=== PATIENT | female | born 1970 | race Caucasian/White ===

== ENCOUNTER 2017-04-19 07:38 | Observation (INO) | payer BC ==
[2017-04-12 09:19] VITALS: BMI 23.8
[~2017-04-19 07:38] MED LIST: DEXAMETHASONE SOD PHOSPHATE 10 MG/ML 1 ML VIAL IV ONE; LACTATED RINGERS 1,000 ML IV SCH; MIDAZOLAM 2 MG/2 ML VIAL IV PRN; ONDANSETRON 4 MG/2 ML VIAL IVP ONE; Pre Op ABX Message 1 EACH MISC MISCELLANE ONE; SCOPOLAMINE 1.5MG/72HR PATCH TRANSDERM ONE
[2017-04-19] MEDS ORDERED: HEPARIN SODIUM,PORCINE 5,000 UNIT/ML 1 ML VIAL SQ ONE (08:03)
[2017-04-19] MEDS ORDERED: ceFAZolin 2,000 MG in SODIUM CHLORIDE 0.9% 100 ML IVPB ONE (08:15)
[2017-04-19] MEDS ORDERED: LIDOCAINE 1% 20 ML VIAL (10MG/ML) FOR IV START INTRADERMA ONE (08:25)
[2017-04-19] MEDS ORDERED: ceFAZolin 1,000 MG in DEXTROSE/WATER 1 50ML.BAG IVPB STA (08:30)
[2017-04-19] MEDS ORDERED: ceFAZolin 2 GM in SODIUM CHLORIDE 0.9% 100 ML IVPB ONE (08:45)
[2017-04-19] MEDS ORDERED: ONDANSETRON 4 MG/2 ML VIAL ONE (09:15)
[2017-04-19] MEDS ORDERED: fentaNYL (PF) 50 MCG/ML 2 ML AMP ONE (09:15)
[2017-04-19] MEDS ORDERED: MIDAZOLAM 2 MG/2 ML VIAL ONE (09:15)
[2017-04-19] MEDS ORDERED: HYDROmorphone (PF) 1 MG/ML ONE (09:15)
[2017-04-19] MEDS ORDERED: PHENYLEPHRINE-0.9% NACL SYG 1 MG/10 ML SYRINGE ONE (09:15)
[2017-04-19] MEDS ORDERED: PROPOFOL 10 MG/ML 20 ML VIAL IV ONE (09:15)
[2017-04-19] MEDS ORDERED: SUCCINYLCHOLINE CHLORIDE 100 MG/5 ML SYR IV ONE (09:15)
[2017-04-19] MEDS ORDERED: LABETALOL 5 MG/ML VIAL MDV ONE (09:15)
[2017-04-19] MEDS ORDERED: ONDANSETRON 4 MG/2 ML VIAL IVP PRN (11:44)
[2017-04-19] MEDS ORDERED: NALOXONE 0.4 MG/ML 1 ML VIAL IV PRN (11:44)
--- NOTE | 2017-04-19 11:44 | P.OP ---
Date of Procedure: 04/19/17 Preoperative Diagnosis: Left breast cancer with known positive left axillary lymph node Postoperative Diagnosis: Same Procedure(s) Performed: Bilateral mastectomy with left axillary node dissection, and immediate implant reconstruction Implants: Implants placed by Dr. Weems Anesthesia: OLIVIER Surgeon: Nai Wagoner Estimated Blood Loss (ml): 25 Pathology: other (Bilateral breast, left axillary contents) Condition: stable Disposition: PACU Indications for Procedure: Left breast cancer Operative Findings: Bilateral dense breast tissue, dense axillary tissue with palpable axillary lymph nodes Description of Procedure: Patient is a 47-year-old white female with a history of left breast cancer treated by neoadjuvant chemotherapy. She wishes for bilateral mastectomy and reconstruction. She is a former smoker and realizes she is at increased risk for complications related to reconstruction however wishes to proceed. She has had conversation at length with Dr. Tapia with respect to this. Patient was taken to the operating room and following induction of general anesthesia both breasts and left axilla were prepped and draped in a sterile fashion. The breasts were marked by Dr. Tapia plastic surgery prior to operative intervention. The right breast was approached through a skin sparing circumareolar incision. Incision was carried down through the skin and subcutaneous tissue to the breast tissue. Circumferential skin flaps were developed superiorly to the level of the clavicle medially to the sternum, inferiorly and laterally. The breast was then taken from the fascia on the pectoralis major muscle. Following this after assured that hemostasis was attained the wound was well irrigated. Additional inferolateral tissue was removed. After assured that hemostasis was attained was packed and the approach the left breast. Again circumareolar incision was made and skin flaps were developed superiorly to the level of the clavicle, inferiorly to the chest wall the sternum and laterally towards the axilla. The breast was then taken down from its fascial attachments to the pectoralis major muscle. After assured that hemostasis was attained the wound was well irrigated. And the left axilla was then approached Incision was made in the left axilla. Superior skin flap was developed. The pectoralis major muscle was identified as was the area of the pectoralis minor muscle and followed superiorly to the axillary vein. The axillary contents were noted to be somewhat inflamed. The thoracodorsal and long thoracic nerves were identified and preserved. The axillary contents were swept inferiorly preserving intercostal brachial nerves as possible. After assured that hemostasis was attained a PRETTY drain was placed. The deep tissues were closed using 3-0 Vicryl suture. This was followed by closure of the skin with 4-[address]ocryl. At this point Dr. Tapia came in to do the reconstruction.
[2017-04-19] MEDS ORDERED: ALBUTEROL NEBULIZED 2.5 MG/3 ML INHALATION ONE (12:20)
[2017-04-19] MEDS: HYDROmorphone 1 MG/ML 1 ML SYRINGE IVP PRN ×3 (13:40→14:48)
[2017-04-19] MEDS: HYDROcodone/APAP 5-325MG 1 EACH TAB PO PRN (14:01)
[2017-04-19] MEDS ORDERED: LACTATED RINGERS 1,000 ML IV ONE (14:28)
[2017-04-19] MEDS: HEPARIN SODIUM,PORCINE 5,000 UNIT/ML 1 ML VIAL SQ SCH (16:58)
[2017-04-19] MEDS: DEXTROSE 5%-0.45% NACL 1,000 ML IV SCH (16:58)
[2017-04-19] MEDS: ceFAZolin 1,000 MG in DEXTROSE/WATER 1 50ML.BAG IVPB SCH ×2 (16:58→21:11)
[2017-04-19] MEDS: HYDROmorphone 1 MG/ML 1 ML SYRINGE IV PRN ×2 (16:59→21:13)
[2017-04-19] MEDS: FAMOTIDINE 20 MG TAB PO SCH (21:11)
[2017-04-20] MEDS: HYDROmorphone 1 MG/ML 1 ML SYRINGE IV PRN ×3 (00:07→05:55)
[2017-04-20] MEDS: HEPARIN SODIUM,PORCINE 5,000 UNIT/ML 1 ML VIAL SQ SCH ×4 (00:08→23:14)
[2017-04-20] MEDS ORDERED: ALBUTEROL NEBULIZED 2.5 MG/3 ML INHALATION PRN (02:44)
[2017-04-20] MEDS: ceFAZolin 1,000 MG in DEXTROSE/WATER 1 50ML.BAG IVPB SCH ×4 (03:07→21:48)
[2017-04-20] MEDS: DEXTROSE 5%-0.45% NACL 1,000 ML IV SCH ×3 (03:07→22:03)
[2017-04-20] MEDS ORDERED: OFIRMEV PER PHARMACY MISCELLANE PRN (06:42)
[2017-04-20] MEDS ORDERED: ACETAMINOPHEN IV (For NPO) 1,000 MG in EMPTY BAG 1 BAG IVPB PRN (06:43)
[2017-04-20] MEDS: HYDROmorphone 1 MG/ML 1 ML SYRINGE IVP PRN ×5 (06:53→21:49)
--- NOTE | 2017-04-20 09:40 | P.CNPUL ---
History of Present Illness Consult date: 04/20/17 Requesting physician: Nai Wagoner Reason for consult: asthma Chief complaint: shortness of breath History of present illness: This is a pleasant 47-year-old female being seen, examined and evaluated today on the sixth floor. This patient is known to our office and our services. The patient was recently had bilateral breast mastectomy with left axillary lymph node dissection as well as implant reconstruction on 04/19/2017. She previously completed 8 rounds of chemotherapy. The patient states that a few days prior to surgery she did have complaints of a postnasal drip with cough and congestion. She states that after the surgery was completed her asthma flaredup in her cough and congestion increased. Patient states she has been blowing yellow and green drainage out of her nose. Her head feels congested. Her cough is productive however she is unable to adequately cough to bring up secretions due to pain from surgery. She has been afebrile. Appetite has been good. She does take DuoNeb at home. Patient is currently resting up in bed on supplemental oxygen, the patient does not use oxygen at home. The patient does have a past medical history significant for breast cancer, chronic persistent moderate asthma, COPD, anxiety and depression. Review of Systems 14 point review of systems was completed and is negative other than what is noted above Past Medical History Past Medical History: Asthma, Cancer, COPD Additional Past Medical History / Comment(s): breast ca, has finished 8 chemo tx , Hx of CLL, states always has elevated WBC's History of Any Multi-Drug Resistant Organisms: None Reported Past Surgical History: Orthopedic Surgery Additional Past Surgical History / Comment(s): right hand thumb tendon sx. pilinoidal cyst removed, lung bx Past Anesthesia/Blood Transfusion Reactions: No Reported Reaction Past Psychological History: Anxiety, Depression, Panic Disorder Smoking Status: Former smoker - Past Family History Mother Family Medical History: Cancer, Deep Vein Thrombosis (DVT) Additional Family Medical History / Comment(s): leukemia Medications and Allergies Home Medications Medication Instructions Recorded Confirmed Type Albuterol Sulfate [Ventolin HFA] 2 puff INHALATION RT-Q4H PRN 04/12/17 04/20/17 History Ipratropium-Albuterol Nebulize 3 ml INHALATION RT-Q6H PRN 04/12/17 04/20/17 History [Duoneb 0.5 mg-3 mg/3 ml Soln] Nicotine 21Mg/24Hr Patch [Habitrol 1 patch TRANSDERM DAILY 04/12/17 04/20/17 History 21Mg/24Hr Patch] clonazePAM [KlonoPIN] 0.5 mg PO DAILY PRN 04/12/17 04/20/17 History Allergies Allergy/AdvReac Type Severity Reaction Status Date / Time No Known Allergies Allergy Verified 04/19/17 08:04 Physical Exam Vitals: Vital Signs Temp Pulse Pulse Resp BP Pulse Ox 04/20/17 03:30 97.3 F L 92 18 121/79 94 L 04/20/17 00:00 98.7 F 88 20 120/80 92 L 04/19/17 20:10 97.0 F L 86 16 148/90 96 04/19/17 19:18 74 16 152/88 96 04/19/17 18:18 93 16 134/86 94 L 04/19/17 17:18 103 H 16 141/90 94 L 04/19/17 16:38 103 H 16 161/95 94 L 04/19/17 16:08 83 16 132/76 96 04/19/17 15:53 102 H 16 134/93 91 L 04/19/17 15:39 103 H 14 129/90 92 L 04/19/17 15:29 97.5 F L 103 H 16 132/89 93 L 04/19/17 14:45 98 16 144/76 94 L 04/19/17 14:30 96 16 144/85 93 L 04/19/17 14:15 97 18 149/89 92 L 04/19/17 14:00 104 H 18 152/92 94 L 04/19/17 13:45 102 H 16 135/90 91 L 04/19/17 13:30 100 20 140/89 95 04/19/17 13:15 116 H 20 144/82 88 L 04/19/17 13:02 98.8 F 131 H 16 155/93 Intake and Output 04/19/17 04/20/17 04/20/17 22:59 06:59 14:59 Intake Total 800 Output Total 120 140 Balance -120 660 Intake: Intake, IV Titration 800 Amount Dextrose 5%-0.45% NaCl 1, 800 000 ml @ 100 mls/hr IV . Q10H [facility] Rx#:[id number] Output: Drainage 120 140 Left Lower Chest 30 30 Left Upper Chest 40 50 Right Lower Chest 50 60 Other: # Voids 2 1 GENERAL EXAM: Alert, active, comfortable in no apparent distress. HEAD: Normocephalic. EYES: Normal reaction of pupils, equal size. NOSE: Clear drainage present with pink turbinates. THROAT: No erythema or exudates. NECK: No masses, no JVD. CHEST: No chest wall deformity. 2 PRETTY drains present, draining serosanguineous fluid. LUNGS: Lungs noted to be coarse, rhonchi and wheezes scattered throughout bilaterally. CVS: S1 and S2 normal with no audible mumurs, regular rhythm. ABDOMEN: No hepatosplenomegaly, normal bowel sounds, no guarding or rigidity. EXTREMITIES: No edema noted, pedal pulses palpable. SKIN: No rashes CENTRAL NERVOUS SYSTEM: No focal deficits, tone is normal in all 4 extremities. Assessment and Plan Plan: Assessment Status post bilateral mastectomy Acute exacerbation of chronic persistent moderate asthma Acute sinusitis Chronic obstructive pulmonary disease History of breast cancer Plan Medications have been reviewed and will be continued as ordered. We will add DuoNeb and budesonide nebulizer treatments. We will add IV steroids for a quick steroid burst, may switch to oral tomorrow. Obtain a chest x-ray. Continue with pulmonary hygiene, coughing and deep breathing exercises, and supportive care. May utilize supplemental oxygen to maintain oxygen saturations of 92% or better if necessary. Encourage incentive spirometer. Encourage ambulation. GI and DVT prophylaxis. We will continue to monitor labs/ results and adjust treatment as necessary. Further recommendations pending. I performed an examination of the patient and discussed their management with the nurse practitioner. I have reviewed the nurse practitioner's note and agree with the documented findings and plan of care.
--- NOTE | 2017-04-20 09:53 | XR ---
EXAMINATION TYPE: XR chest 2V DATE OF EXAM: 04/20/2017 COMPARISON: NONE HISTORY: Shortness of breath TECHNIQUE: Frontal and lateral views of the chest are obtained. FINDINGS: There is bilateral mastectomy with beverage steward is in drains in place. Small pleural effusions are seen bilaterally with probable underlying atelectasis. Developing infiltr ates would be difficult to exclude. No evidence for pneumothorax. No pleural effusion. The cardiac silhouette size is within normal limits. The osseous structures are grossly intact. IMPRESSION: 1. Small pleural effusions are seen bilaterally with probable underlying atelectasis. Developing inf iltrates would be difficult to exclude.
--- NOTE | 2017-04-20 10:02 | P.PN ---
Subjective 47-year-old female being seen and examined with the surgeon at the bedside this morning. Patient states that she's feels slightly short of breath this morning. has a history of COPD and uses a nebulizer at home. Patient is postop April 19 bilateral mastectomy with left axillary node dissection and immediate implant reconstruction for left breast cancer with positive left axillary lymph node. Implants were placed by Dr. thompson. This morning the patient is audibly wheezing is afebrile pulse ox sat on 3 L this morning 92-93%. Patient did have an episode yesterday afternoon pulse ox sat on room air did go down to 88% with pulmonary toileting using the incentive spirometer the patient's pulse ox sat was able to be titrated to keep greater than 90% no cough noted Objective - Vital Signs Vital signs: Vital Signs Temp 97.3 F L 04/20/17 03:30 Pulse 92 04/20/17 03:30 Resp 18 04/20/17 03:30 BP 121/79 04/20/17 03:30 Pulse Ox 94 L 04/20/17 03:30 Intake & Output 04/19/17 04/20/17 04/20/17 18:59 06:59 18:59 Intake Total 2100 800 Output Total 395 140 Balance 1705 660 Intake: IV 2100 Intake, IV Titration 800 Amount Dextrose 5%-0.45% NaCl 1, 800 000 ml @ 100 mls/hr IV . Q10H [facility] Rx#:[id number] Output: Drainage 120 140 Left Lower Chest 30 30 Left Upper Chest 40 50 Right Lower Chest 50 60 Urine 240 Estimated Blood Loss 35 Other: # Voids 1 - Exam GENERAL APPEARANCE: 47-year-old female patient is alert, oriented, in no acute distress. VITAL SIGNS: Reviewed HEENT: Head is normocephalic and atraumatic. Pupils are equal and reactive. The nares are patent. Oropharynx is clear without lesions. NECK: Supple without lymphadenopathy. Traches midline. Breast 2 PRETTY drains in the left breast 1 PRETTY drain in the right breast serous drainage noted dressings to the surgical site dry support bra in place HEART: S1, S2. Regular rate and rhythm. Denying chest LUNGS: Diminished at the bases upper airways coarse rhonchi with bilateral wheezing noted throughout ABDOMEN: Soft, nontender, nondistended with good bowel sounds. No peritoneal signs. No palpable organomegaly or masses. EXTREMITIES: Normal skin color and turgor. No cyanosis, rash, ulceration, clubbing or edema. Radial pedal pulses are 2/4 bilaterally. NEUROLOGICAL: No focal deficits. Strength and sensation are grossly intact. Assessment and Plan Plan: Impression Acute exacerbation of chronic persistent moderate asthma Acute exacerbation COPD Acute sinusitis Bilateral mastectomy with left axillary node dissection and immediate implant reconstruction done on April 19 for left breast cancer with known positive left axillary lymph node Seasonal ALLERGIES plan Consult pulmonary for eval Increase activity Pain control Nebulizer aerosol bronchodilators as ordered Increase use of incentive spirometer Claritin for seasonal ALLERGIES and sinusitis Prepped for probable discharge in the next 24 hours The above impression and plan of care have been discussed and directed by signing physician. Apurva Guevara nurse practitioner acting as scribe for signing physician.
[2017-04-20] MEDS: FAMOTIDINE 20 MG TAB PO SCH ×2 (10:09→21:48)
[2017-04-20] MEDS: KETOROLAC 30 MG/ML 1 ML VIAL IVP SCH ×3 (10:39→23:14)
[2017-04-20] MEDS: HYDROcodone/APAP 5-325MG 1 EACH TAB PO PRN ×2 (10:40→15:16)
[2017-04-20 10:54] VITALS: RESP 20
[2017-04-20] MEDS ORDERED: IPRATROPIUM-ALBUTEROL 3 ML NEB INHALATION PRN (10:54)
--- NOTE | 2017-04-20 11:05 | P.CONS ---
History of Present Illness - Reason for Consult Consult date: 04/20/17 Medical management - History of Present Illness This is a 47-year-old female patient of Dr. Jaramillo with past medical history of left breast cancer status post chemotherapy followed by Dr. Devine. History of CLL and COPD. Patient has been brought into the hospital on the care of Dr. Erasmo Toussaint and Dr. Cook for bilateral mastectomy with left axillary node dissection and immediate implant reconstruction completed on 04/19. Patient has been afebrile and hemodynamically stable. Blood pressures are running on the high side with no previous history of hypertension. Pulse ox is currently 94% on room air. She is complaining of wheezing and followed by Dr. Chaudhari. Pulmicort was added. She ate regular diet for breakfast. No nausea or vomiting. She has not had bowel movement. She is urinating without difficulty. Patient encouraged to use IS. Review of Systems All systems: negative Constitutional: Denies chills, Denies fever Eyes: denies blurred vision, denies pain Ears, nose, mouth and throat: Denies headache, Denies sore throat Breasts: bilateral: pain Cardiovascular: Denies chest pain, Denies shortness of breath Respiratory: Reports wheezing, Denies cough Gastrointestinal: Denies abdominal pain, Denies diarrhea, Denies nausea, Denies vomiting Genitourinary: Denies dysuria, Denies hematuria Musculoskeletal: Denies myalgias Integumentary: Denies pruritus, Denies rash Neurological: Denies numbness, Denies weakness Psychiatric: Denies anxiety, Denies depression Endocrine: Denies fatigue, Denies weight change Past Medical History Past Medical History: Cancer, COPD Additional Past Medical History / Comment(s): left breast ca, has finished 8 chemo tx, Hx of CLL History of Any Multi-Drug Resistant Organisms: None Reported Past Surgical History: Orthopedic Surgery Additional Past Surgical History / Comment(s): right hand thumb tendon sx. pilinoidal cyst removed, lung bx, bilateral mastecomy Past Anesthesia/Blood Transfusion Reactions: No Reported Reaction Past Psychological History: Anxiety, Depression, Panic Disorder Smoking Status: Former smoker Additional Past Alcohol Use History / Comment(s): She was a smoker of 2 packs per day for 20 years and quit in March 2017. No history of drug abuse. Occasional alcohol use. - Past Family History Mother Family Medical History: Cancer, Deep Vein Thrombosis (DVT) Additional Family Medical History / Comment(s): in her 60s with history of dementia, chronic back pain, "preleukemia." Father Additional Family Medical History / Comment(s): Father is alive at age 72 with history of diabetes. Brother(s) Additional Family Medical History / Comment(s): Patient has 2 brothers with no major medical problems. Patient has 1 sister with no major medical problems. Patient does not have any children. Medications and Allergies Home Medications Medication Instructions Recorded Confirmed Type Albuterol Sulfate [Ventolin HFA] 2 puff INHALATION RT-Q4H PRN 04/12/17 04/20/17 History Ipratropium-Albuterol Nebulize 3 ml INHALATION RT-Q6H PRN 04/12/17 04/20/17 History [Duoneb 0.5 mg-3 mg/3 ml Soln] Nicotine 21Mg/24Hr Patch [Habitrol 1 patch TRANSDERM DAILY 04/12/17 04/20/17 History 21Mg/24Hr Patch] clonazePAM [KlonoPIN] 0.5 mg PO DAILY PRN 04/12/17 04/20/17 History Allergies Allergy/AdvReac Type Severity Reaction Status Date / Time No Known Allergies Allergy Verified 04/19/17 08:04 Physical Exam Vitals: Vital Signs Temp Pulse Pulse Resp BP Pulse Ox 04/20/17 03:30 97.3 F L 92 18 121/79 94 L 04/20/17 00:00 98.7 F 88 20 120/80 92 L 04/19/17 20:10 97.0 F L 86 16 148/90 96 04/19/17 19:18 74 16 152/88 96 04/19/17 18:18 93 16 134/86 94 L 04/19/17 17:18 103 H 16 141/90 94 L 04/19/17 16:38 103 H 16 161/95 94 L 04/19/17 16:08 83 16 132/76 96 04/19/17 15:53 102 H 16 134/93 91 L 04/19/17 15:39 103 H 14 129/90 92 L 04/19/17 15:29 97.5 F L 103 H 16 132/89 93 L 04/19/17 14:45 98 16 144/76 94 L 04/19/17 14:30 96 16 144/85 93 L 04/19/17 14:15 97 18 149/89 92 L 04/19/17 14:00 104 H 18 152/92 94 L 04/19/17 13:45 102 H 16 135/90 91 L 04/19/17 13:30 100 20 140/89 95 04/19/17 13:15 116 H 20 144/82 88 L 04/19/17 13:02 98.8 F 131 H 16 155/93 Intake and Output 04/19/17 04/20/17 04/20/17 22:59 06:59 14:59 Intake Total 800 Output Total 120 140 Balance -120 660 Intake: Intake, IV Titration 800 Amount Dextrose 5%-0.45% NaCl 1, 800 000 ml @ 100 mls/hr IV . Q10H [facility] Rx#:[id number] Output: Drainage 120 140 Left Lower Chest 30 30 Left Upper Chest 40 50 Right Lower Chest 50 60 Other: # Voids 2 1 Gen: This is a 47-year-old female. She is sitting up in bed and appears to be in no acute distress. HEENT: Head is atraumatic, normocephalic. Pupils equal, round. Sclerae is anicteric. NECK: Supple. No JVD. No lymphadenopathy. No thyromegaly. LUNGS: Bilateral wheezes and rhonchi. No intercostal retractions. HEART: Regular rate and rhythm. No murmur. Dressing and PRETTY drains in place to the bilateral breasts. ABDOMEN: Soft. Bowel sounds are present. No masses. No tenderness. EXTREMITIES: No pedal edema. No calf tenderness. NEUROLOGICAL: Patient is awake, alert and oriented x3. Cranial nerves 2 through 12 are grossly intact. Assessment and Plan Plan: 1. Left breast cancer with positive left axillary lymph node status post bilateral mastectomy with left axillary node dissection and immediate implant reconstruction. Continue postop management by general surgeon. Continue incentive spirometry to reduce incidence of atelectasis and hospital-acquired pneumonia. Patient has both [place] and Dilaudid available for pain. Continue Zofran as needed for nausea. 2. COPD exacerbation. DuoNeb treatments scheduled 3 times daily and as needed, Pulmicort 0.[address] Chaudhari is on consult. 3. Tobacco use and dependence. 4. Generalized anxiety disorder. Clonazepam will be resumed. 5. Tobacco use and dependence. Nicotine patch will be continued.. 6. DVT prophylaxis. Continue heparin subcu. 7. Gastric intestinal prophylaxis. Continue Pepcid. Discharge plan: Patient plans to return home Impression and plan of care have been directed as dictated by the signing physician. Gege Benton nurse practitioner acting as scribe for signing physician.
[2017-04-20] MEDS: BUDESONIDE 0.5 MG/2 ML NEBU INHALATION SCH ×2 (11:10→20:41)
[2017-04-20] MEDS ORDERED: clonazePAM 0.5 MG TAB PO PRN (11:15)
[2017-04-20] MEDS ORDERED: methylPREDNISolone SOD SUCCI 125 MG/2 ML VIAL IV SCH (12:00)
[2017-04-20] MEDS: NICOTINE 21MG/24HR PATCH TRANSDERM SCH (12:12)
[2017-04-20] MEDS: LORATADINE 10 MG TAB PO SCH (12:12)
[2017-04-20] MEDS: IPRATROPIUM-ALBUTEROL 3 ML NEB INHALATION SCH ×2 (13:49→20:41)
[2017-04-21] MEDS: HYDROmorphone 1 MG/ML 1 ML SYRINGE IVP PRN (01:03)
[2017-04-21] MEDS: ceFAZolin 1,000 MG in DEXTROSE/WATER 1 50ML.BAG IVPB SCH ×2 (03:15→08:23)
[2017-04-21] MEDS: HYDROcodone/APAP 5-325MG 1 EACH TAB PO PRN ×3 (03:19→11:15)
[2017-04-21] MEDS: KETOROLAC 30 MG/ML 1 ML VIAL IVP SCH ×2 (06:54→12:17)
--- NOTE | 2017-04-21 08:11 | P.DS ---
Providers Date of admission: 04/20/17 01:18 Expected date of discharge: 04/21/17 Attending physician: Nai Wagoner Consults: 04/20/17 06:58 Consult Physician Urgent Consulting Provider: Mabel Aragon Consult Reason/Comments: Medical management post mastectomy respiratory issues Do you want consulting provider notified?: Yes, Notify in am 04/20/17 08:38 Consult Physician Urgent Consulting Provider: Joey Chaudhari Consult Reason/Comments: post jose mastectomy, respiratory congestion, wheezing, hx asthma Do you want consulting provider notified?: Yes Primary care physician: [facility] Course: Patient is postop April 19 bilateral mastectomy with left axillary node dissection and immediate implant reconstruction for left breast cancer with positive left axillary lymph node. Implants were placed by Dr. thompson. the patient postop had an episode of audibly wheezing was afebrile pulse ox sat on room air did go down to 88%. With pulmonary toileting and the use of the incentive spirometer and starting DuoNeb respiratory treatments the oxygen was able to be titrated back up and on room air the sats were 92-95% patient states that she does have episodes of wheezing at home does have a nebulizer at home but is 1 out of the medication. Is a former smoker. Used to smoke 2 packs a day greater than a 20 year history quit in March 2017 patient was seen on the with pulmonary Dr. Chaudhari service lungs are clear there were no wheezing patient was able to ambulate from the bed to bathroom gait was steady. Patient was felt to be hemodynamically stable and appropriate to proceed with a discharge home. Patient is known to Dr. Chaudhari service be seen in the office on April 22 Impression Acute exacerbation of chronic persistent moderate asthma Acute exacerbation COPD Acute sinusitis Bilateral mastectomy with left axillary node dissection and immediate implant reconstruction done on April 19 for left breast cancer with known positive left axillary lymph node Seasonal ALLERGIES History of tobacco abuse greater than a 20 year history 1 pack a day quit in March 2017 Anxiety nonspecified Chronic persistent moderate asthma Chronic persistent moderate COPD Chest x-ray postop suspect atelectasis The above impression and plan of care have been discussed and directed by signing physician. Apurva Guevara nurse practitioner acting as scribe for signing physician. Plan - Discharge Summary New Discharge Prescriptions: New Cephalexin [Keflex] 500 mg PO Q8HR #30 cap Nicotine 21Mg/24Hr Patch [Habitrol] 1 patch TRANSDERM DAILY #30 patch Ipratropium-Albuterol Nebulize [Duoneb 0.5 mg-3 mg/3 ml Soln] 3 ml INHALATION QID #120 neb Continue clonazePAM [KlonoPIN] 0.5 mg PO DAILY PRN PRN Reason: Anxiety Ipratropium-Albuterol Nebulize [Duoneb 0.5 mg-3 mg/3 ml Soln] 3 ml INHALATION RT-Q6H PRN PRN Reason: Shortness Of Breath Albuterol Sulfate [Ventolin HFA] 2 puff INHALATION RT-Q4H PRN PRN Reason: Shortness Of Breath Nicotine 21Mg/24Hr Patch [Habitrol] 1 patch TRANSDERM DAILY #30 Discharge Medication List Albuterol Sulfate [Ventolin HFA] 2 puff INHALATION RT-Q4H PRN 04/12/17 [History] Ipratropium-Albuterol Nebulize [Duoneb 0.5 mg-3 mg/3 ml Soln] 3 ml INHALATION RT -Q6H PRN 04/12/17 [History] clonazePAM [KlonoPIN] 0.5 mg PO DAILY PRN 04/12/17 [History] Cephalexin [Keflex] 500 mg PO Q8HR #30 cap 04/21/17 [Rx] Ipratropium-Albuterol Nebulize [Duoneb 0.5 mg-3 mg/3 ml Soln] 3 ml INHALATION QID #120 neb 04/21/17 [Rx] Nicotine 21Mg/24Hr Patch [Habitrol] 1 patch TRANSDERM DAILY #30 04/21/17 [Rx] Nicotine 21Mg/24Hr Patch [Habitrol] 1 patch TRANSDERM DAILY #30 patch 04/21/17 [ Rx] Follow up Appointment(s)/Referral(s): Joey Chaudhari MD [STAFF PHYSICIAN] - 04/22/17 Nai Wagoner MD [STAFF PHYSICIAN] - 1 Week Pia Jaramillo MD [Primary Care Provider] - 1 Week Activity/Diet/Wound Care/Special Instructions: Instructions on care of [place] drains May shower No lifting over 10 pounds No submersion in water i.e. swimming pool, hot tub or rosales until seen by Dr. jose Toussaint in the office May return to work after seen by Dr. Zimmerman in the office Discharge Disposition: HOME SELF-CARE
--- NOTE | 2017-04-21 08:19 | XR ---
EXAMINATION TYPE: XR chest 1V portable DATE OF EXAM: 04/21/2017 Comparison: 04/20/2017 Clinical History: 47-year-old female with pleural effusion Findings: The heart is normal size. Some patchy retrocardiac opacity is similar. Right anterior chest wall inje ction port with catheter tip at the mid SVC level. On the vasculature within normal limits. Changes o f bilateral mastectomies with surgical drains and breast expanders in place. Minimal bibasilar densit ies relatively similar to prior. The previous effusions and adjacent opacity is better seen on the la teral view. Impression: Trace effusions with adjacent atelectasis and/or consolidation may remain. These were seen on the lat eral view on the prior exam. Patchy retrocardiac density remains.
[2017-04-21] MEDS: HEPARIN SODIUM,PORCINE 5,000 UNIT/ML 1 ML VIAL SQ SCH (08:25)
[2017-04-21] MEDS: NICOTINE 21MG/24HR PATCH TRANSDERM SCH (08:30)
[2017-04-21] MEDS: FAMOTIDINE 20 MG TAB PO SCH (08:30)
[2017-04-21] MEDS: LORATADINE 10 MG TAB PO SCH (08:30)
[2017-04-21] MEDS: BUDESONIDE 0.5 MG/2 ML NEBU INHALATION SCH (08:31)
[2017-04-21] MEDS: IPRATROPIUM-ALBUTEROL 3 ML NEB INHALATION SCH (08:31)
[2017-04-21 08:34] VITALS: BP 98/57; TEMP 97.8
[2017-04-21 11:20] VITALS: PULSE 96
--- NOTE | 2017-04-22 16:15 | OP ---
DATE OF SURGERY: 04/19/2017 SURGEON: JAY JAY VORA M.D. PREOPERATIVE DIAGNOSES: 1. Invasive breast cancer left breast. 2. Acquired loss right and left breast. POSTOPERATIVE DIAGNOSES: 1. Invasive breast cancer left breast. 2. Acquired loss right and left breast. OPERATIVE PROCEDURE: 1. Immediate reconstruction right breast following mastectomy with insertion of tissue daytime caregiver and subsequent outpatient expansion. 2. Immediate reconstruction left breast following mastectomy with insertion of tissue daytime caregiver and subsequent outpatient expansion. 3. Implantation of reconstructive graft for right and left breast reconstruction, 300 square centimeters. OPERATIVE INDICATIONS: The patient is a 47 year old female with invasive cancer of the left breast who has undergone presurgical chemotherapy and was referred to my office for breast reconstruction purposes. The patient was counselled potential options for breast reconstruction including no reconstruction at this time, use of bra with mammary prosthesis, as well as surgical reconstruction techniques including tissue expansion and reconstructive flaps style surgery. The patient understands there are significant and potential risks and complications related to breast reconstructive surgery and that she does have risks for wound healing problems related to her past habitual tobacco use. She has recently stopped. After thoughtful evaluation, she has elected to proceed with a tissue daytime caregiver style reconstruction technique. She understands this technique is performed in a staged fashion and if she does require postoperative radiation treatment, delay in reconstruction will occur and it may also make tissue daytime caregiver reconstruction not possible. Despite these potential risks and complications and problems mentioned among others, she has elected to proceed with breast reconstructive surgery via tissue daytime caregiver technique following today's mastectomy procedures. OPERATIVE PROCEDURE SUMMARY: The patient was seen in presurgical area, markings made, procedure reviewed. All questions were answered. She was transported to the operating room where general endotracheal anesthesias was established. The patient was supine on the operating room table. She was prepped and draped in the usual fashion. All surgery was performed under Loupe magnification. Dr. Campos and her surgical team then proceeded with a right simple mastectomy, left mastectomy and left axillary lymph node dissection. Once these procedures were completed, I then entered the procedure. Sponge and needle counts from prior procedures were correct. Both mastectomy wounds were opened. There was no active bleeding. The left axillary lymph node dissection plane was a separate incision. A 19 round Shad drain present and the site was closed by Dr. Campos. Surgery was initiated on the right sided after new instruments were obtained. The pectoral major muscle was identified ( ) in the chest wall in the lateral aspect and ( ) areolar connective tissue divided with cauterization here allowing entrance into the potential plane between the pectoralis major and minor muscles bluntly developed. Medial attachment fibers of the pectoralis major muscles of the ribs and all inferior attachments were released with cauterization. Inferiorly, additional muscle tissue was recruited to obtain sufficient size reconstructive plane. Inferomedially rectus abdominis muscle and fascia, inferolaterally, external ( ) oblique muscle and fascia, laterally serratus interior muscle and fascia were all elevated. There is some attenuation of the patient's muscle tissue and also some rents present. For the most part, the muscle tissue was thin although present and viable. Hemostasis was maintained with cautery during the dissection. The site was packed ope with moistened laparotomy sponges. Attention was turned towards the left side. The same portion of the procedure accomplished on the left identifying the pectoral major muscle ( ) the chest wall laterally and this areolar connective tissue was divided with cautery allowing entry into the potential plane between the pectoralis major and minor muscles which was first bluntly developed and then completed with cauterization releasing all medial attachment fibers of the pectoralis major muscle of the ribs with cautery and all inferior attachments with cautery as well. Inferomedially, rectus abdominis muscle and fascia inferolaterally, external abdominal oblique muscle and fascia and laterally serratus anterior muscle and fascia were all elevated to obtain a sufficient size submuscular reconstructive plane and in a symmetrical fashion to the right side. Hemostasis was maintained with cautery during dissection. Irrigation was performed on each side. The cavities were sized and checked for symmetry which was optimal. Gloves were now changed. Expanders opened onto the field. Both expanders were the same measuring 300 mL in volume from the cliniq.ly, reference number [id number]. The right sided serial number was [id number] and the left sided serial number was [id number]. The right sided device was opened first. Only handled by the surgeon with new gloves. All air was extracted. 25 mL 0.9 normal saline instilled and inserted into the reconstructive cavity deep to the muscle flap. The muscle flap accommodated the daytime caregiver, however, there were tears in the muscle flap and some exposure of the daytime caregiver at this point. The gloves were changed and the left sided daytime caregiver opened up onto the field. Again , the daytime caregiver was only handled by the surgeon. Irrigated with saline. All air extracted and then 25 mL of 0.9 normal saline instilled. It was inserted into the left reconstructive submuscular plane created. The muscle tissue did accommodate the daytime caregiver. However, there were tears and attenuation of this muscle flap tissue as well. Therefore, Surgimend reconstructive graft was opened. Two pieces, each measuring 10 x 15 cm thin and fenestrated. Once revitalized, and ( )saline, one piece was used for each side to buttress the weakened muscle flap tissue was well as expand the gap where the muscle flap tissue was not presented. Oriented inferior sling technique, the Surgimend was placed deep to the muscle flap tissue for overlapping purposes and the buttress effect and then expand the gap where the muscle flap tissue was now present on each side. Once the Surgimend was inserted on each side, and optimally positioned, Surgimend was then set to the muscle flap tissue using interrupted and short running 3-0 Vicryl sutures. complete coverage was obtained on each side. Additional irrigation was performed. Two #19 round Shad channel drains inserted, opened on the field, one of each placed on each mastectomy site over the muscle flap area and brought out through separate stab incisions in the right or left anterior lateral chest wall. Each drain was sutured into place with 2-0 Prolene. Drains were cut to appropriate length. The mastectomy wounds were now closed. Circumareolar mastectomies were performed. The mastectomy, open mastectomy wounds were closed in an pursestring fashion using 2 -0 Prolene and deep dermal pursestring style suture. With fine approximation, the deep dermis where necessary using inverted interrupted 4-0 Monocryl and then completing the skin level closure with interrupted bryant. Drains were connected to close bulb suction and patent. The surgical field was cleansed with saline, dried, postoperative bandages placed using 4 x 4's. Kerlix gauge secured with three Mediport tape. The patient was then awakened from her anesthetic, extubated and transferred to the recovery room in good condition with stable vital signs. There were no complications. [facility]OSPITALRosaura
== END 2017-04-21 12:48 | disposition home or self-care (01) ==
LOC: OR 07:38 → 6PED 13:02 → OR 04-20 01:18 → 6PED 04-20 01:18
PROVIDERS: ADMIT Surgery; ATTEND Surgery
DX: Z42.1 Encounter for breast reconstruction following mastectomy (principal); C50.912 Malignant neoplasm of unspecified site of left female breast; Z90.13 Acquired absence of bilateral breasts and nipples; J44.1 Chronic obstructive pulmonary disease with (acute) exacerbation; J01.90 Acute sinusitis, unspecified; J45.41 Moderate persistent asthma with (acute) exacerbation; J90 Pleural effusion, not elsewhere classified; R59.0 Localized enlarged lymph nodes; F41.0 Panic disorder [episodic paroxysmal anxiety]; F32.9 Major depressive disorder, single episode, unspecified; Z85.6 Personal history of leukemia; Z92.21 Personal history of antineoplastic chemotherapy; Z72.0 Tobacco use; Z83.3 Family history of diabetes mellitus; Z17.0 Estrogen receptor positive status [ER+]
CPT/HCPCS: 19307; 19303; 19357; 96365; 96366 ×2; 96367; 96375; 96376; 94640 ×3; 81025; 88342; 88307; 88309; 88341; 71010; 71020; G0378 ×2; C1789; C1763; S4990 ×2; J2250; J1644 ×3; J1100; J0690 ×4; J2405 ×2; J3010; J1885 ×2; J1170 ×3; J2370; J0330; J2704

== ENCOUNTER → 2017-11-02 | Outpatient (CLI) | payer BC ==
[2017-11-02 20:00] LABS: Basophils # (A) 0.1 k/uL (0-0.2); Basophils % (A) 1 %; Eosinophils # (A) 0.1 k/uL (0-0.7); Eosinophils % (A) 0 %; HCT 49.9 % (34.0-46.0); HGB 16.9 gm/dL (11.4-16.0); Lymphocytes # (A) 3.4 k/uL (1.0-4.8); Lymphocytes % (A) 24 %; MCH 34.4 pg (25.0-35.0); MCHC 33.8 g/dL (31.0-37.0); MCV 101.7 fL (80.0-100.0); Macrocytosis Slight; Monocytes # (A) 0.7 k/uL (0-1.0); Monocytes % (A) 5 %; Neutrophils # (A) 9.6 k/uL (1.3-7.7); Neutrophils % (A) 68 %; Platelet Count 249 k/uL (150-450); RBC 4.91 m/uL (3.80-5.40); WBC 14.1 k/uL (3.8-10.6)
== END | disposition home or self-care (01) ==
LOC: MMGSC 11:06
PROVIDERS: ATTEND Family Medicine
DX: J96.90 Respiratory failure, unspecified, unspecified whether with hypoxia or hypercapnia (principal); J18.9 Pneumonia, unspecified organism
CPT/HCPCS: 36415; 85025

== ENCOUNTER → 2020-02-27 | Outpatient (CLI) | payer BC | END | disposition home or self-care (01) | LOC: LABWHC1 12:26 | PROVIDERS: ATTEND Family Medicine | DX: R05 Cough (principal) | CPT/HCPCS: 87635 ==

== ENCOUNTER 2020-07-30 07:39 | Inpatient (IN) | payer BC ==
[2020-07-30] MEDS ORDERED: IPRATROPIUM-ALBUTEROL 3 ML NEB INHALATION STA (08:01)
[2020-07-30] MEDS ORDERED: SODIUM CHLORIDE 0.9% 500 ML 500 ML IV STA (08:01)
--- NOTE | 2020-07-30 08:09 | ED ---
General Adult HPI <Primo Toussaint - Last Filed: 07/30/20 10:34> - General Source: patient, RN notes reviewed Mode of arrival: ambulatory Limitations: no limitations <Pio Avendano - Last Filed: 07/30/20 10:39> - General Chief complaint: Shortness of Breath Stated complaint: dizziness, lt arm tingling Time Seen by Provider: 07/30/20 07:51 - History of Present Illness Initial comments: This a 50-year-old female presents emergency Department with multiple complaints. Patient complains that she's been having shortness of breath, difficulty with her throat and neck region. Patient states that she does have a history of breast cancer in 2017 with bilateral mastectomy, radiation, chemotherapy. Patient states that she never followed after. Patient states she does have after her mastectomy. Patient states that she's been having increasing dizziness with certain movements has not went headache at this time. Patient states that she does have a history of asthma as a daily smoker. She has been noticing that she's had increased congestion and slight epigastric abdominal pain. She's had intermittent leg swelling no calf pain. No history DVT or PE. She has notany fevers or chills. Patient also complains of low back pain after a dizzy spell in which she fell. She was not evaluated for back pain she has had a recent CAT scan after a fall. Patient's denies any bowel incontinence. Patient states she's had some difficulty urinating which she states she is painful and felt hesitant but states that she has no difficulty going currently. Patient is able to ambulate with no assistive walking devices. Patient states she occasionally has some pain that radiates into her legs occasional paresthesias but not currently. (Pio Avendano) - Related Data Home Medications Medication Instructions Recorded Confirmed Albuterol Sulfate [Ventolin HFA] 2 puff INHALATION RT-Q4H PRN 04/12/17 07/30/20 Ipratropium-Albuterol Nebulize 3 ml INHALATION RT-Q6H PRN 04/12/17 07/30/20 [Duoneb 0.5 mg-3 mg/3 ml Soln] clonazePAM [KlonoPIN] 0.5 mg PO DAILY PRN 04/12/17 07/30/20 Allergies Allergy/AdvReac Type Severity Reaction Status Date / Time No Known Allergies Allergy Verified 07/30/20 08:59 Review of Systems ROS Other: All systems not noted in ROS Statement are negative. <Primo Toussaint - Last Filed: 07/30/20 10:34> ROS Other: All systems not noted in ROS Statement are negative. <Pio Avendano - Last Filed: 07/30/20 10:39> ROS Statement: Those systems with pertinent positive or pertinent negative responses have been documented in the HPI. Past Medical History Past Medical History: Cancer, COPD Additional Past Medical History / Comment(s): left breast ca, has finished 8 chemo tx, Hx of CLL History of Any Multi-Drug Resistant Organisms: None Reported Past Surgical History: Orthopedic Surgery Additional Past Surgical History / Comment(s): right hand thumb tendon sx. pilinoidal cyst removed, lung bx, bilateral mastecomy Past Anesthesia/Blood Transfusion Reactions: No Reported Reaction Past Psychological History: Anxiety, Depression, Panic Disorder Smoking Status: Current every day smoker Past Alcohol Use History: Occasional Past Drug Use History: None Reported - Past Family History Mother Family Medical History: Cancer, Deep Vein Thrombosis (DVT) Additional Family Medical History / Comment(s): in her 60s with history of dementia, chronic back pain, "preleukemia." Father Additional Family Medical History / Comment(s): Father is alive at age 72 with history of diabetes. Brother(s) Additional Family Medical History / Comment(s): Patient has 2 brothers with no major medical problems. Patient has 1 sister with no major medical problems. Patient does not have any children. <Pio Avendano Kamini - Last Filed: 07/30/20 10:39> General Exam Limitations: no limitations General appearance: alert, in no apparent distress Head exam: Present: atraumatic, normocephalic, normal inspection Eye exam: Present: normal appearance, PERRL, EOMI. Absent: scleral icterus, conjunctival injection, periorbital swelling ENT exam: Present: normal exam, normal oropharynx, mucous membranes moist, TM's normal bilaterally Neck exam: Present: normal inspection, full ROM. Absent: tenderness, meningismus, lymphadenopathy Respiratory exam: Present: wheezes, rhonchi. Absent: normal lung sounds bilaterally, respiratory distress, rales, stridor Cardiovascular Exam: Present: normal rhythm, tachycardia, normal heart sounds. Absent: systolic murmur, diastolic murmur, rubs, gallop, clicks GI/Abdominal exam: Present: soft, normal bowel sounds. Absent: distended, tenderness, guarding, rebound, rigid Neurological exam: Present: alert, oriented X3, CN II-XII intact, reflexes normal. Absent: motor sensory deficit Skin exam: Present: warm, dry, intact, normal color. Absent: rash <Pio Avendano - Last Filed: 07/30/20 10:39> Course <Primo Toussaint - Last Filed: 07/30/20 10:34> Vital Signs 07/30/20 07/30/20 07/30/20 07:44 08:23 08:43 Temperature 99.0 F Pulse Rate 124 H 114 H 116 H Respiratory 16 Rate Blood Pressure 135/86 O2 Sat by Pulse 93 L Oximetry 07/30/20 07/30/20 09:24 10:00 Temperature 101.5 F H 99.3 F Pulse Rate 116 H 114 H Respiratory 18 18 Rate Blood Pressure 123/90 109/72 O2 Sat by Pulse 92 L 92 L Oximetry - Reevaluation(s) Reevaluation #1: 07/30/20 10:34 PA supervision: Patient demonstrates evidence of postobstructive pneumonia with evidence of likely metastatic disease a CAT scan. Patient will be admitted case discussed with Dr. Lynch (Primo Toussaint) EKG Findings - EKG Comments: EKG Findings:: EKG performed at 8:07 sinus tachycardia rate of 119 CT 132 QRS 74 QT/QTC 336/472 <Pio Avendano - Last Filed: 07/30/20 10:39> Medical Decision Making - Lab Data Result diagrams: 07/30/20 08:27 07/30/20 08:27 <Primo Toussaint - Last Filed: 07/30/20 10:34> - Lab Data Result diagrams: 07/30/20 08:27 07/30/20 08:27 <Pio Avendano - Last Filed: 07/30/20 10:39> - Medical Decision Making 50-year-old female presented for shortness of breath dizziness does not feel well. X-ray shows masslike opacity patient is febrile with leukocytosis. This concerning for infection, d-dimer is elevated. CT of the chest was obtained patient was given antibiotics. Patient's case discussed with Dr. Julienne vazquez physician. Patient will be admitted with for evaluation constipation. (Pio Avendano) - Lab Data Lab Results 07/30/20 07/30/20 07/30/20 Range/Units 08:27 08:27 08:27 WBC 31.9 H (3.8-10.6) k/uL RBC 5.23 (3.80-5.40) m/uL Hgb 17.3 H (11.4-16.0) gm/dL Hct 51.9 H (34.0-46.0) % MCV 99.3 (80.0-100.0) fL MCH 33.2 (25.0-35.0) pg MCHC 33.4 (31.0-37.0) g/dL RDW 13.9 (11.5-15.5) % Plt Count 216 (150-450) k/uL PT 9.9 (9.0-12.0) sec INR 0.9 (<1.2) APTT 22.1 (22.0-30.0) sec D-Dimer 2.65 H (<0.60) mg/L FEU Sodium (137-145) mmol/L Potassium (3.5-5.1) mmol/L Chloride (98-107) mmol/L Carbon Dioxide (22-30) mmol/L Anion Gap mmol/L BUN (7-17) mg/dL Creatinine (0.52-1.04) mg/dL Est GFR (CKD-EPI)AfAm (>60 ml/min/1.73 sqM) Est GFR (CKD-EPI)NonAf (>60 ml/min/1.73 sqM) Glucose (74-99) mg/dL Plasma Lactic Acid Steve (0.7-2.0) mmol/L Calcium (8.4-10.2) mg/dL Magnesium (1.6-2.3) mg/dL Total Bilirubin (0.2-1.3) mg/dL AST (14-36) U/L ALT (4-34) U/L Alkaline Phosphatase (38-126) U/L Troponin I (0.000-0.034) ng/mL NT-Pro-B Natriuret Pep pg/mL Total Protein (6.3-8.2) g/dL Albumin (3.5-5.0) g/dL Urine Color Yellow Urine Appearance Clear (Clear) Urine pH 6.0 (5.0-8.0) Ur Specific [place] 1.004 (1.001-1.035) Urine Protein Negative (Negative) Urine Glucose (UA) Negative (Negative) Urine Ketones Trace H (Negative) Urine Blood Negative (Negative) Urine Nitrite Negative (Negative) Urine Bilirubin Negative (Negative) Urine Urobilinogen <2.0 (<2.0) mg/dL Ur Leukocyte Esterase Trace H (Negative) Urine RBC 4 (0-5) /hpf Urine WBC 3 (0-5) /hpf Ur Squamous Epith Cells 2 (0-4) /hpf Urine Bacteria Rare H (None) /hpf 07/30/20 07/30/20 07/30/20 Range/Units 08:27 08:27 08:27 WBC (3.8-10.6) k/uL RBC (3.80-5.40) m/uL Hgb (11.4-16.0) gm/dL Hct (34.0-46.0) % MCV (80.0-100.0) fL MCH (25.0-35.0) pg MCHC (31.0-37.0) g/dL RDW (11.5-15.5) % Plt Count (150-450) k/uL PT (9.0-12.0) sec INR (<1.2) APTT (22.0-30.0) sec D-Dimer (<0.60) mg/L FEU Sodium 129 L (137-145) mmol/L Potassium 4.2 (3.5-5.1) mmol/L Chloride 96 L (98-107) mmol/L Carbon Dioxide 26 (22-30) mmol/L Anion Gap 7 mmol/L BUN 7 (7-17) mg/dL Creatinine 0.38 L (0.52-1.04) mg/dL Est GFR (CKD-EPI)AfAm >90 (>60 ml/min/1.73 sqM) Est GFR (CKD-EPI)NonAf >90 (>60 ml/min/1.73 sqM) Glucose 97 (74-99) mg/dL Plasma Lactic Acid Steve 1.2 (0.7-2.0) mmol/L Calcium 8.6 (8.4-10.2) mg/dL Magnesium 1.6 (1.6-2.3) mg/dL Total Bilirubin 0.8 (0.2-1.3) mg/dL AST 70 H (14-36) U/L ALT 20 (4-34) U/L Alkaline Phosphatase 201 H (38-126) U/L Troponin I <0.012 (0.000-0.034) ng/mL NT-Pro-B Natriuret Pep pg/mL Total Protein 5.7 L (6.3-8.2) g/dL Albumin 3.6 (3.5-5.0) g/dL Urine Color Urine Appearance (Clear) Urine pH (5.0-8.0) Ur Specific [place] (1.001-1.035) Urine Protein (Negative) Urine Glucose (UA) (Negative) Urine Ketones (Negative) Urine Blood (Negative) Urine Nitrite (Negative) Urine Bilirubin (Negative) Urine Urobilinogen (<2.0) mg/dL Ur Leukocyte Esterase (Negative) Urine RBC (0-5) /hpf Urine WBC (0-5) /hpf Ur Squamous Epith Cells (0-4) /hpf Urine Bacteria (None) /hpf 07/30/20 Range/Units 08:27 WBC (3.8-10.6) k/uL RBC (3.80-5.40) m/uL Hgb (11.4-16.0) gm/dL Hct (34.0-46.0) % MCV (80.0-100.0) fL MCH (25.0-35.0) pg MCHC (31.0-37.0) g/dL RDW (11.5-15.5) % Plt Count (150-450) k/uL PT (9.0-12.0) sec INR (<1.2) APTT (22.0-30.0) sec D-Dimer (<0.60) mg/L FEU Sodium (137-145) mmol/L Potassium (3.5-5.1) mmol/L Chloride (98-107) mmol/L Carbon Dioxide (22-30) mmol/L Anion Gap mmol/L BUN (7-17) mg/dL Creatinine (0.52-1.04) mg/dL Est GFR (CKD-EPI)AfAm (>60 ml/min/1.73 sqM) Est GFR (CKD-EPI)NonAf (>60 ml/min/1.73 sqM) Glucose (74-99) mg/dL Plasma Lactic Acid Steve (0.7-2.0) mmol/L Calcium (8.4-10.2) mg/dL Magnesium (1.6-2.3) mg/dL Total Bilirubin (0.2-1.3) mg/dL AST (14-36) U/L ALT (4-34) U/L Alkaline Phosphatase (38-126) U/L Troponin I (0.000-0.034) ng/mL NT-Pro-B Natriuret Pep 256 pg/mL Total Protein (6.3-8.2) g/dL Albumin (3.5-5.0) g/dL Urine Color Urine Appearance (Clear) Urine pH (5.0-8.0) Ur Specific [place] (1.001-1.035) Urine Protein (Negative) Urine Glucose (UA) (Negative) Urine Ketones (Negative) Urine Blood (Negative) Urine Nitrite (Negative) Urine Bilirubin (Negative) Urine Urobilinogen (<2.0) mg/dL Ur Leukocyte Esterase (Negative) Urine RBC (0-5) /hpf Urine WBC (0-5) /hpf Ur Squamous Epith Cells (0-4) /hpf Urine Bacteria (None) /hpf Disposition <Primo Toussaint - Last Filed: 07/30/20 10:34> <Pio Avendano - Last Filed: 07/30/20 10:39> Clinical Impression: Pneumonia, Dizziness, Lumbar back pain, Dyspnea, Leukocytosis, Lung mass Disposition: ADMITTED IP TO THIS HOSP Condition: Fair Referrals: Pia Jaramillo MD [Primary Care Provider] - 1-2 days
[2020-07-30 08:52] LABS: HCT 51.9 % (34.0-46.0); HGB 17.3 gm/dL (11.4-16.0); MCH 33.2 pg (25.0-35.0); MCHC 33.4 g/dL (31.0-37.0); MCV 99.3 fL (80.0-100.0); Mean Platelet Volume 7.9; Platelet Count 216 k/uL (150-450); RBC 5.23 m/uL (3.80-5.40); RDW 13.9 % (11.5-15.5); WBC 31.9 k/uL (3.8-10.6)
[2020-07-30 08:58] LABS: ALT 20 U/L (4-34); AST 70 U/L (14-36); African American GFR (CKD) >90 (>60 ml/min/1.73 sqM); Albumin 3.6 g/dL (3.5-5.0); Alkaline Phosphatase 201 U/L (38-126); Anion Gap 7 mmol/L; Blood Urea Nitrogen 7 mg/dL (7-17); Calcium 8.6 mg/dL (8.4-10.2); Carbon Dioxide 26 mmol/L (22-30); Chloride 96 mmol/L (98-107); Glucose 97 mg/dL (74-99); Magnesium 1.6 mg/dL (1.6-2.3); Non-African American GFR(CKD) >90 (>60 ml/min/1.73 sqM); Potassium 4.2 mmol/L (3.5-5.1); Sodium 129 mmol/L (137-145); Total Bilirubin 0.8 mg/dL (0.2-1.3); Total Protein 5.7 g/dL (6.3-8.2)
[2020-07-30 09:00] LABS: INR 0.9 (<1.2); Partial Thromboplastin Time 22.1 sec (22.0-30.0); Prothrombin Time 9.9 sec (9.0-12.0)
[2020-07-30 09:25] LABS: D-Dimer 2.65 mg/L FEU (<0.60)
[2020-07-30 09:29] LABS: Appearance,Urine Clear (Clear); Bacteria,Urine Rare /hpf; Bilirubin,Urine Negative (Negative); Blood,Urine Negative (Negative); Color,Urine Yellow; Glucose,Urine (UA) Negative (Negative); Ketones,Urine Trace (Negative); Leukocyte Esterase,Urine Trace (Negative); Nitrite,Urine Negative (Negative); Protein,Urine Negative (Negative); RBC,Urine 4 /hpf (0-5); Specific Gravity,Urine 1.004 (1.001-1.035); Squamous Epithelial Cell,Urine 2 /hpf (0-4); Urobilinogen,Urine <2.0 mg/dL (<2.0); WBC,Urine 3 /hpf (0-5)
[2020-07-30] MEDS ORDERED: ACETAMINOPHEN TAB 500 MG TAB PO STA (09:29)
--- NOTE | 2020-07-30 09:31 | XR ---
EXAMINATION TYPE: XR chest 2V DATE OF EXAM: 07/30/2020 CLINICAL HISTORY: Difficulty breathing. Short of breath. Lower back pain. Recent fall/dizziness. Hist ory of bilateral mastectomy with expanders. TECHNIQUE: Frontal and lateral views of the chest are obtained. COMPARISON: 04/21/2017 chest radiograph FINDINGS: Redemonstrated bilateral breast expanders status post mastectomy. Right-sided MediPort dis anuj tip over the distal SVC. Cardiac silhouette normal. There is bilateral hilar fullness, and large masslike opacity of the right hilum. No pleural effusion. No pneumothorax. No displaced osseous fract ure. IMPRESSION: Large right perihilar masslike opacity. Left perihilar fullness. Findings were not presen t on 04/21/2017 chest radiograph comparison.
--- NOTE | 2020-07-30 09:32 | XR ---
Lumbosacral spine HISTORY: Pain, recent trauma 5 views of lumbosacral spine There is no evident spondylolysis or spondylolisthesis. The lumbar vertebral bodies show preserved he ight and bone mineralization. Disc spaces are relatively maintained, there may be some loss of disc h eight L3-4. Mild spondylosis is noted. IMPRESSION: No acute fracture or subluxation. Consider lumbar MRI as indicated, possible mild degener ative disc disease.
[2020-07-30] MEDS ORDERED: cefTRIAXone IN SWFI 1,000 MG/10 ML SYRINGE IVP STA (09:35)
--- NOTE | 2020-07-30 10:26 | CT ---
EXAMINATION TYPE: CT chest angio for PE DATE OF EXAM: 07/30/2020 COMPARISON: Chest x-ray same date HISTORY: SOB, chest pain CT DLP: 281.4 mGycm Automated exposure control for dose reduction was used. CONTRAST: CT Chest for pulmonary embolism performed with with IV Contrast, patient injected with 64 mL of Isovu e 370. FINDINGS: LUNGS: There is a soft tissue mass in the right hilum and extending into the mediastinum encasing the trachea and right mainstem bronchus, portion of the proximal left mainstem bronchus. Abnormal soft t issue in the subcarinal region, left hilar adenopathy, the common artery artery on the right is encas ed as well as proximal segmental arteries. Probable postobstructive changes or interstitial spread no peterson in the right lung, right upper lobe, some subcentimeter scattered nodules, some scattered basilar groundglass abnormalities present within the lungs. Indeterminate pulmonary nodules noted in the lef t lung. Some interstitial changes are also present within the lungs. There are thickened interlobular ductal lines. MEDIASTINUM: There is satisfactory enhancement of the pulmonary artery and its branches, there is no CT evidence for pulmonary embolism. There is mediastinal adenopathy. Small pericardial effusion is s een. AORTA: No additional significant abnormality is seen. OTHER: Breast tissue expanders are in place causing some streak artifact. Low dense liver masses are indeterminate. Soft tissue nodule posterior to the spleen on the left measures 1 cm and is indetermi rakel. Right axillary adenopathy noted. IMPRESSION: No pulmonary embolism. Metastatic disease is suspected.
[2020-07-30] MEDS ORDERED: AZITHROMYCIN 500 MG in SODIUM CHLORIDE 0.9% 250 ML IVPB STA (10:28)
[2020-07-30] MEDS ORDERED: PNEUMONIA PROTOCOL UTILIZED 1 EACH MISC PO PRN (10:28)
[2020-07-30 10:41] LABS: Band Neutrophils % 1 %; Eosinophils # (M) 1.28 k/uL (0-0.7); Lymphocytes # (M) 23.93 k/uL (1.0-4.8); Monocytes # (M) 0.96 k/uL (0-1.0); Neutrophils % (M) 17 %; Nucleated Red Blood Cells 0 /100 WBC (0-0); Total Cells Counted 100
[2020-07-30] MEDS ORDERED: SODIUM CHLORIDE 0.9% 500 ML 500 ML IV ONE (10:47)
[2020-07-30] MEDS ORDERED: ACETAMINOPHEN TAB 325 MG TAB PO PRN (10:47)
[2020-07-30] MEDS ORDERED: IPRATROPIUM-ALBUTEROL 3 ML NEB INHALATION SCH (12:00)
[2020-07-30] MEDS ORDERED: clonazePAM 0.5 MG TAB PO PRN (13:27)
[2020-07-30] MEDS: SODIUM CHLORIDE 0.9% 1,000 ML IV SCH ×2 (13:28→22:01)
[2020-07-30] MEDS ORDERED: MAGNESIUM SULFATE-D5W PMX 1 GM in DEXTROSE/WATER 1 100ML.BAG IVPB ONE (13:32)
--- NOTE | 2020-07-30 13:39 | P.HPIM ---
History of Present Illness H&P Date: 07/30/20 Chief Complaint: Shortness of breath and back pain This is a 50-year-old female with past medical history noted below who presented to the emergency department with complaints of difficulty breathing and neck pain. Patient said that she has chronic cough that is mostly productive of yellowish sputum. Over the past few days she has been getting more short of breath. She is having some mild wheezing. She admitted that she smokes 2 packs of cigarettes per day. She has a history of COPD and used her nebulizer machine at home with minimal relief. She also reported having a fall at home couple of days ago and since then having some lower back pain. Patient was evaluated in the ER and was found to have evidence of sepsis with a chest x-ray showing a large right perihilar masslike opacity. Patient was treated with IV fluids and antibiotic and will be admitted to the hospital for further management. Patient was seen by me in the emergency room. She denies any difficulty chewing or swallowing. She said that she has a fullness feeling in her throat. She denies any recent sick contact. No covid 19 exposure. She wears mask in public. Review of Systems Review of system: 14 points review of systems were obtained and were negative except to what were mentioned in the HPI. Past Medical History Past Medical History: Cancer, COPD Additional Past Medical History / Comment(s): 2017 L breast cancer with bilateral mastectomies/chemo/radiation, CLL, chronic elevation WBCs, cervical pain/vertigo on and off since April 2020 History of Any Multi-Drug Resistant Organisms: None Reported Past Surgical History: Orthopedic Surgery Additional Past Surgical History / Comment(s): 2017 Bilateral maste ctomies/implant reconstruction, R thumb tendon repair, lung mass biopsy. Past Anesthesia/Blood Transfusion Reactions: No Reported Reaction Past Psychological History: Anxiety, Depression, Panic Disorder Additional Psychological History / Comment(s): Pt resides alone with her cat. She has a nebulizer. She works for [employer]. She is independent. Smoking Status: Current every day smoker Past Alcohol Use History: Daily Additional Past Alcohol Use History / Comment(s): Pt started smoking in 1983 and is a 2 ppd smoker. She states she drinks 2 beers a day. Past Drug Use History: None Reported - Past Family History Mother Family Medical History: Cancer Additional Family Medical History / Comment(s): in her 60s with history of dementia, chronic back pain, "pre leukemia." Father Additional Family Medical History / Comment(s): Father is alive with history of diabetes. Brother(s) Additional Family Medical History / Comment(s): Patient has 2 brothers with no major medical problems. Patient has 1 sister with no major medical problems. Patient does not have any children. Medications and Allergies Home Medications Medication Instructions Recorded Confirmed Type Albuterol Sulfate [Ventolin HFA] 2 puff INHALATION RT-Q4H PRN 04/12/17 07/30/20 History Ipratropium-Albuterol Nebulize 3 ml INHALATION RT-Q6H PRN 04/12/17 07/30/20 History [Duoneb 0.5 mg-3 mg/3 ml Soln] clonazePAM [KlonoPIN] 0.5 mg PO DAILY PRN 04/12/17 07/30/20 History Allergies Allergy/AdvReac Type Severity Reaction Status Date / Time No Known Allergies Allergy Verified 07/30/20 08:59 Physical Exam Vitals: Vital Signs Temp Pulse Pulse Resp BP BP Pulse Ox 07/30/20 12:00 98.4 F 112 H 18 113/77 91 L 07/30/20 11:51 20 07/30/20 11:28 111 H 20 114/79 92 L 07/30/20 10:50 100.3 F H 115 H 18 122/81 92 L 07/30/20 10:00 99.3 F 114 H 18 109/72 92 L 07/30/20 09:24 101.5 F H 116 H 18 123/90 92 L 07/30/20 08:43 116 H 07/30/20 08:23 114 H 07/30/20 07:44 99.0 F 124 H 16 135/86 93 L Intake and Output 07/29/20 07/30/20 07/30/20 22:59 06:59 14:59 Other: Weight 58.967 kg General: The patient is awake and alert, in no distress Eye: there is normal conjunctiva bilaterally. Neck: The neck is supple, there is no JVD. Cardiovascular: Normal S1-S2, no S3-S4, no murmurs. Respiratory: With diffuse wheezing all over the chest Gastrointestinal: Abdomen is soft, nontender Musculoskeletal: There is no pedal edema. Neurological:. Speech is normal. Skin: Skin is warm and dry Results CBC & Chem 7: 07/30/20 08:27 07/30/20 08:27 Labs: Abnormal Lab Results - Last 24 Hours (Table) 07/30/20 07/30/20 07/30/20 Range/Units 08:27 08:27 08:27 WBC 31.9 H (3.8-10.6) k/uL Hgb 17.3 H (11.4-16.0) gm/dL Hct 51.9 H (34.0-46.0) % Lymphocytes # (Manual) 23.93 H (1.0-4.8) k/uL Eosinophils # (Manual) 1.28 H (0-0.7) k/uL D-Dimer 2.65 H (<0.60) mg/L FEU Sodium (137-145) mmol/L Chloride (98-107) mmol/L Creatinine (0.52-1.04) mg/dL AST (14-36) U/L Alkaline Phosphatase (38-126) U/L Total Protein (6.3-8.2) g/dL Urine Ketones Trace H (Negative) Ur Leukocyte Esterase Trace H (Negative) Urine Bacteria Rare H (None) /hpf 07/30/20 Range/Units 08:27 WBC (3.8-10.6) k/uL Hgb (11.4-16.0) gm/dL Hct (34.0-46.0) % Lymphocytes # (Manual) (1.0-4.8) k/uL Eosinophils # (Manual) (0-0.7) k/uL D-Dimer (<0.60) mg/L FEU Sodium 129 L (137-145) mmol/L Chloride 96 L (98-107) mmol/L Creatinine 0.38 L (0.52-1.04) mg/dL AST 70 H (14-36) U/L Alkaline Phosphatase 201 H (38-126) U/L Total Protein 5.7 L (6.3-8.2) g/dL Urine Ketones (Negative) Ur Leukocyte Esterase (Negative) Urine Bacteria (None) /hpf Thrombosis Risk Factor Assmnt - Choose All That Apply Any of the Below Risk Factors Present?: Yes Each Factor Represents 1 point: Abnormal pulmonary function (COPD), Age 41-60 years, Serious lung disease incl. pneumonia (< 1month) Other Risk Factors: Yes Each Risk Factor Represents 2 Points: Malignancy Other congenital or acquired thrombophilia - If yes, enter type in comment: No Thrombosis Risk Factor Assessment Total Risk Factor Score: 5 Thrombosis Risk Factor Assessment Level: High Risk Assessment and Plan Assessment: 1. Severe sepsis without septic shock: Lactic acid normal. Received 1 L fluid bolus in the ER. I will continue normal saline at 130 mL per hour. Blood culture sent and pending. 2. Postobstructive pneumonia of the right lung: Patient was given azithromycin and ceftriaxone in the ER. I will switch antibiotic to IV Zosyn. Sputum culture ordered. COVID-19 pending 3. Right perihilar mass concerning for malignancy: appears to be encasing the trachea and the right mainstem bronchus and portion of the left proximal left mainstem bronchus on CT. Left hilar adenopathy 4. Acute COPD exacerbation: Start DuoNeb's every 4 hours scheduled. 5. Hyponatremia hypovolemic. Continue IV fluid hydration with normal saline 6. Hypomagnesemia: 1 g of magnesium sulfate order 7. History of breast cancer status post chemo/radiation therapy and bilateral mastectomy with left axillary node dissection and implant reconstruction completed in March 2017 8. Underlying CLL followed by hematology 9. Tobacco abuse: Counseled extensively to quit. Nicotine patch ordered. 10. DVT prophylaxis with subcu heparin Today, I reviewed her medication list and lab work results. Continue current regimen. Her activity assistant, Dr. Chaudhari, consulted for further evaluation. Onco logy also consulted.
[2020-07-30] MEDS: PIPERACILLIN-TAZOBACTAM 3.375 GM in SODIUM CHLORIDE 0.9% 100 ML IVPB SCH ×2 (13:54→22:00)
[2020-07-30] MEDS: IPRATROPIUM-ALBUTEROL 3 ML NEB INHALATION SCH ×3 (15:16→23:54)
[2020-07-30] MEDS: NICOTINE 14MG/24HR PATCH TRANSDERM SCH (15:52)
[2020-07-30] MEDS: HEPARIN SODIUM,PORCINE 5,000 UNIT/ML 1 ML VIAL SQ SCH (22:01)
[2020-07-31] MEDS ORDERED: MORPHINE SULFATE 4 MG/ML SYRINGE IVP PRN (00:29)
[2020-07-31] MEDS ORDERED: clonazePAM 0.5 MG TAB PO SCH (00:30)
[2020-07-31] MEDS: ONDANSETRON 4 MG/2 ML VIAL IVP PRN (01:19)
[2020-07-31] MEDS: SODIUM CHLORIDE 0.9% 1,000 ML IV SCH ×2 (03:57→08:53)
[2020-07-31] MEDS: IPRATROPIUM-ALBUTEROL 3 ML NEB INHALATION SCH ×5 (04:03→19:24)
[2020-07-31] MEDS: PIPERACILLIN-TAZOBACTAM 3.375 GM in SODIUM CHLORIDE 0.9% 100 ML IVPB SCH ×3 (05:49→20:12)
[2020-07-31 06:54] LABS: HCT 48.6 % (34.0-46.0); HGB 15.6 gm/dL (11.4-16.0); MCH 33.6 pg (25.0-35.0); MCHC 32.2 g/dL (31.0-37.0); Macrocytosis Slight; Mean Platelet Volume 7.6; Platelet Count 184 k/uL (150-450); RBC 4.66 m/uL (3.80-5.40); RDW 13.5 % (11.5-15.5); WBC 23.7 k/uL (3.8-10.6)
[2020-07-31 06:56] LABS: MCV 104.4 fL (80.0-100.0)
--- NOTE | 2020-07-31 08:25 | XR ---
EXAMINATION TYPE: XR chest 1V portable DATE OF EXAM: 07/31/2020 CLINICAL HISTORY: Difficulty breathing progress study. TECHNIQUE: Single AP portable frontal view of the chest is obtained. COMPARISON: Chest x-ray from one day earlier and older studies. CTA chest yesterday. FINDINGS: Stable right internal jugular Mediport catheter. Overlying breast expanders redemonstrated . Cardiac silhouette size stable within normal limits. Background chronic emphysematous change with r ight hilar masslike consolidation and extending peripheral infiltrate and/or atelectasis redemonstrat ed. No pleural effusion or pneumothorax seen bilaterally. Osseous structures are intact. IMPRESSION: Overall stable findings, chronic emphysematous change with right hilar mass or masslike consolidation, former is favored. There is extending peripheral mid to upper lung infiltrate and/or atelectasis redemonstrated. No significant change from one day earlier. Subtle scattered micronodules on CT less well seen on plain films, differential includes atypical infections versus lymphangitic s pread of metastatic neoplasm.
[2020-07-31] MEDS: NICOTINE 14MG/24HR PATCH TRANSDERM SCH (08:46)
[2020-07-31] MEDS: HEPARIN SODIUM,PORCINE 5,000 UNIT/ML 1 ML VIAL SQ SCH ×2 (08:46→20:13)
[2020-07-31 08:49] LABS: Band Neutrophils % 2 %; Eosinophils # (M) 0.24 k/uL (0-0.7); Lymphocytes # (M) 18.49 k/uL (1.0-4.8); Metamyelocytes # (M) 0.24 k/uL (0); Metamyelocytes % 1 %; Monocytes # (M) 0.47 k/uL (0-1.0); Myelocytes # (M) 0.71 k/uL (0); Myelocytes % 3 %; Neutrophils % (M) 15 %; Nucleated Red Blood Cells 0 /100 WBC (0-0); Total Cells Counted 200
[2020-07-31 08:51] LABS: Poikilocytosis (M) Present
[2020-07-31] MEDS: clonazePAM 0.5 MG TAB PO PRN (08:58)
[2020-07-31] MEDS ORDERED: AZITHROMYCIN 500 MG TAB PO SCH (09:00)
[2020-07-31] MEDS ORDERED: MORPHINE SULFATE 2 MG/ML SYRINGE IVP PRN (09:45)
[2020-07-31 09:50] LABS: African American GFR (CKD) 139.8 (60.0-200.0); Calcium 8.4 mg/dL (8.7-10.3); Magnesium 1.9 mg/dL (1.5-2.4); Non-African American GFR(CKD) 120.6 (60.0-200.0); Potassium 3.9 mmol/L (3.5-5.5)
--- NOTE | 2020-07-31 09:55 | P.CNOR ---
History of Present Illness - [facility] Consult date: 07/31/20 Consult reason: low back pain, back pain History of present illness: Patient is seen and examined at bedside. She is a 50-year-old female with complaints of pain at her lower back and around her neck. She does not have any specific incident or trauma but says is the pain is being past few weeks. She had pains been getting worse and and she was scheduled see her primary care doctor but was not able to make it until the appointment and presented to the emergency room. She says that she has occasional sharp tingling pain at her lower extremities. There is no specific pattern to this or which leg it differs her problems or which area of her legs give her problems. She has as the pain is mainly at her lower back and the base of her neck. She is not having troubles in her arms. She denies specific chest pain or shortness of breath. But she does have some global symptoms wondering why she feels like she is swollen around her neck anteriorly and around her shoulder. She has a recent history of lymph node removals and breast expanders. She has a history of lung mass. She was found in the emergency room to have a perihilar mass at her lung as well as pneumonia with fevers and possible sepsis. Her lumbar x-rays showed some mild degenerative change and we were consulted. Review of Systems some global complaints of pain around her base of her neck and her lower back. Some global occasional tingling at her legs without specific pattern. She denies any changes in bowel bladder function. She denies any new shortness of breath. Past Medical History Past Medical History: Cancer, COPD Additional Past Medical History / Comment(s): 2017 L breast cancer with bilateral mastectomies/chemo/radiation, CLL, chronic elevation WBCs, cervical pain/vertigo on and off since April 2020 History of Any Multi-Drug Resistant Organisms: None Reported Past Surgical History: Orthopedic Surgery Additional Past Surgical History / Comment(s): 2017 Bilateral mastectomies/implant reconstruction, R thumb tendon repair, lung mass biopsy. Past Anesthesia/Blood Transfusion Reactions: No Reported Reaction Past Psychological History: Anxiety, Depression, Panic Disorder Additional Psychological History / Comment(s): Pt resides alone with her cat. She has a nebulizer. She works for [employer]. She is independent. Smoking Status: Current every day smoker Past Alcohol Use History: Daily Additional Past Alcohol Use History / Comment(s): Pt started smoking in 1983 and is a 2 ppd smoker. She states she drinks 2 beers a day. Past Drug Use History: None Reported - Past Family History Mother Family Medical History: Cancer Additional Family Medical History / Comment(s): in her 60s with history of dementia, chronic back pain, "pre leukemia." Father Additional Family Medical History / Comment(s): Father is alive with history of diabetes. Brother(s) Additional Family Medical History / Comment(s): Patient has 2 brothers with no major medical problems. Patient has 1 sister with no major medical problems. Patient does not have any children. Medications and Allergies Home Medications Medication Instructions Recorded Confirmed Type Albuterol Sulfate [Ventolin HFA] 2 puff INHALATION RT-Q4H PRN 04/12/17 07/30/20 History Ipratropium-Albuterol Nebulize 3 ml INHALATION RT-Q6H PRN 04/12/17 07/30/20 History [Duoneb 0.5 mg-3 mg/3 ml Soln] clonazePAM [KlonoPIN] 0.5 mg PO DAILY PRN 04/12/17 07/30/20 History Allergies Allergy/AdvReac Type Severity Reaction Status Date / Time No Known Allergies Allergy Verified 07/30/20 08:59 Physical Examination Osteopathic Statement: *. No significant issues noted on an osteopathic structural exam other than those noted in the History and Physical/Consult. - C Spine: dermatomal strength & reflexes bilateral Shoulder strength: flexion: 5/5 (her neck is nontender over the midline. She solis s some paravertebral spasm at the base of her neck. She has full active and passive range of motion in her right upper extremity some limitations at the left shoulder due to her breast and axillary surgery on the left.) Shoulder strength: extension: 5/5 (she has full strength at her hands wrist and fingers bilaterally without evidence of deficit.) - L Spine: dermatomal strength & reflexes bilateral Strength: hip flexion: 5/5 (her back has tenderness with light palpation over the midline and diffusely. She is paravertebral spasm. There is no open wounds lacerations or abrasions. She has full active and passive range of motion in her bilateral lower extremities.) Strength: hip extension: 5/5 (she has 5 out of 5 strength of bilateral lower extremities without neurologic deficit. She has no hyperreflexia. No clonus.) Results - Labs Labs: Abnormal Lab Results - Last 24 Hours (Table) 07/30/20 07/31/20 Range/Units 08:27 06:15 WBC 23.7 H (3.8-10.6) k/uL Hct 48.6 H (34.0-46.0) % MCV 104.4 H D (80.0-100.0) fL Lymphocytes # (Manual) 23.93 H 18.49 H (1.0-4.8) k/uL Eosinophils # (Manual) 1.28 H (0-0.7) k/uL Metamyelocytes # (Man) 0.24 H (0) k/uL Myelocytes # (Manual) 0.71 H (0) k/uL H & H 07/30/20 07/31/20 Range/Units 08:27 06:15 Hgb 17.3 H 15.6 (11.4-16.0) gm/dL Hct 51.9 H 48.6 H (34.0-46.0) % Coagulation 07/30/20 Range/Units 08:27 INR 0.9 (<1.2) Result Diagrams: 07/31/20 06:15 07/30/20 08:27 - Diagnostic results Lumbar AP/lateral x-ray: report reviewed, image reviewed (lumbar x-rays show excellent alignment and position throughout her lumbar spine. There is well maintained disc height there is no fracture I do not see any obvious bony erosion. The x-rays appear overall appropriate for her age.) Assessment and Plan Assessment: neck and low back pain, subacute of uncertain etiology without evidence of fracture No evidence of neurologic deficit or over her lower extremities .amrit Hilar lung mass history of breast cancer Pneumonia Bacteremia Plan: neck and low back pain, subacute of uncertain etiology without evidence of fracture No evidence of neurologic deficit or over her lower extremities .amrit Hilar lung mass history of breast cancer Pneumonia Bacteremia The patient is getting treatment in regards to her sepsis and bacteremia and pneumonia. She is also having further workup in terms of the perihilar mass at her lung. She has history of breast CA as well and is a chronic smoker. She is continuing her medical management and workup in this regard. In terms of her spine, her lumbar spine x-rays appear quite stable. She is not having any specific radicular pattern. With her history of cancer it could be worthwhile to obtain further imaging but she is unable to obtain an MRI due to her breast soft tissue expanders in place, per the patient. her chest abdomen pelvis computed tomography scan does not show any obvious bony erosion and I do not see any specific source for her back pain or instability at her spine. She is not having acute neurologic deficit. I do not have any surgical plans for her spine at this point.I tried to explain to her her other acute issues that are going on and how they have potential contributing to her multiple pain complaints. From a spine standpoint she can continue symptomatic treatment for pain and should continue her medical management and workup in regards to her lung mass, pneumonia and sepsis.
--- NOTE | 2020-07-31 10:35 | P.CNPUL ---
History of Present Illness Consult date: 07/30/20 Reason for consult: dyspnea, chest pain, lung mass Chief complaint: Neck pain and back pain History of present illness: This is a 50-year-old female who was seen eval reexamined on fourth floor patient is well-known to me for history of end-stage COPD, patient also had a breast cancer in the past has been followed up in the past loss follow-up with last seen almost 2 years ago now came back with back pain and neck pain Patient said that she has chronic cough that is mostly productive of yellowish sputum. Over the past few days she has been getting more short of breath. She is having some mild wheezing. She admitted that she smokes 2 packs of cigarettes per day. She has a history of COPD and used her nebulizer machine at home with minimal relief. She also reported having a fall at home couple of days ago and since then having some lower back pain. Patient was evaluated in the ER and was found to have evidence of sepsis with a chest x-ray showing a large right perihilar masslike opacity. Computed tomography scan confirmed that also narrowing of right upper lobe bronchus has been seen, suspicion of postobstructive pneumonia Patient was treated with IV fluids and antibiotic and will be admitted to the hospital for further management. Review of Systems All systems: negative Past Medical History Past Medical History: Cancer, COPD Additional Past Medical History / Comment(s): 2017 L breast cancer with bilateral mastectomies/chemo/radiation, CLL, chronic elevation WBCs, cervical pain/vertigo on and off since April 2020 History of Any Multi-Drug Resistant Organisms: None Reported Past Surgical History: Orthopedic Surgery Additional Past Surgical History / Comment(s): 2017 Bilateral mastectomies/implant reconstruction, R thumb tendon repair, lung mass biopsy. Past Anesthesia/Blood Transfusion Reactions: No Reported Reaction Past Psychological History: Anxiety, Depression, Panic Disorder Additional Psychological History / Comment(s): Pt resides alone with her cat. She has a nebulizer. She works for [employer]. She is independent. Smoking Status: Current every day smoker Past Alcohol Use History: Daily Additional Past Alcohol Use History / Comment(s): Pt started smoking in 1983 and is a 2 ppd smoker. She states she drinks 2 beers a day. Past Drug Use History: None Reported - Past Family History Mother Family Medical History: Cancer Additional Family Medical History / Comment(s): in her 60s with history of dementia, chronic back pain, "pre leukemia." Father Additional Family Medical History / Comment(s): Father is alive with history of diabetes. Brother(s) Additional Family Medical History / Comment(s): Patient has 2 brothers with no major medical problems. Patient has 1 sister with no major medical problems. Patient does not have any children. Medications and Allergies Home Medications Medication Instructions Recorded Confirmed Type Albuterol Sulfate [Ventolin HFA] 2 puff INHALATION RT-Q4H PRN 04/12/17 07/30/20 History Ipratropium-Albuterol Nebulize 3 ml INHALATION RT-Q6H PRN 04/12/17 07/30/20 History [Duoneb 0.5 mg-3 mg/3 ml Soln] clonazePAM [KlonoPIN] 0.5 mg PO DAILY PRN 04/12/17 07/30/20 History Allergies Allergy/AdvReac Type Severity Reaction Status Date / Time No Known Allergies Allergy Verified 07/30/20 08:59 Physical Exam Vitals: Vital Signs Temp Pulse Pulse Resp BP BP Pulse Ox 07/30/20 12:00 98.4 F 112 H 18 113/77 91 L 07/30/20 11:51 20 07/30/20 11:28 111 H 20 114/79 92 L 07/30/20 10:50 100.3 F H 115 H 18 122/81 92 L 07/30/20 10:00 99.3 F 114 H 18 109/72 92 L 07/30/20 09:24 101.5 F H 116 H 18 123/90 92 L 07/30/20 08:43 116 H 07/30/20 08:23 114 H 07/30/20 07:44 99.0 F 124 H 16 135/86 93 L Intake and Output 07/29/20 07/30/20 07/30/20 22:59 06:59 14:59 Intake Total 100 Balance 100 Intake: Intake, IV Titration 100 Amount Piperacillin-Tazobactam 3 100 .375 gm In Sodium Chloride 0.9% 100 ml @ 25 mls/hr IVPB Q8H [facility] Rx#: [id number] Other: # Voids 1 Weight 58.967 kg - Constitutional General appearance: average body habitus, cooperative, disheveled - EENT Eyes: EOMI, PERRLA Ears: bilateral: normal - Neck Carotids: bilateral: upstroke normal Thyroid: bilateral: normal size - Respiratory Respiratory: bilateral: diminished - Cardiovascular Rhythm: regular Heart sounds: normal: S1, S2 - Gastrointestinal General gastrointestinal: decreased bowel sounds, soft - Integumentary Integumentary: normal turgor - Neurologic Neurologic: CNII-XII intact - Musculoskeletal Musculoskeletal: gait normal, generalized weakness, strength equal bilaterally - Psychiatric Psychiatric: A&O x's 3, appropriate affect, intact judgment & insight Results - Laboratory Findings CBC and BMP: 07/31/20 06:15 07/31/20 06:15 PT/INR, D-dimer PT 9.9 sec (9.0-12.0) 07/30/20 08:27 INR 0.9 (<1.2) 07/30/20 08:27 D-Dimer 2.65 mg/L FEU (<0.60) H 07/30/20 08:27 Abnormal lab findings: Abnormal Labs 07/30/20 07/30/20 07/30/20 08:27 08:27 08:27 WBC 31.9 H Hgb 17.3 H Hct 51.9 H Lymphocytes # (Manual) 23.93 H Eosinophils # (Manual) 1.28 H D-Dimer 2.65 H Sodium Chloride Creatinine AST Alkaline Phosphatase Total Protein Urine Ketones Trace H Ur Leukocyte Esterase Trace H Urine Bacteria Rare H 07/30/20 08:27 WBC Hgb Hct Lymphocytes # (Manual) Eosinophils # (Manual) D-Dimer Sodium 129 L Chloride 96 L Creatinine 0.38 L AST 70 H Alkaline Phosphatase 201 H Total Protein 5.7 L Urine Ketones Ur Leukocyte Esterase Urine Bacteria - Diagnostic Findings Chest x-ray: report reviewed, image reviewed CT scan - chest: report reviewed, image reviewed (Finding as noted above) Assessment and Plan Assessment: Postoperative obstructive pneumonia on the right side Right perihilar mass End-stage COPD with acute exacerbation Back pain and neck pain History of breast cancer Plan: Continue broad-spectrum antibiotics Follow clinical response closely Patient will require bronchoscopy and lung biopsy will schedule once pneumonia relatively better under control Time with Patient: Greater than 30
--- NOTE | 2020-07-31 10:38 | P.PN ---
Subjective Progress Note Date: 07/31/20 Principal diagnosis: Postoperative obstructive pneumonia on the right side Right perihilar mass End-stage COPD with acute exacerbation Back pain and neck pain History of breast cancer 07/31/2020, patient seen eval examined during the rounds labs reviewed medications reviewed cough is slightly better, still have pain in the neck as well as in the back spine surgery oncology have been following I have updated patient about computed tomography scan as well as a chest x-ray will schedule for bronchoscopy and lung biopsy tomorrow, will continue to gently rehydrate and continue broad-spectrum antibiotics This is a 50-year-old female who was seen eval reexamined on fourth floor patient is well-known to me for history of end-stage COPD, patient also had a breast cancer in the past has been followed up in the past loss follow-up with last seen almost 2 years ago now came back with back pain and neck pain Patient said that she has chronic cough that is mostly productive of yellowish sputum. Over the past few days she has been getting more short of breath. She is having some mild wheezing. She admitted that she smokes 2 packs of cigarettes per day. She has a history of COPD and used her nebulizer machine at home with minimal relief. She also reported having a fall at home couple of days ago and since then having some lower back pain. Patient was evaluated in the ER and was found to have evidence of sepsis with a chest x-ray showing a large right perihilar masslike opacity. Computed tomography scan confirmed that also narrowing of right upper lobe bronchus has been seen, suspicion of postobstructive pneumonia Patient was treated with IV fluids and antibiotic and will be admitted to the hospital for further management. Objective - Vital Signs Vital signs: Vital Signs Temp 98.7 F 07/31/20 07:30 Pulse 112 H 07/31/20 08:15 Resp 18 07/31/20 07:30 BP 111/76 07/31/20 07:30 Pulse Ox 96 07/31/20 08:12 Intake & Output 07/30/20 07/31/20 07/31/20 18:59 06:59 18:59 Intake Total 336 Balance 336 Weight 58.967 kg Intake: Intake, IV Titration 100 Amount Piperacillin-Tazobactam 3 100 .375 gm In Sodium Chloride 0.9% 100 ml @ 25 mls/hr IVPB Q8H [facility] Rx#: [id number] Oral 236 Other: Voiding Method Toilet # Voids 1 2 - Exam - Constitutional General appearance: average body habitus, cooperative, disheveled - EENT Eyes: EOMI, PERRLA Ears: bilateral: normal - Neck Carotids: bilateral: upstroke normal Thyroid: bilateral: normal size - Respiratory Respiratory: bilateral: diminished - Cardiovascular Rhythm: regular Heart sounds: normal: S1, S2 - Gastrointestinal General gastrointestinal: decreased bowel sounds, soft - Integumentary Integumentary: normal turgor - Neurologic Neurologic: CNII-XII intact - Musculoskeletal Musculoskeletal: gait normal, generalized weakness, strength equal bilaterally - Psychiatric Psychiatric: A&O x's 3, appropriate affect, intact judgment & insight - Labs CBC & Chem 7: 07/31/20 06:15 07/31/20 06:15 Labs: Abnormal Lab Results - Last 24 Hours (Table) 07/30/20 07/31/20 07/31/20 Range/Units 08:27 06:15 06:15 WBC 23.7 H (3.8-10.6) k/uL Hct 48.6 H (34.0-46.0) % MCV 104.4 H D (80.0-100.0) fL Lymphocytes # (Manual) 23.93 H 18.49 H (1.0-4.8) k/uL Eosinophils # (Manual) 1.28 H (0-0.7) k/uL Metamyelocytes # (Man) 0.24 H (0) k/uL Myelocytes # (Manual) 0.71 H (0) k/uL BUN 6.0 L (9.0-27.0) mg/dL Creatinine 0.4 L (0.6-1.5) mg/dL Calcium 8.4 L (8.7-10.3) mg/dL Assessment and Plan Assessment: Postoperative obstructive pneumonia on the right side Right perihilar mass End-stage COPD with acute exacerbation Back pain and neck pain History of breast cancer Plan: Continue broad-spectrum antibiotics Follow clinical response closely Patient will require bronchoscopy and lung biopsy will schedule for tomorrow patient explained about the procedure at length side effect alternate event explained to the patient patient wishes to proceed Time with Patient: Greater than 30
[2020-07-31] MEDS: PANTOPRAZOLE 40 MG TABLET PO SCH (11:36)
[2020-07-31] MEDS: KETOROLAC 15 MG/ML 1 ML VIAL IVP PRN (11:38)
--- NOTE | 2020-07-31 13:45 | P.PN ---
Subjective Progress Note Date: 07/31/20 Principal diagnosis: Perihilar mass Patient is doing well this morning. She had an episode of severe pain last night in her lower back. She is rating her pain today as 4 out of 10. She appears comfortable when I saw her. No acute events overnight. Objective - Vital Signs Vital signs: Vital Signs Temp 98.7 F 07/31/20 07:30 Pulse 100 07/31/20 11:35 Resp 18 07/31/20 07:30 BP 111/76 07/31/20 07:30 Pulse Ox 96 07/31/20 08:12 Intake & Output 07/30/20 07/31/20 07/31/20 18:59 06:59 18:59 Intake Total 336 Balance 336 Weight 58.967 kg Intake: Intake, IV Titration 100 Amount Piperacillin-Tazobactam 3 100 .375 gm In Sodium Chloride 0.9% 100 ml @ 25 mls/hr IVPB Q8H [facility] Rx#: [id number] Oral 236 Other: Voiding Method Toilet # Voids 1 2 - Exam General: The patient is awake and alert, in no distress Eye: there is normal conjunctiva bilaterally. Neck: The neck is supple, there is no JVD. Cardiovascular: Normal S1-S2, no S3-S4, no murmurs. Respiratory: Lungs clear to auscultation bilaterally Gastrointestinal: Abdomen is soft, nontender Musculoskeletal: There is no pedal edema. Neurological:. Speech is normal. Skin: Skin is warm and dry - Labs CBC & Chem 7: 07/31/20 06:15 07/31/20 06:15 Labs: Abnormal Lab Results - Last 24 Hours (Table) 07/31/20 07/31/20 Range/Units 06:15 06:15 WBC 23.7 H (3.8-10.6) k/uL Hct 48.6 H (34.0-46.0) % MCV 104.4 H D (80.0-100.0) fL Lymphocytes # (Manual) 18.49 H (1.0-4.8) k/uL Metamyelocytes # (Man) 0.24 H (0) k/uL Myelocytes # (Manual) 0.71 H (0) k/uL BUN 6.0 L (9.0-27.0) mg/dL Creatinine 0.4 L (0.6-1.5) mg/dL Calcium 8.4 L (8.7-10.3) mg/dL Microbiology - Last 24 Hours (Table) 07/30/20 09:58 Blood Culture - Preliminary Blood No Growth after 24 hours Assessment and Plan Assessment: This is a 50-year-old female with complex past medical history noted below the presented to the emergency room with worsening neck and lower back pain. Patient was evaluated in the ER and admitted to the hospital for further management of her medical problems noted below. 1. Severe sepsis without septic shock: Lactic acid normal. Received aggressive IV fluid hydration. Blood cultures negative to date 2. Postobstructive pneumonia of the right lung: Patient was given azithromycin and ceftriaxone in the ER. I switched antibiotic to IV Zosyn. Sputum culture ordered. COVID-19 negative 3. Right perihilar mass concerning for malignancy: appears to be encasing the trachea and the right mainstem bronchus and portion of the left proximal left mainstem bronchus on CT. Left hilar adenopathy. Patient was seen and evaluated by pulmonary. Scheduled for bronchoscopy tomorrow. 4. Acute COPD exacerbation: DuoNeb's every 6 hours scheduled. 5. Hyponatremia hypovolemic. Resolved with IV fluid hydration 6. Hypomagnesemia: replaced 7. History of breast cancer status post chemo/radiation therapy and bilateral mastectomy with left axillary node dissection and implant reconstruction completed in March 2017 8. Underlying CLL followed by hematology 9. Tobacco abuse: Counseled extensively to quit. Nicotine patch ordered. 10. DVT prophylaxis with subcu heparin Today, I reviewed her medication list and lab work results. Continue current regimen. Appreciate wound care center consultant's recommendations. Repeat lab work in the morning. Nothing by mouth after midnight for bronchoscopy.
--- NOTE | 2020-07-31 16:04 | P.CONS ---
History of Present Illness - Reason for Consult Consult date: 07/31/20 Lung Mass, History of Breast Cancer Requesting physician: Pio Avendano - Chief Complaint Back and Neck Pain - History of Present Illness Ms Melgar is a pleasant [place], who was last seen in October of 2017 by primary oncologist and dog daycare provider Dr. Devine. In 2013 she presented with recurrent infections and macrocytosis. Initially felt to be related to her prior ETOH and tobacco us. However during work-up of other possibilities her flow cytometry , however, confirmed a monoclonal population , consistent with chronic lympocytic leukemia. Additional labs revealed normal FISH, borderline high ZAP 70 at 11%, and IgG in the 400 range. She was thus placed on observation for her CLL In 2017 - She presented to Dr Erasmo Toussaint with c/o pain and swelling in her left breast. She had an FNA in the office on 11/04/16, which was positive for malignancy. She then had an US guided core biopsy on 11/09/16 , confirming invasive ductal breast carcinoma , grade III, ER/VT positive, Her 2 1+ by IHC, and also negative by FISH. Prior CT of the CAP showed non specific nodes in the mediastinum, and rt axilla. Areas of sclerosis were seen in the T spine and iliac bone, with bone scan positive at T5, and also in the rt femoral neck with no corresponding bony lesion. It was decided to treat her with curative intent, even if the T5 lesion was presumed to be malignant. She started dose dense AC and is s/p 4 cycles, and 4 cycles of DD Taxol, competin those in late 03/09 She proceeded to b/l mastectomy with left axillary dissection on 04/20/17, revealing a pCR for invasive cancer on the left. Residual DCIS was noted. Nodes were positive for CLL, but negative for breast ca. Rt breast was negative. She is undergoing reconstruction. BRCA testing was ultimately done on the skin and was negative. She completed RT on 08/08/17, but refused RT to T5, initially. She was persuaded to do so, and ultimately completed than in late 09/09. She was admitted to [facility] in late 10/09 with back pain and SOB. She was diagnosed with possible radiation pneumonitis, and is currently on a steroid taper. Today she presents to [facility] with increased neck and back pain. The area of complaints are upper neck and lower back, different from prior complaints. CT chest revealed soft tissue mass in the right hilum encasing trachea and right mainstem bronchus. adenopathy was also mentioned. She is unable to undergo MRI but with her known suspicious area at T5 and new and worsening back pain will obtain bone scan Review of Systems All systems: negative Constitutional: Reports as per HPI Past Medical History Past Medical History: Cancer, COPD Additional Past Medical History / Comment(s): 2017 L breast cancer with bilateral mastectomies/chemo/radiation, CLL, chronic elevation WBCs, cervical pain/vertigo on and off since April 2020 History of Any Multi-Drug Resistant Organisms: None Reported Past Surgical History: Orthopedic Surgery Additional Past Surgical History / Comment(s): 2017 Bilateral mastectomies/implant reconstruction, R thumb tendon repair, lung mass biopsy. Past Anesthesia/Blood Transfusion Reactions: No Reported Reaction Past Psychological History: Anxiety, Depression, Panic Disorder Additional Psychological History / Comment(s): Pt resides alone with her cat. She has a nebulizer. She works for [employer]. She is independent. Smoking Status: Current every day smoker Past Alcohol Use History: Daily Additional Past Alcohol Use History / Comment(s): Pt started smoking in 1983 and is a 2 ppd smoker. She states she drinks 2 beers a day. Past Drug Use History: None Reported - Past Family History Mother Family Medical History: Cancer Additional Family Medical History / Comment(s): in her 60s with history of dementia, chronic back pain, "pre leukemia." Father Additional Family Medical History / Comment(s): Father is alive with history of diabetes. Brother(s) Additional Family Medical History / Comment(s): Patient has 2 brothers with no major medical problems. Patient has 1 sister with no major medical problems. Patient does not have any children. Medications and Allergies Home Medications Medication Instructions Recorded Confirmed Type Albuterol Sulfate [Ventolin HFA] 2 puff INHALATION RT-Q4H PRN 04/12/17 07/30/20 History Ipratropium-Albuterol Nebulize 3 ml INHALATION RT-Q6H PRN 04/12/17 07/30/20 History [Duoneb 0.5 mg-3 mg/3 ml Soln] clonazePAM [KlonoPIN] 0.5 mg PO DAILY PRN 04/12/17 07/30/20 History Allergies Allergy/AdvReac Type Severity Reaction Status Date / Time No Known Allergies Allergy Verified 07/30/20 08:59 Physical Exam Vitals: Vital Signs Temp Pulse Pulse Resp BP BP Pulse Ox 07/31/20 08:15 112 H 07/31/20 08:12 96 07/31/20 08:02 112 H 07/31/20 07:30 98.7 F 115 H 18 111/76 07/31/20 03:56 17 07/31/20 01:18 17 07/31/20 00:20 97.9 F 115 H 18 106/71 88 L 07/31/20 00:15 97.9 F 115 H 18 106/71 88 L 07/31/20 00:04 104 H 07/30/20 23:54 100 07/30/20 19:39 110 H 07/30/20 19:28 112 H 07/30/20 19:26 98.4 F 104 H 20 91/58 89 L 07/30/20 19:20 18 07/30/20 15:30 104 H 07/30/20 15:28 18 07/30/20 15:16 108 H 07/30/20 15:00 98.2 F 110 H 18 97/62 89 L 07/30/20 12:00 98.4 F 112 H 18 113/77 91 L 07/30/20 11:51 20 07/30/20 11:28 111 H 20 114/79 92 L 07/30/20 10:50 100.3 F H 115 H 18 122/81 92 L 07/30/20 10:00 99.3 F 114 H 18 109/72 92 L Intake and Output 07/30/20 07/31/20 07/31/20 22:59 06:59 14:59 Intake Total 236 Balance 236 Intake: Oral 236 Other: Voiding Method Toilet Toilet # Voids 2 2 - Constitutional General appearance: cooperative, no acute distress - EENT Eyes: EOMI, PERRLA ENT: NA/AT, normal oropharynx - Neck Neck: lymphadenopathy - Respiratory Respiratory: bilateral: diminished, wheezing - Cardiovascular Heart rate: 112 - Gastrointestinal General gastrointestinal: normal bowel sounds, tenderness - Integumentary Integumentary: pale - Neurologic Neurologic: CNII-XII intact - Musculoskeletal Musculoskeletal: generalized weakness, strength equal bilaterally - Psychiatric Psychiatric: A&O x's 3 Results CBC & Chem 7: 07/31/20 06:15 07/31/20 06:15 Labs: Abnormal Lab Results - Last 24 Hours (Table) 07/30/20 07/31/20 07/31/20 Range/Units 08:27 06:15 06:15 WBC 23.7 H (3.8-10.6) k/uL Hct 48.6 H (34.0-46.0) % MCV 104.4 H D (80.0-100.0) fL Lymphocytes # (Manual) 23.93 H 18.49 H (1.0-4.8) k/uL Eosinophils # (Manual) 1.28 H (0-0.7) k/uL Metamyelocytes # (Man) 0.24 H (0) k/uL Myelocytes # (Manual) 0.71 H (0) k/uL BUN 6.0 L (9.0-27.0) mg/dL Creatinine 0.4 L (0.6-1.5) mg/dL Calcium 8.4 L (8.7-10.3) mg/dL CT scan - chest: report reviewed Assessment and Plan (1) CLL (chronic lymphocytic leukemia) Current Visit: Yes Status: Acute Code(s): C91.10 - CHRONIC LYMPHOCYTIC LEUK OF B-CELL TYPE NOT ACHIEVE REMIS SNOMED Code(s): 59216569 (2) Breast cancer Current Visit: Yes Status: Acute Code(s): C50.919 - MALIGNANT NEOPLASM OF UNSP SITE OF UNSPECIFIED FEMALE BREAST SNOMED Code(s): 595554781 Plan: Assessment and plan: 1. New Soft Tissue Density in Lung: - Will need tissue biopsy, defer to pulm for best approach - Differentials include Breast Cancer, New primary lung cancer, versus other 2. Neck and Back Pain: - Unable to undergo MRI with Metal in body - Bone Scan 3. Hx: Breast Cancer: - HPI details - Check tumor markers 4. Hx: CLL: - History in HPI Physician Attest: I have completed the full history and physical and agree with above dictation, dictated as a scribe
[2020-07-31] MEDS: HYDROcodone/APAP 5-325MG 1 EACH TAB PO PRN (16:33)
[2020-07-31 17:32] LABS: Albumin 3.6 g/dL (3.80-4.90); Albumin/Globulin Ratio 2.57 (1.60-3.17); Bilirubin, Conjugated 0.2 mg/dL (0.20-0.40); Bilirubin,Unconjugated 0.1 mg/dL; Globulin 1.4 g/dL (1.6-3.3); Total Bilirubin 0.3 mg/dL (0.3-1.2); Uric Acid 3.2 mg/dL (2.9-7.7)
[2020-07-31 20:48] LABS: Cancer Antigen 153 109.3 U/mL (0.0-32.3)
[2020-08-01] MEDS: KETOROLAC 15 MG/ML 1 ML VIAL IVP PRN (01:19)
[2020-08-01] MEDS: PIPERACILLIN-TAZOBACTAM 3.375 GM in SODIUM CHLORIDE 0.9% 100 ML IVPB SCH ×3 (03:49→19:01)
[2020-08-01 06:19] LABS: Basophils # (A) 0.2 k/uL (0-0.2); Basophils % (A) 1 %; Eosinophils # (A) 0.2 k/uL (0-0.7); Eosinophils % (A) 1 %; HGB 14.1 gm/dL (11.4-16.0); Lymphocytes % (A) 73 %; MCH 32.7 pg (25.0-35.0); MCHC 32.1 g/dL (31.0-37.0); MCV 102.1 fL (80.0-100.0); Macrocytosis Slight; Mean Platelet Volume 7.6; Monocytes # (A) 0.4 k/uL (0-1.0); Monocytes % (A) 2 %; Neutrophils # (A) 4.5 k/uL (1.3-7.7); Neutrophils % (A) 21 %; Platelet Count 196 k/uL (150-450); RBC 4.31 m/uL (3.80-5.40); RDW 13.9 % (11.5-15.5); WBC 21.3 k/uL (3.8-10.6)
[2020-08-01 06:27] LABS: Lymphocytes # (A) 15.5 k/uL (1.0-4.8)
[2020-08-01] MEDS: clonazePAM 0.5 MG TAB PO PRN (07:38)
[2020-08-01] MEDS: HYDROcodone/APAP 5-325MG 1 EACH TAB PO PRN ×2 (07:38→17:28)
[2020-08-01] MEDS: NICOTINE 14MG/24HR PATCH TRANSDERM SCH (07:38)
[2020-08-01] MEDS: PANTOPRAZOLE 40 MG TABLET PO SCH (07:38)
[2020-08-01] MEDS: HEPARIN SODIUM,PORCINE 5,000 UNIT/ML 1 ML VIAL SQ SCH ×3 (07:39→20:40)
[2020-08-01] MEDS: IPRATROPIUM-ALBUTEROL 3 ML NEB INHALATION SCH ×4 (08:30→19:33)
[2020-08-01] MEDS ORDERED: PROPOFOL 10 MG/ML 20 ML VIAL IV ONE (09:15)
[2020-08-01] MEDS ORDERED: KETAMINE 10 MG/ML 20 ML VIAL ONE (09:15)
[2020-08-01] MEDS ORDERED: LIDOCAINE 1% INJ 10MG/ML (20 ML MDV) ONE (09:15)
--- NOTE | 2020-08-01 09:44 | P.PN ---
Subjective Progress Note Date: 08/01/20 Principal diagnosis: Perihilar mass Patient is doing well this morning. No acute events overnight. She is scheduled for bronchoscopy today. Objective - Vital Signs Vital signs: Vital Signs Temp 98.1 F 08/01/20 07:22 Pulse 104 H 08/01/20 08:40 Resp 17 08/01/20 07:30 BP 112/73 08/01/20 07:22 Pulse Ox 90 L 08/01/20 07:22 Intake & Output 07/31/20 08/01/20 08/01/20 18:59 06:59 18:59 Intake Total 1140 Balance 1140 Intake: Intake, IV Titration 1140 Amount Piperacillin-Tazobactam 3 100 .375 gm In Sodium Chloride 0.9% 100 ml @ 25 mls/hr IVPB Q8H [facility] Rx#: [id number] Sodium Chloride 0.9% 1, 1040 000 ml @ 130 mls/hr IV . Q7H42M [facility] Rx#:[id number] Other: Voiding Method Toilet Toilet # Voids 3 1 - Exam General: The patient is awake and alert, in no distress Eye: there is normal conjunctiva bilaterally. Neck: The neck is supple, there is no JVD. Cardiovascular: Normal S1-S2, no S3-S4, no murmurs. Respiratory: Lungs clear to auscultation bilaterally Gastrointestinal: Abdomen is soft, nontender Musculoskeletal: There is no pedal edema. Neurological:. Speech is normal. Skin: Skin is warm and dry - Labs CBC & Chem 7: 08/01/20 05:38 07/31/20 06:15 Labs: Abnormal Lab Results - Last 24 Hours (Table) 07/31/20 07/31/20 08/01/20 Range/Units 06:15 06:15 05:38 WBC 21.3 H (3.8-10.6) k/uL MCV 102.1 H (80.0-100.0) fL Lymphocytes # 15.5 H (1.0-4.8) k/uL BUN 6.0 L (9.0-27.0) mg/dL Creatinine 0.4 L (0.6-1.5) mg/dL Calcium 8.4 L (8.7-10.3) mg/dL Alkaline Phosphatase 207 H (41-126) U/L Lactate Dehydrogenase 490 H (120-246) U/L Total Protein 5.0 L (6.2-8.2) g/dL Albumin 3.60 L (3.80-4.90) g/dL Globulin 1.4 L (1.6-3.3) g/dL CA 15-3 Antigen 109.3 H (0.0-32.3) U/mL Microbiology - Last 24 Hours (Table) 07/31/20 08:40 Gram Stain - Preliminary Sputum Sputum Culture - Preliminary 07/30/20 09:58 Blood Culture - Preliminary Blood No Growth after 24 hours Assessment and Plan Assessment: This is a 50-year-old female with complex past medical history noted below the presented to the emergency room with worsening neck and lower back pain. Patient was evaluated in the ER and admitted to the hospital for further management of her medical problems noted below. 1. Severe sepsis without septic shock: Lactic acid normal. Received aggressive IV fluid hydration. Blood cultures negative to date 2. Postobstructive pneumonia of the right lung: Patient was given azithromycin and ceftriaxone in the ER. I switched antibiotic to IV Zosyn. Sputum culture ordered. COVID-19 negative 3. Right perihilar mass concerning for malignancy: appears to be encasing the trachea and the right mainstem bronchus and portion of the left proximal left mainstem bronchus on CT. Left hilar adenopathy. Patient was seen and evaluated by pulmonary. Scheduled for bronchoscopy tosay. Patient was also seen by oncology. Scheduled for bone scan today 4. Acute COPD exacerbation: DuoNeb's every 6 hours scheduled. 5. Hyponatremia hypovolemic. Resolved with IV fluid hydration 6. Hypomagnesemia: replaced 7. History of breast cancer status post chemo/radiation therapy and bilateral mastectomy with left axillary node dissection and implant reconstruction completed in March 2017 8. Underlying CLL followed by hematology 9. Tobacco abuse: Counseled extensively to quit. Nicotine patch ordered. 10. DVT prophylaxis with subcu heparin Today, I reviewed her medication list and lab work results. Continue current regimen. Appreciate field technical support consultant's recommendations. Repeat lab work in the morning.
--- NOTE | 2020-08-01 10:33 | P.PN ---
Subjective Progress Note Date: 08/01/20 Principal diagnosis: Postoperative obstructive pneumonia on the right side Right perihilar mass End-stage COPD with acute exacerbation Back pain and neck pain History of breast cancer 08/01/2020, patient seen eval examined labs reviewed medications reviewed care plan discussed, computed tomography scan finding discussed with the patient also discussed with medical oncology, patient is for bronchoscopy and lung biopsy for later on today, bone scan for metastatic disease is pending 07/31/2020, patient seen eval examined during the rounds labs reviewed medications reviewed cough is slightly better, still have pain in the neck as well as in the back spine surgery oncology have been following I have updated patient about computed tomography scan as well as a chest x-ray will schedule for bronchoscopy and lung biopsy tomorrow, will continue to gently rehydrate and continue broad-spectrum antibiotics This is a 50-year-old female who was seen eval reexamined on fourth floor patient is well-known to me for history of end-stage COPD, patient also had a breast cancer in the past has been followed up in the past loss follow-up with last seen almost 2 years ago now came back with back pain and neck pain Patient said that she has chronic cough that is mostly productive of yellowish sputum. Over the past few days she has been getting more short of breath. She is having some mild wheezing. She admitted that she smokes 2 packs of cigarettes per day. She has a history of COPD and used her nebulizer machine at home with minimal relief. She also reported having a fall at home couple of days ago and since then having some lower back pain. Patient was evaluated in the ER and was found to have evidence of sepsis with a chest x-ray showing a large right perihilar masslike opacity. Computed tomography scan confirmed that also narrowing of right upper lobe bronchus has been seen, suspicion of postobstructive pneumonia Patient was treated with IV fluids and antibiotic and will be admitted to the hospital for further management. Objective - Vital Signs Vital signs: Vital Signs Temp 98.1 F 08/01/20 07:22 Pulse 104 H 08/01/20 08:40 Resp 17 08/01/20 07:30 BP 112/73 08/01/20 07:22 Pulse Ox 90 L 08/01/20 07:22 Intake & Output 07/31/20 08/01/20 08/01/20 18:59 06:59 18:59 Intake Total 1140 Balance 1140 Intake: Intake, IV Titration 1140 Amount Piperacillin-Tazobactam 3 100 .375 gm In Sodium Chloride 0.9% 100 ml @ 25 mls/hr IVPB Q8H [facility] Rx#: [id number] Sodium Chloride 0.9% 1, 1040 000 ml @ 130 mls/hr IV . Q7H42M [facility] Rx#:[id number] Other: Voiding Method Toilet Toilet # Voids 3 1 - Exam - Constitutional General appearance: average body habitus, cooperative, disheveled - EENT Eyes: EOMI, PERRLA Ears: bilateral: normal - Neck Carotids: bilateral: upstroke normal Thyroid: bilateral: normal size - Respiratory Respiratory: bilateral: diminished - Cardiovascular Rhythm: regular Heart sounds: normal: S1, S2 - Gastrointestinal General gastrointestinal: decreased bowel sounds, soft - Integumentary Integumentary: normal turgor - Neurologic Neurologic: CNII-XII intact - Musculoskeletal Musculoskeletal: gait normal, generalized weakness, strength equal bilaterally - Psychiatric Psychiatric: A&O x's 3, appropriate affect, intact judgment & insight - Labs CBC & Chem 7: 08/01/20 05:38 07/31/20 06:15 Labs: Abnormal Lab Results - Last 24 Hours (Table) 07/31/20 08/01/20 Range/Units 06:15 05:38 WBC 21.3 H (3.8-10.6) k/uL MCV 102.1 H (80.0-100.0) fL Lymphocytes # 15.5 H (1.0-4.8) k/uL Alkaline Phosphatase 207 H (41-126) U/L Lactate Dehydrogenase 490 H (120-246) U/L Total Protein 5.0 L (6.2-8.2) g/dL Albumin 3.60 L (3.80-4.90) g/dL Globulin 1.4 L (1.6-3.3) g/dL CA 15-3 Antigen 109.3 H (0.0-32.3) U/mL Microbiology - Last 24 Hours (Table) 07/31/20 08:40 Gram Stain - Preliminary Sputum Sputum Culture - Preliminary 07/30/20 09:58 Blood Culture - Preliminary Blood No Growth after 24 hours Assessment and Plan Assessment: Postoperative obstructive pneumonia on the right side Right perihilar pulmonary mass End-stage COPD with acute exacerbation Back pain and neck pain History of breast cancer History of left-sided mediastinal and hilar lymphadenopathy Active smoker nicotine use Plan: Continue broad-spectrum antibiotics Follow clinical response closely Patient will require bronchoscopy and lung biopsy will schedule for tomorrow patient explained about the procedure at length side effect alternate event explained to the patient patient wishes to proceed Time with Patient: Greater than 30
[2020-08-01 10:46] LABS: African American GFR (CKD) 129.9 (60.0-200.0); Anion Gap 6.8 mmol/L (4.00-12.00); Calcium 8.4 mg/dL (8.7-10.3); Carbon Dioxide 26.2 mmol/L (21.6-31.8); Magnesium 1.5 mg/dL (1.5-2.4); Non-African American GFR(CKD) 112.1 (60.0-200.0); Potassium 4.5 mmol/L (3.5-5.5)
[2020-08-01] MEDS ORDERED: IV FLUID CONTINUATION 1,000 ML IV ONE (11:00)
[2020-08-01] MEDS ORDERED: methylPREDNISolone SOD SUCCI 125 MG/2 ML VIAL IM ONE (11:20)
[2020-08-01] MEDS ORDERED: methylPREDNISolone SOD SUCCI 125 MG/2 ML VIAL IV STA (11:21)
[2020-08-01] MEDS ORDERED: SODIUM CHLORIDE 0.9% 500 ML 500 ML IV ONE (11:25)
--- NOTE | 2020-08-01 11:27 | P.PCN ---
Date of Procedure: 08/01/20 Preoperative Diagnosis: Postoperative Diagnosis: lung mass post obstructive pneumonia Procedure(s) Performed: Bronch Anesthesia: MAC Surgeon: Joey Chaudhari Disposition: floor Operative Findings: Patient desaturated to 70 % before endoscopy Nasal passages very tight bleed easily procedure cancel.
--- NOTE | 2020-08-01 12:49 | XR ---
EXAMINATION TYPE: XR chest 1V DATE OF EXAM: 08/01/2020 COMPARISON: Prior chest x-ray 07/31/2020 HISTORY: Pneumonia TECHNIQUE: Single frontal view of the chest is obtained. FINDINGS: Right upper lobe airspace disease, perihilar abnormal soft tissue density is again noted. Heart size is stable. There are tissue expanders in place. Port is present in the right pectoral yamila on, distal tip overlying superior vena cava. No evident pneumothorax or pleural effusion. Interstitiu m is prominent. IMPRESSION: Persistent hilar mass extending to the mediastinum with possible postobstructive changes , interstitial spread of carcinoma
--- NOTE | 2020-08-01 15:36 | P.PN ---
Subjective Progress Note Date: 08/01/20 Principal diagnosis: metastatic cancer planning for bronch today Objective - Vital Signs Vital signs: Vital Signs Temp 97.9 F 08/01/20 14:27 Pulse 100 08/01/20 14:27 Resp 17 08/01/20 14:27 BP 142/97 08/01/20 14:27 Pulse Ox 90 L 08/01/20 14:27 Intake & Output 07/31/20 08/01/20 08/01/20 18:59 06:59 18:59 Intake Total 1140 150 Balance 1140 150 Intake: IV 150 Intake, IV Titration 1140 Amount Piperacillin-Tazobactam 3 100 .375 gm In Sodium Chloride 0.9% 100 ml @ 25 mls/hr IVPB Q8H [facility] Rx#: [id number] Sodium Chloride 0.9% 1, 1040 000 ml @ 130 mls/hr IV . Q7H42M [facility] Rx#:[id number] Other: Voiding Method Toilet Toilet # Voids 3 1 2 - Exam Constitutional General appearance: cooperative, no acute distress - EENT Eyes: EOMI, PERRLA ENT: NA/AT, normal oropharynx - Neck Neck: lymphadenopathy - Respiratory Respiratory: bilateral: diminished, wheezing - Cardiovascular Heart rate: 112 - Gastrointestinal General gastrointestinal: normal bowel sounds, tenderness - Integumentary Integumentary: pale - Neurologic Neurologic: CNII-XII intact - Musculoskeletal Musculoskeletal: generalized weakness, strength equal bilaterally - Psychiatric Psychiatric: A&O x's 3 - Labs CBC & Chem 7: 08/01/20 05:38 08/01/20 05:38 Labs: Abnormal Lab Results - Last 24 Hours (Table) 07/31/20 07/31/20 08/01/20 Range/Units 06:15 06:15 05:38 WBC 21.3 H (3.8-10.6) k/uL MCV 102.1 H (80.0-100.0) fL Lymphocytes # 15.5 H (1.0-4.8) k/uL Creatinine (0.6-1.5) mg/dL Calcium (8.7-10.3) mg/dL Alkaline Phosphatase 207 H (41-126) U/L Lactate Dehydrogenase 490 H (120-246) U/L Total Protein 5.0 L (6.2-8.2) g/dL Albumin 3.60 L (3.80-4.90) g/dL Globulin 1.4 L (1.6-3.3) g/dL CA 15-3 Antigen 109.3 H (0.0-32.3) U/mL IgG 284.0 L (700.0-1600.0) mg/dL 08/01/20 Range/Units 05:38 WBC (3.8-10.6) k/uL MCV (80.0-100.0) fL Lymphocytes # (1.0-4.8) k/uL Creatinine 0.5 L (0.6-1.5) mg/dL Calcium 8.4 L (8.7-10.3) mg/dL Alkaline Phosphatase (41-126) U/L Lactate Dehydrogenase (120-246) U/L Total Protein (6.2-8.2) g/dL Albumin (3.80-4.90) g/dL Globulin (1.6-3.3) g/dL CA 15-3 Antigen (0.0-32.3) U/mL IgG (700.0-1600.0) mg/dL Microbiology - Last 24 Hours (Table) 07/30/20 09:58 Blood Culture - Preliminary Blood No Growth after 48 hours 07/31/20 08:40 Gram Stain - Preliminary Sputum Sputum Culture - Preliminary Assessment and Plan (1) CLL (chronic lymphocytic leukemia) Current Visit: Yes Status: Acute Code(s): C91.10 - CHRONIC LYMPHOCYTIC LEUK OF B-CELL TYPE NOT ACHIEVE REMIS SNOMED Code(s): 28424840 (2) Breast cancer Current Visit: Yes Status: Acute Code(s): C50.919 - MALIGNANT NEOPLASM OF UNSP SITE OF UNSPECIFIED FEMALE BREAST SNOMED Code(s): 626090400 Plan: Assessment and plan: 1. New Soft Tissue Density in Lung: - Will need tissue biopsy, defer to pulm for best approach - Differentials include Breast Cancer, New primary lung cancer, versus other - Bronch per pulm for tissue bx today 2. Neck and Back Pain: - Unable to undergo MRI with Metal in body - Bone Scan 3. Hx: Breast Cancer: - HPI details - Ca 15-3 is increased suspicious for recurrence 4. Hx: CLL: - History in HPI Plan: - Bronch today - Suportive care - Await path Physician Attest: I have completed the full history and physical and agree with above dictation, dictated as a scribe
[2020-08-01 16:47] LABS: CA27.29 Breast Ca Marker 213.8 U/mL (0.0-38.5)
--- NOTE | 2020-08-01 16:50 | NM ---
EXAMINATION TYPE: NM bone scan whole body DATE OF EXAM: 08/01/2020 COMPARISON: NONE HISTORY: Restaging Delayed whole-body scanning was performed following the injection of 25.3 mCi Tc 99m MDP. Images acq uired 6 hours post injection. FINDINGS: There are numerous foci of abnormal increased uptake in the ribs which are asymmetric. There is abnor mal increased uptake mid shaft of the right femur. There are multiple foci of increased uptake in the skull bilaterally. There is focal increased uptake in the sternum in several areas. There are asymme tric foci of increased uptake in the thoracic spine. There is increased uptake in the intertrochanter ic femurs bilaterally. IMPRESSION: Multiple asymmetric foci of abnormal increased uptake involving the spine ribs skull and femurs consi stent with diffuse osseous metastatic disease.
--- NOTE | 2020-08-01 17:50 | P.PN ---
Subjective Progress Note Date: 08/01/20 Principal diagnosis: Postoperative obstructive pneumonia on the right side Right perihilar mass End-stage COPD with acute exacerbation Back pain and neck pain History of breast cancer 08/11/2020, patient reassessed at 5:30 bleeding appears to have his stopped no more hemoptysis or epistaxis is present, patient's breathing is slightly better, I have discussed with her at length about sequence of events, then when patient arrived in the endoscopy suite her oxygen saturation was 86% post anesthesia a before inserting during the bronchoscope, oxygen saturation dropped down into 70s patient was given extra supplemental oxygen after a while oxygen saturation came up to 92-93% the scope was attempted to pass through the right or left nares both were very narrow in size unable to has the scope, attempted the scope to be passed through the mouth patient was gagging, oxygen saturation however remains stable, due to severity of gagging and coughing options were to intubate the patient in order to continue the procedure elected to postpone the procedure, to reassess after adequate course of antibiotics bronchodilators and IV steroids. Currently on my assessment right now patient is awake and alert eating her supper denies any hemoptysis or epistaxis, no pain in the chest nose or throat is present, we will observe the patient over the weekend on broad- spectrum antibiotics breathing treatments and steroids and consider bronchoscope with lung biopsy in next 72-96 hours 08/01/2020, patient seen eval examined labs reviewed medications reviewed care plan discussed, computed tomography scan finding discussed with the patient also discussed with medical oncology, patient is for bronchoscopy and lung biopsy for later on today, bone scan for metastatic disease is pending 07/31/2020, patient seen eval examined during the rounds labs reviewed medications reviewed cough is slightly better, still have pain in the neck as well as in the back spine surgery oncology have been following I have updated patient about computed tomography scan as well as a chest x-ray will schedule for bronchoscopy and lung biopsy tomorrow, will continue to gently rehydrate and continue broad-spectrum antibiotics This is a 50-year-old female who was seen eval reexamined on fourth floor patient is well-known to me for history of end-stage COPD, patient also had a breast cancer in the past has been followed up in the past loss follow-up with last seen almost 2 years ago now came back with back pain and neck pain Patient said that she has chronic cough that is mostly productive of yellowish sputum. Over the past few days she has been getting more short of breath. She is having some mild wheezing. She admitted that she smokes 2 packs of cigarettes per day. She has a history of COPD and used her nebulizer machine at home with minimal relief. She also reported having a fall at home couple of days ago and since then having some lower back pain. Patient was evaluated in the ER and was found to have evidence of sepsis with a chest x-ray showing a large right perihilar masslike opacity. Computed tomography scan confirmed that also narrowing of right upper lobe bronchus has been seen, suspicion of postobstructive pneumonia Patient was treated with IV fluids and antibiotic and will be admitted to the hospital for further management. Objective - Vital Signs Vital signs: Vital Signs Temp 97.9 F 08/01/20 14:27 Pulse 100 08/01/20 16:53 Resp 17 08/01/20 14:27 BP 142/97 08/01/20 14:27 Pulse Ox 90 L 08/01/20 14:27 Intake & Output 07/31/20 08/01/20 08/01/20 18:59 06:59 18:59 Intake Total 1140 150 Balance 1140 150 Intake: IV 150 Intake, IV Titration 1140 Amount Piperacillin-Tazobactam 3 100 .375 gm In Sodium Chloride 0.9% 100 ml @ 25 mls/hr IVPB Q8H [facility] Rx#: [id number] Sodium Chloride 0.9% 1, 1040 000 ml @ 130 mls/hr IV . Q7H42M [facility] Rx#:[id number] Other: Voiding Method Toilet Toilet # Voids 3 1 2 - Exam - Constitutional General appearance: average body habitus, cooperative, disheveled - EENT Eyes: EOMI, PERRLA Ears: bilateral: normal - Neck Carotids: bilateral: upstroke normal Thyroid: bilateral: normal size - Respiratory Respiratory: bilateral: diminished - Cardiovascular Rhythm: regular Heart sounds: normal: S1, S2 - Gastrointestinal General gastrointestinal: decreased bowel sounds, soft - Integumentary Integumentary: normal turgor - Neurologic Neurologic: CNII-XII intact - Musculoskeletal Musculoskeletal: gait normal, generalized weakness, strength equal bilaterally - Psychiatric Psychiatric: A&O x's 3, appropriate affect, intact judgment & insight - Labs CBC & Chem 7: 08/01/20 05:38 08/01/20 05:38 Labs: Abnormal Lab Results - Last 24 Hours (Table) 07/31/20 07/31/20 08/01/20 Range/Units 06:15 06:15 05:38 WBC 21.3 H (3.8-10.6) k/uL MCV 102.1 H (80.0-100.0) fL Lymphocytes # 15.5 H (1.0-4.8) k/uL Creatinine (0.6-1.5) mg/dL Calcium (8.7-10.3) mg/dL CA 15-3 Antigen 109.3 H (0.0-32.3) U/mL CA 27-29 213.8 H (0.0-38.5) U/mL IgG 284.0 L (700.0-1600.0) mg/dL 08/01/20 Range/Units 05:38 WBC (3.8-10.6) k/uL MCV (80.0-100.0) fL Lymphocytes # (1.0-4.8) k/uL Creatinine 0.5 L (0.6-1.5) mg/dL Calcium 8.4 L (8.7-10.3) mg/dL CA 15-3 Antigen (0.0-32.3) U/mL CA 27-29 (0.0-38.5) U/mL IgG (700.0-1600.0) mg/dL Microbiology - Last 24 Hours (Table) 07/30/20 09:58 Blood Culture - Preliminary Blood No Growth after 48 hours 07/31/20 08:40 Gram Stain - Preliminary Sputum Sputum Culture - Preliminary Assessment and Plan Assessment: Epistaxis Acute hypoxic respiratory failure Postoperative obstructive pneumonia on the right side Right perihilar pulmonary mass End-stage COPD with acute exacerbation Back pain and neck pain History of breast cancer History of left-sided mediastinal and hilar lymphadenopathy Active smoker nicotine use Plan: Continue broad-spectrum antibiotics, bronchodilators along with IV steroids Follow clinical response closely Patient will require bronchoscopy and lung biopsy will schedule for early to mid next week, sequence of event explained to the patient at length, patient wishes to proceed as planned Time with Patient: Greater than 30
[2020-08-01] MEDS: BUDESONIDE 0.5 MG/2 ML NEBU INHALATION SCH (19:32)
[2020-08-01] MEDS: methylPREDNISolone SOD SUCCI 40 MG/ML 1 ML VIAL IV SCH (20:40)
[2020-08-02] MEDS: PIPERACILLIN-TAZOBACTAM 3.375 GM in SODIUM CHLORIDE 0.9% 100 ML IVPB SCH ×3 (02:49→19:55)
[2020-08-02] MEDS: HYDROcodone/APAP 5-325MG 1 EACH TAB PO PRN ×4 (02:49→19:55)
[2020-08-02 06:35] LABS: Basophils # (A) 0.3 k/uL (0-0.2); Basophils % (A) 1 %; Eosinophils # (A) 0.1 k/uL (0-0.7); Eosinophils % (A) 0 %; HCT 44.5 % (34.0-46.0); Lymphocytes % (A) 69 %; MCH 34.6 pg (25.0-35.0); MCHC 33.7 g/dL (31.0-37.0); Macrocytosis Slight; Mean Platelet Volume 7.6; Monocytes # (A) 0.6 k/uL (0-1.0); Monocytes % (A) 2 %; Neutrophils # (A) 7.5 k/uL (1.3-7.7); Neutrophils % (A) 24 %; Platelet Count 262 k/uL (150-450); RBC 4.32 m/uL (3.80-5.40); RDW 13.4 % (11.5-15.5); WBC 31.2 k/uL (3.8-10.6)
[2020-08-02 06:39] LABS: Lymphocytes # (A) 21.6 k/uL (1.0-4.8)
[2020-08-02] MEDS: IPRATROPIUM-ALBUTEROL 3 ML NEB INHALATION SCH ×4 (07:50→19:37)
[2020-08-02] MEDS: BUDESONIDE 0.5 MG/2 ML NEBU INHALATION SCH ×2 (07:51→19:38)
[2020-08-02] MEDS: PANTOPRAZOLE 40 MG TABLET PO SCH (07:52)
[2020-08-02] MEDS: HEPARIN SODIUM,PORCINE 5,000 UNIT/ML 1 ML VIAL SQ SCH ×2 (07:53→19:56)
[2020-08-02] MEDS: NICOTINE 14MG/24HR PATCH TRANSDERM SCH (07:53)
[2020-08-02] MEDS: methylPREDNISolone SOD SUCCI 40 MG/ML 1 ML VIAL IV SCH ×2 (07:53→19:55)
[2020-08-02 09:14] LABS: Poikilocytosis (M) Present
[2020-08-02 09:55] LABS: African American GFR (CKD) 129.9 (60.0-200.0); Anion Gap 7.8 mmol/L (4.00-12.00); Calcium 9.1 mg/dL (8.7-10.3); Carbon Dioxide 26.2 mmol/L (21.6-31.8); Non-African American GFR(CKD) 112.1 (60.0-200.0); Potassium 4.7 mmol/L (3.5-5.5)
--- NOTE | 2020-08-02 10:52 | P.PN ---
Subjective Progress Note Date: 08/02/20 Principal diagnosis: Perihilar mass Patient is doing fairly well today. She told me that she is having constant pain all over her body that she rates about 4 out of 10 in severity. No acute overnight events reported by nursing staff. Objective - Vital Signs Vital signs: Vital Signs Temp 98.4 F 08/02/20 07:00 Pulse 96 08/02/20 08:02 Resp 20 08/02/20 07:45 BP 128/83 08/02/20 07:00 Pulse Ox 94 L 08/02/20 07:00 Intake & Output 08/01/20 08/02/20 08/02/20 18:59 06:59 18:59 Intake Total 150 450 Balance 150 450 Intake: IV 150 Oral 450 Other: Voiding Method Toilet Toilet Toilet # Voids 2 2 - Exam General: The patient is awake and alert, in no distress Eye: there is normal conjunctiva bilaterally. Neck: The neck is supple, there is no JVD. Cardiovascular: Normal S1-S2, no S3-S4, no murmurs. Respiratory: End-expiratory wheezing Gastrointestinal: Abdomen is soft, nontender Musculoskeletal: There is no pedal edema. Neurological:. Speech is normal. Skin: Skin is warm and dry - Labs CBC & Chem 7: 08/02/20 05:43 08/02/20 05:43 Labs: Abnormal Lab Results - Last 24 Hours (Table) 07/31/20 08/02/20 08/02/20 Range/Units 06:15 05:43 05:43 WBC 31.2 H (3.8-10.6) k/uL MCV 103.0 H (80.0-100.0) fL Lymphocytes # 21.6 H (1.0-4.8) k/uL Basophils # 0.3 H (0-0.2) k/uL BUN 8.0 L (9.0-27.0) mg/dL Creatinine 0.5 L (0.6-1.5) mg/dL Glucose 145 H (70-110) mg/dL CA 27-29 213.8 H (0.0-38.5) U/mL IgG 284.0 L (700.0-1600.0) mg/dL Microbiology - Last 24 Hours (Table) 07/30/20 09:58 Blood Culture - Preliminary Blood No Growth after 48 hours Assessment and Plan Assessment: This is a 50-year-old female with complex past medical history noted below the presented to the emergency room with worsening neck and lower back pain. Patient was evaluated in the ER and admitted to the hospital for further management of her medical problems noted below. 1. Severe sepsis without septic shock: Lactic acid normal. Received aggressive IV fluid hydration. Blood cultures negative to date 2. Postobstructive pneumonia of the right lung: Patient was given azithromycin and ceftriaxone in the ER. I switched antibiotic to IV Zosyn. Sputum culture ordered. COVID-19 negative 3. Right perihilar mass concerning for malignancy: appears to be encasing the trachea and the right mainstem bronchus and portion of the left proximal left mainstem bronchus on CT. Left hilar adenopathy. Patient was seen and evaluated by pulmonary. Bronchoscopy aborted on 08/01 secondary to hypoxia. Plan for repeat bronchoscopy on Tuesday or Tuesday. Patient was also seen by oncology. Bone scan showed evidence of diffuse metastatic bone disease 4. Acute COPD exacerbation: DuoNeb's every 6 hours scheduled. IV Solu-Medrol 40 mg twice daily started by pulmonology 5. Hyponatremia hypovolemic. Resolved with IV fluid hydration 6. Hypomagnesemia: replaced 7. History of breast cancer status post chemo/radiation therapy and bilateral mastectomy with left axillary node dissection and implant reconstruction completed in March 2017 8. Underlying CLL followed by hematology 9. Tobacco abuse: Counseled extensively to quit. Nicotine patch ordered. 10. DVT prophylaxis with subcu heparin Today, I reviewed her medication list and lab work results. I updated the tonya ent about her own scan results. We discussed the possibility that this could be a new diagnosis of lung cancer with bone metastasis versus recurrence of her underlying breast cancer. I informed her that we can tell for sure until we get the biopsy. I also told her that oncology would discuss further options of treatments/palliative measures including chemo and/or radiation when biopsy results are not available. I offered the patient had the long-acting morphine twice daily to her regimen that she wasn't interested and she told me that her pain is well controlled with [place]. I would increase dose to 10/325 mg every 4 hours as needed. Continue current regimen. Appreciate software developer consultant's recommendations. Repeat lab work in the morning.
--- NOTE | 2020-08-02 14:14 | P.PN ---
Subjective Progress Note Date: 08/02/20 Principal diagnosis: metastatic cancer Bone scan completed, appears to have diffuse bone metastasis through spine, ribs, skull and femur. Her Ca15-3 and 27.29 are also increased which could be suspicious for recurrent metastatic breast cancer. Hx: CLL - Immunoglobulin checked and resulted with low IgG at 284. I spoke to pharmacy and will proceed with infusion IVIG for increased immune protection. Bronchoscopy was attempted on 08/01/20, although patient desaturated during procedure and therefore procedure had to be stopped and biopsy was not able to be pertained, we will fur ther assess with imaging abdomen and pelvis for additional area to biopsy. Objective - Vital Signs Vital signs: Vital Signs Temp 98.4 F 08/02/20 07:00 Pulse 100 08/02/20 11:31 Resp 20 08/02/20 07:45 BP 128/83 08/02/20 07:00 Pulse Ox 94 L 08/02/20 07:00 Intake & Output 08/01/20 08/02/20 08/02/20 18:59 06:59 18:59 Intake Total 150 450 240 Balance 150 450 240 Intake: IV 150 Oral 450 240 Other: Voiding Method Toilet Toilet Toilet # Voids 2 2 - Exam Constitutional General appearance: cooperative, no acute distress - EENT Eyes: EOMI, PERRLA ENT: NA/AT, normal oropharynx - Neck Neck: lymphadenopathy - Respiratory Respiratory: bilateral: diminished, wheezing - Cardiovascular Heart rate: 112 - Gastrointestinal General gastrointestinal: normal bowel sounds, tenderness - Integumentary Integumentary: pale - Neurologic Neurologic: CNII-XII intact - Musculoskeletal Musculoskeletal: generalized weakness, strength equal bilaterally - Psychiatric Psychiatric: A&O x's 3 - Labs CBC & Chem 7: 08/02/20 05:43 08/02/20 05:43 Labs: Abnormal Lab Results - Last 24 Hours (Table) 07/31/20 08/02/20 08/02/20 Range/Units 06:15 05:43 05:43 WBC 31.2 H (3.8-10.6) k/uL MCV 103.0 H (80.0-100.0) fL Lymphocytes # 21.6 H (1.0-4.8) k/uL Basophils # 0.3 H (0-0.2) k/uL BUN 8.0 L (9.0-27.0) mg/dL Creatinine 0.5 L (0.6-1.5) mg/dL Glucose 145 H (70-110) mg/dL CA 27-29 213.8 H (0.0-38.5) U/mL Microbiology - Last 24 Hours (Table) 07/30/20 09:58 Blood Culture - Preliminary Blood No Growth after 72 hours 07/31/20 08:40 Gram Stain - Final Sputum Sputum Culture - Final Assessment and Plan (1) CLL (chronic lymphocytic leukemia) Current Visit: Yes Status: Acute Code(s): C91.10 - CHRONIC LYMPHOCYTIC LEUK OF B-CELL TYPE NOT ACHIEVE REMIS SNOMED Code(s): 19151926 (2) Breast cancer Current Visit: Yes Status: Acute Code(s): C50.919 - MALIGNANT NEOPLASM OF UNSP SITE OF UNSPECIFIED FEMALE BREAST SNOMED Code(s): 953684701 Plan: Assessment and plan: 1. New Soft Tissue Density in Lung: - Will need tissue biopsy, defer to pulm for best approach - Differentials include Breast Cancer, New primary lung cancer, versus other - Bronch per pulm for tissue bx attmepted on 08/01 unable to proceed due to desaturation and hypoxia. 2. Neck and Back Pain: - Unable to undergo MRI with Metal in body - Bone Scan reviewed and diffuse metastatic lesions upper spine, ribs, skull and femur - With complaints of pain and in picture of metastatic disease will ask Radiation oncology to assess for intervention of palliative radiation - Consult placed for Dr. Burrell. 3. Hx: Breast Cancer: - HPI details - Ca 15-3/Ca 27-29 is increased suspicious for recurrence 4. Hx: CLL: - History in HPI - Immunoglobin IgG low at 284 - IVIG ordered, spoke with pharmacy Plan: - IVIG today discussed with pharmacy 20grams today. - CT abdomen and Pelvis for assessment of restage and potential area to obtain tissue biopsy for pathology and genomic testing - CT of Brain with and without contrast for initial staging - Consult for Radiation oncology for palliative radiation to spine with evidence of metastatic bone lesions. Shira George NP
[2020-08-02] MEDS ORDERED: ACETAMINOPHEN TAB 500 MG TAB PO ONE (15:00)
[2020-08-02] MEDS ORDERED: diphenhydrAMINE 50 MG/ML 1 ML VIAL IVP ONE (15:00)
[2020-08-02] MEDS ORDERED: FAMOTIDINE 20 MG/2 ML VIAL IVP ONE (15:00)
[2020-08-02] MEDS: IOPAMIDOL CONTRAST (ORAL USE) VIAL PO PRN ×2 (15:08→16:02)
--- NOTE | 2020-08-02 15:37 | P.PN ---
Progress Note - Text Progress Note Date: 08/02/20 The patient is seen and examined today at bedside. She is more comfortable and feels that some of her pain has settled at her mid and lower back. She is not having numbness tingling in her lower extremities or upper extremity. She is not having specific weakness. She has been through a bronchoscopy as well as bone scan and I reviewed this results. On exam she is afebrile. She is ambulating in her room. She is breathing comfortably on room air. Her extremity is full active and passive range of motion. She has some limitations at her left upper extremity with shoulder motion due to her prior lymph surgeries from her breast. She is no apparent neurologic deficit that her extremities. Bone scan is reviewed. Assessment and plan Bony metastasis and multiple areas at the thoracic spine, bilateral intertrochanteric femur, a femoral shaft, skull and possibly pelvis History of CLL History of breast cancer Perihilar lung mass Pneumonia The patient has multiple positive findings likely representing metastatic cancer with bony metastasis. She is continuing workup in regards to her perihilar mass along with her history of breast CA. Hematology oncology is seeing her and radiation oncology will be counseled as well. There continue further workup for tighten staging. With her bony metastasis at her right femur, pelvis, intertrochanteric reamers, and thoracic spine and think it is worthwhile to obtain plain films to evaluate the amount of cortical change involved in risk for pathologic fractures. We'll continue his regular x-rays. It is okay from a orthopedic spine standpoint for the patient to continue her mobility as she tolerates. I would agree with radiation oncology for evaluation and possible treatment as appropriate.
[2020-08-02] MEDS ORDERED: IMMUNE GLOBULIN (GAMMAGARD) 20 GM in EMPTY BAG 1 BAG IV ONE (16:00)
[2020-08-02] MEDS: ONDANSETRON 4 MG/2 ML VIAL IVP PRN (17:35)
--- NOTE | 2020-08-02 17:37 | CT ---
EXAMINATION TYPE: CT brain wo/w con DATE OF EXAM: 08/02/2020 COMPARISON: None HISTORY: Staging. History of breast cancer. CT DLP: 2248 mGycm Automated exposure control for dose reduction was used. CONTRAST: Performed without and with IV Contrast, patient injected with mL of Isovue 300. There is irregular 3 cm mass in the right posterior frontal lobe within the brain parenchyma which sh ows irregular pathologic enhancement. This is somewhat ring-enhancing. There is surrounding white mat ter edema. There is mild mass effect. There is no midline shift. Cerebellum is intact. There is no evidence of intracranial hemorrhage. Calvarium is intact. IMPRESSION: Large irregular ring enhancing mass in the right posterior frontal lobe consistent with malignancy. T his could be metastatic disease or primary malignancy.
--- NOTE | 2020-08-02 19:08 | CT ---
EXAMINATION TYPE: CT abdomen pelvis w con DATE OF EXAM: 08/02/2020 COMPARISON: None HISTORY: Staging. History of breast cancer. CT DLP: 889.1 mGycm Automated exposure control for dose reduction was used. CONTRAST: Performed with IV Contrast, patient injected with 100 mL of Isovue 300. Images obtained from the diaphragm to the floor the pelvis with oral and IV contrast. FINDINGS: There is small right pleural effusion. There is some infiltrate right posterior lung base. There are multiple hypodense rounded masses throughout the liver of variable size. These appear to solis ve some peripheral enhancement and measure up to 2.5 cm. Gallbladder appears normal. The bile ducts a re not dilated. Spleen is intact. There is no pancreatic mass. Stomach is intact. There is no adrenal mass. Kidneys show satisfactory contrast opacification. There is no hydronephrosi s. Ureters are not dilated. Bladder distends smoothly. There is no inguinal hernia. There is no evidence of a bowel obstruction. There are some distended contrast filled loops of small bowel up to 3 cm however. There is no mesenteric edema. There is no ascites. There is no sign of free air. Appendix is medial and appears normal. There are some mottled areas of mild osteosclerosis in the lumbar vertebrae. IMPRESSION: Multiple liver lesions are suggestive of diffuse metastatic disease. Right pleural effusion and right and left basilar subsegmental atelectasis. Subtle sclerosis in the spine suggestive of metastatic disease that is also suggested by the bone sca n yesterday. Distended small bowel loops consistent with mild small bowel ileus.
--- NOTE | 2020-08-02 19:20 | US ---
EXAMINATION TYPE: US venous doppler duplex UE LT DATE OF EXAM: 08/02/2020 COMPARISON: NONE CLINICAL HISTORY: swelling hyper coaguable. elevated D-Dimer, edema left lower arm SIDE PERFORMED: left Left Arm: no evidence of DVT IMPRESSION: No evidence of deep vein thrombosis in the left arm.
--- NOTE | 2020-08-02 19:20 | US ---
EXAMINATION TYPE: US venous doppler duplex LE DATE OF EXAM: 08/02/2020 6:50 PM COMPARISON: NONE CLINICAL HISTORY: swelling hyper coaguable. elevated D-Dimer, edema bilateral legs SIDE PERFORMED: bilateral TECHNIQUE: The lower extremity deep venous system is examined utilizing real time linear array sonog mary with graded compression, doppler sonography and color-flow sonography. VESSELS IMAGED: External Iliac Vein (EIV) Common Femoral Vein Deep Femoral Vein Greater Saphenous Vein * Femoral Vein Popliteal Vein Small Saphenous Vein * Proximal Calf Veins (* superficial vessels) Right Leg: no evidence of DVT Left Leg: no evidence of DVT IMPRESSION: No evidence of deep vein thrombosis in both legs.
[2020-08-02] MEDS: clonazePAM 0.5 MG TAB PO PRN (19:56)
[2020-08-03] MEDS: HYDROcodone/APAP 5-325MG 1 EACH TAB PO PRN ×2 (04:57→14:48)
[2020-08-03] MEDS: PIPERACILLIN-TAZOBACTAM 3.375 GM in SODIUM CHLORIDE 0.9% 100 ML IVPB SCH ×3 (04:59→19:11)
[2020-08-03 06:43] LABS: HCT 47.3 % (34.0-46.0); HGB 15.3 gm/dL (11.4-16.0); MCH 32.8 pg (25.0-35.0); MCHC 32.4 g/dL (31.0-37.0); MCV 101.2 fL (80.0-100.0); Macrocytosis Slight; Mean Platelet Volume 7.3; Platelet Count 307 k/uL (150-450); RBC 4.68 m/uL (3.80-5.40); RDW 13.9 % (11.5-15.5); WBC 37.1 k/uL (3.8-10.6)
[2020-08-03 07:35] LABS: Band Neutrophils % 6 %; Lymphocytes # (M) 25.97 k/uL (1.0-4.8); Monocytes # (M) 1.11 k/uL (0-1.0); Neutrophils % (M) 21 %; Nucleated Red Blood Cells 0 /100 WBC (0-0); Total Cells Counted 200
[2020-08-03] MEDS: PANTOPRAZOLE 40 MG TABLET PO SCH (07:43)
[2020-08-03] MEDS: HEPARIN SODIUM,PORCINE 5,000 UNIT/ML 1 ML VIAL SQ SCH ×2 (07:44→20:34)
[2020-08-03] MEDS: NICOTINE 14MG/24HR PATCH TRANSDERM SCH (07:45)
[2020-08-03] MEDS: BUDESONIDE 0.5 MG/2 ML NEBU INHALATION SCH ×2 (08:23→18:59)
[2020-08-03] MEDS: dexAMETHasone 4 MG TAB PO SCH ×4 (08:24→20:34)
[2020-08-03] MEDS: IPRATROPIUM-ALBUTEROL 3 ML NEB INHALATION SCH ×4 (08:24→18:58)
--- NOTE | 2020-08-03 08:27 | XR ---
EXAMINATION TYPE: XR thoracic spine 2V DATE OF EXAM: 08/03/2020 CLINICAL HISTORY: pain TECHNIQUE: Frontal, lateral, and swimmer's view of thoracic spine are obtained. COMPARISON: None. FINDINGS: Heterogenous bone density may reflect metastatic disease. No bony destructive process appre ciated. Thoracic spine show satisfactory alignment without evidence of acute fracture or dislocation. Vertebral body heights are preserved. Disc spaces are well preserved. Right hilar mass is noted. IMPRESSION: No acute fracture or dislocation is seen in the thoracic spine. ICD 10 NO FRACTURE, INIT IAL EVALUATION
--- NOTE | 2020-08-03 08:28 | XR ---
EXAMINATION TYPE: XR pelvis AP view DATE OF EXAM: 08/03/2020 CLINICAL HISTORY: Metastatic disease suggested on bone scan. TECHNIQUE: Single view the pelvis is submitted. FINDINGS: Examination is limited by overlying contrast medium within the colon. No obvious bony destr uctive process is noted of the pelvis. No evidence for fracture, dislocation or bony lesion. Joint spaces are well-preserved. SI joints appear symmetric. IMPRESSION: 1. Examination is limited by overlying contrast medium within the colon. No obvious bony destructive process is noted of the pelvis ICD 10 NO FRACTURE, INITIAL EVALUATION
--- NOTE | 2020-08-03 08:29 | XR ---
EXAMINATION TYPE: XR femur RT DATE OF EXAM: 08/03/2020 CLINICAL HISTORY: pain TECHNIQUE: Two views of the right femur are obtained. COMPARISON: None. FINDINGS: Vague area of sclerosis within the intertrochanteric region extending into the lateral margin of the femoral neck. Metastatic disease is not excluded. There is no acute fracture or dislocation seen of t he femur. The hip and knee joints appear within normal limits. The overlying soft tissue appears u nremarkable. IMPRESSION: Vague area of sclerosis within the intertrochanteric region extending into the lateral margin of the femoral neck. Metastatic disease is not excluded. ICD 10 NO FRACTURE, INITIAL EVALUATION
--- NOTE | 2020-08-03 09:47 | P.PN ---
Subjective Progress Note Date: 08/03/20 Principal diagnosis: Perihilar mass Patient is doing fairly well today. Her pain is well-controlled. She denies any shortness of breath. No headache or vision change. Objective - Vital Signs Vital signs: Vital Signs Temp 98.0 F 08/03/20 07:00 Pulse 96 08/03/20 08:39 Resp 18 08/03/20 07:45 BP 116/78 08/03/20 07:00 Pulse Ox 92 L 08/03/20 07:00 Intake & Output 08/02/20 08/03/20 08/03/20 18:59 06:59 18:59 Intake Total 440.000 200 Balance 440.000 200 Intake: Intake, IV Titration 200.000 Amount Immune Globulin ( 200.000 Gammagard) 20 gm In Empty Bag 1 bag @ Titrate IV . Q0M ONE Rx#:[id number] Oral 240 200 Other: Voiding Method Toilet Toilet Toilet # Voids 2 1 # Bowel Movements 3 - Exam General: The patient is awake and alert, in no distress Eye: there is normal conjunctiva bilaterally. Neck: The neck is supple, there is no JVD. Cardiovascular: Normal S1-S2, no S3-S4, no murmurs. Respiratory: Mild End-expiratory wheezing Gastrointestinal: Abdomen is soft, nontender Musculoskeletal: There is no pedal edema. Neurological:. Speech is normal. Skin: Skin is warm and dry - Labs CBC & Chem 7: 08/03/20 06:23 08/02/20 05:43 Labs: Abnormal Lab Results - Last 24 Hours (Table) 08/02/20 08/03/20 Range/Units 05:43 06:23 WBC 37.1 H (3.8-10.6) k/uL Hct 47.3 H (34.0-46.0) % MCV 101.2 H (80.0-100.0) fL Neutrophils # (Manual) 10.00 H (1.3-7.7) k/uL Lymphocytes # (Manual) 25.97 H (1.0-4.8) k/uL Monocytes # (Manual) 1.11 H (0-1.0) k/uL BUN 8.0 L (9.0-27.0) mg/dL Creatinine 0.5 L (0.6-1.5) mg/dL Glucose 145 H (70-110) mg/dL Microbiology - Last 24 Hours (Table) 07/30/20 09:58 Blood Culture - Preliminary Blood No Growth after 72 hours 07/31/20 08:40 Gram Stain - Final Sputum Sputum Culture - Final Assessment and Plan Assessment: This is a 50-year-old female with complex past medical history noted below the presented to the emergency room with worsening neck and lower back pain. Patient was evaluated in the ER and admitted to the hospital for further management of her medical problems noted below. 1. Severe sepsis without septic shock: Lactic acid normal. Received aggressive IV fluid hydration. Blood cultures negative to date 2. Postobstructive pneumonia of the right lung: On IV Zosyn day #5. Sputum culture showed normal respiratory ghada. COVID-19 negative 3. Right perihilar mass concerning for malignancy: appears to be encasing the trachea and the right mainstem bronchus and portion of the left proximal left mainstem bronchus on CT. Left hilar adenopathy. Patient was seen and evaluated by pulmonary. Bronchoscopy aborted on 08/01 secondary to hypoxia. Plan for repeat bronchoscopy on Tuesday or Tuesday or attempt to get a tissue sample from different location possibly submandibular lymph node or liver. Patient was also seen by oncology. Bone scan showed evidence of diffuse metastatic bone disease. Computed tomography scan of the abdomen showed metastatic liver disease. 4. Brain metastasis, with a 3 cm mass noted in the right frontal lobe with mild surrounding edema. I started patient on Decadron 4 mg every 6 hours. Unable to get MRI of the brain as patient has breast expanders. 5. Acute COPD exacerbation: DuoNeb's every 6 hours scheduled. 6. Hyponatremia hypovolemic. Resolved with IV fluid hydration 7. Hypomagnesemia: replaced 8. History of breast cancer status post chemo/radiation therapy and bilateral mastectomy with left axillary node dissection and implant reconstruction completed in March 2017 9. Underlying CLL followed by hematology 10. Tobacco abuse: Counseled extensively to quit. Nicotine patch ordered. 11. DVT prophylaxis with subcu heparin Today, I reviewed her medication list and lab work results. I updated the pat ient about her imaging results. I discussed with the patient the possibility that this could be a new diagnosis of lung cancer with bone metastasis versus recurrence of her underlying breast cancer. I informed her that we can tell for sure until we get the biopsy. I also told her that oncology would discuss further options of treatments/palliative measures including chemo and/or radiation when biopsy results are not available. I offered the patient had the long-acting morphine twice daily to her regimen that she wasn't interested and she told me that her pain is well controlled with [place]. I would increase dose to 10/325 mg every 4 hours as needed. Continue current regimen. Appreciate training consultant's recommendations. Repeat lab work in the morning.
[2020-08-03 09:56] LABS: African American GFR (CKD) 122.3 (60.0-200.0); Albumin 3.8 g/dL (3.80-4.90); Albumin/Globulin Ratio 1.9 (1.60-3.17); BUN/Creat Ratio 16.67 Ratio (12.00-20.00); Calcium 8.9 mg/dL (8.7-10.3); Non-African American GFR(CKD) 105.5 (60.0-200.0); Potassium 5.1 mmol/L (3.5-5.5); Total Bilirubin 0.3 mg/dL (0.3-1.2); Total Protein 5.8 g/dL (6.2-8.2)
--- NOTE | 2020-08-03 14:08 | P.PN ---
Subjective Progress Note Date: 08/03/20 Principal diagnosis: metastatic cancer I have reviewed the CT abdomen and Pelvis and the Brain. Unfortunately the patient appears to have diffuse liver mets as well as a frontal lobe brain [id number]. Radiation oncology is already on board. She also has a palpable right submandibular nodule that could easily be accessed for biopsy. Will need core if possible as will need further testing on tumor with her diffuse metastatic disease. Reviewed all the above for patient. Consult placed for IR for Right submandibular (maybe quicker to access given she was NOT on a baby aspirin, this has been verified. Preferred liver biopsy if possible. Prepare for radiation to brain (possibly SRS with one lesion identified) unable to undergo MRI with expanders still in place. She is mostly struggling with the fact she still has these expanders in, I will touch base with her breast surgeon for removal. Objective - Vital Signs Vital signs: Vital Signs Temp 98.0 F 08/03/20 07:00 Pulse 96 08/03/20 08:39 Resp 18 08/03/20 07:45 BP 116/78 08/03/20 07:00 Pulse Ox 92 L 08/03/20 07:00 Intake & Output 08/02/20 08/03/20 08/03/20 18:59 06:59 18:59 Intake Total 440.000 200 Balance 440.000 200 Intake: Intake, IV Titration 200.000 Amount Immune Globulin ( 200.000 Gammagard) 20 gm In Empty Bag 1 bag @ Titrate IV . Q0M ONE Rx#:[id number] Oral 240 200 Other: Voiding Method Toilet Toilet Toilet # Voids 2 1 # Bowel Movements 3 - Exam Constitutional General appearance: cooperative, no acute distress - EENT Eyes: EOMI, PERRLA ENT: NA/AT, normal oropharynx - Neck Neck: lymphadenopathy right submandibular palpable nodule - Respiratory Respiratory: bilateral: diminished, wheezing - Cardiovascular Heart rate: 112 - Gastrointestinal General gastrointestinal: normal bowel sounds, tenderness - Integumentary Integumentary: pale - Neurologic Neurologic: CNII-XII intact - Musculoskeletal Musculoskeletal: generalized weakness, strength equal bilaterally - Psychiatric Psychiatric: A&O x's 3 - Labs CBC & Chem 7: 08/04/20 05:53 08/04/20 05:53 Labs: Abnormal Lab Results - Last 24 Hours (Table) 08/03/20 08/03/20 Range/Units 06:23 06:23 WBC 37.1 H (3.8-10.6) k/uL Hct 47.3 H (34.0-46.0) % MCV 101.2 H (80.0-100.0) fL Neutrophils # (Manual) 10.00 H (1.3-7.7) k/uL Lymphocytes # (Manual) 25.97 H (1.0-4.8) k/uL Monocytes # (Manual) 1.11 H (0-1.0) k/uL Glucose 111 H (70-110) mg/dL AST 43 H (13-35) U/L Alkaline Phosphatase 185 H (41-126) U/L Total Protein 5.8 L (6.2-8.2) g/dL Microbiology - Last 24 Hours (Table) 07/30/20 09:58 Blood Culture - Preliminary Blood No Growth after 96 hours 07/31/20 08:40 Gram Stain - Final Sputum Sputum Culture - Final Assessment and Plan (1) CLL (chronic lymphocytic leukemia) Current Visit: Yes Status: Acute Code(s): C91.10 - CHRONIC LYMPHOCYTIC LEUK OF B-CELL TYPE NOT ACHIEVE REMIS SNOMED Code(s): 90710919 (2) Breast cancer Current Visit: Yes Status: Acute Code(s): C50.919 - MALIGNANT NEOPLASM OF UNSP SITE OF UNSPECIFIED FEMALE BREAST SNOMED Code(s): 000100415 Plan: Assessment and plan: New Soft Tissue Density in Lung: - Will need tissue biopsy, defer to pulm for best approach - Differentials include Breast Cancer, New primary lung cancer, versus other - Bronch per pulm for tissue bx attmepted on 08/01 unable to proceed due to desaturation and hypoxia. Diffuse Metastatic Disease: - Liver Lesions - New Right Frontal Brain Lesion: On Dex 4mg q6 hours and PPI - Will ask IR for Biopsy of liver, therefore right submandibular nodule may pose less risk and quicker results if a core is obtainable. Will consult IR for recs on this Neck and Back Pain: - Unable to undergo MRI with Metal in body - Bone Scan reviewed and diffuse metastatic lesions upper spine, ribs, skull and femur - With complaints of pain and in picture of metastatic disease will ask Radiation oncology to assess for intervention of palliative radiation - Consult placed for Dr. Burrell. Hx: Breast Cancer: - HPI details - Ca 15-3/Ca 27-29 is increased suspicious for recurrence - Tissue expanders stillin place and she would like these out, will ask Dr. Erasmo Toussaint Hx: CLL: - History in HPI - Immunoglobin IgG low at 284 - IVIG given 08/02/20 Plan: - Patient was not on Baby aspirin this was assumed incorrectly, therefore no need to wait on biopsies. - Reviewed new liver and brain lesion with patient - Await Radiation oncology input - Dex q6/ppi - IR for Liver biopsy, today will ask for right submandibular although a core is necessary please for further molecular testing - Greater than 30 minutes spent discussing above - Given that an MRI is unattainable with expanders and these appear to be greatly reducing her overall quality of life I feel it is resonable to remove as she will not be started on systemic chemo until after radiation to brain and t issue biopsy is resolved. Will ask Dr. Erasmo Toussaint (her original Breast Surgeon) to remove. Shira George NP
[2020-08-03] MEDS: ONDANSETRON 4 MG/2 ML VIAL IVP PRN (14:48)
[2020-08-03 16:26] LABS: Folate, Serum 14.4 ng/mL
[2020-08-04] MEDS: PIPERACILLIN-TAZOBACTAM 3.375 GM in SODIUM CHLORIDE 0.9% 100 ML IVPB SCH ×3 (03:01→20:16)
[2020-08-04] MEDS: HYDROcodone/APAP 5-325MG 1 EACH TAB PO PRN ×2 (03:12→20:17)
[2020-08-04 06:13] LABS: HCT 48.9 % (34.0-46.0); MCH 33.9 pg (25.0-35.0); MCHC 32.8 g/dL (31.0-37.0); MCV 103.3 fL (80.0-100.0); Macrocytosis Slight; Platelet Count 292 k/uL (150-450); RBC 4.73 m/uL (3.80-5.40); RDW 13.5 % (11.5-15.5); WBC 43.4 k/uL (3.8-10.6)
[2020-08-04 07:14] LABS: Band Neutrophils % 2 %; Lymphocytes # (M) 35.59 k/uL (1.0-4.8); Monocytes # (M) 0.87 k/uL (0-1.0); Neutrophils % (M) 15 %; Nucleated Red Blood Cells 0 /100 WBC (0-0); Total Cells Counted 200
[2020-08-04] MEDS: HEPARIN SODIUM,PORCINE 5,000 UNIT/ML 1 ML VIAL SQ SCH ×3 (07:26→20:24)
[2020-08-04] MEDS: NICOTINE 14MG/24HR PATCH TRANSDERM SCH (07:26)
[2020-08-04] MEDS: dexAMETHasone 4 MG TAB PO SCH ×4 (07:27→21:52)
[2020-08-04] MEDS: PANTOPRAZOLE 40 MG TABLET PO SCH (07:27)
[2020-08-04] MEDS: BUDESONIDE 0.5 MG/2 ML NEBU INHALATION SCH ×2 (07:32→20:59)
[2020-08-04] MEDS: IPRATROPIUM-ALBUTEROL 3 ML NEB INHALATION SCH ×4 (07:32→20:59)
--- NOTE | 2020-08-04 10:09 | P.PN ---
Subjective Progress Note Date: 08/04/20 Principal diagnosis: Perihilar mass Patient is doing well today. She denies any headache or shortness of breath. She is very frustrated as she had a computed tomography scan of the head done in April at [facility] ER and apparently was not informed of the report. I was able to obtain the report that showed a questionable neoplasm involving the right frontal lobe. Patient said that nobody told her about that and never got follow-up Objective - Vital Signs Vital signs: Vital Signs Temp 98.2 F 08/04/20 07:00 Pulse 88 08/04/20 07:42 Resp 17 08/04/20 07:00 BP 139/84 08/04/20 07:00 Pulse Ox 95 08/04/20 07:00 Intake & Output 08/03/20 08/04/20 08/04/20 18:59 06:59 18:59 Intake Total 200 200 Balance 200 200 Intake: Oral 200 200 Other: Voiding Method Toilet Toilet # Voids 2 4 # Bowel Movements 1 - Exam General: The patient is awake and alert, in no distress Eye: there is normal conjunctiva bilaterally. Neck: There is a 1.5 cm right submandibular lymph node palpated Cardiovascular: Normal S1-S2, no S3-S4, no murmurs. Respiratory: Mild End-expiratory wheezing Gastrointestinal: Abdomen is soft, nontender Musculoskeletal: There is no pedal edema. Neurological:. Speech is normal. Skin: Skin is warm and dry - Labs CBC & Chem 7: 08/04/20 05:53 08/03/20 06:23 Labs: Abnormal Lab Results - Last 24 Hours (Table) 08/04/20 Range/Units 05:53 WBC 43.4 H (3.8-10.6) k/uL Hct 48.9 H (34.0-46.0) % MCV 103.3 H (80.0-100.0) fL Lymphocytes # (Manual) 35.59 H (1.0-4.8) k/uL Microbiology - Last 24 Hours (Table) 07/30/20 09:58 Blood Culture - Preliminary Blood No Growth after 96 hours Assessment and Plan Assessment: This is a 50-year-old female with complex past medical history noted below the presented to the emergency room with worsening neck and lower back pain. [place] was evaluated in the ER and admitted to the hospital for further management of her medical problems noted below. 1. Severe sepsis without septic shock: Lactic acid normal. Received aggressive IV fluid hydration. Blood cultures negative to date 2. Postobstructive pneumonia of the right lung: On IV Zosyn day #6. Sputum culture showed normal respiratory ghada. COVID-19 negative 3. Right perihilar mass concerning for malignancy: appears to be encasing the trachea and the right mainstem bronchus and portion of the left proximal left mainstem bronchus on CT. Left hilar adenopathy. Patient was seen and evaluated by pulmonary. Bronchoscopy aborted on 08/01 secondary to hypoxia. Plan to obtain biopsy from right submandibular lymph node or possibly liver awaiting IR recommendations. Bone scan showed evidence of diffuse metastatic bone disease. Computed tomography scan of the abdomen showed metastatic liver disease. Oncology following closely 4. Brain metastasis, with a 3 cm mass noted in the right frontal lobe with mild surrounding edema. I started patient on Decadron 4 mg every 6 hours. Unable to get MRI of the brain as patient has breast expanders. I reviewed her computed tomography scan of the head done and [facility] in April of this year that showed similar findings but patient said that she is not aware and did not get her report or ask for follow-up. Patient is very frustrated about the 5. Acute COPD exacerbation: DuoNeb's every 6 hours scheduled. 6. Hyponatremia hypovolemic. Resolved with IV fluid hydration 7. Hypomagnesemia: replaced 8. History of breast cancer status post chemo/radiation therapy and bilateral mastectomy with left axillary node dissection and implant reconstruction completed in March 2017. General surgery consulted for removal of breast expanders if possible per patient request 9. Underlying CLL followed by hematology 10. Tobacco abuse: Counseled extensively to quit. Nicotine patch ordered. 11. DVT prophylaxis with subcu heparin Today, I reviewed her medication list and lab work results. I updated the patient about her imaging results. I discussed with the patient the possibility that this could be a new diagnosis of lung cancer with bone metastasis versus recurrence of her underlying breast cancer. I informed her that we can't tell for sure until we get the biopsy. I also told her that oncology would discuss further options of treatments/palliative measures including chemo and/or radiation when biopsy results are not available. I offered the patient had the long-acting morphine twice daily to her regimen that she wasn't interested and she told me that her pain is well controlled with [place] 10/325 mg every 4 hours as needed. Continue current regimen. Appreciate weight loss consultant's recommendations. Repeat lab work in the morning.
[2020-08-04 10:35] LABS: African American GFR (CKD) 129.9 (60.0-200.0); Anion Gap 7.3 mmol/L (4.00-12.00); Calcium 8.6 mg/dL (8.7-10.3); Carbon Dioxide 25.7 mmol/L (21.6-31.8); Non-African American GFR(CKD) 112.1 (60.0-200.0); Potassium 4.8 mmol/L (3.5-5.5)
[2020-08-04 11:02] LABS: INR 0.9 (<1.2); Prothrombin Time 9.7 sec (9.0-12.0)
--- NOTE | 2020-08-04 12:13 | P.PN ---
Subjective Progress Note Date: 08/04/20 Principal diagnosis: Metastatic likely lung cancer with metastases to liver and brain Postoperative obstructive pneumonia on the right side Right perihilar mass End-stage COPD with acute exacerbation Back pain and neck pain History of breast cancer 08/04/2020, patient seen eval examined during the rounds labs reviewed medications reviewed cough congestion shortness of breath has improved significantly, given the findings of parietal tumor on computed tomography scan and lesions on liver it is reasonable to get a liver biopsy as there is a high risk for respiratory failure with bronchoscopy due to poor oxygen saturation, continue supportive care 08/01/2020, patient reassessed at 5:30 bleeding appears to have his stopped no more hemoptysis or epistaxis is present, patient's breathing is slightly better, I have discussed with her at length about sequence of events, then when patient arrived in the endoscopy suite her oxygen saturation was 86% post anesthesia a before inserting during the bronchoscope, oxygen saturation dropped down into 70s patient was given extra supplemental oxygen after a while oxygen saturation came up to 92-93% the scope was attempted to pass through the right or left nares both were very narrow in size unable to has the scope, attempted the scope to be passed through the mouth patient was gagging, oxygen saturation however remains stable, due to severity of gagging and coughing options were to intubate the patient in order to continue the procedure elected to postpone the procedure, to reassess after adequate course of antibiotics bronchodilators and IV steroids. Currently on my assessment right now patient is awake and alert e ating her supper denies any hemoptysis or epistaxis, no pain in the chest nose or throat is present, we will observe the patient over the weekend on broad- spectrum antibiotics breathing treatments and steroids and consider bronchoscope with lung biopsy in next 72-96 hours 08/01/2020, patient seen eval examined labs reviewed medications reviewed care plan discussed, computed tomography scan finding discussed with the patient also discussed with medical oncology, patient is for bronchoscopy and lung biopsy for later on today, bone scan for metastatic disease is pending 07/31/2020, patient seen eval examined during the rounds labs reviewed medications reviewed cough is slightly better, still have pain in the neck as well as in the back spine surgery oncology have been following I have updated patient about computed tomography scan as well as a chest x-ray will schedule for bronchoscopy and lung biopsy tomorrow, will continue to gently rehydrate and continue broad-spectrum antibiotics This is a 50-year-old female who was seen eval reexamined on fourth floor patient is well-known to me for history of end-stage COPD, patient also had a breast cancer in the past has been followed up in the past loss follow-up with last seen almost 2 years ago now came back with back pain and neck pain Patient said that she has chronic cough that is mostly productive of yellowish sputum. Over the past few days she has been getting more short of breath. She is having some mild wheezing. She admitted that she smokes 2 packs of cigarettes per day. She has a history of COPD and used her nebulizer machine at home with minimal relief. She also reported having a fall at home couple of days ago and since then having some lower back pain. Patient was evaluated in the ER and was found to have evidence of sepsis with a chest x-ray showing a large right perihilar masslike opacity. Computed tomography scan confirmed that also narrowing of right upper lobe bronchus has been seen, suspicion of postobstructive pneumonia Patient was treated with IV fluids and antibiotic and will be admitted to the hospital for further management. Objective - Vital Signs Vital signs: Vital Signs Temp 98.2 F 08/04/20 07:00 Pulse 92 08/04/20 11:20 Resp 17 08/04/20 07:00 BP 139/84 08/04/20 07:00 Pulse Ox 95 08/04/20 07:00 Intake & Output 08/03/20 08/04/20 08/04/20 18:59 06:59 18:59 Intake Total 200 200 Balance 200 200 Intake: Oral 200 200 Other: Voiding Method Toilet Toilet # Voids 2 4 # Bowel Movements 1 - Exam - Constitutional General appearance: average body habitus, cooperative, disheveled - EENT Eyes: EOMI, PERRLA Ears: bilateral: normal - Neck Carotids: bilateral: upstroke normal Thyroid: bilateral: normal size - Respiratory Respiratory: bilateral: diminished - Cardiovascular Rhythm: regular Heart sounds: normal: S1, S2 - Gastrointestinal General gastrointestinal: decreased bowel sounds, soft - Integumentary Integumentary: normal turgor - Neurologic Neurologic: CNII-XII intact - Musculoskeletal Musculoskeletal: gait normal, generalized weakness, strength equal bilaterally - Psychiatric Psychiatric: A&O x's 3, appropriate affect, intact judgment & insight - Labs CBC & Chem 7: 08/04/20 05:53 08/04/20 05:53 Labs: Abnormal Lab Results - Last 24 Hours (Table) 08/04/20 08/04/20 Range/Units 05:53 05:53 WBC 43.4 H (3.8-10.6) k/uL Hct 48.9 H (34.0-46.0) % MCV 103.3 H (80.0-100.0) fL Lymphocytes # (Manual) 35.59 H (1.0-4.8) k/uL Creatinine 0.5 L (0.6-1.5) mg/dL BUN/Creatinine Ratio 24.00 H (12.00-20.00) Ratio Glucose 111 H (70-110) mg/dL Calcium 8.6 L (8.7-10.3) mg/dL Microbiology - Last 24 Hours (Table) 07/30/20 09:58 Blood Culture - Preliminary Blood No Growth after 96 hours Assessment and Plan Assessment: Likely metastatic lung cancer with mass to brain and liver Acute hypoxic respiratory failure Postobstructive pneumonia on the right side Right perihilar pulmonary mass End-stage COPD with acute exacerbation Back pain and neck pain History of breast cancer History of left-sided mediastinal and hilar lymphadenopathy Active smoker nicotine use Plan: Proceed with the liver biopsy as planned Continue broad-spectrum antibiotics, bronchodilators along with IV steroids Follow clinical response closely Further recommendations pending plan of care as per clinical response of the patient Time with Patient: Greater than 30
--- NOTE | 2020-08-04 17:17 | P.PN ---
Progress Note - Text Progress Note Date: 08/04/20 I was able to review the x-rays of the thoracic spine and pelvis and the right femur that we have ordered in regard to the findings of bony signal change on the whole-body bone scan. She was found to have diffuse metastasis on the bone scan. The x-ray imaging did not show severe cortical deficit or cortical disruption. I do not think that she is at severe risk of pathologic fracture in her femurs. I would not recommend any prophylactic surgical intervention from an orthopedic standpoint. The patient should continue with her pain control, medical management and workup evaluation and treatment for her metastatic cancer as per medicine, oncology and radiation oncology. I do not plan any acute orthopedic intervention at this point.
--- NOTE | 2020-08-04 19:54 | P.PN ---
Subjective Progress Note Date: 08/04/20 Principal diagnosis: metastatic cancer Spoke with Dr. Erasmo Toussaint this morning and will likely be able to remove expanders. Objective - Vital Signs Vital signs: Vital Signs Temp 98.2 F 08/04/20 07:00 Pulse 88 08/04/20 07:42 Resp 17 08/04/20 07:00 BP 139/84 08/04/20 07:00 Pulse Ox 95 08/04/20 07:00 Intake & Output 08/03/20 08/04/20 08/04/20 18:59 06:59 18:59 Intake Total 200 200 Balance 200 200 Intake: Oral 200 200 Other: Voiding Method Toilet Toilet # Voids 2 4 # Bowel Movements 1 - Exam Constitutional General appearance: cooperative, no acute distress - EENT Eyes: EOMI, PERRLA ENT: NA/AT, normal oropharynx - Neck Neck: lymphadenopathy right submandibular palpable nodule - Respiratory Respiratory: bilateral: diminished, wheezing - Cardiovascular Heart rate: 112 - Gastrointestinal General gastrointestinal: normal bowel sounds, tenderness - Integumentary Integumentary: pale - Neurologic Neurologic: CNII-XII intact - Musculoskeletal Musculoskeletal: generalized weakness, strength equal bilaterally - Psychiatric Psychiatric: A&O x's 3 - Labs CBC & Chem 7: 08/04/20 05:53 08/04/20 05:53 Labs: Abnormal Lab Results - Last 24 Hours (Table) 08/04/20 08/04/20 Range/Units 05:53 05:53 WBC 43.4 H (3.8-10.6) k/uL Hct 48.9 H (34.0-46.0) % MCV 103.3 H (80.0-100.0) fL Lymphocytes # (Manual) 35.59 H (1.0-4.8) k/uL Creatinine 0.5 L (0.6-1.5) mg/dL BUN/Creatinine Ratio 24.00 H (12.00-20.00) Ratio Glucose 111 H (70-110) mg/dL Calcium 8.6 L (8.7-10.3) mg/dL Microbiology - Last 24 Hours (Table) 07/30/20 09:58 Blood Culture - Preliminary Blood No Growth after 96 hours Assessment and Plan (1) CLL (chronic lymphocytic leukemia) Current Visit: Yes Status: Acute Code(s): C91.10 - CHRONIC LYMPHOCYTIC LEUK OF B-CELL TYPE NOT ACHIEVE REMIS SNOMED Code(s): 94494775 (2) Breast cancer Current Visit: Yes Status: Acute Code(s): C50.919 - MALIGNANT NEOPLASM OF UNSP SITE OF UNSPECIFIED FEMALE BREAST SNOMED Code(s): 640728540 Plan: Assessment and plan: New Soft Tissue Density in Lung: - Will need tissue biopsy, defer to pulm for best approach - Differentials include Breast Cancer, New primary lung cancer, versus other - Bronch per pulm for tissue bx attmepted on 08/01 unable to proceed due to desaturation and hypoxia. - Further imaging therefore ordered. Diffuse Metastatic Disease: - Liver Lesions - New Right Frontal Brain Lesion: On Dex 4mg q6 hours and PPI - Discussion with IR for Biopsy of liver, PLan is tuesday Neck and Back Pain: - Unable to undergo MRI with Metal in body - Bone Scan reviewed and diffuse metastatic lesions upper spine, ribs, skull and femur - With complaints of pain and in picture of metastatic disease will ask Radiation oncology to assess for intervention of palliative radiation - Radiation Oncology Following Hx: Breast Cancer: - HPI details - Ca 15-3/Ca 27-29 is increased suspicious for recurrence - Tissue expanders stilling place and she would like these out, will ask Dr. Erasmo Toussaint Hx: CLL: - History in HPI - Immunoglobin IgG low at 284 - IVIG given 08/02/20 Plan: - Patient was not on Baby aspirin this was assumed incorrectly, therefore no need to wait on biopsies. - Reviewed new liver and brain lesion with patient - Await Radiation oncology input - Dex q6/ppi - IR for Liver biopsy,discussed with IR plan for tuesday - Greater than 30 minutes spent discussing above - Given that an MRI is unattainable with expanders and these appear to be greatly reducing her overall quality of life I feel it is resonable to remove as she will not be started on systemic chemo until after radiation to brain and tissue biopsy is resolved. Will ask Dr. Erasmo Toussaint (her original Breast Surgeon) to remove.
[2020-08-05] MEDS: PIPERACILLIN-TAZOBACTAM 3.375 GM in SODIUM CHLORIDE 0.9% 100 ML IVPB SCH ×2 (04:10→13:00)
[2020-08-05 06:28] LABS: HCT 50.4 % (34.0-46.0); Hypochromasia Slight; MCH 33.6 pg (25.0-35.0); MCHC 31.6 g/dL (31.0-37.0); MCV 106.2 fL (80.0-100.0); Macrocytosis Moderate; Mean Platelet Volume 6.9; Platelet Count 273 k/uL (150-450); RBC 4.75 m/uL (3.80-5.40); RDW 13.4 % (11.5-15.5)
[2020-08-05 06:55] LABS: WBC 51.9 k/uL (3.8-10.6)
[2020-08-05] MEDS: PANTOPRAZOLE 40 MG TABLET PO SCH (07:28)
[2020-08-05] MEDS: HEPARIN SODIUM,PORCINE 5,000 UNIT/ML 1 ML VIAL SQ SCH (07:28)
[2020-08-05] MEDS: dexAMETHasone 4 MG TAB PO SCH ×2 (07:29→13:00)
[2020-08-05] MEDS: NICOTINE 14MG/24HR PATCH TRANSDERM SCH (07:29)
[2020-08-05] MEDS: BUDESONIDE 0.5 MG/2 ML NEBU INHALATION SCH (08:34)
[2020-08-05] MEDS: IPRATROPIUM-ALBUTEROL 3 ML NEB INHALATION SCH ×3 (08:34→15:47)
[2020-08-05] MEDS: clonazePAM 0.5 MG TAB PO PRN (08:41)
[2020-08-05 08:48] LABS: Band Neutrophils % 1 %; Metamyelocytes # (M) 0.52 k/uL (0); Metamyelocytes % 1 %; Monocytes # (M) 1.04 k/uL (0-1.0); Myelocytes # (M) 0.52 k/uL (0); Myelocytes % 1 %; Neutrophils % (M) 12 %; Nucleated Red Blood Cells 0 /100 WBC (0-0); Total Cells Counted 200
[2020-08-05 09:09] LABS: African American GFR (CKD) 122.3 (60.0-200.0); Anion Gap 7.6 mmol/L (4.00-12.00); BUN/Creat Ratio 23.33 Ratio (12.00-20.00); Calcium 8.8 mg/dL (8.7-10.3); Carbon Dioxide 26.4 mmol/L (21.6-31.8); Non-African American GFR(CKD) 105.5 (60.0-200.0); Potassium 4.8 mmol/L (3.5-5.5)
--- NOTE | 2020-08-05 09:40 | P.CONS ---
History of Present Illness - Reason for Consult Consult date: 08/04/20 metastatic disease - brain/bone Requesting physician: Cheo Devine - Chief Complaint dizziness, pain in neck/back - History of Present Illness The patient is a 50-year-old female who was initially diagnosed with a left- sided hormone positive, HER-2 negative breast cancer with concern for a solitary metastasis in the T5 area. She was initially treated with neoadjuvant chemot herapy in 2016 followed by bilateral mastectomy (resulting in pathologic complete response) subsequent followed by radiotherapy to the left chest wall and T-spine in August 2017. The patient reportedly discontinued adjuvant endocrine therapy, and appears to have not adhered to follow-up as she still has her expanders in place. She now presents with widely metastatic disease, suspicious for a lung primary versus less likely metastatic breast cancer. The patient presented to the emergency room on July 30, 2020. She reports that she had been having increased difficulty with dyspnea, pain in the neck and lower back, and most worrisome dizziness with 2 episodes of falling. The patient reports that she was evaluated in April at [facility] after one of her falls, and she reports that she had a CT scan of the brain at that time for which further workup was recommended. She claims she was not aware of these findings, however her symptoms progressed over the ensuing month s. When she was admitted the hospital a CTA of the chest was performed showing a soft tissue mass in the right hilum with extension to the mediastinum with worrisome adenopathy in the subcarinal and left hilar region. There are postobstructive changes within the right lung, and multiple low-density liver masses. Bronchoscopy was attempted for biopsy, but unfortunately the patient desaturated and of the 70s and this was aborted. She underwent a bone scan on August 01 showing numerous areas of bone metastasis including the bilateral ribs, right femur, skull, sternum and thoracic spine. A CT scan of the brain showed an irregular, 3 cm posterior frontal lobe mass with mild mass effect and no midline shift. A CT scan of the abdomen and pelvis on August 02 showed multiple abnormal lesions measuring up to 2.5 cm consistent with metastatic disease. At this time, we are awaiting liver biopsy which is been scheduled for 08/05. After the initiation of Decadron, the patient reports she is still having some occasional headaches. She states that she feels like the pain is in the back part of her neck, and also in the lower part of her back. She reports she is ambulating around the room without difficulty, but is still having increased dyspnea when exerting herself compared to her baseline. Review of Systems Constitutional: Reports chronic headaches, Denies chills, Denies fever Eyes: denies blurred vision Ears: deny: decreased hearing Ears, nose, mouth and throat: Reports headache, Reports neck lump Cardiovascular: Reports dyspnea on exertion, Denies chest pain Respiratory: Reports cough, Reports dyspnea, Denies hemoptysis Gastrointestinal: Denies abdominal pain, Denies change in bowel habits Genitourinary: Denies flank pain Musculoskeletal: Denies arm numbness/tingling, Denies leg numbness/tingling Neurological: Reports weakness, Denies aphasia, Denies confusion, Denies convulsions, Denies double vision, Denies gait dysfunction, Denies paresthesias Psychiatric: Reports anxiety, Denies confusion Past Medical History Past Medical History: Cancer, COPD Additional Past Medical History / Comment(s): 2017 L breast cancer with bilateral mastectomies/chemo/radiation, CLL, chronic elevation WBCs, cervical pain/vertigo on and off since April 2020 History of Any Multi-Drug Resistant Organisms: None Reported Past Surgical History: Orthopedic Surgery Additional Past Surgical History / Comment(s): 2017 Bilateral mastectomies/implant reconstruction, R thumb tendon repair, lung mass biopsy. Past Anesthesia/Blood Transfusion Reactions: No Reported Reaction Past Psychological History: Anxiety, Depression, Panic Disorder Additional Psychological History / Comment(s): Pt resides alone with her cat. She has a nebulizer. She works for [employer]. She is independent. Smoking Status: Current every day smoker Past Alcohol Use History: Daily Additional Past Alcohol Use History / Comment(s): Pt started smoking in 1983 and is a 2 ppd smoker. She states she drinks 2 beers a day. Past Drug Use History: None Reported - Past Family History Mother Family Medical History: Cancer Additional Family Medical History / Comment(s): in her 60s with history of dementia, chronic back pain, "pre leukemia." Father Additional Family Medical History / Comment(s): Father is alive with history of diabetes. Brother(s) Additional Family Medical History / Comment(s): Patient has 2 brothers with no major medical problems. Patient has 1 sister with no major medical problems. Patient does not have any children. Medications and Allergies Home Medications Medication Instructions Recorded Confirmed Type Albuterol Sulfate [Ventolin HFA] 2 puff INHALATION RT-Q4H PRN 04/12/17 07/30/20 History Ipratropium-Albuterol Nebulize 3 ml INHALATION RT-Q6H PRN 04/12/17 07/30/20 History [Duoneb 0.5 mg-3 mg/3 ml Soln] clonazePAM [KlonoPIN] 0.5 mg PO DAILY PRN 04/12/17 07/30/20 History Allergies Allergy/AdvReac Type Severity Reaction Status Date / Time No Known Allergies Allergy Verified 07/30/20 08:59 Physical Exam Vitals: Vital Signs Temp Pulse Pulse Resp BP Pulse Ox 08/05/20 08:47 104 H 08/05/20 08:34 100 96 08/05/20 07:00 98.3 F 77 18 156/99 92 L 08/05/20 00:45 97.7 F 96 14 120/69 94 L 08/04/20 23:40 16 08/04/20 21:10 92 08/04/20 20:59 92 08/04/20 20:20 16 08/04/20 19:11 98.1 F 93 16 122/76 95 08/04/20 15:17 92 08/04/20 15:05 92 08/04/20 14:27 98.0 F 99 18 127/78 93 L 08/04/20 11:20 92 08/04/20 11:11 88 Intake and Output 08/04/20 08/05/20 08/05/20 22:59 06:59 14:59 Intake Total 300 Balance 300 Intake: Oral 300 Other: Voiding Method Toilet Toilet # Voids 2 2 # Bowel Movements 1 - Constitutional General appearance: no acute distress - EENT Eyes: EOMI, PERRLA ENT: NA/AT - Neck Neck: lymphadenopathy (shotty nodes felt - left SCV) - Respiratory Respiratory: bilateral: CTA - Cardiovascular Rhythm: regular - Gastrointestinal General gastrointestinal: no distended, no tenderness - Integumentary Integumentary: no calor - Neurologic Neurologic: CNII-XII intact - Musculoskeletal Musculoskeletal: strength equal bilaterally - Psychiatric Psychiatric: A&O x's 3, appropriate affect Results CBC & Chem 7: 08/05/20 06:01 08/05/20 06:01 Labs: Abnormal Lab Results - Last 24 Hours (Table) 08/04/20 08/05/20 08/05/20 Range/Units 05:53 06:01 06:01 WBC 51.9 H* (3.8-10.6) k/uL Hct 50.4 H (34.0-46.0) % MCV 106.2 H (80.0-100.0) fL Lymphocytes # (Manual) 43.60 H (1.0-4.8) k/uL Monocytes # (Manual) 1.04 H (0-1.0) k/uL Metamyelocytes # (Man) 0.52 H (0) k/uL Myelocytes # (Manual) 0.52 H (0) k/uL Creatinine 0.5 L (0.6-1.5) mg/dL BUN/Creatinine Ratio 24.00 H 23.33 H (12.00-20.00) Ratio Glucose 111 H (70-110) mg/dL Calcium 8.6 L (8.7-10.3) mg/dL Microbiology - Last 24 Hours (Table) 07/30/20 09:58 Blood Culture - Preliminary Blood No Growth after [address] scan - chest: report reviewed, image reviewed CT Scan - head: report reviewed, image reviewed CT scan - pelvis: report reviewed, image reviewed Assessment and Plan Plan: The patient is a 50-year-old female who was initially diagnosed with a left- sided hormone positive, HER-2 negative breast cancer with concern for a solitary metastasis in the T5 area. She was initially treated with neoadjuvant chemotherapy in 2016 followed by bilateral mastectomy (resulting in pathologic complete response) subsequent followed by radiotherapy to the left chest wall and T-spine in August 2017. The patient reportedly discontinued adjuvant endocrine therapy, and appears to have not adhered to follow-up as she still has her expanders in place. She now presents with widely metastatic disease, suspicious for a lung primary versus less likely metastatic breast cancer. 1. Brain metastasis: The patient appears to have a single brain metastasis in the posterior right frontal region based on contrast CT. She is unable to undergo MRI secondary to breast expanders. I discussed with the patient that treatment of this lesion would be highly dependent on the type of malignancy found on biopsy. I explained that if this were found to be a breast cancer, or even a non-small cell lung cancer that radiosurgery would be reasonable with close follow-up, and hopefully MRIs in the future after pipe maker removal. However, I discussed that this were found to be a small cell lung cancer, whole brain radiation would be more standard for a large lesion. We will await the final results of her biopsy, continue dexamethasone although as patient is not overly symptomatic at this time may decrease to 4 mg 3 times a day. 2. Metastatic disease: The patient's clinical picture is highly concerning for a lung cancer primary, but this is confounded by her recent history of breast cancer which may have had early metastatic disease for which she discontinued therapy. The patient is scheduled to undergo biopsy Tuesday. She is likely a candidate for palliative radiotherapy to painful bone sites as well. We will continue to follow along as we await pathology. Time with Patient: Greater than 30
--- NOTE | 2020-08-05 09:55 | P.GSHP ---
History of Present Illness H&P Date: 08/05/20 Chief Complaint: pain related to bilateral breast expanders The patient is a 50-year-old white female who presented to the emergency room With a complaint of fatigue, cervical and lower back pain, and several episodes of passing out. Of significance is a history of CLL diagnosed in 2013. In addition in 2016 she was diagnosed with left breast cancer. She had an ultrasound core biopsy done in October 2016. This was grade 3 ER/MI positive and HER-2 +1 and negative by fish. A she subsequently underwent neoadjuvant chemotherapy. At that time she was noted to have areas of sclerosis in the T-spine and iliac bone and bone scan positive at T5 in the right femoral neck with no corresponding bony lesion. It was decided treated with curative intent in the T5 lesion were to be malignant. She was started on continuous dense before meals and underwent 4 cycles and 4 cycles of DVT Taxol completed in and February 2017. She proceeded to bilateral mastectomy with left axillary dissection on 2816. This revealed PCR for invasive cancer on the left. Residual DCIS was noted. Nodes were positive for CLL but negative for breast cancer. Right breast was negative for cancer. She had bilateral implants placed for reconstruction at the time of surgery. Postprocedure she underwent radiation therapy of the left chest wall. She completed this on [id number]. She refused radiation therapy to the T5 initially. She didn't ultimately have this and completed in August 2017. The patient since admission Underwent a brain CT which revealed a large irregular ring-enhancing mass in the right posterior frontal lobe consistent with malignancy. This could be metastatic disease or primary malignancy. Additionally she was noted on bone scan to have multiple Areas of increased uptake involving the spine mid skull and femurs consistent with diffuse osseous metastatic disease. Computed tomography scan of the abdomen reveals multiple liver lesions suggestive of diffuse metastatic disease. Chest x-ray reveals persistent hilar mass extending to the mediastinum with possible postobstructive changes. An attempt at bronchoscopy for biopsy was aborted secondary to the patient desaturating. The patient at this time is concerned that she may have difficulty breathing related to the bilateral breast implants. She is a heavy smoker and smokes 2 packs per day. Surgical history: 1. Tenderness in her right hand 2. Bilateral mastectomy with bilateral expanders placed she has not had these removed Medical history: COPD CLL Social history: Smokes 2 packs per day since 14 Alcohol: 2 beers per day Drugs: Marijuana intermittently - Constitutional Constitutional: Reports fatigue - EENT Eyes: bilateral blurred vision - Breasts Breasts: bilateral: as per HPI - Cardiovascular Cardiovascular: Denies chest pain, Denies shortness of breath - Respiratory Respiratory: Denies cough, Denies 7 - Gastrointestinal Gastrointestinal: Reports diarrhea - Genitourinary (Female) Comment: Urinary incontinence - Musculoskeletal Musculoskeletal: Denies myalgias - Neurological Neurological: Reports weakness - Psychiatric Psychiatric: Reports depression - Hematologic/Lymphatic Comment: CLL Past Medical History Past Medical History: Cancer, COPD Additional Past Medical History / Comment(s): 2017 L breast cancer with bilateral mastectomies/chemo/radiation, CLL, chronic elevation WBCs, cervical pain/vertigo on and off since April 2020 History of Any Multi-Drug Resistant Organisms: None Reported Past Surgical History: Orthopedic Surgery Additional Past Surgical History / Comment(s): 2017 Bilateral mastectomies/implant reconstruction, R thumb tendon repair, lung mass biopsy. Past Anesthesia/Blood Transfusion Reactions: No Reported Reaction Past Psychological History: Anxiety, Depression, Panic Disorder Additional Psychological History / Comment(s): Pt resides alone with her cat. She has a nebulizer. She works for [employer]. She is independent. Smoking Status: Current every day smoker Past Alcohol Use History: Daily Additional Past Alcohol Use History / Comment(s): Pt started smoking in 1983 and is a 2 ppd smoker. She states she drinks 2 beers a day. Past Drug Use History: None Reported - Past Family History Mother Family Medical History: Cancer Additional Family Medical History / Comment(s): in her 60s with history of dementia, chronic back pain, "pre leukemia." Father Additional Family Medical History / Comment(s): Father is alive with history of diabetes. Brother(s) Additional Family Medical History / Comment(s): Patient has 2 brothers with no major medical problems. Patient has 1 sister with no major medical problems. Patient does not have any children. Medications and Allergies Home Medications Medication Instructions Recorded Confirmed Type Albuterol Sulfate [Ventolin HFA] 2 puff INHALATION RT-Q4H PRN 04/12/17 07/30/20 History Ipratropium-Albuterol Nebulize 3 ml INHALATION RT-Q6H PRN 04/12/17 07/30/20 History [Duoneb 0.5 mg-3 mg/3 ml Soln] clonazePAM [KlonoPIN] 0.5 mg PO DAILY PRN 04/12/17 07/30/20 History Allergies Allergy/AdvReac Type Severity Reaction Status Date / Time No Known Allergies Allergy Verified 07/30/20 08:59 Surgical - Exam Vital Signs Temp Pulse Resp BP Pulse Ox 99.0 F 124 H 16 135/86 93 L 07/30/20 07:44 07/30/20 07:44 07/30/20 07:44 07/30/20 07:44 07/30/20 07:44 BMI 23.8 - General well developed, moderate distress - ENT no hearing loss - Neck trachea midline - Respiratory Bilateral wheezing - Cardiovascular Rhythm: regular Heart Sounds: normal: S1, S2 - Abdomen Ecchymosis related to subcu heparin shots Abdomen: soft, non tender, no guarding, no rigid, no rebound - Neurologic no disoriented, no combative - Psychiatric oriented to time, oriented to person, oriented to place, speech is normal, memory intact Examination of the chest wall reveals bilateral mastectomies patient has expanders in place the incisions are well-healed on the left she is status post radiation treatment and there is firmness to the area of the subcutaneous tissue the left axilla has no recurrent adenopathy of concern right axilla no adenopathy of concern Results Computed tomography scan of chest abdomen and pelvis bone scan computed tomography scan of brain all reviewed - Labs 08/05/20 06:01 08/05/20 06:01 Abnormal Lab Results - Last 24 Hours (Table) 08/04/20 08/05/20 08/05/20 Range/Units 05:53 06:01 06:01 WBC 51.9 H* (3.8-10.6) k/uL Hct 50.4 H (34.0-46.0) % MCV 106.2 H (80.0-100.0) fL Lymphocytes # (Manual) 43.60 H (1.0-4.8) k/uL Monocytes # (Manual) 1.04 H (0-1.0) k/uL Metamyelocytes # (Man) 0.52 H (0) k/uL Myelocytes # (Manual) 0.52 H (0) k/uL Creatinine 0.5 L (0.6-1.5) mg/dL BUN/Creatinine Ratio 24.00 H 23.33 H (12.00-20.00) Ratio Glucose 111 H (70-110) mg/dL Calcium 8.6 L (8.7-10.3) mg/dL Microbiology - Last 24 Hours (Table) 07/30/20 09:58 Blood Culture - Preliminary Blood No Growth after 120 hours Diabetes panel 08/04/20 08/05/20 Range/Units 05:53 06:01 Sodium 135 136 (135-145) mmol/L Potassium 4.8 4.8 (3.5-5.5) mmol/L Chloride 102 102 (96-109) mmol/L Carbon Dioxide 25.7 26.4 (21.6-31.8) mmol/L BUN 12.0 14.0 (9.0-27.0) mg/dL Creatinine 0.5 L 0.6 (0.6-1.5) mg/dL Glucose 111 H 87 (70-110) mg/dL Calcium 8.6 L 8.8 (8.7-10.3) mg/dL Calcium panel 08/04/20 08/05/20 Range/Units 05:53 06:01 Calcium 8.6 L 8.8 (8.7-10.3) mg/dL Pituitary panel 08/04/20 08/05/20 Range/Units 05:53 06:01 Sodium 135 136 (135-145) mmol/L Potassium 4.8 4.8 (3.5-5.5) mmol/L Chloride 102 102 (96-109) mmol/L Carbon Dioxide 25.7 26.4 (21.6-31.8) mmol/L BUN 12.0 14.0 (9.0-27.0) mg/dL Creatinine 0.5 L 0.6 (0.6-1.5) mg/dL Glucose 111 H 87 (70-110) mg/dL Calcium 8.6 L 8.8 (8.7-10.3) mg/dL Adrenal panel 08/04/20 08/05/20 Range/Units 05:53 06:01 Sodium 135 136 (135-145) mmol/L Potassium 4.8 4.8 (3.5-5.5) mmol/L Chloride 102 102 (96-109) mmol/L Carbon Dioxide 25.7 26.4 (21.6-31.8) mmol/L BUN 12.0 14.0 (9.0-27.0) mg/dL Creatinine 0.5 L 0.6 (0.6-1.5) mg/dL Glucose 111 H 87 (70-110) mg/dL Calcium 8.6 L 8.8 (8.7-10.3) mg/dL Assessment and Plan Assessment: Impression: 1. Patient status post bilateral mastectomy with expanders placed 2017 secondary to left breast cancer 2. History of CLL 3. Heavy smoker with new finding of large lung mass probable metastatic disease 4. Metastatic disease question breast versus lung Plan: 1. Patient wishes expanders to be removed, at this time the removal of the expanders are not believed to help with her shortness of breath 2. The patient has impingement on the bronchi related to the lung mass and had desaturation with an attempt at bronchoscopy was done of suspect patient may not tolerate anesthesia for removal of expanders 3. Medical management as per medical oncology and radiation oncology 4. Will follow with you encounter 35 minutes, > 50% of time in planning and counselling
[2020-08-05] MEDS: HYDROcodone/APAP 5-325MG 1 EACH TAB PO PRN (10:35)
--- NOTE | 2020-08-05 10:50 | P.PN ---
Subjective Progress Note Date: 08/05/20 Principal diagnosis: Metastatic likely lung cancer with metastases to liver and brain Postoperative obstructive pneumonia on the right side Right perihilar mass End-stage COPD with acute exacerbation Back pain and neck pain History of breast cancer 08/05/2020, patient seen eval examined during the rounds labs reviewed medications reviewed cough shortness of breath significantly improved patient is scheduled for liver biopsy later on today remains on IV steroids breathing treatment antibiotics for obstructive pneumonia 08/04/2020, patient seen eval examined during the rounds labs reviewed medications reviewed cough congestion shortness of breath has improved significa ntly, given the findings of parietal tumor on computed tomography scan and lesions on liver it is reasonable to get a liver biopsy as there is a high risk for respiratory failure with bronchoscopy due to poor oxygen saturation, continue supportive care 08/01/2020, patient reassessed at 5:30 bleeding appears to have his stopped no more hemoptysis or epistaxis is present, patient's breathing is slightly better, I have discussed with her at length about sequence of events, then when patient arrived in the endoscopy suite her oxygen saturation was 86% post anesthesia a before inserting during the bronchoscope, oxygen saturation dropped down into 70s patient was given extra supplemental oxygen after a while oxygen saturation came up to 92-93% the scope was attempted to pass through the right or left nares both were very narrow in size unable to has the scope, attempted the scope to be passed through the mouth patient was gagging, oxygen saturation however remains stable, due to severity of gagging and coughing options were to intubate the patient in order to continue the procedure elected to postpone the procedure, to reassess after adequate course of antibiotics bronchodilators and IV steroids. Currently on my assessment right now patient is awake and alert eating her supper denies any hemoptysis or epistaxis, no pain in the chest nose or throat is present, we will observe the patient over the weekend on broad- spectrum antibiotics breathing treatments and steroids and consider bronchoscope with lung biopsy in next 72-96 hours 08/01/2020, patient seen eval examined labs reviewed medications reviewed care plan discussed, computed tomography scan finding discussed with the patient also discussed with medical oncology, patient is for bronchoscopy and lung biopsy for later on today, bone scan for metastatic disease is pending 07/31/2020, patient seen eval examined during the rounds labs reviewed medications reviewed cough is slightly better, still have pain in the neck as well as in the back spine surgery oncology have been following I have updated patient about computed tomography scan as well as a chest x-ray will schedule for bronchoscopy and lung biopsy tomorrow, will continue to gently rehydrate and continue broad-spectrum antibiotics This is a 50-year-old female who was seen eval reexamined on fourth floor patient is well-known to me for history of end-stage COPD, patient also had a breast cancer in the past has been followed up in the past loss follow-up with last seen almost 2 years ago now came back with back pain and neck pain Patient said that she has chronic cough that is mostly productive of yellowish sputum. Over the past few days she has been getting more short of breath. She is having some mild wheezing. She admitted that she smokes 2 packs of cigarettes per day. She has a history of COPD and used her nebulizer machine at home with minimal relief. She also reported having a fall at home couple of days ago and since then having some lower back pain. Patient was evaluated in the ER and was found to have evidence of sepsis with a chest x-ray showing a large right perihilar masslike opacity. Computed tomography scan confirmed that also narrowing of right upper lobe bronchus has been seen, suspicion of postobstructive pneumonia Patient was treated with IV fluids and antibiotic and will be admitted to the hospital for further management. Objective - Vital Signs Vital signs: Vital Signs Temp 98.3 F 08/05/20 07:00 Pulse 104 H 08/05/20 08:47 Resp 18 08/05/20 07:00 BP 156/99 08/05/20 07:00 Pulse Ox 96 08/05/20 08:34 Intake & Output 08/04/20 08/05/20 08/05/20 18:59 06:59 18:59 Intake Total 300 Balance 300 Intake: Oral 300 Other: Voiding Method Toilet # Voids 4 2 # Bowel Movements 1 - Exam - Constitutional General appearance: average body habitus, cooperative, disheveled - EENT Eyes: EOMI, PERRLA Ears: bilateral: normal - Neck Carotids: bilateral: upstroke normal Thyroid: bilateral: normal size - Respiratory Respiratory: bilateral: diminished - Cardiovascular Rhythm: regular Heart sounds: normal: S1, S2 - Gastrointestinal General gastrointestinal: decreased bowel sounds, soft - Integumentary Integumentary: normal turgor - Neurologic Neurologic: CNII-XII intact - Musculoskeletal Musculoskeletal: gait normal, generalized weakness, strength equal bilaterally - Psychiatric Psychiatric: A&O x's 3, appropriate affect, intact judgment & insight - Labs CBC & Chem 7: 08/05/20 06:01 08/05/20 06:01 Labs: Abnormal Lab Results - Last 24 Hours (Table) 08/05/20 08/05/20 Range/Units 06:01 06:01 WBC 51.9 H* (3.8-10.6) k/uL Hct 50.4 H (34.0-46.0) % MCV 106.2 H (80.0-100.0) fL Lymphocytes # (Manual) 43.60 H (1.0-4.8) k/uL Monocytes # (Manual) 1.04 H (0-1.0) k/uL Metamyelocytes # (Man) 0.52 H (0) k/uL Myelocytes # (Manual) 0.52 H (0) k/uL BUN/Creatinine Ratio 23.33 H (12.00-20.00) Ratio Microbiology - Last 24 Hours (Table) 07/30/20 09:58 Blood Culture - Preliminary Blood No Growth after 120 hours Assessment and Plan Assessment: Likely metastatic lung cancer with mass to brain and liver Acute hypoxic respiratory failure Postobstructive pneumonia on the right side Right perihilar pulmonary mass End-stage COPD with acute exacerbation Back pain and neck pain History of breast cancer History of left-sided mediastinal and hilar lymphadenopathy Active smoker nicotine use Plan: Proceed with the liver biopsy as planned not only will give the diagnosis but also staging however appears to have a stage IV given metastases in the brain Continue broad-spectrum antibiotics, bronchodilators along with IV steroids Follow clinical response closely Further recommendations pending plan of care as per clinical response of the patient Time with Patient: Greater than 30
[2020-08-05 11:13] VITALS: RESP 16
--- NOTE | 2020-08-05 12:22 | P.PN ---
Subjective Progress Note Date: 08/05/20 Principal diagnosis: metastatic cancer Patient mentally is doing better with overall diagnosis. We discussed waiting on finalized diagnosis and treatment plan prior to aircraft cleaner removal and she is ok with this. She is status post her biopsy and no acute complaints. Discussed with primary team and plan for dex to continue, will also send with antiemetics. Objective - Vital Signs Vital signs: Vital Signs Temp 98.3 F 08/05/20 07:00 Pulse 84 08/05/20 12:14 Resp 16 08/05/20 12:14 BP 144/83 08/05/20 12:14 Pulse Ox 91 L 08/05/20 12:14 Intake & Output 08/04/20 08/05/20 08/05/20 18:59 06:59 18:59 Intake Total 300 Balance 300 Intake: Oral 300 Other: Voiding Method Toilet # Voids 4 2 # Bowel Movements 1 - Exam Constitutional General appearance: cooperative, no acute distress - EENT Eyes: EOMI, PERRLA ENT: NA/AT, normal oropharynx - Neck Neck: lymphadenopathy right submandibular palpable nodule - Respiratory Respiratory: bilateral: diminished, wheezing - Cardiovascular Heart rate: 112 - Gastrointestinal General gastrointestinal: normal bowel sounds, tenderness - Integumentary Integumentary: pale - Neurologic Neurologic: CNII-XII intact - Musculoskeletal Musculoskeletal: generalized weakness, strength equal bilaterally - Psychiatric Psychiatric: A&O x's 3 - Labs CBC & Chem 7: 08/05/20 06:01 08/05/20 06:01 Labs: Abnormal Lab Results - Last 24 Hours (Table) 08/05/20 08/05/20 Range/Units 06:01 06:01 WBC 51.9 H* (3.8-10.6) k/uL Hct 50.4 H (34.0-46.0) % MCV 106.2 H (80.0-100.0) fL Lymphocytes # (Manual) 43.60 H (1.0-4.8) k/uL Monocytes # (Manual) 1.04 H (0-1.0) k/uL Metamyelocytes # (Man) 0.52 H (0) k/uL Myelocytes # (Manual) 0.52 H (0) k/uL BUN/Creatinine Ratio 23.33 H (12.00-20.00) Ratio Microbiology - Last 24 Hours (Table) 07/30/20 09:58 Blood Culture - Final Blood No Growth after 144 hours Assessment and Plan (1) CLL (chronic lymphocytic leukemia) Status: Acute Code(s): C91.10 - CHRONIC LYMPHOCYTIC LEUK OF B-CELL TYPE NOT AC HIEVReyes GALLEGOSIS SNOMED Code(s): 21434644 (2) Breast cancer Status: Acute Code(s): C50.919 - MALIGNANT NEOPLASM OF UNSP SITE OF UNSPECIFIED FEMALE BREAST SNOMED Code(s): 190032087 Plan: Assessment and plan: New Soft Tissue Density in Lung: - Will need tissue biopsy, defer to pulm for best approach - Differentials include Breast Cancer, New primary lung cancer, versus other - Bronch per pulm for tissue bx attmepted on 08/01 unable to proceed due to desaturation and hypoxia. - Further imaging therefore ordered. Diffuse Metastatic Disease: - Liver Lesions - New Right Frontal Brain Lesion: On Dex 4mg q6 hours and PPI - Discussion with IR for Biopsy of liver, PLan is am Tuesday Neck and Back Pain: - Unable to undergo MRI with Metal in body - Bone Scan reviewed and diffuse metastatic lesions upper spine, ribs, skull and femur - With complaints of pain and in picture of metastatic disease will ask Radiation oncology to assess for intervention of palliative radiation - Radiation Oncology Following Hx: Breast Cancer: - HPI details - Ca 15-3/Ca 27-29 is increased suspicious for recurrence - Tissue expanders stilling place and she would like these out, will ask Dr. Constantino Toussaint Hx: CLL: - History in HPI - Immunoglobin IgG low at 284 - IVIG given 08/02/20 Plan: - OK to discharge from oncology after biopsy - D/C on Dex q4 PPI and antiemetics - FOllow-up after biopsy Liver Discussed with radiation oncology and primary team Physician attest: I have completed the full history and physical and agree with above dictation, dictated as a scribe.
--- NOTE | 2020-08-05 13:19 | US ---
EXAMINATION TYPE: US biopsy liver DATE OF EXAM: 08/05/2020 HISTORY: Liver metastases. History of breast cancer. HEEL SEAT FILLER: Dr. Shirin Collins PROCEDURE: Preliminary preprocedure ultrasound imaging demonstrates multiple well-circumscribed hypoechoic liver masses of the bilateral lobes. The procedure was discussed with the patient. The risks, complications, benefits, and alternatives we re discussed and any questions were answered. Informed consent was obtained. Patient was positioned left posterior oblique. Maximal barrier technique was utilized. The skin overl jacquelin a suitable path to the right inferior liver was localized using ultrasound, the skin was prepped and draped. Ultrasound was utilized with sterile technique. Lidocaine was used for local anesthesia. A skin johann made with a scalpel. Under direct ultrasound guidance, a 17-gauge introducer needle was advanced into the right liver mass, the stylet was removed, and 18-gauge core biopsy needle was adva nced into the liver mass and core biopsy obtained. 3 core biopsy specimens were obtained, and submit peterson in formalin for histopathology. Hemostasis was achieved. There was no immediate complication and patient remained in stable condition. Post procedure ultrasound imaging demonstrates no significant hemorrhage. IMPRESSION: Status post ultrasound-guided right liver mass 18-gauge core biopsy. Pathology pending.
[2020-08-05 15:05] VITALS: BP 135/78; PULSE 92; TEMP 98.1
--- NOTE | 2020-08-05 16:23 | P.DS ---
Providers Date of admission: 07/30/20 10:33 Attending physician: Ana Lynch MD Consults: 07/30/20 10:28 Consult Physician Routine Consulting Provider: Joey Chaudhari Consult Reason/Comments: Pneumonia, lung mass Do you want consulting provider notified?: Yes 07/30/20 10:39 Consult Physician Urgent Consulting Provider: Cheo Devine Consult Reason/Comments: lung mass, hx breast cancer Do you want consulting provider notified?: Yes 07/31/20 02:50 Consult Physician Routine Consulting Provider: Reyes [place] Consult Reason/Comments: L3-4 loss of height, pain, radiculopathy Do you want consulting provider notified?: Yes, Notify in am 08/02/20 14:14 Consult Physician Routine Consulting Provider: Harsh Burrell Consult Reason/Comments: palliative radiation for metastatic symptomatic bone lesions Do you want consulting provider notified?: Yes 08/04/20 09:55 Consult Physician Urgent Consulting Provider: Nai Wagoner Consult Reason/Comments: removal of expanders Do you want consulting provider notified?: Yes [facility] Dis[facility] Diagnosis: Severe sepsis without septic shock Postobstructive pneumonia of the right lung Right perihilar mass concerning for malignancy with metastasis to the brain bone and liver COPD exacerbation Hyponatremia Hypomagnesemia History of breast cancer status post chemo and radiation and bilateral mastoidectomy CLL Tobacco abuse] Hospital Course: [Patient is a 50-year-old female who presented to the ED with worsening neck and lower back pain. Patient was found to have a soft tissue density in the lung. She had further malignancy workup done. That included a CT head that showed large ring-enhancing mass and patient also had CT abdomen and pelvis that showed multiple liver lesions. She has had a bone scan that showed diffuse metastatic lesions in the upper spine and ribs scall and femur. Patient had a bronchoscopy done in order to obtain a biopsy however this was unsuccessful as patient desaturated during the procedure. Patient therefore had a liver biopsy done by IR. The path report is pending. Patient was started on Decadron. Patient is also treated for 5 days with IV Zosyn for postobstructive pneumonia. At the time of discharge patient was satting well on room air. Patient also wanted her breast expanders to be removed. She was seen by her breast surgeon who did not want to do surgery at this time as it would not improve her symptoms and also patient is high risk as she became hypoxic during the bronchoscopy. At the time of discharge patient was instructed to follow-up with oncology and radiation oncology. She reported that her pain was controlled with Madison. Patient was counseled excessively on smoking cessation.] General examination - Alert and Oriented 3 in NAD Heart - + S1S2 no murmurs Lungs - diminished breath sounds bilaterally Abdomen soft NT ND +ve BS Extremities - No edema WEIGHER ALLOY - Moving all 4 extremities spontaneously Psych - Calm and cooperative A total of [37] minutes of time were spent preparing this complex discharge summary . Patient Condition at Discharge: Fair Plan - Discharge Summary Discharge Rx Participant: No New Discharge Prescriptions: New Dexamethasone [Decadron] 4 mg PO Q6HR #90 tablet Omeprazole 40 mg PO DAILY #30 capsule.dr Loweorperazine Maleate 10 mg PO Q6HR PRN #30 tablet PRN Reason: Nausea Ondansetron Odt [Zofran ODT] 4 mg PO Q6HR PRN #45 tab PRN Reason: Nausea HYDROcodone/APAP 5-325MG [Madison 5-325] 2 each PO Q4HR PRN #56 tab PRN Reason: MODERATE Pain Continue clonazePAM [KlonoPIN] 0.5 mg PO DAILY PRN PRN Reason: Anxiety Albuterol Sulfate [Ventolin HFA] 2 puff INHALATION RT-Q4H PRN PRN Reason: Shortness Of Breath Ipratropium-Albuterol Nebulize [Duoneb 0.5 mg-3 mg/3 ml Soln] 3 ml INHALATION RT-Q6H PRN 30 Days neb PRN Reason: Shortness Of Breath Discharge Medication List Albuterol Sulfate [Ventolin HFA] 2 puff INHALATION RT-Q4H PRN 04/12/17 [History] clonazePAM [KlonoPIN] 0.5 mg PO DAILY PRN 04/12/17 [History] Dexamethasone [Decadron] 4 mg PO Q6HR #90 tablet 08/05/20 [Rx] HYDROcodone/APAP 5-325MG [Madison 5-325] 2 each PO Q4HR PRN #56 tab 08/05/20 [Rx] Ipratropium-Albuterol Nebulize [Duoneb 0.5 mg-3 mg/3 ml Soln] 3 ml INHALATION RT-Q6H PRN 30 Days neb 08/05/20 [Rx] Omeprazole 40 mg PO DAILY #30 capsule. 08/05/20 [Rx] Ondansetron Odt [Zofran ODT] 4 mg PO Q6HR PRN #45 tab 08/05/20 [Rx] Prochlorperazine Maleate 10 mg PO Q6HR PRN #30 tablet 08/05/20 [Rx] Follow up Appointment(s)/Referral(s): Cheo Devine MD [STAFF PHYSICIAN] - 1 Week Pia Jaramillo MD [Primary Care Provider] - 1-2 days Harsh Burrell MD [STAFF PHYSICIAN] - 1 Week Joey Chaudhari MD [STAFF PHYSICIAN] - 1 Week Patient Instructions/Handouts: Pneumonia (DC) Discharge Disposition: HOME SELF-CARE
== END 2020-08-05 17:30 | disposition home or self-care (01) | DRG 871 ==
LOC: EC 07:39 → 4SSUR 10:33
PROVIDERS: ADMIT Family Medicine; ATTEND Family Medicine
DX: A41.9 Sepsis, unspecified organism (principal); J18.8 Other pneumonia, unspecified organism; J96.01 Acute respiratory failure with hypoxia; C78.7 Secondary malignant neoplasm of liver and intrahepatic bile duct; C79.31 Secondary malignant neoplasm of brain; C79.51 Secondary malignant neoplasm of bone; C91.10 Chronic lymphocytic leukemia of B-cell type not having achieved remission; E87.1 Hypo-osmolality and hyponatremia; J44.0 Chronic obstructive pulmonary disease with (acute) lower respiratory infection; J44.1 Chronic obstructive pulmonary disease with (acute) exacerbation; R65.20 Severe sepsis without septic shock; Z20.828 Contact with and (suspected) exposure to other viral communicable diseases; E83.42 Hypomagnesemia; E86.1 Hypovolemia; F17.210 Nicotine dependence, cigarettes, uncomplicated; F32.9 Major depressive disorder, single episode, unspecified; F41.0 Panic disorder [episodic paroxysmal anxiety]; R32 Unspecified urinary incontinence; M79.641 Pain in right hand; R04.0 Epistaxis; R29.6 Repeated falls; R59.9 Enlarged lymph nodes, unspecified; H53.8 Other visual disturbances; Z53.20 Procedure and treatment not carried out because of patient's decision for unspecified reasons; Z85.3 Personal history of malignant neoplasm of breast; Z90.13 Acquired absence of bilateral breasts and nipples; Z92.21 Personal history of antineoplastic chemotherapy; Z92.3 Personal history of irradiation; Z98.890 Other specified postprocedural states; Z87.39 Personal history of other diseases of the musculoskeletal system and connective tissue; Z83.3 Family history of diabetes mellitus; Z82.49 Family history of ischemic heart disease and other diseases of the circulatory system; Z82.0 Family history of epilepsy and other diseases of the nervous system; Z84.89 Family history of other specified conditions
CPT/HCPCS: 31624; 36415; 47000; 70470; 71045; 71046; 71275; 72070; 72110; 72170; 74177; 76942; 78306; 80048; 80053; 80076; 81001; 82607; 82746; 82784; 83605; 83615; 83735; 83880; 83921; 84484; 84550; 85025; 85379; 85610; 85730; 86300; 87040; 87070; 87205; 88307; 88341; 88342; 93005; 93970; 94640; 94760; 96361; 96365; 96375; 99285

== ENCOUNTER 2020-08-31 18:56 | Inpatient (IN) | payer BC ==
[2020-08-31 21:22] LABS: ALT 36 U/L (4-34); AST 46 U/L (14-36); African American GFR (CKD) >90 (>60 ml/min/1.73 sqM); Albumin 3.5 g/dL (3.5-5.0); Alkaline Phosphatase 139 U/L (38-126); Anion Gap 5 mmol/L; Blood Urea Nitrogen 12 mg/dL (7-17); Calcium 8.6 mg/dL (8.4-10.2); Carbon Dioxide 26 mmol/L (22-30); Chloride 96 mmol/L (98-107); Glucose 120 mg/dL (74-99); Lipase 198 U/L (23-300); Non-African American GFR(CKD) >90 (>60 ml/min/1.73 sqM); Potassium 4.5 mmol/L (3.5-5.1); Sodium 127 mmol/L (137-145); Total Bilirubin 0.7 mg/dL (0.2-1.3); Total Protein 5.6 g/dL (6.3-8.2)
[2020-08-31 21:26] LABS: HCT 41.2 % (34.0-46.0); HGB 13.6 gm/dL (11.4-16.0); MCH 32.5 pg (25.0-35.0); Macrocytosis Slight; Mean Platelet Volume 7.1; Platelet Count 172 k/uL (150-450); RBC 4.19 m/uL (3.80-5.40); RDW 15.8 % (11.5-15.5)
[2020-08-31 21:29] LABS: MCV 98.5 fL (80.0-100.0); WBC 64.3 k/uL (3.8-10.6)
--- NOTE | 2020-08-31 21:32 | XR ---
EXAMINATION TYPE: XR KUB DATE OF EXAM: 08/31/2020 COMPARISON: NONE HISTORY: Acid patient TECHNIQUE: 2 views FINDINGS: Bowel gas pattern is normal. There is no sign of intestinal obstruction or pneumoperitoneum . Fecal pattern is normal. There are no pathologic calcifications over the kidneys. There is some par tly visualized infiltrate in the right upper lobe. IMPRESSION: Nonacute abdomen. There is evidence for some right upper lobe infiltrate.
[2020-08-31 21:46] LABS: Appearance,Urine Clear (Clear); Bilirubin,Urine Negative (Negative); Blood,Urine Negative (Negative); Color,Urine Yellow; Glucose,Urine (UA) Negative (Negative); Ketones,Urine Negative (Negative); Leukocyte Esterase,Urine Trace (Negative); Mucus,Urine Rare /hpf; Nitrite,Urine Negative (Negative); PH, Urine 6.5 (5.0-8.0); Protein,Urine Negative (Negative); Specific Gravity,Urine 1.015 (1.001-1.035); Squamous Epithelial Cell,Urine 1 /hpf (0-4); WBC,Urine 2 /hpf (0-5)
[2020-08-31] MEDS ORDERED: SODIUM CHLORIDE 0.9% 500 ML 500 ML IV ONE (21:56)
[2020-08-31] MEDS ORDERED: GLYCERIN ADULT SUPPOSITORY 1 EACH RECTAL STA (21:56)
[2020-08-31] MEDS ORDERED: AZITHROMYCIN 500 MG in SODIUM CHLORIDE 0.9% 250 ML IVPB STA (21:56)
--- NOTE | 2020-08-31 21:56 | XR ---
EXAMINATION TYPE: XR chest 2V DATE OF EXAM: 08/31/2020 COMPARISON: 08/01/2020 HISTORY: Cough TECHNIQUE: FINDINGS: There is approximate 5 cm masslike density at the right pulmonary hilum. There is coarsenin g of interstitial lung markings. There is right central venous catheter with tip in the superior vena cava. Heart size is normal. There is no heart failure. Bony thorax is intact. There are bilateral br east implants. IMPRESSION: Pulmonary interstitial edema unchanged. This could relate to fibrosis. Mass at the right pulmonary hilum slightly improved compared to last exam.
[2020-08-31] MEDS: SODIUM CHLORIDE 0.9% 1,000 ML IV SCH (22:55)
[2020-08-31] MEDS ORDERED: NALOXONE 0.4 MG/ML 1 ML VIAL IV PRN (23:06)
--- NOTE | 2020-08-31 23:09 | ED ---
General Adult HPI - General Chief complaint: Abdominal Pain Stated complaint: Cancer pt - Constipation Time Seen by Provider: 08/31/20 20:06 Source: patient, RN notes reviewed, old records reviewed Mode of arrival: ambulatory Limitations: no limitations - History of Present Illness Initial comments: 50-year-old female patient with history of CLL, breast cancer to ED for evaluation. Patient reports that she is not a bowel movement in several days she is having some abdominal bloating. She also reports that she has had a cough. Mother chest pain or shortness breath or any fevers. Denies any other complaints. Does have active cancer with metastasis to the brain liver and lung. She denies any other complaints. Systemic: Pt denies fatigue, fever/chills, rash. Pt denies weakness, night sweats, weight loss. Neuro: Pt denies headache, visual disturbances, syncope or pre-syncope. HEENT: Pt denies ocular discharge or irritation, otalgia, rhinorrhea, pharyngitis or notable lymphadenopathy. Cardiopulmonary: Pt denies chest pain, SOB, heart palpitations, dyspnea on exertion. Abdominal/GI: Pt denies abdominal pain, n/v/d. : Pt denies dysuria, burning w/ urination, frequency/urgency. Denies new onset urinary or bowel incontinence. MSK: Pt denies myalgia, loss of strength or function in extremities. Neuro: Pt denies new onset weakness, paresthesias. - Related Data Home Medications Medication Instructions Recorded Confirmed Albuterol Sulfate [Ventolin HFA] 2 puff INHALATION RT-Q4H PRN 04/12/17 07/30/20 clonazePAM [KlonoPIN] 0.5 mg PO DAILY PRN 04/12/17 07/30/20 Previous Rx's Medication Instructions Recorded Dexamethasone [Decadron] 4 mg PO Q6HR #90 tablet 08/05/20 HYDROcodone/APAP 5-325MG [[place] 2 each PO Q4HR PRN #56 tab 08/05/20 5-325] Ipratropium-Albuterol Nebulize 3 ml INHALATION RT-Q6H PRN 30 Days 08/05/20 [Duoneb 0.5 mg-3 mg/3 ml Soln] neb Omeprazole 40 mg PO DAILY #30 capsule. 08/05/20 Ondansetron Odt [Zofran ODT] 4 mg PO Q6HR PRN #45 tab 08/05/20 Prochlorperazine Maleate 10 mg PO Q6HR PRN #30 tablet 08/05/20 Allergies Allergy/AdvReac Type Severity Reaction Status Date / Time No Known Allergies Allergy Verified 08/31/20 19:29 Review of Systems ROS Statement: Those systems with pertinent positive or pertinent negative responses have been documented in the HPI. ROS Other: All systems not noted in ROS Statement are negative. Past Medical History Past Medical History: Cancer, COPD Additional Past Medical History / Comment(s): 2017 L breast cancer with bilateral mastectomies/chemo/radiation, CLL, chronic elevation WBCs, cervical pain/vertigo on and off since April 2020 History of Any Multi-Drug Resistant Organisms: None Reported Past Surgical History: Orthopedic Surgery Additional Past Surgical History / Comment(s): 2017 Bilateral mastectomies/implant reconstruction, R thumb tendon repair, lung mass biopsy. Past Anesthesia/Blood Transfusion Reactions: No Reported Reaction Past Psychological History: Anxiety, Depression, Panic Disorder Smoking Status: Current every day smoker Past Alcohol Use History: Occasional Past Drug Use History: None Reported - Past Family History Mother Family Medical History: Cancer Additional Family Medical History / Comment(s): in her 60s with history of dementia, chronic back pain, "pre leukemia." Father Additional Family Medical History / Comment(s): Father is alive with history of diabetes. Brother(s) Additional Family Medical History / Comment(s): Patient has 2 brothers with no major medical problems. Patient has 1 sister with no major medical problems. Patient does not have any children. General Exam - General Exam Comments Initial Comments: Constitutional: NAD, AOX3, Pt has pleasant affect. HEENT: NC/AT, trachea midline, neck supple, no lymphadenopathy. Posterior pharynx non erythematous, without exudates. External ears appear normal, without discharge. Mucous membranes moist. Eyes PERRLA, EOM intact. There is no scleral icterus. No pallor noted. Cardiopulmonary: RRR, no murmurs, rubs or gallops, no JVD noted. Lungs CTAB in anterior and posterior daniels. No peripheral edema. Abdominal exam: Abdomen soft and non-distended. Abdomen non-tender to palpation in all 4 quadrants. Bowel sounds active in LLQ. No hepatosplenomegaly. No ecchymosis Neuro: CN II-XII grossly intact. No nuchal rigidity. No raccon eyes, no taveras sign, no hemotympanum. No cervical spinal tenderness. MSK: No posterior calf tenderness bilaterally, homans sign negative bilaterally. Posterior tibialis and radial pulse +2 bilaterally. Sensation intact in upper and lower extremities. Full active ROM in upper and lower extremities, 5/5 stregnth. Limitations: no limitations Course Vital Signs 08/31/20 08/31/20 08/31/20 19:24 21:02 23:00 Temperature 97.7 F Pulse Rate 98 91 92 Respiratory 18 18 18 Rate Blood Pressure 142/84 128/83 118/78 O2 Sat by Pulse 96 97 96 Oximetry Medical Decision Making - Medical Decision Making 50-year-old female patient active cancer with significant metastasis to ED for constipation and abdominal bloating. Patient vital signs are stable, afebrile. Investigations revealed a leukocytosis of 64.3. Lactic acid of 2.3. Sodium 127. KUB displayed nonacute abdomen, possible pneumonia. CXR displayed possible pulmonary sandy,a mass at the right hilum. This patient does have cough and leukocytosis patient is placed on Rocephin and azithromycin. Patient will be admitted for hyponatremia, possible pneumonia. Discussed with Dr. Douglas. Accepting physican Dr. Tapia. - Lab Data Result diagrams: 08/31/20 21:02 08/31/20 21:02 Lab Results 08/31/20 08/31/20 08/31/20 Range/Units 21:02 21:02 21:02 WBC 64.3 H* (3.8-10.6) k/uL RBC 4.19 (3.80-5.40) m/uL Hgb 13.6 (11.4-16.0) gm/dL Hct 41.2 (34.0-46.0) % MCV 98.5 D (80.0-100.0) fL MCH 32.5 (25.0-35.0) pg MCHC 33.0 (31.0-37.0) g/dL RDW 15.8 H (11.5-15.5) % Plt Count 172 (150-450) k/uL Neutrophils % Not Reportable Lymphocytes % Not Reportable Monocytes % Not Reportable Eosinophils % Not Reportable Basophils % Not Reportable Neutrophils # Not Reportable Lymphocytes # Not Reportable Monocytes # Not Reportable Eosinophils # Not Reportable Basophils # Not Reportable Macrocytosis Slight Sodium 127 L (137-145) mmol/L Potassium 4.5 (3.5-5.1) mmol/L Chloride 96 L (98-107) mmol/L Carbon Dioxide 26 (22-30) mmol/L Anion Gap 5 mmol/L BUN 12 (7-17) mg/dL Creatinine 0.36 L (0.52-1.04) mg/dL Est GFR (CKD-EPI)AfAm >90 (>60 ml/min/1.73 sqM) Est GFR (CKD-EPI)NonAf >90 (>60 ml/min/1.73 sqM) Glucose 120 H (74-99) mg/dL Plasma Lactic Acid Steve 2.3 H* (0.7-2.0) mmol/L Calcium 8.6 (8.4-10.2) mg/dL Total Bilirubin 0.7 (0.2-1.3) mg/dL AST 46 H (14-36) U/L ALT 36 H (4-34) U/L Alkaline Phosphatase 139 H (38-126) U/L Total Protein 5.6 L (6.3-8.2) g/dL Albumin 3.5 (3.5-5.0) g/dL Lipase 198 (23-300) U/L Urine Color Urine Appearance (Clear) Urine pH (5.0-8.0) Ur Specific Young (1.001-1.035) Urine Protein (Negative) Urine Glucose (UA) (Negative) Urine Ketones (Negative) Urine Blood (Negative) Urine Nitrite (Negative) Urine Bilirubin (Negative) Urine Urobilinogen (<2.0) mg/dL Ur Leukocyte Esterase (Negative) Urine WBC (0-5) /hpf Ur Squamous Epith Cells (0-4) /hpf Urine Mucus (None) /hpf 08/31/20 Range/Units 21:37 WBC (3.8-10.6) k/uL RBC (3.80-5.40) m/uL Hgb (11.4-16.0) gm/dL Hct (34.0-46.0) % MCV (80.0-100.0) fL MCH (25.0-35.0) pg MCHC (31.0-37.0) g/dL RDW (11.5-15.5) % Plt Count (150-450) k/uL Neutrophils % Lymphocytes % Monocytes % Eosinophils % Basophils % Neutrophils # Lymphocytes # Monocytes # Eosinophils # Basophils # Macrocytosis Sodium (137-145) mmol/L Potassium (3.5-5.1) mmol/L Chloride (98-107) mmol/L Carbon Dioxide (22-30) mmol/L Anion Gap mmol/L BUN (7-17) mg/dL Creatinine (0.52-1.04) mg/dL Est GFR (CKD-EPI)AfAm (>60 ml/min/1.73 sqM) Est GFR (CKD-EPI)NonAf (>60 ml/min/1.73 sqM) Glucose (74-99) mg/dL Plasma Lactic Acid Steve (0.7-2.0) mmol/L Calcium (8.4-10.2) mg/dL Total Bilirubin (0.2-1.3) mg/dL AST (14-36) U/L ALT (4-34) U/L Alkaline Phosphatase (38-126) U/L Total Protein (6.3-8.2) g/dL Albumin (3.5-5.0) g/dL Lipase (23-300) U/L Urine Color Yellow Urine Appearance Clear (Clear) Urine pH 6.5 (5.0-8.0) Ur Specific Young 1.015 (1.001-1.035) Urine Protein Negative (Negative) Urine Glucose (UA) Negative (Negative) Urine Ketones Negative (Negative) Urine Blood Negative (Negative) Urine Nitrite Negative (Negative) Urine Bilirubin Negative (Negative) Urine Urobilinogen 2.0 (<2.0) mg/dL Ur Leukocyte Esterase Trace H (Negative) Urine WBC 2 (0-5) /hpf Ur Squamous Epith Cells 1 (0-4) /hpf Urine Mucus Rare H (None) /hpf Disposition Clinical Impression: Pneumonia, Hyponatremia Disposition: ADMITTED IP TO THIS HOSP Condition: Serious Is patient prescribed a controlled substance at d/c from ED?: No Referrals: Pia Jaramillo MD [Primary Care Provider] - 1-2 days
[2020-09-01] MEDS ORDERED: clonazePAM 0.5 MG TAB PO STA (02:39)
[2020-09-01] MEDS: dexAMETHasone 4 MG TAB PO SCH ×2 (03:12→09:23)
[2020-09-01] MEDS ORDERED: bisacodyL 5 MG TABLET.DR PO STA (03:49)
[2020-09-01] MEDS ORDERED: IPRATROPIUM-ALBUTEROL 3 ML NEB INHALATION PRN (03:50)
--- NOTE | 2020-09-01 03:53 | P.HPIM ---
History of Present Illness H&P Date: 09/01/20 Patient is a 50-year-old female with a PMH of CLL (dx 2014), breast cancer in 2017 (stage III, status post left mastectomy and lymph node removal with subsequent lost to follow-up) and recently discovered metastatic ductal breast carcinoma (metastases to bone, liver, brain) presents to the emergency room with complaints of lethargy. The patient is currently undergoing brain radiation therapy and is scheduled to start chemotherapy. The patient reports that over the past few days to weeks, she feels extremely fatigued and does not have the energy to go on about her day. She also notes that she has not had a bowel movement for the past 3 days with some abdominal bloating and discomfort. Notes a somewhat decreased appetite. She denied additional complaints. Denied pain elsewhere. Denied chest pain, shortness of breath, nausea, vomiting, fever, chills, cough. In the emergency room a chest x-ray revealed interstitial edema along with a right pulmonary hilar mass. KUB x-ray was unremarkable. After evaluation revealed WBC count of 64.3, sodium 127, chloride 96, lactic acid 2.3, AST 46, ALT 36, with UA unremarkable. Review of Systems Pertinent positives and negatives as discussed in HPI, a complete review of systems was performed and all other systems are negative. Past Medical History Past Medical History: Cancer, COPD Additional Past Medical History / Comment(s): 2017 L breast cancer with bilateral mastectomies/chemo/radiation, CLL, chronic elevation WBCs, cervical pain/vertigo on and off since April 2020 History of Any Multi-Drug Resistant Organisms: None Reported Past Surgical History: Orthopedic Surgery Additional Past Surgical History / Comment(s): 2017 Bilateral mastectomies/implant reconstruction, R thumb tendon repair, lung mass biopsy. Past Anesthesia/Blood Transfusion Reactions: No Reported Reaction Past Psychological History: Anxiety, Depression, Panic Disorder Smoking Status: Current every day smoker Past Alcohol Use History: Occasional Past Drug Use History: None Reported - Past Family History Mother Family Medical History: Cancer Additional Family Medical History / Comment(s): in her 60s with history of dementia, chronic back pain, "pre leukemia." Father Additional Family Medical History / Comment(s): Father is alive with history of diabetes. Brother(s) Additional Family Medical History / Comment(s): Patient has 2 brothers with no major medical problems. Patient has 1 sister with no major medical problems. Patient does not have any children. Medications and Allergies Home Medications Medication Instructions Recorded Confirmed Type Albuterol Sulfate [Ventolin HFA] 2 puff INHALATION RT-Q4H PRN 04/12/17 07/30/20 History clonazePAM [KlonoPIN] 0.5 mg PO DAILY PRN 04/12/17 07/30/20 History Dexamethasone [Decadron] 4 mg PO Q6HR #90 tablet 08/05/20 Rx HYDROcodone/APAP 5-325MG [[place] 2 each PO Q4HR PRN #56 tab 08/05/20 Rx 5-325] Ipratropium-Albuterol Nebulize 3 ml INHALATION RT-Q6H PRN 30 Days 08/05/20 Rx [Duoneb 0.5 mg-3 mg/3 ml Soln] neb Omeprazole 40 mg PO DAILY #30 capsule. 08/05/20 Rx Ondansetron Odt [Zofran ODT] 4 mg PO Q6HR PRN #45 tab 08/05/20 Rx Prochlorperazine Maleate 10 mg PO Q6HR PRN #30 tablet 08/05/20 Rx Allergies Allergy/AdvReac Type Severity Reaction Status Date / Time No Known Allergies Allergy Verified 08/31/20 19:29 Physical Exam Vitals: Vital Signs Temp Pulse Pulse Resp BP BP Pulse Ox 09/01/20 00:15 97.5 F L 95 14 130/87 92 L 08/31/20 23:00 92 18 118/78 96 08/31/20 21:02 91 18 128/83 97 08/31/20 19:24 97.7 F 98 18 142/84 96 Intake and Output 08/31/20 08/31/20 09/01/20 14:59 22:59 06:59 Other: Weight 58.967 kg General: non toxic, no distress, appears at stated age, normal weight Derm: no unusual rashes/lesions no unusual ecchymoses, warm, dry Head: atraumatic, normocephalic, symmetric Eyes: EOMI, no lid lag, anicteric sclera, pupils equal round reactive to light ENT: Nose and ears atraumatic, no thrush, no pharyngeal erythema Neck: No thyromegaly, no cervical lymphadenopathy, trachea midline, supple Mouth: no lip lesion, mucus membranes moist Cardiovascular: S1S2 reg, no murmur, positive posterior tibial pulse bilateral, no edema, capillary refill less than 2 seconds Lungs: Mild expiratory wheezing, no rhonchi, no rales , no accessory muscle use Abdominal: soft, minimal diffuse tenderness to palpation, no guarding, no appreciable organomegaly, normal bowel sounds Ext: no gross muscle atrophy, muscle strength 5 out of 5 in all 4 extremities grossly, no contractures, Neuro: CN II-XI grossly intact, light touch intact all 4 extremities, finger to nose within normal limits, Psych: Alert, oriented, appropriate affect Results CBC & Chem 7: 08/31/20 21:02 08/31/20 21: Labs: Abnormal Lab Results - Last 24 Hours (Table) 08/31/20 08/31/20 08/31/20 Range/Units 21:02 21:02 21:02 WBC 64.3 H* (3.8-10.6) k/uL RDW 15.8 H (11.5-15.5) % Sodium 127 L (137-145) mmol/L Chloride 96 L (98-107) mmol/L Creatinine 0.36 L (0.52-1.04) mg/dL Glucose 120 H (74-99) mg/dL Plasma Lactic Acid Steve 2.3 H* (0.7-2.0) mmol/L AST 46 H (14-36) U/L ALT 36 H (4-34) U/L Alkaline Phosphatase 139 H (38-126) U/L Total Protein 5.6 L (6.3-8.2) g/dL Ur Leukocyte Esterase (Negative) Urine Mucus (None) /hpf 08/31/20 Range/Units 21:37 WBC (3.8-10.6) k/uL RDW (11.5-15.5) % Sodium (137-145) mmol/L Chloride (98-107) mmol/L Creatinine (0.52-1.04) mg/dL Glucose (74-99) mg/dL Plasma Lactic Acid Steve (0.7-2.0) mmol/L AST (14-36) U/L ALT (4-34) U/L Alkaline Phosphatase (38-126) U/L Total Protein (6.3-8.2) g/dL Ur Leukocyte Esterase Trace H (Negative) Urine Mucus Rare H (None) /hpf Assessment and Plan Plan: Constipation -Administer Dulcolax -Status post glycerin suppository Metastatic breast cancer, CLL -Consult oncology for goals of care planning -Continue the amoxicillin Lactic acidosis -Monitor for resolution Hyponatremia -Likely secondary to poor oral intake -Monitor for now -C/w IVFs DVT prophylaxis -Lovenox The patient is admitted with an anticipated greater than 2 midnight stay for evaluation of constipation CODE STATUS: Full Code Discussed with: Patient Anticipated discharge date: 2-[address]: Home A total of 40 minutes was spent on the care of this complex patient more than 50% of the time was spent in counseling and care coordination.
[2020-09-01 04:26] LABS: Band Neutrophils % 5 %; Lymphocytes # (M) 58.51 k/uL (1.0-4.8); Metamyelocytes # (M) 0.64 k/uL (0); Metamyelocytes % 1 %; Monocytes # (M) 0.64 k/uL (0-1.0); Neutrophils % (M) 2 %; Nucleated Red Blood Cells 0 /100 WBC (0-0); Total Cells Counted 100
[2020-09-01] MEDS: HYDROcodone/APAP 5-325MG 1 EACH TAB PO PRN ×2 (04:27→09:29)
[2020-09-01] MEDS ORDERED: dexAMETHasone 4 MG TAB PO SCH (06:00)
[2020-09-01] MEDS: IPRATROPIUM-ALBUTEROL 3 ML NEB INHALATION SCH ×3 (07:40→20:23)
[2020-09-01] MEDS ORDERED: ENOXAPARIN 40 MG/0.4 ML SYRINGE SQ SCH (09:00)
[2020-09-01] MEDS ORDERED: polyethylene glycoL 3350 17 GM POWD.PACK PO SCH (09:00)
[2020-09-01 12:53] VITALS: BP 119/68; RESP 18; TEMP 98.1
[2020-09-01] MEDS: SODIUM CHLORIDE 0.9% 1,000 ML IV SCH (13:00)
[2020-09-01 13:37] VITALS: PULSE 99
--- NOTE | 2020-09-01 17:27 | P.DS ---
Providers Date of admission: 08/31/20 23:02 Attending physician: Fer Tapia MD Consults: 08/31/20 23:06 Consult Physician Stat Consulting Provider: Cheo Devine Consult Reason/Comments: CLL with mets Do you want consulting provider notified?: Yes, Notify in am Primary care physician: Pia [facility] Course: The patient is a 50 year old female with a history of CLL, breast cancer with who was subsequently lost to follow-up and recently discovered metastatic ductal breast carcinoma. The patient presented to emergency room with lethargy. The patient is currently undergoing. Radiation therapy and is scheduled to start chemotherapy. She reported no bowel movement for the last 3 days with bloating and discomfort. In the emergency room chest x-ray showed interstitial edema with right pulmonary hilar mass in the rectum 64.3, sodium 127, lactic acid 2.3, AST of 46 and a ALT of 36. Patient seen this morning she was still waiting to have a bowel movement. She was given an aggressive bowel regimen and had bowel movements and stated that she felt better. She'll be discharged to continue her workup as an outpatient. Her lactic acidosis resolved to 1.5. Patient Condition at Discharge: Serious Plan - Discharge Summary New Discharge Prescriptions: No Action clonazePAM [KlonoPIN] 0.5 mg PO DAILY PRN PRN Reason: Anxiety Albuterol Sulfate [Ventolin HFA] 2 puff INHALATION RT-Q4H PRN PRN Reason: Shortness Of Breath HYDROcodone/APAP 5-325MG [[place] 5-325] 1 - 2 tab PO Q4H PRN PRN Reason: Moderate Pain Prochlorperazine Maleate 10 mg PO Q6H PRN PRN Reason: Nausea Ondansetron Odt [Zofran ODT] 4 mg PO Q6H PRN PRN Reason: Nausea Omeprazole 40 mg PO AC-BRKFST Ipratropium-Albuterol Nebulize [Duoneb 0.5 mg-3 mg/3 ml Soln] 3 ml INHALATION RT-TID PRN PRN Reason: Shortness Of Breath Dexamethasone [Decadron] 4 mg PO AC-TID Multivitamin [Multivitamins Adult Gummies] 2 tab PO DAILY Discharge Medication List Albuterol Sulfate [Ventolin HFA] 2 puff INHALATION RT-Q4H PRN 04/12/17 [History] clonazePAM [KlonoPIN] 0.5 mg PO DAILY PRN 04/12/17 [History] Dexamethasone [Decadron] 4 mg PO AC-TID 09/01/20 [History] HYDROcodone/APAP 5-325MG [[place] 5-325] 1 - 2 tab PO Q4H PRN 09/01/20 [History] Ipratropium-Albuterol Nebulize [Duoneb 0.5 mg-3 mg/3 ml Soln] 3 ml INHALATION RT-TID PRN 09/01/20 [History] Multivitamin [Multivitamins Adult Gummies] 2 tab PO DAILY 09/01/20 [History] Omeprazole 40 mg PO AC-BRKFST 09/01/20 [History] Ondansetron Odt [Zofran ODT] 4 mg PO Q6H PRN 09/01/20 [History] Prochlorperazine Maleate 10 mg PO Q6H PRN 09/01/20 [History] Follow up Appointment(s)/Referral(s): Pia Jaramillo MD [Primary Care Provider] - 1-2 days Discharge Disposition: HOME SELF-CARE
--- NOTE | 2020-09-01 19:15 | P.CONS ---
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 In 2013 she presented with recurrent infections and macrocytosis. Initially felt to be related to her prior ETOH and tobacco us. However during work-up of other possibilities her flow cytometry , however, confirmed a monoclonal population , consistent with chronic lympocytic leukemia. Additional labs revealed normal FISH, borderline high ZAP 70 at 11%, and IgG in the 400 range. She was thus placed on observation for her CLL In 2017 - She presented to Dr Erasmo Toussaint with c/o pain and swelling in her left breast. She had an FNA in the office on 11/04/16, which was positive for malignancy. She then had an US guided core biopsy on 11/09/16 , confirming invasive ductal breast carcinoma , grade III, ER/GA positive, Her 2 1+ by IHC, and also negative by FISH. Prior CT of the CAP showed non specific nodes in the mediastinum, and rt axilla. Areas of sclerosis were seen in the T spine and iliac bone, with bone scan positive at T5, and also in the rt femoral neck with no corresponding bony lesion. It was decided to treat her with curative intent, even if the T5 lesion was presumed to be malignant. She started dose dense AC and is s/p 4 cycles, and 4 cycles of DD Taxol, competin those in late 03/09 She proceeded to b/l mastectomy with left axillary dissection on 04/20/17, revealing a pCR for invasive cancer on the left. Residual DCIS was noted. Nodes were positive for CLL, but negative for breast ca. Rt breast was negative. She is undergoing reconstruction. BRCA testing was ultimately done on the skin and was negative. She completed RT on 08/08/17, but refused RT to T5, initially. She was persuaded to do so, and ultimately completed than in late 09/09. She was admitted to [facility] in late 10/09 with back pain and SOB. She was diagnosed with possible radiation pneumonitis, and is currently on a steroid taper. Last month she presented to [facility] with increased neck and back pain. The area of complaints are upper neck and lower back, different from prior complaints. CT chest revealed soft tissue mass in the right hilum encasing trachea and right mainstem bronchus. adenopathy was also mentioned. She is unable to undergo MRI but with her known suspicious area at T5 and new and worsening back pain will obtain bone scan. CT Brain unfortunetly revealed metastatic disease to brain as well and she is now status post SRS to brain. She has been on high dose steroids QID, she continued on this dose and did not wean as expected. She called with complaints of fluid retention. Review of Systems All systems: negative Constitutional: Reports as per HPI Past Medical History Past Medical History: Cancer, COPD Additional Past Medical History / Comment(s): 2017 L breast cancer with bilateral mastectomies/chemo/radiation, CLL, chronic elevation WBCs, cervical pain/vertigo on and off since April 2020 History of Any Multi-Drug Resistant Organisms: None Reported Past Surgical History: Orthopedic Surgery Additional Past Surgical History / Comment(s): 2017 Bilateral mastectomies/implant reconstruction, R thumb tendon repair, lung mass biopsy. Past Anesthesia/Blood Transfusion Reactions: No Reported Reaction Past Psychological History: Anxiety, Depression, Panic Disorder Smoking Status: Current every day smoker Past Alcohol Use History: Occasional Past Drug Use History: None Reported - Past Family History Mother Family Medical History: Cancer Additional Family Medical History / Comment(s): in her 60s with history of dementia, chronic back pain, "pre leukemia." Father Additional Family Medical History / Comment(s): Father is alive with history of diabetes. Brother(s) Additional Family Medical History / Comment(s): Patient has 2 brothers with no major medical problems. Patient has 1 sister with no major medical problems. Patient does not have any children. Medications and Allergies Home Medications Medication Instructions Recorded Confirmed Type Albuterol Sulfate [Ventolin HFA] 2 puff INHALATION RT-Q4H PRN 04/12/17 09/01/20 History clonazePAM [KlonoPIN] 0.5 mg PO DAILY PRN 04/12/17 09/01/20 History Dexamethasone [Decadron] 4 mg PO AC-TID 09/01/20 09/01/20 History HYDROcodone/APAP 5-325MG [[place] 1 - 2 tab PO Q4H PRN 09/01/20 09/01/20 History 5-325] Ipratropium-Albuterol Nebulize 3 ml INHALATION RT-TID PRN 09/01/20 09/01/20 History [Duoneb 0.5 mg-3 mg/3 ml Soln] Multivitamin [Multivitamins Adult 2 tab PO DAILY 09/01/20 09/01/20 History Gummies] Omeprazole 40 mg PO AC-BRKFST 09/01/20 09/01/20 History Ondansetron Odt [Zofran ODT] 4 mg PO Q6H PRN 09/01/20 09/01/20 History Prochlorperazine Maleate 10 mg PO Q6H PRN 09/01/20 09/01/20 History Allergies Allergy/AdvReac Type Severity Reaction Status Date / Time No Known Allergies Allergy Verified 09/01/20 06:49 Physical Exam Vitals: Vital Signs Temp Pulse Pulse Resp BP BP Pulse Ox 09/01/20 13:42 99 09/01/20 13:33 99 09/01/20 12:53 98.1 F 93 18 119/68 92 L 09/01/20 07:59 92 09/01/20 07:45 92 09/01/20 04:20 97.6 F 90 16 110/71 96 09/01/20 00:15 97.5 F L 95 14 130/87 92 L 08/31/20 23:00 92 18 118/78 96 08/31/20 21:02 91 18 128/83 97 08/31/20 19:24 97.7 F 98 18 142/84 96 Intake and Output 09/01/20 09/01/20 09/01/20 06:59 14:59 22:59 Intake Total 840 412 Balance 840 412 Intake: Intake, IV Titration 600 412 Amount Sodium Chloride 0.9% 1, 600 412 000 ml @ 75 mls/hr IV . [id number] [facility] Rx#:[id number] Oral 240 Other: # Voids 1 Weight 58.967 kg - Constitutional General appearance: cooperative, no acute distress - EENT Eyes: EOMI, PERRLA ENT: NA/AT, normal oropharynx - Respiratory Respiratory: bilateral: diminished - Cardiovascular Rhythm: regularly irregular leg Peripheral Edema: bilateral: Trace - Gastrointestinal General gastrointestinal: distended, normal bowel sounds, tenderness - Integumentary Integumentary: pale - Neurologic Neurologic: CNII-XII intact - Musculoskeletal Musculoskeletal: generalized weakness, strength equal bilaterally - Psychiatric Psychiatric: A&O x's 3, appropriate affect Results CBC & Chem 7: 08/31/20 21:02 08/31/20 21:02 Labs: Abnormal Lab Results - Last 24 Hours (Table) 08/31/20 08/31/20 08/31/20 Range/Units 21:02 21:02 21:02 WBC 64.3 H* (3.8-10.6) k/uL RDW 15.8 H (11.5-15.5) % Lymphocytes # (Manual) 58.51 H (1.0-4.8) k/uL Metamyelocytes # (Man) 0.64 H (0) k/uL Sodium 127 L (137-145) mmol/L Chloride 96 L (98-107) mmol/L Creatinine 0.36 L (0.52-1.04) mg/dL Glucose 120 H (74-99) mg/dL Plasma Lactic Acid Steve 2.3 H* (0.7-2.0) mmol/L AST 46 H (14-36) U/L ALT 36 H (4-34) U/L Alkaline Phosphatase 139 H (38-126) U/L Total Protein 5.6 L (6.3-8.2) g/dL Ur Leukocyte Esterase (Negative) Urine Mucus (None) /hpf 08/31/20 Range/Units 21:37 WBC (3.8-10.6) k/uL RDW (11.5-15.5) % Lymphocytes # (Manual) (1.0-4.8) k/uL Metamyelocytes # (Man) (0) k/uL Sodium (137-145) mmol/L Chloride (98-107) mmol/L Creatinine (0.52-1.04) mg/dL Glucose (74-99) mg/dL Plasma Lactic Acid Steve (0.7-2.0) mmol/L AST (14-36) U/L ALT (4-34) U/L Alkaline Phosphatase (38-126) U/L Total Protein (6.3-8.2) g/dL Ur Leukocyte Esterase Trace H (Negative) Urine Mucus Rare H (None) /hpf Assessment and Plan (1) Metastatic cancer Current Visit: Yes Status: Acute Code(s): C79.9 - SECONDARY MALIGNANT NEOPLASM OF UNSPECIFIED SITE SNOMED Code(s): 442265930 (2) Body fluid retention Current Visit: Yes Status: Acute Code(s): R60.9 - EDEMA, UNSPECIFIED SNOMED Code(s): 14574896 (3) Hyponatremia Current Visit: Yes Status: Acute Code(s): E87.1 - HYPO-OSMOLALITY AND HYPONATREMIA SNOMED Code(s): 48550568 Plan: Repeat CBC and CMP in am Lasix 20mg pO BID x48 hours with IV hydration continued Hyponatremia secondary to fluid retention from steroids and likely component of SIADH Continue supportive care and monitoring Physicain attest: I have completed the full history and physical and agree with above dictation, dictated as a scribe
== END 2020-09-01 23:05 | disposition home or self-care (01) | DRG 392 ==
LOC: EC 18:56 → 6NMEDSUR 23:02
PROVIDERS: ADMIT Internal Medicine; ATTEND Internal Medicine
DX: K59.00 Constipation, unspecified (principal); C79.51 Secondary malignant neoplasm of bone; C78.01 Secondary malignant neoplasm of right lung; E87.1 Hypo-osmolality and hyponatremia; E87.2 Acidosis; C79.31 Secondary malignant neoplasm of brain; C78.7 Secondary malignant neoplasm of liver and intrahepatic bile duct; C91.10 Chronic lymphocytic leukemia of B-cell type not having achieved remission; J44.9 Chronic obstructive pulmonary disease, unspecified; M54.9 Dorsalgia, unspecified; M54.2 Cervicalgia; F41.0 Panic disorder [episodic paroxysmal anxiety]; F32.9 Major depressive disorder, single episode, unspecified; F17.200 Nicotine dependence, unspecified, uncomplicated; Z79.52 Long term (current) use of systemic steroids; Z79.899 Other long term (current) drug therapy; Z90.13 Acquired absence of bilateral breasts and nipples; Z85.3 Personal history of malignant neoplasm of breast; Z87.39 Personal history of other diseases of the musculoskeletal system and connective tissue; Z98.890 Other specified postprocedural states; Z83.3 Family history of diabetes mellitus; Z81.8 Family history of other mental and behavioral disorders; Z80.6 Family history of leukemia; Z82.69 Family history of other diseases of the musculoskeletal system and connective tissue
CPT/HCPCS: 36415; 71046; 74018; 80053; 81001; 83605; 83690; 85025; 87040; 94640; 96365; 96367; 99285

== ENCOUNTER 2020-09-07 16:22 | Inpatient (IN) | payer BC ==
--- NOTE | 2020-09-07 17:15 | ED ---
SOB HPI - General Chief Complaint: Shortness of Breath Stated Complaint: sob Source: patient Mode of arrival: EMS Limitations: no limitations - History of Present Illness Initial Comments: Patient is a 50-year-old female past medical history of CLL, metastatic breast cancer to brain and bone who presents to the emergency department with difficulty breathing and abdominal pain. Patient is currently undergoing patient treatment for her brain metastases. Patient has been hospitalized 2 times in the past month for complaints which are similar. States that she had difficulty with bowel movements due to daily steroid use. She complains of abdominal distention with pressure on her chest and inability to breathe. Denies nausea or vomiting. No chest pain. She does currently smoke. Has been using her inhaler without improvement. She denies melenic stools or hematochezi a. Admits to decreased urination. Reports chronic lower extremity weakness and swelling which is not worse since her last hospitalization. She was placed on diuretics at discharge however was only giving 5 days and states she completed the course. She denies cough, hemoptysis. No sick contacts or similar symptoms. No recent travel. No history of DVT or PE. Other alleviating, precipitating or modifying factors - Related Data Home Medications Medication Instructions Recorded Confirmed Albuterol Sulfate [Ventolin HFA] 2 puff INHALATION RT-Q4H PRN 04/12/17 09/07/20 clonazePAM [KlonoPIN] 0.5 mg PO DAILY PRN 04/12/17 09/07/20 Dexamethasone [Decadron] 4 mg PO AC-BID 09/01/20 09/07/20 HYDROcodone/APAP 5-325MG [[place] 1 - 2 tab PO Q4H PRN 09/01/20 09/07/20 5-325] Ipratropium-Albuterol Nebulize 3 ml INHALATION RT-TID PRN 09/01/20 09/07/20 [Duoneb 0.5 mg-3 mg/3 ml Soln] Multivitamin [Multivitamins Adult 2 tab PO DAILY 09/01/20 09/07/20 Gummies] Omeprazole 40 mg PO AC-BRKFST 09/01/20 09/07/20 Ondansetron Odt [Zofran ODT] 4 mg PO Q6H PRN 09/01/20 09/07/20 Prochlorperazine Maleate 10 mg PO Q6H PRN 09/01/20 09/07/20 Allergies Allergy/AdvReac Type Severity Reaction Status Date / Time No Known Allergies Allergy Verified 09/07/20 17:57 Review of Systems ROS Statement: Those systems with pertinent positive or pertinent negative responses have been documented in the HPI. ROS Other: All systems not noted in ROS Statement are negative. Past Medical History Past Medical History: Cancer, COPD Additional Past Medical History / Comment(s): 2016 L breast cancer with bilateral mastectomies/chemo/radiation, CLL, chronic elevation WBCs, cervical pain/vertigo on and off since April 2020 History of Any Multi-Drug Resistant Organisms: None Reported Past Surgical History: Orthopedic Surgery Additional Past Surgical History / Comment(s): 2017 Bilateral mastectomies/implant reconstruction, R thumb tendon repair, lung mass biopsy. Past Anesthesia/Blood Transfusion Reactions: No Reported Reaction Past Psychological History: Anxiety, Depression, Panic Disorder Smoking Status: Current every day smoker Past Alcohol Use History: None Reported Past Drug Use History: None Reported - Past Family History Mother Family Medical History: Cancer Additional Family Medical History / Comment(s): in her 60s with history of dementia, chronic back pain, "pre leukemia." Father Additional Family Medical History / Comment(s): Father is alive with history of diabetes. Brother(s) Additional Family Medical History / Comment(s): Patient has 2 brothers with no major medical problems. Patient has 1 sister with no major medical problems. Patient does not have any children. General Exam Limitations: no limitations Course Vital Signs 09/07/20 09/07/20 09/07/20 16:23 16:26 17:14 Temperature 97.7 F Pulse Rate 94 90 Respiratory 18 20 22 Rate Blood Pressure 141/85 149/100 O2 Sat by Pulse 95 94 L Oximetry 09/07/20 09/07/20 09/07/20 19:16 19:40 20:22 Temperature Pulse Rate 90 90 96 Respiratory 18 Rate Blood Pressure 103/69 O2 Sat by Pulse 96 Oximetry 09/07/20 22:49 Temperature 98 F Pulse Rate 100 Respiratory 22 Rate Blood Pressure 106/79 O2 Sat by Pulse 93 L Oximetry - Reevaluation(s) Reevaluation #1: Spoke with Dr. Dodson at 1840 pm who recommends Edgar placement and 40 mg of Lasix stat. He would like a repeat sodium in 2 hours and would like to be made aware of the patient's results Reevaluation #2: 09/07/20 20:08 Spoke with Leonardo who accepted admission Medical Decision Making - Medical Decision Making Upon arrival patient is placed into room 7. A through history and physical exam was performed. IV is established. Laboratory says were conducted. Chest and abdominal x-ray performed. Laboratory studies remarkable for a white count of 16.2 which is around the patient's baseline. Sodium is critically low at 110. Chest and abdominal x-ray demonstrates pulmonary interstitial edema. Discussed the results with the patient. I called and discussed the case with Dr. Dodson. He recommends 40 mg of Lasix and lites in 2 hours. Patient was given the Lasix and admitted. Discussed the case with Dr. Ibarra was accepting physician. He does present to the emergency department to evaluate the patient. Patient kiana rosado in stable condition awaiting on the floor - Lab Data Result diagrams: 09/07/20 17:15 09/07/20 21:24 Lab Results 09/07/20 09/07/20 09/07/20 Range/Units 17:15 17:15 17:15 WBC 60.2 H* (3.8-10.6) k/uL RBC 4.21 (3.80-5.40) m/uL Hgb 14.0 (11.4-16.0) gm/dL Hct 39.7 (34.0-46.0) % MCV 94.1 (80.0-100.0) fL MCH 33.3 (25.0-35.0) pg MCHC 35.4 (31.0-37.0) g/dL RDW 15.8 H (11.5-15.5) % Plt Count 137 L (150-450) k/uL MPV 7.9 Neutrophils % (Manual) 7 % Lymphocytes % (Manual) 91 % Monocytes % (Manual) 2 % Other Cells % % Neutrophils # (Manual) 4.21 (1.3-7.7) k/uL Lymphocytes # (Manual) 54.78 H (1.0-4.8) k/uL Monocytes # (Manual) 1.20 H (0-1.0) k/uL Nucleated RBCs 0 (0-0) /100 WBC Manual Slide Review Performed Polychromasia Present PT 9.3 (9.0-12.0) sec INR 0.9 (<1.2) APTT 20.5 L (22.0-30.0) sec Sodium (137-145) mmol/L Potassium (3.5-5.1) mmol/L Chloride (98-107) mmol/L Carbon Dioxide (22-30) mmol/L Anion Gap mmol/L BUN (7-17) mg/dL Creatinine (0.52-1.04) mg/dL Est GFR (CKD-EPI)AfAm (>60 ml/min/1.73 sqM) Est GFR (CKD-EPI)NonAf (>60 ml/min/1.73 sqM) Glucose (74-99) mg/dL Osmolality (280-301) mosm/kg Plasma Lactic Acid Steve (0.7-2.0) mmol/L Calcium (8.4-10.2) mg/dL Magnesium (1.6-2.3) mg/dL Total Bilirubin (0.2-1.3) mg/dL AST (14-36) U/L ALT (4-34) U/L Alkaline Phosphatase (38-126) U/L Creatine Kinase (30-135) U/L Troponin I (0.000-0.034) ng/mL NT-Pro-B Natriuret Pep pg/mL Total Protein (6.3-8.2) g/dL Albumin (3.5-5.0) g/dL Urine Color Colorless Urine Appearance Clear (Clear) Urine pH 7.0 (5.0-8.0) Ur Specific [place] 1.002 (1.001-1.035) Urine Protein Negative (Negative) Urine Glucose (UA) Negative (Negative) Urine Ketones Negative (Negative) Urine Blood Negative (Negative) Urine Nitrite Negative (Negative) Urine Bilirubin Negative (Negative) Urine Urobilinogen <2.0 (<2.0) mg/dL Ur Leukocyte Esterase Negative (Negative) 09/07/20 09/07/20 09/07/20 Range/Units 17:15 17:15 17:15 WBC (3.8-10.6) k/uL RBC (3.80-5.40) m/uL Hgb (11.4-16.0) gm/dL Hct (34.0-46.0) % MCV (80.0-100.0) fL MCH (25.0-35.0) pg MCHC (31.0-37.0) g/dL RDW (11.5-15.5) % Plt Count (150-450) k/uL MPV Neutrophils % (Manual) % Lymphocytes % (Manual) % Monocytes % (Manual) % Other Cells % % Neutrophils # (Manual) (1.3-7.7) k/uL Lymphocytes # (Manual) (1.0-4.8) k/uL Monocytes # (Manual) (0-1.0) k/uL Nucleated RBCs (0-0) /100 WBC Manual Slide Review Polychromasia PT (9.0-12.0) sec INR (<1.2) APTT (22.0-30.0) sec Sodium 110 L* (137-145) mmol/L Potassium 4.0 (3.5-5.1) mmol/L Chloride 79 L (98-107) mmol/L Carbon Dioxide 25 (22-30) mmol/L Anion Gap 6 mmol/L BUN 10 (7-17) mg/dL Creatinine 0.27 L (0.52-1.04) mg/dL Est GFR (CKD-EPI)AfAm >90 (>60 ml/min/1.73 sqM) Est GFR (CKD-EPI)NonAf >90 (>60 ml/min/1.73 sqM) Glucose 83 (74-99) mg/dL Osmolality (280-301) mosm/kg Plasma Lactic Acid Steve 0.7 (0.7-2.0) mmol/L Calcium 8.3 L (8.4-10.2) mg/dL Magnesium 1.7 (1.6-2.3) mg/dL Total Bilirubin 1.7 H (0.2-1.3) mg/dL AST 35 (14-36) U/L ALT 55 H (4-34) U/L Alkaline Phosphatase 149 H (38-126) U/L Creatine Kinase 90 (30-135) U/L Troponin I <0.012 (0.000-0.034) ng/mL NT-Pro-B Natriuret Pep pg/mL Total Protein 5.8 L (6.3-8.2) g/dL Albumin 3.7 (3.5-5.0) g/dL Urine Color Urine Appearance (Clear) Urine pH (5.0-8.0) Ur Specific [place] (1.001-1.035) Urine Protein (Negative) Urine Glucose (UA) (Negative) Urine Ketones (Negative) Urine Blood (Negative) Urine Nitrite (Negative) Urine Bilirubin (Negative) Urine Urobilinogen (<2.0) mg/dL Ur Leukocyte Esterase (Negative) 09/07/20 09/07/20 Range/Units 17:15 17:15 WBC (3.8-10.6) k/uL RBC (3.80-5.40) m/uL Hgb (11.4-16.0) gm/dL Hct (34.0-46.0) % MCV (80.0-100.0) fL MCH (25.0-35.0) pg MCHC (31.0-37.0) g/dL RDW (11.5-15.5) % Plt Count (150-450) k/uL MPV Neutrophils % (Manual) % Lymphocytes % (Manual) % Monocytes % (Manual) % Other Cells % % Neutrophils # (Manual) (1.3-7.7) k/uL Lymphocytes # (Manual) (1.0-4.8) k/uL Monocytes # (Manual) (0-1.0) k/uL Nucleated RBCs (0-0) /100 WBC Manual Slide Review Polychromasia PT (9.0-12.0) sec INR (<1.2) APTT (22.0-30.0) sec Sodium (137-145) mmol/L Potassium (3.5-5.1) mmol/L Chloride (98-107) mmol/L Carbon Dioxide (22-30) mmol/L Anion Gap mmol/L BUN (7-17) mg/dL Creatinine (0.52-1.04) mg/dL Est GFR (CKD-EPI)AfAm (>60 ml/min/1.73 sqM) Est GFR (CKD-EPI)NonAf (>60 ml/min/1.73 sqM) Glucose (74-99) mg/dL Osmolality 232 L* (280-301) mosm/kg Plasma Lactic Acid Steve (0.7-2.0) mmol/L Calcium (8.4-10.2) mg/dL Magnesium (1.6-2.3) mg/dL Total Bilirubin (0.2-1.3) mg/dL AST (14-36) U/L ALT (4-34) U/L Alkaline Phosphatase (38-126) U/L Creatine Kinase (30-135) U/L Troponin I (0.000-0.034) ng/mL NT-Pro-B Natriuret Pep 174 pg/mL Total Protein (6.3-8.2) g/dL Albumin (3.5-5.0) g/dL Urine Color Urine Appearance (Clear) Urine pH (5.0-8.0) Ur Specific [place] (1.001-1.035) Urine Protein (Negative) Urine Glucose (UA) (Negative) Urine Ketones (Negative) Urine Blood (Negative) Urine Nitrite (Negative) Urine Bilirubin (Negative) Urine Urobilinogen (<2.0) mg/dL Ur Leukocyte Esterase (Negative) - EKG Data EKG Comments: EKG done at 1631 demonstrate significant baseline artifact with a ventricular rate of 91. AK interval 134. QRS 74. QTC of 474. No acute ST segment elevations or depressions concerning for ischemic changes Disposition Clinical Impression: Body fluid retention, Pulmonary edema, Hyponatremia, Respiratory insufficiency Disposition: ADMITTED IP TO THIS [facility] Condition: Serious Is patient prescribed a controlled substance at d/c from ED?: No Decision to Admit Reason: Admit from EC Decision Date: 09/07/20 Decision Time: 19:36
--- NOTE | 2020-09-07 17:44 | XR ---
EXAMINATION TYPE: XR abdomen acute w cxr DATE OF EXAM: 09/07/2020 COMPARISON: 08/31/2020 HISTORY: Short of breath. Constipation. TECHNIQUE: 3 views FINDINGS: There is bilateral pulmonary interstitial edema. Heart size is normal. There is right centr al venous catheter with the tip in the superior vena cava. There are bilateral breast implants. There is no sign of intestinal obstruction or pneumoperitoneum. Fecal pattern is normal. There is no evidence of abdominal mass. There are no pathologic calcifications over the kidneys. IMPRESSION: There is pulmonary interstitial edema that appears the same or slightly worse than recent exam and could relate to lymphangitic metastatic disease. Nonacute abdomen.
[2020-09-07 17:52] LABS: ALT 55 U/L (4-34); AST 35 U/L (14-36); African American GFR (CKD) >90 (>60 ml/min/1.73 sqM); Albumin 3.7 g/dL (3.5-5.0); Alkaline Phosphatase 149 U/L (38-126); Anion Gap 6 mmol/L; Blood Urea Nitrogen 10 mg/dL (7-17); Calcium 8.3 mg/dL (8.4-10.2); Carbon Dioxide 25 mmol/L (22-30); Chloride 79 mmol/L (98-107); Creatine Kinase 90 U/L (30-135); Glucose 83 mg/dL (74-99); Magnesium 1.7 mg/dL (1.6-2.3); Non-African American GFR(CKD) >90 (>60 ml/min/1.73 sqM); Total Bilirubin 1.7 mg/dL (0.2-1.3); Total Protein 5.8 g/dL (6.3-8.2)
[2020-09-07 17:56] LABS: Sodium 110 mmol/L (137-145)
[2020-09-07] MEDS ORDERED: SODIUM CHLORIDE 0.9% 500 ML 500 ML IV ONE (17:58)
[2020-09-07 17:59] LABS: INR 0.9 (<1.2); Prothrombin Time 9.3 sec (9.0-12.0)
[2020-09-07 18:03] LABS: HCT 39.7 % (34.0-46.0); MCH 33.3 pg (25.0-35.0); MCHC 35.4 g/dL (31.0-37.0); MCV 94.1 fL (80.0-100.0); Mean Platelet Volume 7.9; Platelet Count 137 k/uL (150-450); RBC 4.21 m/uL (3.80-5.40); RDW 15.8 % (11.5-15.5)
[2020-09-07 18:07] LABS: Partial Thromboplastin Time 20.5 sec (22.0-30.0)
[2020-09-07 18:08] LABS: WBC 60.2 k/uL (3.8-10.6)
[2020-09-07] MEDS ORDERED: FUROSEMIDE 10 MG/ML 4 ML VIAL IV STA (18:46)
[2020-09-07] MEDS: IPRATROPIUM-ALBUTEROL 3 ML NEB INHALATION STA (19:14)
[2020-09-07] MEDS ORDERED: NALOXONE 0.4 MG/ML 1 ML VIAL IV PRN (19:38)
[2020-09-07 19:43] LABS: Appearance,Urine Clear (Clear); Bilirubin,Urine Negative (Negative); Blood,Urine Negative (Negative); Color,Urine Colorless; Glucose,Urine (UA) Negative (Negative); Ketones,Urine Negative (Negative); Leukocyte Esterase,Urine Negative (Negative); Nitrite,Urine Negative (Negative); Protein,Urine Negative (Negative); Specific Gravity,Urine 1.002 (1.001-1.035); Urobilinogen,Urine <2.0 mg/dL (<2.0)
[2020-09-07 19:53] LABS: Lymphocytes # (M) 54.78 k/uL (1.0-4.8); Neutrophils # (M) 4.21 k/uL (1.3-7.7); Neutrophils % (M) 7 %; Nucleated Red Blood Cells 0 /100 WBC (0-0); Polychromasia Present; Total Cells Counted 100
[2020-09-07] MEDS ORDERED: ONDANSETRON ODT 4 MG TAB PO PRN (22:07)
[2020-09-07] MEDS ORDERED: PROCHLORPERAZINE 10 MG TAB PO PRN (22:07)
[2020-09-07] MEDS ORDERED: HYDROcodone/APAP 5-325MG 1 EACH TAB PO PRN (22:07)
--- NOTE | 2020-09-07 22:12 | P.HPIM ---
History of Present Illness H&P Date: 09/07/20 Chief Complaint: shortness of breath, fluid overload 50 year old female with metastatic breast cancer. , and CLL she comes in today due to feeling bloated , fluid overloaded with leg swelling and difficulty in breathing. patient had frequent hospitalizations for the same problem and was discharged about a week ago . she denies any GI bleeding , URI symptoms, no changes in her baseline cough and use of inhalers. denies any chest pain or headache, denies any new focal neuro deficits. she denies any sick contact, recent travel or history of blood clots. she has been receiving steroids for brain mets since july. resulting in chronic lower extremity weakness. her baseline cough has not changed , she admits that she continues to smoke, so she does not expect better. she claims that her swelling gotten worse since she finished her short course of diuretics since her discharge about a week ago . in the ED was found to have severe hyponatremia,. chronic elevated WBC. Review of Systems Pertinent positives as noted in HPI. All other systems were reviewed and are negative Past Medical History Past Medical History: Cancer, COPD Additional Past Medical History / Comment(s): 2017 L breast cancer with bilateral mastectomies/chemo/radiation, CLL, chronic elevation WBCs, cervical pain/vertigo on and off since April 2020 History of Any Multi-Drug Resistant Organisms: None Reported Past Surgical History: Orthopedic Surgery Additional Past Surgical History / Comment(s): 2017 Bilateral m astectomies/implant reconstruction, R thumb tendon repair, lung mass biopsy. Past Anesthesia/Blood Transfusion Reactions: No Reported Reaction Past Psychological History: Anxiety, Depression, Panic Disorder Smoking Status: Current every day smoker Past Alcohol Use History: None Reported Past Drug Use History: None Reported - Past Family History Mother Family Medical History: Cancer Additional Family Medical History / Comment(s): in her 60s with history of dementia, chronic back pain, "pre leukemia." Father Additional Family Medical History / Comment(s): Father is alive with history of diabetes. Brother(s) Additional Family Medical History / Comment(s): Patient has 2 brothers with no major medical problems. Patient has 1 sister with no major medical problems. Patient does not have any children. Medications and Allergies Home Medications Medication Instructions Recorded Confirmed Type Albuterol Sulfate [Ventolin HFA] 2 puff INHALATION RT-Q4H PRN 04/12/17 09/07/20 History clonazePAM [KlonoPIN] 0.5 mg PO DAILY PRN 04/12/17 09/07/20 History Dexamethasone [Decadron] 4 mg PO AC-BID 09/01/20 09/07/20 History HYDROcodone/APAP 5-325MG [[place] 1 - 2 tab PO Q4H PRN 09/01/20 09/07/20 History 5-325] Ipratropium-Albuterol Nebulize 3 ml INHALATION RT-TID PRN 09/01/20 09/07/20 History [Duoneb 0.5 mg-3 mg/3 ml Soln] Multivitamin [Multivitamins Adult 2 tab PO DAILY 09/01/20 09/07/20 History Gummies] Omeprazole 40 mg PO AC-BRKFST 09/01/20 09/07/20 History Ondansetron Odt [Zofran ODT] 4 mg PO Q6H PRN 09/01/20 09/07/20 History Prochlorperazine Maleate 10 mg PO Q6H PRN 09/01/20 09/07/20 History Allergies Allergy/AdvReac Type Severity Reaction Status Date / Time No Known Allergies Allergy Verified 09/07/20 17:57 Physical Exam Vitals: Vital Signs Temp Pulse Resp BP Pulse Ox 09/07/20 20:22 96 18 103/69 96 09/07/20 19:40 90 09/07/20 19:16 90 09/07/20 17:14 90 22 149/100 94 L 09/07/20 16:26 20 09/07/20 16:23 97.7 F 94 18 141/85 95 Intake and Output 09/07/20 09/07/20 09/07/20 06:59 14:59 22:59 Other: Weight 83.915 kg Constitutional: No acute distress, conversant, pleasant Eyes: Anicteric sclerae, moist conjunctiva, Pupils equal round reactive to light ENMT: NC/AT Oropharynx clear, no erythema, or exudates Neck: Supple, FROM, no masses, or JVD No carotid bruits No thyromegaly Lungs: Good breath sounds bilaterally with bilateral basal rales Clear to percussion Normal respiratory effort, no accessory muscle use Cardiovascular: Heart regular in rate and rhythm, No murmurs, gallops, or rubs Bilateral pitting leg edema Abdominal: Soft Nontender, no guarding, rebound or rigidity Abdomen moving with respiration Normoactive bowel sounds No hepatomegaly, No splenomegaly No palpable mass No abdominal wall hernia noted Skin: Normal temperature, tone, texture, turgor No induration No subcutaneous nodules No rash, lesions No ulcers Extremities: Mild Nonpitting edema of the left upper extremity No digital cyanosis No clubbing Pedal pulses intact and symmetrical Radial pulses intact and symmetrical No calf tenderness Psychiatric: Alert and oriented to person, place and time Appropriate affect fair judgement Neuro Muscles Strength 4/5 in all 4 extremities Sensation to light touch grossly present throughout Cranial nerves II-XII grossly intact No focal sensory deficits Lymphatics: no palpable cervical or supraclavicular , or inguinal lymph nodes Results CBC & Chem 7: 09/07/20 17:15 09/07/20 17:15 Labs: Abnormal Lab Results - Last 24 Hours (Table) 09/07/20 09/07/20 09/07/20 Range/Units 17:15 17:15 17:15 WBC 60.2 H* (3.8-10.6) k/uL RDW 15.8 H (11.5-15.5) % Plt Count 137 L (150-450) k/uL Lymphocytes # (Manual) 54.78 H (1.0-4.8) k/uL Monocytes # (Manual) 1.20 H (0-1.0) k/uL APTT 20.5 L (22.0-30.0) sec Sodium 110 L* (137-145) mmol/L Chloride 79 L (98-107) mmol/L Creatinine 0.27 L (0.52-1.04) mg/dL Calcium 8.3 L (8.4-10.2) mg/dL Total Bilirubin 1.7 H (0.2-1.3) mg/dL ALT 55 H (4-34) U/L Alkaline Phosphatase 149 H (38-126) U/L Total Protein 5.8 L (6.3-8.2) g/dL Assessment and Plan Assessment: fluid over load and retention , possibly secondary to SIADH breast cancer with mets to brain , liver, and bone plan nephrology consult avoid normal saline per nephro will start with lasix and monitor Na, goal correction no more than 8 meq/24 hours if that fails, we could consider tolvaptan seizure precautions, if patient sustains seizures, will consider hypertonic saline (currently no seizures, no confusion , no lethargy) monitor in the ICU restrict PO fluids to less than 1 L per day history of breast cancer with mets to brain , and bone CLL brain edema on steroids oncology consult moderate persistent asthma acute hypoxic respiratory failure plan supplemental oxygen as needed breathing treatment as needed CODE STATUS: Full code DVT prophylaxis: Heparin subcu 3 times a day Discussed with: Patient, ER, RN Anticipated length of stay more than [address]: Home A total of 75 minutes was spent on the care of this complex patient more than 50% of the time was spent in counseling and care coordination.
--- NOTE | 2020-09-07 22:18 | P.HPADDEND ---
H&P Addendum H&P Addendum Date: 09/07/20 Advanced Care Planning Active diagnoses: Severe hyponatremia suspected SIADH Breast cancer with metastases to the brain and bone and liver Background: The patient was admitted for treatment of severe hyponatremia suspected SIADH Discussion: Person(s) present and participating in discussion: The patient, myself, Summary: Patient has recently been diagnosed with metastatic breast cancer she was lost to follow-up from 2017 upon initial diagnosis. She has been hospitalized multiple times over the past month due to complications of her breast cancer. She is still wanting to pursue full medical management including CPR and resuscitation if she suffers from cardiopulmonary arrest. She is opting in for intubation and vent support if needed. She tells me that she doesn't want to give up yet and she is hoping for cure. She feels disappointed that she has to keep coming back to the hospital and she is losing face and her doctors she is asking for help and hoping that we can improve her quality of life. When I offered to speak with hospice care she didn't feel that she is ready for that discussion yet even when I explained that they can offer resources to help her with her fight she became tearful and told me that she doesn't want to and doesn't want to talk about it now Time spent: Total time spent face to face in education and discussion directly related to advanced care plannin minutes
[2020-09-07 22:30] LABS: African American GFR (CKD) >90 (>60 ml/min/1.73 sqM); Anion Gap 5 mmol/L; Blood Urea Nitrogen 11 mg/dL (7-17); Calcium 8.4 mg/dL (8.4-10.2); Carbon Dioxide 28 mmol/L (22-30); Chloride 79 mmol/L (98-107); Glucose 104 mg/dL (74-99); Non-African American GFR(CKD) >90 (>60 ml/min/1.73 sqM)
[2020-09-07 22:34] LABS: Potassium 3.8 mmol/L (3.5-5.1); Sodium 112 mmol/L (137-145)
[2020-09-08] MEDS: HEPARIN SODIUM,PORCINE 5,000 UNIT/ML 1 ML VIAL SQ SCH ×3 (00:36→18:28)
[2020-09-08] MEDS: SENNOSIDES-DOCUSATE SODIUM 1 EACH TAB PO SCH ×2 (00:36→10:30)
[2020-09-08 02:18] LABS: African American GFR (CKD) >90 (>60 ml/min/1.73 sqM); Anion Gap 5 mmol/L; Blood Urea Nitrogen 12 mg/dL (7-17); Calcium 8.4 mg/dL (8.4-10.2); Carbon Dioxide 30 mmol/L (22-30); Chloride 82 mmol/L (98-107); Glucose 131 mg/dL (74-99); Non-African American GFR(CKD) >90 (>60 ml/min/1.73 sqM); Potassium 3.2 mmol/L (3.5-5.1)
[2020-09-08 02:28] LABS: Sodium 117 mmol/L (137-145)
[2020-09-08 03:58] LABS: HCT 38.3 % (34.0-46.0); HGB 13.6 gm/dL (11.4-16.0); MCH 33.7 pg (25.0-35.0); MCHC 35.5 g/dL (31.0-37.0); Platelet Count 145 k/uL (150-450); RBC 4.03 m/uL (3.80-5.40); RDW 15.3 % (11.5-15.5)
[2020-09-08 04:06] LABS: WBC 64.2 k/uL (3.8-10.6)
[2020-09-08 04:19] LABS: African American GFR (CKD) >90 (>60 ml/min/1.73 sqM); Anion Gap 4 mmol/L; Blood Urea Nitrogen 11 mg/dL (7-17); Calcium 8.5 mg/dL (8.4-10.2); Carbon Dioxide 30 mmol/L (22-30); Chloride 84 mmol/L (98-107); Glucose 99 mg/dL (74-99); Non-African American GFR(CKD) >90 (>60 ml/min/1.73 sqM)
[2020-09-08 05:28] LABS: Lymphocytes # (M) 63.56 k/uL (1.0-4.8); Neutrophils # (M) 0.64 k/uL (1.3-7.7); Neutrophils % (M) 1 %; Nucleated Red Blood Cells 0 /100 WBC (0-0); Total Cells Counted 200
[2020-09-08 05:56] LABS: Potassium 3.6 mmol/L (3.5-5.1)
[2020-09-08 05:57] LABS: Sodium 118 mmol/L (137-145)
[2020-09-08] MEDS: IPRATROPIUM-ALBUTEROL 3 ML NEB INHALATION PRN ×2 (06:07→14:45)
[2020-09-08] MEDS: dexAMETHasone 4 MG TAB PO SCH ×2 (06:26→18:32)
[2020-09-08 08:04] LABS: Glucose,Whole Blood 104 mg/dL (75-99)
[2020-09-08 08:44] LABS: African American GFR (CKD) >90 (>60 ml/min/1.73 sqM); Anion Gap 5 mmol/L; Blood Urea Nitrogen 9 mg/dL (7-17); Calcium 8.1 mg/dL (8.4-10.2); Carbon Dioxide 29 mmol/L (22-30); Chloride 87 mmol/L (98-107); Glucose 96 mg/dL (74-99); Non-African American GFR(CKD) >90 (>60 ml/min/1.73 sqM); Potassium 3.2 mmol/L (3.5-5.1); Sodium 121 mmol/L (137-145)
[2020-09-08] MEDS ORDERED: DEXTROSE 5% IN WATER 1,000 ML IV SCH ×2 (09:00→21:30)
[2020-09-08] MEDS ORDERED: Potassium Replacement Protocol 1 EACH MISC MISCELLANE PRN (10:09)
[2020-09-08] MEDS: PANTOPRAZOLE 40 MG TABLET PO SCH (10:30)
[2020-09-08] MEDS: POTASSIUM CHLORIDE ER 20 MEQ TAB.ER PO SCH ×2 (10:30→12:44)
[2020-09-08] MEDS: POTASSIUM CHLORIDE 10 MEQ in WATER FOR INJECTION 1 100ML.BAG IVPB SCH ×4 (10:31→14:47)
--- NOTE | 2020-09-08 12:28 | P.PN ---
Subjective Progress Note Date: 09/08/20 Patient is awake and alert this morning. She does not have any specific concerns or complaints. She denies any shortness of breath. She said lower extremity edema has improved significantly since yesterday. Objective - Vital Signs Vital signs: Vital Signs Temp 97.6 F 09/08/20 08:00 Pulse 103 H 09/08/20 11:00 Resp 26 H 09/08/20 12:00 BP 100/68 09/08/20 11:00 Pulse Ox 90 L 09/08/20 11:00 Intake & Output 09/07/20 09/08/20 09/08/20 18:59 06:59 18:59 Intake Total 1100 Output Total 3250 Balance -2150 Weight 83.915 kg 83.915 kg Intake: Intake, IV Titration 100 Amount Potassium Chloride 10 meq 100 In Water For Injection 1 100ml.bag @ 100 mls/hr IVPB Q[facility] Rx#: [id number] Oral 1000 Output: Urine 3250 Other: Voiding Method Indwelling Catheter - Exam General: The patient is awake and alert, in no distress Eye: there is normal conjunctiva bilaterally. Neck: The neck is supple, there is no JVD. Cardiovascular: Normal S1-S2, no S3-S4, no murmurs. Respiratory: Lungs clear to auscultation bilaterally Gastrointestinal: Abdomen is soft, nontender Musculoskeletal: There is no pedal edema. Neurological:. Speech is normal. Skin: Skin is warm and dry - Labs CBC & Chem 7: 09/08/20 03:34 09/08/20 08:17 Labs: Abnormal Lab Results - Last 24 Hours (Table) 09/07/20 09/07/20 09/07/20 Range/Units 17:15 17:15 17:15 WBC 60.2 H* (3.8-10.6) k/uL RDW 15.8 H (11.5-15.5) % Plt Count 137 L (150-450) k/uL Neutrophils # (Manual) (1.3-7.7) k/uL Lymphocytes # (Manual) 54.78 H (1.0-4.8) k/uL Monocytes # (Manual) 1.20 H (0-1.0) k/uL APTT 20.5 L (22.0-30.0) sec Sodium 110 L* (137-145) mmol/L Potassium (3.5-5.1) mmol/L Chloride 79 L (98-107) mmol/L Creatinine 0.27 L (0.52-1.04) mg/dL Glucose (74-99) mg/dL POC Glucose (mg/dL) (75-99) mg/dL Osmolality (280-301) mosm/kg Calcium 8.3 L (8.4-10.2) mg/dL Total Bilirubin 1.7 H (0.2-1.3) mg/dL ALT 55 H (4-34) U/L Alkaline Phosphatase 149 H (38-126) U/L Total Protein 5.8 L (6.3-8.2) g/dL 09/07/20 09/07/20 09/08/20 Range/Units 17:15 21:24 01:21 WBC (3.8-10.6) k/uL RDW (11.5-15.5) % Plt Count (150-450) k/uL Neutrophils # (Manual) (1.3-7.7) k/uL Lymphocytes # (Manual) (1.0-4.8) k/uL Monocytes # (Manual) (0-1.0) k/uL APTT (22.0-30.0) sec Sodium 112 L* 117 L* (137-145) mmol/L Potassium 3.2 L (3.5-5.1) mmol/L Chloride 79 L 82 L (98-107) mmol/L Creatinine 0.22 L 0.35 L (0.52-1.04) mg/dL Glucose 104 H 131 H (74-99) mg/dL POC Glucose (mg/dL) (75-99) mg/dL Osmolality 232 L* (280-301) mosm/kg Calcium (8.4-10.2) mg/dL Total Bilirubin (0.2-1.3) mg/dL ALT (4-34) U/L Alkaline Phosphatase (38-126) U/L Total Protein (6.3-8.2) g/dL 09/08/20 09/08/20 09/08/20 Range/Units 03:34 03:34 08:03 WBC 64.2 H* (3.8-10.6) k/uL RDW (11.5-15.5) % Plt Count 145 L (150-450) k/uL Neutrophils # (Manual) 0.64 L (1.3-7.7) k/uL Lymphocytes # (Manual) 63.56 H (1.0-4.8) k/uL Monocytes # (Manual) (0-1.0) k/uL APTT (22.0-30.0) sec Sodium 118 L* (137-145) mmol/L Potassium (3.5-5.1) mmol/L Chloride 84 L (98-107) mmol/L Creatinine 0.33 L (0.52-1.04) mg/dL Glucose (74-99) mg/dL POC Glucose (mg/dL) 104 H (75-99) mg/dL Osmolality (280-301) mosm/kg Calcium (8.4-10.2) mg/dL Total Bilirubin (0.2-1.3) mg/dL ALT (4-34) U/L Alkaline Phosphatase (38-126) U/L Total Protein (6.3-8.2) g/dL 09/08/20 Range/Units 08:17 WBC (3.8-10.6) k/uL RDW (11.5-15.5) % Plt Count (150-450) k/uL Neutrophils # (Manual) (1.3-7.7) k/uL Lymphocytes # (Manual) (1.0-4.8) k/uL Monocytes # (Manual) (0-1.0) k/uL APTT (22.0-30.0) sec Sodium 121 L (137-145) mmol/L Potassium 3.2 L (3.5-5.1) mmol/L Chloride 87 L (98-107) mmol/L Creatinine 0.29 L (0.52-1.04) mg/dL Glucose (74-99) mg/dL POC Glucose (mg/dL) (75-99) mg/dL Osmolality (280-301) mosm/kg Calcium 8.1 L (8.4-10.2) mg/dL Total Bilirubin (0.2-1.3) mg/dL ALT (4-34) U/L Alkaline Phosphatase (38-126) U/L Total Protein (6.3-8.2) g/dL Assessment and Plan Assessment: This is a 50-year-old female with past medical history noted below significant for metastatic breast cancer who presented to the emergency room with lower extremity edema and swelling. Patient was evaluated in the ER and admitted to the hospital for further management of her medical problems noted below. 1. Hypovolemic hyponatremia 2. Suspect SIADH 3. History of metastatic breast cancer with brain metastasis, seen and evaluated by oncology. Plan of treatment outpatient. 4. Hypokalemia, replaced 5. DVT prophylaxis with subcu heparin Today, I reviewed her medication list and lab work results. IV fluid management by nephrology. Patient may have elevated overcorrection of her sodium so she's currently on D5 water awaiting repeat lab work. Continue telemetry monitoring. Seizure precaution. Repeat lab work in the morning.
[2020-09-08] MEDS ORDERED: DESMOPRESSIN ACETATE 4 MCG/ML VIAL (MDV) IV STA (13:50)
--- NOTE | 2020-09-08 13:54 | P.NPCON ---
History of Present Illness - Reason for Consult hyponatremia - History of Present Illness Reason for consultation: Hyponatremia History of present illness: Patient is a 50-year-old female seen in renal consultation for hyponatremia. Patient came to the hospital yesterday mostly with abdominal pain as well as neck pain. She felt she was bloated and also had edema in her lower extremity is. Patient has history of metastatic breast cancer and is maintained on steroids. She was given a dose of Lasix 40 mg IV in the ER. She has urinated over 3 L since admission. Sodium level was 110 on admission and was up to 121 this morning. She is currently maintained on D5W at 50 mL an hour. Patient states oral intake has been poor due to feeling full in the abdomen. She denies drinking excess amounts of fluids. No vomiting or diarrhea. She does admit to generalized pain. Denies use of nonsteroidals. Potassium is low and is being replaced. Denies history of kidney disease. GFR is at baseline. TSH noted to be normal. Urine osmolality was 187 with urine sodium of 77. Blood pressure is low in the systolic 90s to low 100s. Patient states she feels better and her edema has improved post Lasix. Vital signs are stable. General: The patient appeared well nourished and normally developed. HEENT: Head exam is unremarkable. Neck is without jugular venous distension. LUNGS: Breath sounds decreased. HEART: Rate and Rhythm are regular. ABDOMEN: Soft, nontender. Mild distention. EXTREMITITES: 1+ edema. Past Medical History Past Medical History: Cancer, COPD Additional Past Medical History / Comment(s): 2017 L breast cancer with bilateral mastectomies/chemo/radiation, CLL, chronic elevation WBCs, cervical pain/vertigo on and off since April 2020 History of Any Multi-Drug Resistant Organisms: None Reported Past Surgical History: Orthopedic Surgery Additional Past Surgical History / Comment(s): 2017 Bilateral mastectomies/implant reconstruction, R thumb tendon repair, lung mass biopsy. Past Anesthesia/Blood Transfusion Reactions: No Reported Reaction Past Psychological History: Anxiety, Depression, Panic Disorder Smoking Status: Current every day smoker Past Alcohol Use History: None Reported Past Drug Use History: None Reported - Past Family History Mother Family Medical History: Cancer Additional Family Medical History / Comment(s): in her 60s with history of dementia, chronic back pain, "pre leukemia." Father Additional Family Medical History / Comment(s): Father is alive with history of diabetes. Brother(s) Additional Family Medical History / Comment(s): Patient has 2 brothers with no major medical problems. Patient has 1 sister with no major medical problems. Patient does not have any children. Medications and Allergies Home Medications Medication Instructions Recorded Confirmed Type Albuterol Sulfate [Ventolin HFA] 2 puff INHALATION RT-Q4H PRN 04/12/17 09/07/20 History clonazePAM [KlonoPIN] 0.5 mg PO DAILY PRN 04/12/17 09/07/20 History Dexamethasone [Decadron] 4 mg PO AC-BID 09/01/20 09/07/20 History HYDROcodone/APAP 5-325MG [[place] 1 - 2 tab PO Q4H PRN 09/01/20 09/07/20 History 5-325] Ipratropium-Albuterol Nebulize 3 ml INHALATION RT-TID PRN 09/01/20 09/07/20 History [Duoneb 0.5 mg-3 mg/3 ml Soln] Multivitamin [Multivitamins Adult 2 tab PO DAILY 09/01/20 09/07/20 History Gummies] Omeprazole 40 mg PO AC-BRKFST 09/01/20 09/07/20 History Ondansetron Odt [Zofran ODT] 4 mg PO Q6H PRN 09/01/20 09/07/20 History Prochlorperazine Maleate 10 mg PO Q6H PRN 09/01/20 09/07/20 History Allergies Allergy/AdvReac Type Severity Reaction Status Date / Time No Known Allergies Allergy Verified 09/07/20 17:57 Physical Exam Vitals: Vital Signs Temp Pulse Resp BP Pulse Ox 09/08/20 12:00 26 H 09/08/20 11:00 103 H 26 H 100/68 90 L 09/08/20 10:00 95 19 110/67 93 L 09/08/20 09:00 95 22 95/73 91 L 09/08/20 08:00 97.6 F 89 26 H 105/70 91 L 09/08/20 07:57 92 18 94 L 09/08/20 07:00 92 16 99/70 95 09/08/20 06:23 98 09/08/20 06:07 93 09/08/20 06:00 98.3 F 110 H 20 96/73 95 09/08/20 05:00 89 18 107/63 95 09/08/20 04:00 97.5 F L 89 16 104/74 96 09/08/20 03:00 90 16 97/74 96 09/08/20 02:00 95 16 102/63 97 09/08/20 01:00 89 16 111/66 97 09/08/20 00:15 97.9 F 94 21 98/58 96 09/07/20 22:49 98 F 100 22 106/79 93 L 09/07/20 20:22 96 18 103/69 96 09/07/20 19:40 90 09/07/20 19:16 90 09/07/20 17:14 90 22 149/100 94 L 09/07/20 16:26 20 09/07/20 16:23 97.7 F 94 18 141/85 95 Intake and Output 09/07/20 09/08/20 09/08/20 22:59 06:59 14:59 Intake Total 1100 Output Total 3575 Balance -2475 Intake: Intake, IV Titration 100 Amount Potassium Chloride 10 meq 100 In Water For Injection 1 100ml.bag @ 100 mls/hr IVPB Q1HR [facility] Rx#: [id number] Oral 1000 Output: Urine 3575 Other: Voiding Method Indwelling Catheter Weight 83.915 kg Results - Lab Results Most recent lab results Calcium 8.1 mg/dL (8.4-10.2) L 09/08/20 08:17 Magnesium 1.7 mg/dL (1.6-2.3) 09/07/20 17:15 09/08/20 03:34 09/08/20 08:17 Assessment and Plan Plan: Assessment: 1. Hypervolemic hyponatremia. Improved with IV Lasix. 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 Sodium level was 110 on admission yesterday at 5:15 PM and 121 this morning. TSH normal. 2. Metastatic breast cancer. 3. Hypokalemia from poor intake And diuresis. 4. Volume overload. Plan: Increase D5W to 100 mL an hour. Check sodium level stat. Check a.m. cortisol level. Encouraged oral intake. No need for fluid restriction at this time. Avoid rapid correction of sodium level. Thank you for the consultation. I will continue to follow the patient with you during her hospital stay.
[2020-09-08 16:26] LABS: African American GFR (CKD) >90 (>60 ml/min/1.73 sqM); Anion Gap 3 mmol/L; Blood Urea Nitrogen 10 mg/dL (7-17); Carbon Dioxide 30 mmol/L (22-30); Chloride 90 mmol/L (98-107); Glucose 230 mg/dL (74-99); Non-African American GFR(CKD) >90 (>60 ml/min/1.73 sqM); Sodium 123 mmol/L (137-145)
--- NOTE | 2020-09-08 16:52 | P.CONS ---
History of Present Illness - Reason for Consult Consult date: 09/08/20 hyponatremia, metastatic breast cancer - History of Present Illness Ms Melgar is a pleasant WF, who was last seen in October of 2017 by primary oncologist and merchandise planner Dr. Devine. In 2013 she presented with recurrent infections and macrocytosis. Initially felt to be related to her prior ETOH and tobacco us. However during work-up of other possibilities her flow cytometry , however, confirmed a monoclonal population , consistent with chronic lympocytic leukemia. Additional labs revealed normal FISH, borderline high ZAP 70 at 11%, and IgG in the 400 range. She was thus placed on observation for her CLL In 2016 - She presented to Dr Erasmo Toussaint with c/o pain and swelling in her left breast. She had an FNA in the office on 11/04/16, which was positive for malignancy. She then had an US guided core biopsy on 11/09/16 , confirming invasive ductal breast carcinoma , grade III, ER/OR positive, Her 2 1+ by IHC, a nd also negative by FISH. Prior CT of the CAP showed non specific nodes in the mediastinum, and rt axilla. Areas of sclerosis were seen in the T spine and iliac bone, with bone scan positive at T5, and also in the rt femoral neck with no corresponding bony lesion. It was decided to treat her with curative intent, even if the T5 lesion was presumed to be malignant. She started dose dense AC and is s/p 4 cycles, and 4 cycles of DD Taxol, competin those in late 03/09 She proceeded to b/l mastectomy with left axillary dissection on 04/20/17, revealing a pCR for invasive cancer on the left. Residual DCIS was noted. Nodes were positive for CLL, but negative for breast ca. Rt breast was negative. BRCA testing was ultimately done on the skin and was negative. She completed RT on 08/08/17, but refused RT to T5, initially. She was persuaded to do so, and ultimately completed than in late 09/09. The patient was then Started on tamoxifen. However, she stopped following up in the office after 11/10 and stopped tamoxifen in early 2017. She states that this is because of some personal issues. She presented in 08/12 to [facility] with increased neck and back pain. The area of complaints are upper neck and lower back, different from prior complaints. CT chest revealed soft tissue mass in the right hilum encasing trachea and right mainstem bronchus. adenopathy was also mentioned. She was also found to have liver metastasis, as well as C-spine and T-spine metastasis. CT Brain unfortunately revealed metastatic disease to brain as well and she is re ceived SRS to brain. The patient had liver biopsy during that admission positive for adenocarcinoma. She had additional biomarker and genetic identification testing , confirming breast primary that was ER positive, OR negative and HER-2/ruth ann negative. Those results were discussed received last week. She has been on high dose steroids QID, she continued on this dose and did not wean as expected. She Was admitted with complains of fluid retention last week and found to have hyponatremia. This was felt to be due to a component of SIADH, as well as fluid retention due to her steroids (especially as Decadron has no mineralocorticoid activity). Loading dose according to taper was continued, and she also received Lasix. She was able to be discharged last week. The patient was discharged with 5 days of Lasix. She states that as soon as she finishes a 60 developed symptoms of bloating and fatigue. Again, and therefore came back into the hospital. Sodium was noted to be 117. She was therefore admitted for further management. Review of Systems Constitutional: Reports fatigue, Reports weakness Eyes: denies blurred vision, denies pain Ears, nose, mouth and throat: Denies headache, Denies sore throat Cardiovascular: Reports dyspnea on exertion Respiratory: Reports dyspnea Gastrointestinal: Reports bloating Genitourinary: Denies dysuria, Denies hematuria Menstruation: Reports postmenopausal Musculoskeletal: Reports muscle weakness Integumentary: Denies pruritus, Denies rash Neurological: Reports weakness Psychiatric: Reports anxiety, Reports depression Endocrine: Reports fatigue, Reports high blood sugars, Reports recent glucocorticoid use, Reports weight change Hematologic/Lymphatic: Reports as per HPI Past Medical History Past Medical History: Cancer, COPD Additional Past Medical History / Comment(s): 2017 L breast cancer with bilateral mastectomies/chemo/radiation, CLL, chronic elevation WBCs, cervical pain/vertigo on and off since April 2020 History of Any Multi-Drug Resistant Organisms: None Reported Past Surgical History: Orthopedic Surgery Additional Past Surgical History / Comment(s): 2017 Bilateral mastectomies/implant reconstruction, R thumb tendon repair, lung mass biopsy. Past Anesthesia/Blood Transfusion Reactions: No Reported Reaction Past Psychological History: Anxiety, Depression, Panic Disorder Smoking Status: Current every day smoker Past Alcohol Use History: None Reported Past Drug Use History: None Reported - Past Family History Mother Family Medical History: Cancer Additional Family Medical History / Comment(s): in her 60s with history of dementia, chronic back pain, "pre leukemia." Father Additional Family Medical History / Comment(s): Father is alive with history of diabetes. Brother(s) Additional Family Medical History / Comment(s): Patient has 2 brothers with no major medical problems. Patient has 1 sister with no major medical problems. Patient does not have any children. Medications and Allergies Home Medications Medication Instructions Recorded Confirmed Type Albuterol Sulfate [Ventolin HFA] 2 puff INHALATION RT-Q4H PRN 04/12/17 09/07/20 History clonazePAM [KlonoPIN] 0.5 mg PO DAILY PRN 04/12/17 09/07/20 History Dexamethasone [Decadron] 4 mg PO AC-BID 09/01/20 09/07/20 History HYDROcodone/APAP 5-325MG [Badger 1 - 2 tab PO Q4H PRN 09/01/20 09/07/20 History 5-325] Ipratropium-Albuterol Nebulize 3 ml INHALATION RT-TID PRN 09/01/20 09/07/20 History [Duoneb 0.5 mg-3 mg/3 ml Soln] Multivitamin [Multivitamins Adult 2 tab PO DAILY 09/01/20 09/07/20 History Gummies] Omeprazole 40 mg PO AC-BRKFST 09/01/20 09/07/20 History Ondansetron Odt [Zofran ODT] 4 mg PO Q6H PRN 09/01/20 09/07/20 History Prochlorperazine Maleate 10 mg PO Q6H PRN 09/01/20 09/07/20 History Allergies Allergy/AdvReac Type Severity Reaction Status Date / Time No Known Allergies Allergy Verified 09/07/20 17:57 Physical Exam Vitals: Vital Signs Temp Pulse Resp BP Pulse Ox 09/08/20 12:00 26 H 09/08/20 11:00 103 H 26 H 100/68 90 L 09/08/20 10:00 95 19 110/67 93 L 09/08/20 09:00 95 22 95/73 91 L 09/08/20 08:00 97.6 F 89 26 H 105/70 91 L 09/08/20 07:57 92 18 94 L 09/08/20 07:00 92 16 99/70 95 09/08/20 06:23 98 09/08/20 06:07 93 09/08/20 06:00 98.3 F 110 H 20 96/73 95 09/08/20 05:00 89 18 107/63 95 09/08/20 04:00 97.5 F L 89 16 104/74 96 09/08/20 03:00 90 16 97/74 96 09/08/20 02:00 95 16 102/63 97 09/08/20 01:00 89 16 111/66 97 09/08/20 00:15 97.9 F 94 21 98/58 96 09/07/20 22:49 98 F 100 22 106/79 93 L 09/07/20 20:22 96 18 103/69 96 09/07/20 19:40 90 09/07/20 19:16 90 09/07/20 17:14 90 22 149/100 94 L 09/07/20 16:26 20 09/07/20 16:23 97.7 F 94 18 141/85 95 Intake and Output 09/07/20 09/08/20 09/08/20 22:59 06:59 14:59 Intake Total 1100 Output Total 3575 Balance -2475 Intake: Intake, IV Titration 100 Amount Potassium Chloride 10 meq 100 In Water For Injection 1 100ml.bag @ 100 mls/hr IVPB Q1HR [facility] Rx#: [id number] Oral 1000 Output: Urine 3575 Other: Voiding Method Indwelling Catheter Weight 83.915 kg - Constitutional General appearance: no acute distress - EENT Eyes: EOMI, PERRLA ENT: hearing grossly normal, normal oropharynx - Neck Neck: no lymphadenopathy Thyroid: bilateral: normal size - Respiratory Respiratory: bilateral: CTA - Cardiovascular Rhythm: regular Heart sounds: normal: S1, S2 - Gastrointestinal General gastrointestinal: normal bowel sounds, soft - Integumentary Integumentary: normal - Neurologic Neurologic: CNII-XII intact - Musculoskeletal b/l 2 + edema Musculoskeletal: generalized weakness, strength equal bilaterally - Psychiatric Psychiatric: A&O x's 3, appropriate affect Results CBC & Chem 7: 09/08/20 03:34 09/08/20 15:48 Labs: Abnormal Lab Results - Last 24 Hours (Table) 09/07/20 09/07/20 09/07/20 Range/Units 17:15 17:15 17:15 WBC 60.2 H* (3.8-10.6) k/uL RDW 15.8 H (11.5-15.5) % Plt Count 137 L (150-450) k/uL Neutrophils # (Manual) (1.3-7.7) k/uL Lymphocytes # (Manual) 54.78 H (1.0-4.8) k/uL Monocytes # (Manual) 1.20 H (0-1.0) k/uL APTT 20.5 L (22.0-30.0) sec Sodium 110 L* (137-145) mmol/L Potassium (3.5-5.1) mmol/L Chloride 79 L (98-107) mmol/L Creatinine 0.27 L (0.52-1.04) mg/dL Glucose (74-99) mg/dL POC Glucose (mg/dL) (75-99) mg/dL Osmolality (280-301) mosm/kg Calcium 8.3 L (8.4-10.2) mg/dL Total Bilirubin 1.7 H (0.2-1.3) mg/dL ALT 55 H (4-34) U/L Alkaline Phosphatase 149 H (38-126) U/L Total Protein 5.8 L (6.3-8.2) g/dL 09/07/20 09/07/20 09/08/20 Range/Units 17:15 21:24 01:21 WBC (3.8-10.6) k/uL RDW (11.5-15.5) % Plt Count (150-450) k/uL Neutrophils # (Manual) (1.3-7.7) k/uL Lymphocytes # (Manual) (1.0-4.8) k/uL Monocytes # (Manual) (0-1.0) k/uL APTT (22.0-30.0) sec Sodium 112 L* 117 L* (137-145) mmol/L Potassium 3.2 L (3.5-5.1) mmol/L Chloride 79 L 82 L (98-107) mmol/L Creatinine 0.22 L 0.35 L (0.52-1.04) mg/dL Glucose 104 H 131 H (74-99) mg/dL POC Glucose (mg/dL) (75-99) mg/dL Osmolality 232 L* (280-301) mosm/kg Calcium (8.4-10.2) mg/dL Total Bilirubin (0.2-1.3) mg/dL ALT (4-34) U/L Alkaline Phosphatase (38-126) U/L Total Protein (6.3-8.2) g/dL 09/08/20 09/08/20 09/08/20 Range/Units 03:34 03:34 08:03 WBC 64.2 H* (3.8-10.6) k/uL RDW (11.5-15.5) % Plt Count 145 L (150-450) k/uL Neutrophils # (Manual) 0.64 L (1.3-7.7) k/uL Lymphocytes # (Manual) 63.56 H (1.0-4.8) k/uL Monocytes # (Manual) (0-1.0) k/uL APTT (22.0-30.0) sec Sodium 118 L* (137-145) mmol/L Potassium (3.5-5.1) mmol/L Chloride 84 L (98-107) mmol/L Creatinine 0.33 L (0.52-1.04) mg/dL Glucose (74-99) mg/dL POC Glucose (mg/dL) 104 H (75-99) mg/dL Osmolality (280-301) mosm/kg Calcium (8.4-10.2) mg/dL Total Bilirubin (0.2-1.3) mg/dL ALT (4-34) U/L Alkaline Phosphatase (38-126) U/L Total Protein (6.3-8.2) g/dL 09/08/20 Range/Units 08:17 WBC (3.8-10.6) k/uL RDW (11.5-15.5) % Plt Count (150-450) k/uL Neutrophils # (Manual) (1.3-7.7) k/uL Lymphocytes # (Manual) (1.0-4.8) k/uL Monocytes # (Manual) (0-1.0) k/uL APTT (22.0-30.0) sec Sodium 121 L (137-145) mmol/L Potassium 3.2 L (3.5-5.1) mmol/L Chloride 87 L (98-107) mmol/L Creatinine 0.29 L (0.52-1.04) mg/dL Glucose (74-99) mg/dL POC Glucose (mg/dL) (75-99) mg/dL Osmolality (280-301) mosm/kg Calcium 8.1 L (8.4-10.2) mg/dL Total Bilirubin (0.2-1.3) mg/dL ALT (4-34) U/L Alkaline Phosphatase (38-126) U/L Total Protein (6.3-8.2) g/dL Abdominal x-ray: report reviewed Assessment and Plan (1) Hyponatremia Narrative/Plan: The patient has developed this since starting steroids for her brain metastasis. The patient did not start her taper immediately after completion of SRS. The taper was actually started last week. She has been on Decadron which has no mineralocorticoid activity. She is having fluid retention due to the same. 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 The patient responded well to Lasix. During her last admission, which caused her to eliminate free water preferably. Sodium had improved to 133 on 09/05/20. She has had rapid decline in sodium since stopping Lasix. Consult nephrology for further management. She has had improvement since resuming Lasix during this admission. Currently, she is actually receiving free water as sodium with increasing to rapidly according to nephrology. Defer to them for continued management. Add anti-ADH therapy if recommended by nephrology. It is anticipated that this will also improve with continued tapering off of the steroids as well as initiation of treatment for her breast cancer. Discussed with nephrology Current Visit: Yes Status: Acute Code(s): E87.1 - HYPO-OSMOLALITY AND HYPONATREMIA SNOMED Code(s): 21350215 (2) Breast cancer Narrative/Plan: The patient had presented last month with widespread metastatic disease. As noted, she was not compliant with her treatment since 10/10. Biopsies were repeated to establish recurrent breast cancer versus new primary. Biomarker and genetic identification tests identified recurrent hormone receptor positive breast cancer. The patient will be started on Arimidex this admission. She will also start CDK4/6 inhibitor as outpatient. Current Visit: No Status: Acute Code(s): C50.919 - MALIGNANT NEOPLASM OF UNSP SITE OF UNSPECIFIED FEMALE BREAST SNOMED Code(s): 122608605 (3) CLL (chronic lymphocytic leukemia) Narrative/Plan: This has been followed with observation, with no need for treatment. WBC is somewhat higher than baseline, because of steroid use. No indication for treatment. Continue to follow with observation. Current Visit: No Status: Acute Code(s): C91.10 - CHRONIC LYMPHOCYTIC LEUK OF B-CELL TYPE NOT ACHIEVE REMIS SNOMED Code(s): 79309939
[2020-09-08] MEDS ORDERED: polyethylene glycoL 3350 17 GM POWD.PACK PO PRN (19:33)
[2020-09-08] MEDS ORDERED: SENNOSIDES-DOCUSATE SODIUM 1 EACH TAB PO PRN (19:33)
[2020-09-08] MEDS ORDERED: DESMOPRESSIN ACETATE 1 MCG in SODIUM CHLORIDE 0.9% 50 ML IVPB ONE (20:37)
[2020-09-08] MEDS ORDERED: polyethylene glycoL 3350 17 GM POWD.PACK PO SCH (21:00)
[2020-09-08 23:49] LABS: African American GFR (CKD) >90 (>60 ml/min/1.73 sqM); Anion Gap 6 mmol/L; Blood Urea Nitrogen 9 mg/dL (7-17); Calcium 8.1 mg/dL (8.4-10.2); Carbon Dioxide 23 mmol/L (22-30); Chloride 91 mmol/L (98-107); Glucose 192 mg/dL (74-99); Non-African American GFR(CKD) >90 (>60 ml/min/1.73 sqM); Potassium 3.9 mmol/L (3.5-5.1); Sodium 120 mmol/L (137-145)
[2020-09-09] MEDS: HEPARIN SODIUM,PORCINE 5,000 UNIT/ML 1 ML VIAL SQ SCH ×4 (00:20→22:57)
[2020-09-09] MEDS: IPRATROPIUM-ALBUTEROL 3 ML NEB INHALATION PRN ×4 (03:51→16:55)
[2020-09-09 04:53] LABS: HCT 37.3 % (34.0-46.0); HGB 12.5 gm/dL (11.4-16.0); MCHC 33.6 g/dL (31.0-37.0); MCV 98.1 fL (80.0-100.0); Macrocytosis Slight; Mean Platelet Volume 7.3; Platelet Count 148 k/uL (150-450); RDW 15.6 % (11.5-15.5)
[2020-09-09 05:13] LABS: African American GFR (CKD) >90 (>60 ml/min/1.73 sqM); Anion Gap 5 mmol/L; Blood Urea Nitrogen 7 mg/dL (7-17); Calcium 8.2 mg/dL (8.4-10.2); Carbon Dioxide 26 mmol/L (22-30); Chloride 89 mmol/L (98-107); Glucose 127 mg/dL (74-99); Magnesium 1.8 mg/dL (1.6-2.3); Non-African American GFR(CKD) >90 (>60 ml/min/1.73 sqM); Potassium 4.2 mmol/L (3.5-5.1); Sodium 120 mmol/L (137-145)
[2020-09-09 05:31] LABS: WBC 58.7 k/uL (3.8-10.6)
[2020-09-09] MEDS: dexAMETHasone 4 MG TAB PO SCH ×2 (06:09→17:38)
[2020-09-09] MEDS: PANTOPRAZOLE 40 MG TABLET PO SCH (06:09)
[2020-09-09 07:00] LABS: Lymphocytes # (M) 55.18 k/uL (1.0-4.8); Neutrophils % (M) 3 %
[2020-09-09 07:01] LABS: Band Neutrophils % 1 %; Monocytes # (M) 1.17 k/uL (0-1.0); Nucleated Red Blood Cells 0 /100 WBC (0-0); Total Cells Counted 100
[2020-09-09 07:03] LABS: Anisocytosis (M) Present; Polychromasia Present
[2020-09-09 07:05] LABS: Large Platelets Present
[2020-09-09] MEDS: clonazePAM 0.5 MG TAB PO PRN (09:44)
[2020-09-09] MEDS: ANASTROZOLE 1 MG TAB PO SCH (09:44)
[2020-09-09 10:56] VITALS: BMI 23.5
--- NOTE | 2020-09-09 12:14 | P.PN ---
Subjective Progress Note Date: 09/09/20 Patient is awake and alert today. No acute events overnight. She does not have any complaints. She had a bowel movement yesterday. Objective - Vital Signs Vital signs: Vital Signs Temp 98.1 F 09/09/20 08:00 Pulse 97 09/09/20 11:22 Resp 13 09/09/20 11:00 BP 110/67 09/09/20 11:00 Pulse Ox 94 L 09/09/20 11:00 Intake & Output 09/08/20 09/09/20 09/09/20 18:59 06:59 18:59 Intake Total 1560 1450 Output Total 4225 710 675 Balance -2665 740 -675 Weight 58.4 kg 58.4 kg Intake: IV 1450 Dextrose 5% in Water 1, 700 000 ml @ 200 mls/hr IV . Q5H [facility] Rx#:[id number] Dextrose 5% in Water 1, 750 000 ml @ 250 mls/hr IV . Q4H [facility] Rx#:[id number] Intake, IV Titration 100 Amount Potassium Chloride 10 meq 100 In Water For Injection 1 100ml.bag @ 100 mls/hr IVPB Q1HR [facility] Rx#: [id number] Oral 1460 Output: Urine 4225 710 675 Other: Voiding Method Indwelling Catheter Indwelling Catheter Indwelling Catheter # Bowel Movements 2 - Exam General: The patient is awake and alert, in no distress Eye: there is normal conjunctiva bilaterally. Neck: The neck is supple, there is no JVD. Cardiovascular: Normal S1-S2, no S3-S4, no murmurs. Respiratory: Lungs clear to auscultation bilaterally Gastrointestinal: Abdomen is soft, nontender Musculoskeletal: There is no pedal edema. Neurological:. Speech is normal. Skin: Skin is warm and dry - Labs CBC & Chem 7: 09/09/20 04:09 09/09/20 04:09 Labs: Abnormal Lab Results - Last 24 Hours (Table) 09/08/20 09/08/20 09/08/20 Range/Units 13:14 15:48 19:11 WBC (3.8-10.6) k/uL RDW (11.5-15.5) % Plt Count (150-450) k/uL Lymphocytes # (Manual) (1.0-4.8) k/uL Monocytes # (Manual) (0-1.0) k/uL Sodium 128 L 123 L 125 L (137-145) mmol/L Chloride 90 L (98-107) mmol/L Creatinine 0.33 L (0.52-1.04) mg/dL Glucose 230 H (74-99) mg/dL Calcium 8.0 L (8.4-10.2) mg/dL 09/08/20 09/09/20 09/09/20 Range/Units 23:23 04:09 04:09 WBC 58.7 H* (3.8-10.6) k/uL RDW 15.6 H (11.5-15.5) % Plt Count 148 L (150-450) k/uL Lymphocytes # (Manual) 55.18 H (1.0-4.8) k/uL Monocytes # (Manual) 1.17 H (0-1.0) k/uL Sodium 120 L 120 L (137-145) mmol/L Chloride 91 L 89 L (98-107) mmol/L Creatinine 0.32 L 0.25 L (0.52-1.04) mg/dL Glucose 192 H 127 H (74-99) mg/dL Calcium 8.1 L 8.2 L (8.4-10.2) mg/dL Assessment and Plan Assessment: This is a 50-year-old female with past medical history noted below significant for metastatic breast cancer who presented to the emergency room with lower extremity edema and swelling. Patient was evaluated in the ER and admitted to the hospital for further management of her medical problems noted below. 1. Hypervolemic hyponatremia, managed by nephrology with IV fluids. Status post 1 dose of DDAVP secondary to over correct the sodium level. 2. Suspect SIADH 3. History of metastatic breast cancer with brain metastasis, seen and evaluated by oncology. Plan of treatment outpatient. 4. Hypokalemia, replaced 5. DVT prophylaxis with subcu heparin Today, I reviewed her medication list and lab work results. IV fluid management by nephrology. Continue telemetry monitoring. Seizure precaution. Repeat lab work in the morning.
[2020-09-09] MEDS ORDERED: DEXTROSE 5% IN WATER 1,000 ML IV ONE (14:08)
--- NOTE | 2020-09-09 14:38 | P.PN ---
Subjective Patient is seen in follow-up for hyponatremia. Sodium level corrected rapidly on admission and was reversed with IV DDAVP as well as D5W infusion. Sodium level this morning was 120 and up to 125 as of 12:30 PM. She is awake and alert. Denies chest pain or shortness of breath. Blood pressure stable. Vital signs are stable. General: The patient appeared well nourished and normally developed. HEENT: Head exam is unremarkable. Neck is without jugular venous distension. LUNGS: Breath sounds decreased. Scattered rhonchi. HEART: Rate and Rhythm are regular. ABDOMEN: Soft, nontender. EXTREMITITES: 1+ edema in ankles. Objective - Vital Signs Vital signs: Vital Signs Temp 98.1 F 09/09/20 08:00 Pulse 97 09/09/20 14:00 Resp 18 09/09/20 14:00 BP 118/64 09/09/20 14:00 Pulse Ox 96 09/09/20 14:00 Intake & Output 09/08/20 09/09/20 09/09/20 18:59 06:59 18:59 Intake Total 1560 1450 Output Total 4225 710 1025 Balance -2665 740 -1025 Weight 58.4 kg 58.4 kg Intake: IV 1450 Dextrose 5% in Water 1, 700 000 ml @ 200 mls/hr IV . Q5H [facility] Rx#:[id number] Dextrose 5% in Water 1, 750 000 ml @ 250 mls/hr IV . Q4H [facility] Rx#:[id number] Intake, IV Titration 100 Amount Potassium Chloride 10 meq 100 In Water For Injection 1 100ml.bag @ 100 mls/hr IVPB Q1HR [facility] Rx#: [id number] Oral 1460 Output: Urine 4225 710 1025 Other: Voiding Method Indwelling Catheter Indwelling Catheter Indwelling Catheter # Bowel Movements 2 - Labs CBC & Chem 7: 09/09/20 04:09 09/09/20 12:24 Labs: Abnormal Lab Results - Last 24 Hours (Table) 09/08/20 09/08/20 09/08/20 Range/Units 15:48 19:11 23:23 WBC (3.8-10.6) k/uL RDW (11.5-15.5) % Plt Count (150-450) k/uL Lymphocytes # (Manual) (1.0-4.8) k/uL Monocytes # (Manual) (0-1.0) k/uL Sodium 123 L 125 L 120 L (137-145) mmol/L Chloride 90 L 91 L (98-107) mmol/L Creatinine 0.33 L 0.32 L (0.52-1.04) mg/dL Glucose 230 H 192 H (74-99) mg/dL Calcium 8.0 L 8.1 L (8.4-10.2) mg/dL 09/09/20 09/09/20 09/09/20 Range/Units 04:09 04:09 12:24 WBC 58.7 H* (3.8-10.6) k/uL RDW 15.6 H (11.5-15.5) % Plt Count 148 L (150-450) k/uL Lymphocytes # (Manual) 55.18 H (1.0-4.8) k/uL Monocytes # (Manual) 1.17 H (0-1.0) k/uL Sodium 120 L 125 L (137-145) mmol/L Chloride 89 L (98-107) mmol/L Creatinine 0.25 L (0.52-1.04) mg/dL Glucose 127 H (74-99) mg/dL Calcium 8.2 L (8.4-10.2) mg/dL Assessment and Plan Plan: Assessment: 1. Hypervolemic hyponatremia. Improved with IV Lasix. 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 The rapid correction was reversed with IV DDAVP and D5W infusion. Sodium level 125 as of 12:30 PM today. TSH normal. Cortisol level was low but the patient is maintained on steroids and her blood pressure is stable. 2. Metastatic breast cancer. Oncology following. Maintained on chemotherapy. 3. Hypokalemia from poor intake and diuresis. Status post placement. 4. Volume overload. Improved with diuresis. Plan: Resume D5W at 75 mL an hour. Check sodium level at 5 PM today. Encouraged oral intake. No need for fluid restriction at this time. Avoid rapid correction of sodium level.
[2020-09-09 15:01] LABS: African American GFR (CKD) >90 (>60 ml/min/1.73 sqM); Anion Gap 4 mmol/L; Blood Urea Nitrogen 7 mg/dL (7-17); Calcium 9.1 mg/dL (8.4-10.2); Carbon Dioxide 29 mmol/L (22-30); Chloride 96 mmol/L (98-107); Glucose 141 mg/dL (74-99); Non-African American GFR(CKD) >90 (>60 ml/min/1.73 sqM); Potassium 3.9 mmol/L (3.5-5.1); Sodium 129 mmol/L (137-145)
[2020-09-09] MEDS ORDERED: DESMOPRESSIN ACETATE 1 MCG in SODIUM CHLORIDE 0.9% 50 ML IVPB ONE (16:15)
--- NOTE | 2020-09-09 18:07 | P.CNPUL ---
History of Present Illness Consult date: 09/08/20 Reason for consult: dyspnea, COPD, hypoxemia Chief complaint: Shortness of breath fluid overload History of present illness: This is a 50-year-old female well-known to me with end-stage COPD, patient has stage IV metastatic breast cancer along with CLL, she presented into the hospital with increase weakness shortness of breath increased swelling in the lower extremity, she was found to have significant hyponatremia, while correcting hyponatremia noted that direction was performed to fast eventually transferred to ICU for correction of sodium level with D5 and DDAVP mental status is stable no evidence of seizure altered mental status other significant problem hypernatremia except severe generalized weakness, which however seems to be slowly improving, further oncology: History of a can be reviewed from extensi ve note of oncology Review of Systems All systems: negative Past Medical History Past Medical History: Cancer, COPD Additional Past Medical History / Comment(s): 2017 L breast cancer with bilater al mastectomies/chemo/radiation, CLL, chronic elevation WBCs, cervical pain/vertigo on and off since April 2020 History of Any Multi-Drug Resistant Organisms: None Reported Past Surgical History: Orthopedic Surgery Additional Past Surgical History / Comment(s): 2017 Bilateral mastectomies/implant reconstruction, R thumb tendon repair, lung mass biopsy. Past Anesthesia/Blood Transfusion Reactions: No Reported Reaction Past Psychological History: Anxiety, Depression, Panic Disorder Smoking Status: Current every day smoker Past Alcohol Use History: None Reported Past Drug Use History: None Reported - Past Family History Mother Family Medical History: Cancer Additional Family Medical History / Comment(s): in her 60s with history of dementia, chronic back pain, "pre leukemia." Father Additional Family Medical History / Comment(s): Father is alive with history of diabetes. Brother(s) Additional Family Medical History / Comment(s): Patient has 2 brothers with no major medical problems. Patient has 1 sister with no major medical problems. Patient does not have any children. Medications and Allergies Home Medications Medication Instructions Recorded Confirmed Type Albuterol Sulfate [Ventolin HFA] 2 puff INHALATION RT-Q4H PRN 04/12/17 09/07/20 History clonazePAM [KlonoPIN] 0.5 mg PO DAILY PRN 04/12/17 09/07/20 History Dexamethasone [Decadron] 4 mg PO AC-BID 09/01/20 09/07/20 History HYDROcodone/APAP 5-325MG [[place] 1 - 2 tab PO Q4H PRN 09/01/20 09/07/20 History 5-325] Ipratropium-Albuterol Nebulize 3 ml INHALATION RT-TID PRN 09/01/20 09/07/20 History [Duoneb 0.5 mg-3 mg/3 ml Soln] Multivitamin [Multivitamins Adult 2 tab PO DAILY 09/01/20 09/07/20 History Gummies] Omeprazole 40 mg PO AC-BRKFST 09/01/20 09/07/20 History Ondansetron Odt [Zofran ODT] 4 mg PO Q6H PRN 09/01/20 09/07/20 History Prochlorperazine Maleate 10 mg PO Q6H PRN 09/01/20 09/07/20 History Allergies Allergy/AdvReac Type Severity Reaction Status Date / Time No Known Allergies Allergy Verified 09/07/20 17:57 Physical Exam Vitals: Vital Signs Temp Pulse Resp BP Pulse Ox 09/08/20 19:00 99 31 H 112/69 95 09/08/20 18:00 106 H 26 H 108/73 95 09/08/20 17:00 102 H 18 96/59 95 09/08/20 16:00 93 23 107/66 94 L 09/08/20 15:00 105 H 59 H 116/66 90 L 09/08/20 14:56 101 H 09/08/20 14:46 101 H 09/08/20 14:00 97 17 110/62 94 L 09/08/20 13:00 98 31 H 91 L 09/08/20 12:00 106 H 17 108/68 90 L 09/08/20 11:00 103 H 26 H 100/68 90 L 09/08/20 10:00 95 19 110/67 93 L 09/08/20 09:00 95 22 95/73 91 L 09/08/20 08:00 97.6 F 89 26 H 105/70 91 L 09/08/20 07:57 92 18 94 L 09/08/20 07:00 92 16 99/70 95 09/08/20 06:23 98 09/08/20 06:07 93 09/08/20 06:00 98.3 F 110 H 20 96/73 95 09/08/20 05:00 89 18 107/63 95 09/08/20 04:00 97.5 F L 89 16 104/74 96 09/08/20 03:00 90 16 97/74 96 09/08/20 02:00 95 16 102/63 97 09/08/20 01:00 89 16 111/66 97 09/08/20 00:15 97.9 F 94 21 98/58 96 09/07/20 22:49 98 F 100 22 106/79 93 L 09/07/20 20:22 96 18 103/69 96 Intake and Output 09/08/20 09/08/20 09/08/20 06:59 14:59 22:59 Intake Total 1320 240 Output Total 3775 450 Balance -2455 -210 Intake: Intake, IV Titration 100 Amount Potassium Chloride 10 meq 100 In Water For Injection 1 100ml.bag @ 100 mls/hr IVPB Q1HR [facility] Rx#: [id number] Oral 1220 240 Output: Urine 3775 450 Other: Voiding Method Indwelling Catheter Indwelling Catheter - Constitutional General appearance: average body habitus, disheveled - EENT Eyes: PERRLA Ears: bilateral: normal - Neck Neck: normal ROM - Respiratory Respiratory: bilateral: diminished - Cardiovascular Rhythm: regular Heart sounds: normal: S1, S2 - Gastrointestinal General gastrointestinal: normal bowel sounds - Musculoskeletal Musculoskeletal: gait normal, generalized weakness, strength equal bilaterally - Psychiatric Psychiatric: A&O x's 3, appropriate affect, intact judgment & insight Results - Laboratory Findings CBC and BMP: 09/09/20 04:09 09/09/20 14:10 PT/INR, D-dimer PT 9.3 sec (9.0-12.0) 09/07/20 17:15 INR 0.9 (<1.2) 09/07/20 17:15 Abnormal lab findings: Abnormal Labs 09/07/20 09/07/20 09/07/20 17:15 17:15 17:15 WBC 60.2 H* RDW 15.8 H Plt Count 137 L Neutrophils # (Manual) Lymphocytes # (Manual) 54.78 H Monocytes # (Manual) 1.20 H APTT 20.5 L Sodium 110 L* Potassium Chloride 79 L Creatinine 0.27 L Glucose POC Glucose (mg/dL) Osmolality Calcium 8.3 L Total Bilirubin 1.7 H ALT 55 H Alkaline Phosphatase 149 H Total Protein 5.8 L 09/07/20 09/07/20 09/08/20 17:15 21:24 01:21 WBC RDW Plt Count Neutrophils # (Manual) Lymphocytes # (Manual) Monocytes # (Manual) APTT Sodium 112 L* 117 L* Potassium 3.2 L Chloride 79 L 82 L Creatinine 0.22 L 0.35 L Glucose 104 H 131 H POC Glucose (mg/dL) Osmolality 232 L* Calcium Total Bilirubin ALT Alkaline Phosphatase Total Protein 09/08/20 09/08/20 09/08/20 03:34 03:34 08:03 WBC 64.2 H* RDW Plt Count 145 L Neutrophils # (Manual) 0.64 L Lymphocytes # (Manual) 63.56 H Monocytes # (Manual) APTT Sodium 118 L* Potassium Chloride 84 L Creatinine 0.33 L Glucose POC Glucose (mg/dL) 104 H Osmolality Calcium Total Bilirubin ALT Alkaline Phosphatase Total Protein 09/08/20 09/08/20 09/08/20 08:17 13:14 15:48 WBC RDW Plt Count Neutrophils # (Manual) Lymphocytes # (Manual) Monocytes # (Manual) APTT Sodium 121 L 128 L 123 L Potassium 3.2 L Chloride 87 L 90 L Creatinine 0.29 L 0.33 L Glucose 230 H POC Glucose (mg/dL) Osmolality Calcium 8.1 L 8.0 L Total Bilirubin ALT Alkaline Phosphatase Total Protein 09/08/20 19:11 WBC RDW Plt Count Neutrophils # (Manual) Lymphocytes # (Manual) Monocytes # (Manual) APTT Sodium 125 L Potassium Chloride Creatinine Glucose POC Glucose (mg/dL) Osmolality Calcium Total Bilirubin ALT Alkaline Phosphatase Total Protein Assessment and Plan Assessment: Significant hyponatremia with generalized weakness are pierced to be Euvolumic hypotonic hyponatremia Generalized weakness Leukocytosis Metastatic breast cancer CLL End-stage severe COPD No evidence of demylinosis or cerebral edema Monitor closely in ICU Plan: Continue D5 W with DDAVP Monitor sodium closely Increase activity as tolerated DVT and peptic ulcer disease prophylaxis COPD appears to be stable continue as needed bronchodilator no need to steroids Further recommendations pending plan of care as per clinical response of the pa tient Time with Patient: Greater than 30
--- NOTE | 2020-09-09 18:13 | P.PN ---
Subjective Progress Note Date: 09/09/20 Principal diagnosis: Significant hyponatremia with generalized weakness are pierced to be Euvolumic hypotonic hyponatremia Generalized weakness Leukocytosis Metastatic breast cancer CLL End-stage severe COPD No evidence of demylinosis or cerebral edema 09/09/2020, patient seen eval examined during the rounds labs reviewed medications reviewed care plan discussed, patient appears much more alert awake, slightly more strength is present, sodium remains stable in mid 120 range, recommended increase activity, as to related, patient can be moved out of the ICU given that sodium is more stable, can be gently rehydrated with half normal saline This is a 50-year-old female well-known to me with end-stage COPD, patient has stage IV metastatic breast cancer along with CLL, she presented into the hospital with increase weakness shortness of breath increased swelling in the lower extremity, she was found to have significant hyponatremia, while correcting hyponatremia noted that direction was performed to fast eventually transferred to ICU for correction of sodium level with D5 and DDAVP mental status is stable no evidence of seizure altered mental status other significant problem hypernatremia except severe generalized weakness, which however seems to be slowly improving, further oncology: History of a can be reviewed from extensive note of oncology Objective - Vital Signs Vital signs: Vital Signs Temp 98.2 F 09/09/20 16:00 Pulse 94 09/09/20 17:07 Resp 12 09/09/20 17:00 BP 114/71 09/09/20 17:00 Pulse Ox 98 09/09/20 17:00 Intake & Output 09/08/20 09/09/20 09/09/20 18:59 06:59 18:59 Intake Total 1560 1450 Output Total 4225 710 1025 Balance -2665 740 -1025 Weight 58.4 kg 58.4 kg Intake: IV 1450 Dextrose 5% in Water 1, 700 000 ml @ 200 mls/hr IV . Q5H [facility] Rx#:[id number] Dextrose 5% in Water 1, 750 000 ml @ 250 mls/hr IV . Q4H [facility] Rx#:[id number] Intake, IV Titration 100 Amount Potassium Chloride 10 meq 100 In Water For Injection 1 100ml.bag @ 100 mls/hr IVPB Q1HR [facility] Rx#: [id number] Oral 1460 Output: Urine 4225 710 1025 Other: Voiding Method Indwelling Catheter Indwelling Catheter Indwelling Catheter # Bowel Movements 2 - Exam - Constitutional General appearance: average body habitus, disheveled - EENT Eyes: PERRLA Ears: bilateral: normal - Neck Neck: normal ROM - Respiratory Respiratory: bilateral: diminished - Cardiovascular Rhythm: regular Heart sounds: normal: S1, S2 - Gastrointestinal General gastrointestinal: normal bowel sounds - Musculoskeletal Musculoskeletal: gait normal, generalized weakness, strength equal bilaterally - Psychiatric Psychiatric: A&O x's 3, appropriate affect, intact judgment & insight - Labs CBC & Chem 7: 09/09/20 04:09 09/09/20 14:10 Labs: Abnormal Lab Results - Last 24 Hours (Table) 09/08/20 09/08/20 09/09/20 Range/Units 19:11 23:23 04:09 WBC 58.7 H* (3.8-10.6) k/uL RDW 15.6 H (11.5-15.5) % Plt Count 148 L (150-450) k/uL Lymphocytes # (Manual) 55.18 H (1.0-4.8) k/uL Monocytes # (Manual) 1.17 H (0-1.0) k/uL Sodium 125 L 120 L (137-145) mmol/L Chloride 91 L (98-107) mmol/L Creatinine 0.32 L (0.52-1.04) mg/dL Glucose 192 H (74-99) mg/dL Calcium 8.1 L (8.4-10.2) mg/dL 09/09/20 09/09/20 09/09/20 Range/Units 04:09 12:24 14:10 WBC (3.8-10.6) k/uL RDW (11.5-15.5) % Plt Count (150-450) k/uL Lymphocytes # (Manual) (1.0-4.8) k/uL Monocytes # (Manual) (0-1.0) k/uL Sodium 120 L 125 L 129 L (137-145) mmol/L Chloride 89 L 96 L (98-107) mmol/L Creatinine 0.25 L 0.32 L (0.52-1.04) mg/dL Glucose 127 H 141 H (74-99) mg/dL Calcium 8.2 L (8.4-10.2) mg/dL Assessment and Plan Assessment: Significant hyponatremia with generalized weakness are pierced to be Euvolumic hypotonic hyponatremia Generalized weakness Leukocytosis Metastatic breast cancer CLL End-stage severe COPD No evidence of demylinosis or cerebral edema Monitor closely in ICU Plan: Monitor sodium closely Increase activity as tolerated DVT and peptic ulcer disease prophylaxis COPD appears to be stable continue as needed bronchodilator no need to steroids Further recommendations pending plan of care as per clinical response of the patient And be moved out of the ICU Time with Patient: Greater than 30
[2020-09-10 05:04] VITALS: TEMP 97.5
[2020-09-10] MEDS: dexAMETHasone 4 MG TAB PO SCH (05:06)
[2020-09-10 06:56] LABS: Anisocytosis Slight; HCT 41.9 % (34.0-46.0); HGB 13.5 gm/dL (11.4-16.0); MCH 31.9 pg (25.0-35.0); MCHC 32.1 g/dL (31.0-37.0); MCV 99.4 fL (80.0-100.0); Macrocytosis Slight; Mean Platelet Volume 8.3; Platelet Count 186 k/uL (150-450); RBC 4.21 m/uL (3.80-5.40); RDW 16.3 % (11.5-15.5)
[2020-09-10 07:15] LABS: WBC 67.8 k/uL (3.8-10.6)
[2020-09-10] MEDS: IPRATROPIUM-ALBUTEROL 3 ML NEB INHALATION PRN ×2 (08:01→15:50)
[2020-09-10 08:16] LABS: Band Neutrophils % 1 %; Lymphocytes # (M) 62.38 k/uL (1.0-4.8); Monocytes # (M) 0.68 k/uL (0-1.0); Myelocytes # (M) 0.68 k/uL (0); Myelocytes % 1 %; Neutrophils % (M) 7 %; Nucleated Red Blood Cells 0 /100 WBC (0-0); Polychromasia Present; Total Cells Counted 200
[2020-09-10 08:17] LABS: Poikilocytosis (M) Present
[2020-09-10] MEDS: HEPARIN SODIUM,PORCINE 5,000 UNIT/ML 1 ML VIAL SQ SCH (08:58)
[2020-09-10] MEDS: clonazePAM 0.5 MG TAB PO PRN (08:58)
[2020-09-10] MEDS: PANTOPRAZOLE 40 MG TABLET PO SCH (08:59)
[2020-09-10 09:23] LABS: African American GFR (CKD) 139.8 (60.0-200.0); Anion Gap 7.8 mmol/L (4.00-12.00); BUN/Creat Ratio 22.5 Ratio (12.00-20.00); Calcium 9.4 mg/dL (8.7-10.3); Carbon Dioxide 31.2 mmol/L (21.6-31.8); Non-African American GFR(CKD) 120.6 (60.0-200.0); Potassium 4.8 mmol/L (3.5-5.5)
--- NOTE | 2020-09-10 09:26 | P.PN ---
Subjective Patient is seen in follow-up for hyponatremia. Sodium level corrected rapidly on admission and was reversed with IV DDAVP as well as D5W infusion. Sodium level this morning is 135. She is awake and alert. Denies chest pain or shortness of breath. Blood pressure stable. Oral intake is fair. Vital signs are stable. General: The patient appeared well nourished and normally developed. HEENT: Head exam is unremarkable. Neck is without jugular venous distension. LUNGS: Breath sounds decreased. Scattered rhonchi. HEART: Rate and Rhythm are regular. ABDOMEN: Soft, nontender. EXTREMITITES: 1+ edema in ankles. Objective - Vital Signs Vital signs: Vital Signs Temp 97.5 F L 09/10/20 04:59 Pulse 96 09/10/20 08:13 Resp 18 09/10/20 04:59 BP 117/71 09/10/20 04:59 Pulse Ox 91 L 09/10/20 08:03 Intake & Output 09/09/20 09/10/20 09/10/20 18:59 06:59 18:59 Intake Total 525 Output Total 1025 2200 Balance -1025 -1675 Weight 58.4 kg 56.8 kg Intake: Intake, IV Titration 525 Amount Dextrose 5% in Water 1, 525 000 ml @ 150 mls/hr IV . Q6H40M [facility] Rx#:[id number] Output: Urine 1025 2200 Other: Voiding Method Indwelling Catheter Indwelling Catheter # Voids 1 - Labs CBC & Chem 7: 09/10/20 05:34 09/09/20 20:07 Labs: Abnormal Lab Results - Last 24 Hours (Table) 09/09/20 09/09/20 09/09/20 Range/Units 12:24 14:10 17:45 WBC (3.8-10.6) k/uL RDW (11.5-15.5) % Lymphocytes # (Manual) (1.0-4.8) k/uL Myelocytes # (Manual) (0) k/uL Sodium 125 L 129 L 128 L (137-145) mmol/L Chloride 96 L (98-107) mmol/L Creatinine 0.32 L (0.52-1.04) mg/dL Glucose 141 H (74-99) mg/dL 09/09/20 09/10/20 Range/Units 20:07 05:34 WBC 67.8 H* (3.8-10.6) k/uL RDW 16.3 H (11.5-15.5) % Lymphocytes # (Manual) 62.38 H (1.0-4.8) k/uL Myelocytes # (Manual) 0.68 H (0) k/uL Sodium 127 L (137-145) mmol/L Chloride (98-107) mmol/L Creatinine (0.52-1.04) mg/dL Glucose (74-99) mg/dL Assessment and Plan Plan: Assessment: 1. Hypervolemic hyponatremia. Improved with IV Lasix. 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 The rapid correction was reversed with IV DDAVP and D5W infusion. Sodium level 135 this morning. TSH normal. Cortisol level was low but the patient is maintained on steroids and her blood pressure is stable. 2. Metastatic breast cancer. Oncology following. Maintained on chemotherapy. 3. Hypokalemia from poor intake and diuresis. Status post placement. 4. Volume overload. Improved with diuresis. Plan: Encouraged oral intake. No need for fluid restriction at this time. I advised the patient to monitor her weight closely at home and to call our office if edema worsens or gains more than 2-3 pounds.
[2020-09-10] MEDS: ANASTROZOLE 1 MG TAB PO SCH (09:52)
--- NOTE | 2020-09-10 11:39 | P.PN ---
Subjective Progress Note Date: 09/10/20 Principal diagnosis: Significant hyponatremia with generalized weakness are pierced to be Euvolumic hypotonic hyponatremia Generalized weakness Leukocytosis Metastatic breast cancer CLL End-stage severe COPD No evidence of demylinosis or cerebral edema 09/10/2020, patient seen eval examined during the rounds labs reviewed medications reviewed care plan discussed, respiratory status and generalized weakness slightly better, white cell count is still elevated, 91% on 4 L 09/09/2020, patient seen eval examined during the rounds labs reviewed medications reviewed care plan discussed, patient appears much more alert awake, slightly more strength is present, sodium remains stable in mid 120 range, recommended increase activity, as to related, patient can be moved out of the ICU given that sodium is more stable, can be gently rehydrated with half normal saline This is a 50-year-old female well-known to me with end-stage COPD, patient has stage IV metastatic breast cancer along with CLL, she presented into the hospital with increase weakness shortness of breath increased swelling in the lower extremity, she was found to have significant hyponatremia, while cor recting hyponatremia noted that direction was performed to fast eventually transferred to ICU for correction of sodium level with D5 and DDAVP mental status is stable no evidence of seizure altered mental status other significant problem hypernatremia except severe generalized weakness, which however seems to be slowly improving, further oncology: History of a can be reviewed from extensive note of oncology Objective - Vital Signs Vital signs: Vital Signs Temp 97.5 F L 09/10/20 04:59 Pulse 96 09/10/20 08:13 Resp 18 09/10/20 04:59 BP 117/71 09/10/20 04:59 Pulse Ox 91 L 09/10/20 08:03 Intake & Output 09/09/20 09/10/20 09/10/20 18:59 06:59 18:59 Intake Total 525 Output Total 1025 2200 Balance -1025 -1675 Weight 58.4 kg 56.8 kg Intake: Intake, IV Titration 525 Amount Dextrose 5% in Water 1, 525 000 ml @ 150 mls/hr IV . Q6H40M [facility] Rx#:[id number] Output: Urine 1025 2200 Other: Voiding Method Indwelling Catheter Indwelling Catheter Indwelling Catheter # Voids 1 - Exam - Constitutional General appearance: average body habitus, disheveled - EENT Eyes: PERRLA Ears: bilateral: normal - Neck Neck: normal ROM - Respiratory Respiratory: bilateral: diminished - Cardiovascular Rhythm: regular Heart sounds: normal: S1, S2 - Gastrointestinal General gastrointestinal: normal bowel sounds - Musculoskeletal Musculoskeletal: gait normal, generalized weakness, strength equal bilaterally - Psychiatric Psychiatric: A&O x's 3, appropriate affect, intact judgment & insight - Labs CBC & Chem 7: 09/10/20 05:34 09/10/20 05:34 Labs: Abnormal Lab Results - Last 24 Hours (Table) 09/09/20 09/09/20 09/09/20 Range/Units 12:24 14:10 17:45 WBC (3.8-10.6) k/uL RDW (11.5-15.5) % Lymphocytes # (Manual) (1.0-4.8) k/uL Myelocytes # (Manual) (0) k/uL Sodium 125 L 129 L 128 L (137-145) mmol/L Chloride 96 L (98-107) mmol/L Creatinine 0.32 L (0.52-1.04) mg/dL BUN/Creatinine Ratio (12.00-20.00) Ratio Glucose 141 H (74-99) mg/dL 09/09/20 09/10/20 09/10/20 Range/Units 20:07 05:34 05:34 WBC 67.8 H* (3.8-10.6) k/uL RDW 16.3 H (11.5-15.5) % Lymphocytes # (Manual) 62.38 H (1.0-4.8) k/uL Myelocytes # (Manual) 0.68 H (0) k/uL Sodium 127 L (137-145) mmol/L Chloride (98-107) mmol/L Creatinine 0.4 L (0.52-1.04) mg/dL BUN/Creatinine Ratio 22.50 H (12.00-20.00) Ratio Glucose 115 H (74-99) mg/dL Assessment and Plan Assessment: Significant hyponatremia with generalized weakness are pierced to be Euvolumic hypotonic hyponatremia, continued to improve progressively Generalized weakness Leukocytosis Metastatic breast cancer CLL End-stage severe COPD No evidence of demylinosis or cerebral edema Plan: Monitor sodium closely Increase activity as tolerated DVT and peptic ulcer disease prophylaxis COPD appears to be stable continue as needed bronchodilator no need to steroids Further recommendations pending plan of care as per clinical response of the patient And be moved out of the ICU Time with Patient: Greater than 30
[2020-09-10 12:40] VITALS: BP 105/68; RESP 16
--- NOTE | 2020-09-10 14:39 | P.DS ---
Providers Date of admission: 09/07/20 19:38 Expected date of discharge: 09/10/20 Attending physician: Jacob Patterson MD Consults: 09/07/20 19:38 Consult Physician Stat Consulting Provider: Primo Montero Consult Reason/Comments: severe hyponatremia Do you want consulting provider notified?: Yes Consult Physician Urgent Consulting Provider: Rashad Dodson Consult Reason/Comments: severe hyponatremia Do you want consulting provider notified?: Already Contacted 09/07/20 20:18 Consult Physician Stat Consulting Provider: Cheo Devine Consult Reason/Comments: breast cancer with brain and bone mets Do you want consulting provider notified?: Already Contacted 09/08/20 08:47 Consult Physician Stat Consulting Provider: Joey Chaudhari Consult Reason/Comments: ICU admission Do you want consulting provider notified?: Yes Primary care physician: Pia [facility] Course: This is a 50-year-old female with past medical history noted below significant for metastatic breast cancer who presented to the emergency room with lower extremity edema and swelling. Patient was evaluated in the ER and admitted to the hospital for further management of her medical problems noted below. 1. Hypervolemic hyponatremia, managed by nephrology with IV fluids and Lasix. Status post 1 dose of DDAVP secondary to over correct the sodium level. 2. Suspect SIADH 3. History of metastatic breast cancer with brain metastasis, seen and evaluated by oncology. Plan of treatment outpatient. Started on Arimidex, prescription ordered by oncology 4. Hypokalemia, replaced Patient will be discharged home in a stable condition. She was advised not to restrict fluid intake. She'll be given a prescription for Lasix 20 mg to be used as needed for lower extremity edema. Follow-up with oncology as directed. I discussed the patient's care with oncology mid-level provider over the phone. Plan to follow-up with the office. Arimidex prescription sent from oncology office. Patient Condition at Discharge: Serious Plan - Discharge Summary Discharge Rx Participant: Yes New Discharge Prescriptions: New Anastrozole [Arimidex] 1 mg PO DAILY tab Furosemide [Lasix] 20 mg PO DAILY PRN #30 tab PRN Reason: Edema polyethylene glycoL 3350 [Miralax] 17 gm PO HS PRN #30 powd.pack PRN Reason: Constipation Continue clonazePAM [KlonoPIN] 0.5 mg PO DAILY PRN PRN Reason: Anxiety Albuterol Sulfate [Ventolin HFA] 2 puff INHALATION RT-Q4H PRN PRN Reason: Shortness Of Breath HYDROcodone/APAP 5-325MG [[place] 5-325] 1 - 2 tab PO Q4H PRN PRN Reason: Moderate Pain Prochlorperazine Maleate 10 mg PO Q6H PRN PRN Reason: Nausea Ondansetron Odt [Zofran ODT] 4 mg PO Q6H PRN PRN Reason: Nausea Omeprazole 40 mg PO AC-BRKFST Ipratropium-Albuterol Nebulize [Duoneb 0.5 mg-3 mg/3 ml Soln] 3 ml INHALATION RT-TID PRN PRN Reason: Shortness Of Breath Dexamethasone [Decadron] 4 mg PO AC-BID Multivitamin [Multivitamins Adult Gummies] 2 tab PO DAILY Discharge Medication List Albuterol Sulfate [Ventolin HFA] 2 puff INHALATION RT-Q4H PRN 04/12/17 [History] clonazePAM [KlonoPIN] 0.5 mg PO DAILY PRN 04/12/17 [History] Dexamethasone [Decadron] 4 mg PO AC-BID 09/01/20 [History] HYDROcodone/APAP 5-325MG [[place] 5-325] 1 - 2 tab PO Q4H PRN 09/01/20 [History] Ipratropium-Albuterol Nebulize [Duoneb 0.5 mg-3 mg/3 ml Soln] 3 ml INHALATION RT-TID PRN 09/01/20 [History] Multivitamin [Multivitamins Adult Gummies] 2 tab PO DAILY 09/01/20 [History] Omeprazole 40 mg PO AC-BRKFST 09/01/20 [History] Ondansetron Odt [Zofran ODT] 4 mg PO Q6H PRN 09/01/20 [History] Prochlorperazine Maleate 10 mg PO Q6H PRN 09/01/20 [History] Anastrozole [Arimidex] 1 mg PO DAILY tab 09/10/20 [Rx] Furosemide [Lasix] 20 mg PO DAILY PRN #30 tab 09/10/20 [Rx] polyethylene glycoL 3350 [Miralax] 17 gm PO HS PRN #30 powd.pack 09/10/20 [Rx] Follow up Appointment(s)/Referral(s): Cheo Devine MD [STAFF PHYSICIAN] - 1 Week Pia Jaramillo MD [Primary Care Provider] - 1-2 days Discharge Disposition: HOME SELF-CARE
[2020-09-10 16:01] VITALS: PULSE 101
== END 2020-09-10 18:30 | disposition home or self-care (01) | DRG 643 ==
LOC: EC 16:22 → 2SICU 19:38 → 6NMEDSUR 09-09 18:45
PROVIDERS: ADMIT Internal Medicine; ATTEND Internal Medicine
DX: E22.2 Syndrome of inappropriate secretion of antidiuretic hormone (principal); J96.01 Acute respiratory failure with hypoxia; G93.6 Cerebral edema; C78.00 Secondary malignant neoplasm of unspecified lung; C78.7 Secondary malignant neoplasm of liver and intrahepatic bile duct; C79.31 Secondary malignant neoplasm of brain; C79.51 Secondary malignant neoplasm of bone; C91.10 Chronic lymphocytic leukemia of B-cell type not having achieved remission; J81.1 Chronic pulmonary edema; C50.919 Malignant neoplasm of unspecified site of unspecified female breast; E86.1 Hypovolemia; E87.6 Hypokalemia; E87.70 Fluid overload, unspecified; F17.210 Nicotine dependence, cigarettes, uncomplicated; F32.9 Major depressive disorder, single episode, unspecified; F41.0 Panic disorder [episodic paroxysmal anxiety]; J45.40 Moderate persistent asthma, uncomplicated; Z17.0 Estrogen receptor positive status [ER+]; J44.9 Chronic obstructive pulmonary disease, unspecified; Z79.52 Long term (current) use of systemic steroids; Z83.3 Family history of diabetes mellitus; Z90.13 Acquired absence of bilateral breasts and nipples; Z91.19 Patient's noncompliance with other medical treatment and regimen; Z92.21 Personal history of antineoplastic chemotherapy; Z92.3 Personal history of irradiation; R42 Dizziness and giddiness; M54.2 Cervicalgia; Z80.6 Family history of leukemia; Z82.0 Family history of epilepsy and other diseases of the nervous system; Z79.899 Other long term (current) drug therapy
CPT/HCPCS: 36415; 74022; 80048; 80053; 81003; 82533; 82550; 83605; 83735; 83880; 83930; 83935; 84295; 84300; 84443; 84484; 85025; 85610; 85730; 93005; 94640; 94760; 96374; 99285

== ENCOUNTER → 2020-10-06 | Outpatient (CLI) | payer BC ==
--- NOTE | 2020-10-06 12:05 | CT ---
EXAMINATION TYPE: CT brain wo/w con DATE OF EXAM: 10/06/2020 COMPARISON: 08/02/2020 HISTORY: Secondary neoplasm brain. CT DLP: 2282.4 mGycm Automated exposure control for dose reduction was used. CONTRAST: CT scan of the head is performed without and with IV Contrast, patient injected with 100 mL of Isovue M300. FINDINGS: There is a persistent irregular mass in the right frontal parietal junction with punctate calcificati ons measuring 1.8 x 1.5 x 1.9 cm and previously measuring 3.0 x 2.8 cm. No additional pathologic enha ncement. Adjacent vasogenic edema appears reduced relative to the prior exam. No midline shift. Changes of mild degenerative changes seen. Calvarium intact. No new areas of enhancement. Changes of chronic sinusitis noted. Orbits are symmetric. IMPRESSION: Interval reduction in size of the right frontal parietal junction lobe mass now measuring 1.8 x 1.5 x 1.9 cm and previously measuring 3 x 2.8 cm. There is also interval reduction in the adjacent vasogen ic edema.
== END | disposition home or self-care (01) ==
LOC: RADCTMAIN 10:49
PROVIDERS: ATTEND Radiology Radiation Oncology
DX: R60.9 Edema, unspecified (principal); C79.31 Secondary malignant neoplasm of brain; C50.912 Malignant neoplasm of unspecified site of left female breast; Z92.3 Personal history of irradiation
CPT/HCPCS: 70470; Q9967

== ENCOUNTER 2020-10-11 13:40 | Inpatient (IN) | payer BC ==
[2020-10-11] MEDS ORDERED: ALBUTEROL NEBULIZED 2.5 MG/3 ML INHALATION STA (14:15)
[2020-10-11] MEDS ORDERED: IPRATROPIUM 0.5 MG/2.5 ML NEBU INHALATION STA (14:15)
--- NOTE | 2020-10-11 14:33 | ED ---
SOB HPI - General Chief Complaint: Shortness of Breath Stated Complaint: Diff Breathing, Cancer pt Time Seen by Provider: 10/11/20 14:06 Source: patient Mode of arrival: ambulatory Limitations: no limitations - History of Present Illness Initial Comments: 50-year-old female patient with past medical history significant for left-sided breast cancer with metastasis to brain, lung, bone, and liver presents to the emergency department today for evaluation of shortness of breath. Patient states she has had worsening shortness of breath over the last 3 days. States it makes it difficult for her to speak and swallow. States she does have a cough but is unable to get any sputum up. Denies any fever or chills. Denies nausea, vomiting, constipation, or diarrhea. Denies abdominal pain. She denies any rash. Patient denies any recent rash, chest pain, diarrhea, constipation, back pain, numbness, tingling, dizziness, weakness, hematuria, dysuria, urinary urgency, urinary frequency, headache, visual changes, or any other complaints. - Related Data Home Medications Medication Instructions Recorded Confirmed Albuterol Sulfate [Ventolin HFA] 2 puff INHALATION RT-Q4H PRN 04/12/17 10/11/20 clonazePAM [KlonoPIN] 0.5 mg PO DAILY PRN 04/12/17 10/11/20 Ipratropium-Albuterol Nebulize 3 ml INHALATION RT-TID PRN 09/01/20 10/11/20 [Duoneb 0.5 mg-3 mg/3 ml Soln] Multivitamin [Multivitamins Adult 2 tab PO DAILY 09/01/20 10/11/20 Gummies] Ondansetron Odt [Zofran ODT] 4 mg PO Q6H PRN 09/01/20 10/11/20 Prochlorperazine Maleate 10 mg PO Q6H PRN 09/01/20 10/11/20 Cholestyramine (with Sugar) 4 gm PO DAILY PRN 10/11/20 10/11/20 [Cholestyramine Packet] Clotrimazole Yashira [Mycelex 10 mg MUCOUS MEM 5XD 10/11/20 10/11/20 Yashira] Hydrocodone/Acetaminophen [[place] 1 tab PO QID PRN 10/11/20 10/11/20 10-325] Magic Mouth Wash 5 ml PO QID 10/11/20 10/11/20 Nicotine 21Mg/24Hr Patch [Habitrol] 1 patch TRANSDERM DAILY 10/11/20 10/11/20 Nystatin 100,000 Unit/ml Susp 400,000 unit PO QID PRN 10/11/20 10/11/20 [Mycostatin Oral Susp] OLANZapine [ZyPREXA] 5 mg PO DAILY 10/11/20 10/11/20 Omeprazole 20 mg PO BID 10/11/20 10/11/20 Palbociclib [Ibrance] 125 mg PO DIRECTED 10/11/20 10/11/20 Potassium Chloride ER [K-Dur 10] 10 meq PO DAILY 10/11/20 10/11/20 methylPREDNISolone [Medrol Dose See Taper PO DIRECTED 10/11/20 10/11/20 Pack] Previous Rx's Medication Instructions Recorded Anastrozole [Arimidex] 1 mg PO DAILY tab 09/10/20 Furosemide [Lasix] 20 mg PO DAILY PRN #30 tab 09/10/20 polyethylene glycoL 3350 [Miralax] 17 gm PO HS PRN #30 powd.pack 09/10/20 Allergies Allergy/AdvReac Type Severity Reaction Status Date / Time No Known Allergies Allergy Verified 10/11/20 15:01 Review of Systems ROS Statement: Those systems with pertinent positive or pertinent negative responses have been documented in the HPI. ROS Other: All systems not noted in ROS Statement are negative. Past Medical History Past Medical History: Cancer, COPD Additional Past Medical History / Comment(s): 2017 L breast cancer with bilateral mastectomies/chemo/radiation, CLL, chronic elevation WBCs, cervical pain/vertigo on and off since April 2020, brain/lung/bone/liver CA History of Any Multi-Drug Resistant Organisms: None Reported Past Surgical History: Orthopedic Surgery Additional Past Surgical History / Comment(s): 2017 Bilateral mastectomies/implant reconstruction, R thumb tendon repair, lung mass biopsy. Past Anesthesia/Blood Transfusion Reactions: No Reported Reaction Past Psychological History: Anxiety, Depression, Panic Disorder Smoking Status: Current every day smoker Past Alcohol Use History: None Reported Past Drug Use History: None Reported - Past Family History Mother Family Medical History: Cancer Additional Family Medical History / Comment(s): in her 60s with history of dementia, chronic back pain, "pre leukemia." Father Additional Family Medical History / Comment(s): Father is alive with history of diabetes. Brother(s) Additional Family Medical History / Comment(s): Patient has 2 brothers with no major medical problems. Patient has 1 sister with no major medical problems. Patient does not have any children. General Exam Limitations: no limitations General appearance: alert, in no apparent distress, other (This is a well-de veloped, well-nourished adult female patient in mild respiratory distress. Vital signs upon presentation are temperature 98.3F, pulse 64, respirations 22, blood pressure 107/66, pulse ox 90% on room air.) Respiratory exam: Present: respiratory distress (Mild), rales (Coarse inspiratory and expiratory throughout the posterior lung feilds.). Absent: normal lung sounds bilaterally, wheezes, rhonchi, stridor Cardiovascular Exam: Present: regular rate, normal rhythm, normal heart sounds. Absent: systolic murmur, diastolic murmur, rubs, gallop, clicks GI/Abdominal exam: Present: soft, normal bowel sounds. Absent: distended, tenderness, guarding, rebound, rigid Neurological exam: Present: alert, oriented X3, CN II-XII intact Psychiatric exam: Present: normal affect, normal mood Skin exam: Present: warm, dry, intact, normal color. Absent: rash Course Vital Signs 10/11/20 10/11/20 10/11/20 13:44 14:09 14:31 Temperature 98.3 F Pulse Rate 64 104 H Respiratory 22 20 22 Rate Blood Pressure 107/66 O2 Sat by Pulse 100 Oximetry 10/11/20 10/11/20 10/11/20 14:44 14:48 15:00 Temperature Pulse Rate 107 H 98 98 Respiratory 22 18 18 Rate Blood Pressure 110/75 110/75 O2 Sat by Pulse 93 L 93 L Oximetry Medical Decision Making - Medical Decision Making 50-year-old female patient a medical history significant for left-sided breast cancer with metastases to the brain, bone, liver, and lung, presented to the emergency department today for increased shortness of breath over the last 3 d ays. She does report dry cough with significant dyspnea especially with activity and trying to speak. Labs reviewed and did reveal elevated white blood cell count at 23.7, hemoglobin 10.3, platelets down to 84. COVID negative. CT chest angiography was obtained and showed evidence for that as directed he is to the right lung with pleural effusion and infiltrates. Patient was started on anti-medics for possible overlying pneumonia. She'll be admitted to the hospital for further evaluation by oncology and possibly pulmonology. Dr. De Oliveira is accepting. - Lab Data Result diagrams: 10/11/20 14:23 10/11/20 14:23 Lab Results 10/11/20 10/11/20 10/11/20 Range/Units 14:23 14:23 14:23 WBC 23.7 H (3.8-10.6) k/uL RBC 2.96 L (3.80-5.40) m/uL Hgb 10.3 L D (11.4-16.0) gm/dL Hct 30.2 L (34.0-46.0) % MCV 101.9 H (80.0-100.0) fL MCH 34.9 (25.0-35.0) pg MCHC 34.2 (31.0-37.0) g/dL RDW 21.9 H (11.5-15.5) % Plt Count 84 L D (150-450) k/uL MPV 9.5 Neutrophils % (Manual) 7 % Lymphocytes % (Manual) 91 % Monocytes % (Manual) 2 % Neutrophils # (Manual) 1.66 (1.3-7.7) k/uL Lymphocytes # (Manual) 21.57 H (1.0-4.8) k/uL Monocytes # (Manual) 0.47 (0-1.0) k/uL Nucleated RBCs 0 (0-0) /100 WBC Manual Slide Review Performed Anisocytosis Moderate Macrocytosis Marked A PT 9.6 (9.0-12.0) sec INR 0.9 (<1.2) APTT 19.4 L (22.0-30.0) sec Sodium 141 (137-145) mmol/L Potassium 3.9 (3.5-5.1) mmol/L Chloride 109 H (98-107) mmol/L Carbon Dioxide 30 (22-30) mmol/L Anion Gap 2 mmol/L BUN 8 (7-17) mg/dL Creatinine 0.54 (0.52-1.04) mg/dL Est GFR (CKD-EPI)AfAm >90 (>60 ml/min/1.73 sqM) Est GFR (CKD-EPI)NonAf >90 (>60 ml/min/1.73 sqM) Glucose 87 (74-99) mg/dL Plasma Lactic Acid Steve (0.7-2.0) mmol/L Calcium 7.6 L (8.4-10.2) mg/dL Magnesium 1.9 (1.6-2.3) mg/dL Total Bilirubin 0.8 (0.2-1.3) mg/dL AST 69 H (14-36) U/L ALT 40 H (4-34) U/L Alkaline Phosphatase 230 H (38-126) U/L Troponin I (0.000-0.034) ng/mL Total Protein 5.3 L (6.3-8.2) g/dL Albumin 3.3 L (3.5-5.0) g/dL Urine Color Urine Appearance (Clear) Urine pH (5.0-8.0) Ur Specific [place] (1.001-1.035) Urine Protein (Negative) Urine Glucose (UA) (Negative) Urine Ketones (Negative) Urine Blood (Negative) Urine Nitrite (Negative) Urine Bilirubin (Negative) Urine Urobilinogen (<2.0) mg/dL Ur Leukocyte Esterase (Negative) Coronavirus (PCR) (Not Detectd) 10/11/20 10/11/20 10/11/20 Range/Units 14:23 14:23 14:44 WBC (3.8-10.6) k/uL RBC (3.80-5.40) m/uL Hgb (11.4-16.0) gm/dL Hct (34.0-46.0) % MCV (80.0-100.0) fL MCH (25.0-35.0) pg MCHC (31.0-37.0) g/dL RDW (11.5-15.5) % Plt Count (150-450) k/uL MPV Neutrophils % (Manual) % Lymphocytes % (Manual) % Monocytes % (Manual) % Neutrophils # (Manual) (1.3-7.7) k/uL Lymphocytes # (Manual) (1.0-4.8) k/uL Monocytes # (Manual) (0-1.0) k/uL Nucleated RBCs (0-0) /100 WBC Manual Slide Review Anisocytosis Macrocytosis PT (9.0-12.0) sec INR (<1.2) APTT (22.0-30.0) sec Sodium (137-145) mmol/L Potassium (3.5-5.1) mmol/L Chloride (98-107) mmol/L Carbon Dioxide (22-30) mmol/L Anion Gap mmol/L BUN (7-17) mg/dL Creatinine (0.52-1.04) mg/dL Est GFR (CKD-EPI)AfAm (>60 ml/min/1.73 sqM) Est GFR (CKD-EPI)NonAf (>60 ml/min/1.73 sqM) Glucose (74-99) mg/dL Plasma Lactic Acid Steve 1.5 (0.7-2.0) mmol/L Calcium (8.4-10.2) mg/dL Magnesium (1.6-2.3) mg/dL Total Bilirubin (0.2-1.3) mg/dL AST (14-36) U/L ALT (4-34) U/L Alkaline Phosphatase (38-126) U/L Troponin I <0.012 (0.000-0.034) ng/mL Total Protein (6.3-8.2) g/dL Albumin (3.5-5.0) g/dL Urine Color Urine Appearance (Clear) Urine pH (5.0-8.0) Ur Specific [place] (1.001-1.035) Urine Protein (Negative) Urine Glucose (UA) (Negative) Urine Ketones (Negative) Urine Blood (Negative) Urine Nitrite (Negative) Urine Bilirubin (Negative) Urine Urobilinogen (<2.0) mg/dL Ur Leukocyte Esterase (Negative) Coronavirus (PCR) Not Detected (Not Detectd) 10/11/20 Range/Units 16:21 WBC (3.8-10.6) k/uL RBC (3.80-5.40) m/uL Hgb (11.4-16.0) gm/dL Hct (34.0-46.0) % MCV (80.0-100.0) fL MCH (25.0-35.0) pg MCHC (31.0-37.0) g/dL RDW (11.5-15.5) % Plt Count (150-450) k/uL MPV Neutrophils % (Manual) % Lymphocytes % (Manual) % Monocytes % (Manual) % Neutrophils # (Manual) (1.3-7.7) k/uL Lymphocytes # (Manual) (1.0-4.8) k/uL Monocytes # (Manual) (0-1.0) k/uL Nucleated RBCs (0-0) /100 WBC Manual Slide Review Anisocytosis Macrocytosis PT (9.0-12.0) sec INR (<1.2) APTT (22.0-30.0) sec Sodium (137-145) mmol/L Potassium (3.5-5.1) mmol/L Chloride (98-107) mmol/L Carbon Dioxide (22-30) mmol/L Anion Gap mmol/L BUN (7-17) mg/dL Creatinine (0.52-1.04) mg/dL Est GFR (CKD-EPI)AfAm (>60 ml/min/1.73 sqM) Est GFR (CKD-EPI)NonAf (>60 ml/min/1.73 sqM) Glucose (74-99) mg/dL Plasma Lactic Acid Steve (0.7-2.0) mmol/L Calcium (8.4-10.2) mg/dL Magnesium (1.6-2.3) mg/dL Total Bilirubin (0.2-1.3) mg/dL AST (14-36) U/L ALT (4-34) U/L Alkaline Phosphatase (38-126) U/L Troponin I (0.000-0.034) ng/mL Total Protein (6.3-8.2) g/dL Albumin (3.5-5.0) g/dL Urine Color Light Yellow Urine Appearance Clear (Clear) Urine pH 6.5 (5.0-8.0) Ur Specific [place] 1.015 (1.001-1.035) Urine Protein Negative (Negative) Urine Glucose (UA) Negative (Negative) Urine Ketones Negative (Negative) Urine Blood Negative (Negative) Urine Nitrite Negative (Negative) Urine Bilirubin Negative (Negative) Urine Urobilinogen <2.0 (<2.0) mg/dL Ur Leukocyte Esterase Negative (Negative) Coronavirus (PCR) (Not Detectd) - EKG Data -: EKG Interpreted by Me EKG Comments: EKG obtained at 1359 shows sinus tachycardia with a ventricular rate of 110, NC interval 126, QRS duration 76, QT 344, QTC 465. No evidence of ST elevation or depression. - Radiology Data Radiology results: report reviewed, image reviewed CT chest angiography for pulmonary embolism was obtained. Report was reviewed in its entirety . Impression by Dr. Marsh shows no evidence of pulmonary embolism. Suboptimal exam for evaluation of small pulmonary emboli. Right pleural effusion extensive consolidation in the right upper lobe. Significant mediastinal adenopathy. There is progression of lung disease and increased pleural fluid compared to old exam. Interstitial and nodular pulmonary infiltrates consistent with diffuse metastatic disease and a slightly increased compared to old exam. Disposition Clinical Impression: Pleural effusion, right, Pneumonia involving right lung, Dyspnea Disposition: ADMITTED IP TO THIS [facility] Condition: Serious Decision to Admit Reason: Admit from EC Decision Date: 10/11/20 Decision Time: 17:01
[2020-10-11 14:39] LABS: Anisocytosis Moderate; HCT 30.2 % (34.0-46.0); MCH 34.9 pg (25.0-35.0); MCHC 34.2 g/dL (31.0-37.0); MCV 101.9 fL (80.0-100.0); Macrocytosis Marked; Mean Platelet Volume 9.5; RBC 2.96 m/uL (3.80-5.40); RDW 21.9 % (11.5-15.5); WBC 23.7 k/uL (3.8-10.6)
[2020-10-11 14:40] LABS: HGB 10.3 gm/dL (11.4-16.0)
[2020-10-11 14:43] LABS: ALT 40 U/L (4-34); AST 69 U/L (14-36); African American GFR (CKD) >90 (>60 ml/min/1.73 sqM); Albumin 3.3 g/dL (3.5-5.0); Alkaline Phosphatase 230 U/L (38-126); Anion Gap 2 mmol/L; Blood Urea Nitrogen 8 mg/dL (7-17); Calcium 7.6 mg/dL (8.4-10.2); Carbon Dioxide 30 mmol/L (22-30); Chloride 109 mmol/L (98-107); Glucose 87 mg/dL (74-99); Magnesium 1.9 mg/dL (1.6-2.3); Non-African American GFR(CKD) >90 (>60 ml/min/1.73 sqM); Potassium 3.9 mmol/L (3.5-5.1); Sodium 141 mmol/L (137-145); Total Bilirubin 0.8 mg/dL (0.2-1.3); Total Protein 5.3 g/dL (6.3-8.2)
[2020-10-11 15:06] LABS: INR 0.9 (<1.2); Prothrombin Time 9.6 sec (9.0-12.0)
[2020-10-11 15:09] LABS: Partial Thromboplastin Time 19.4 sec (22.0-30.0)
[2020-10-11 15:36] LABS: Lymphocytes # (M) 21.57 k/uL (1.0-4.8); Monocytes # (M) 0.47 k/uL (0-1.0); Neutrophils # (M) 1.66 k/uL (1.3-7.7); Neutrophils % (M) 7 %; Nucleated Red Blood Cells 0 /100 WBC (0-0); Total Cells Counted 100
[2020-10-11 15:37] LABS: Platelet Count 84 k/uL (150-450)
--- NOTE | 2020-10-11 16:17 | CT ---
EXAMINATION TYPE: CT chest angio for PE DATE OF EXAM: 10/11/2020 COMPARISON: HISTORY: SOB, hx of breast ca CT DLP: 243.7 mGycm Automated exposure control for dose reduction was used. CONTRAST: Performed with IV Contrast, patient injected with 58cc mL of Isovue 370. There are 3-D post processed images. There is mild to moderate right pleural effusion. There is masslike consolidation in the anterior rig ht upper lobe. This measures 10 x 13 cm. There are multiple enlarged mediastinal lymph nodes that yamilka sure up to 3.5 cm. There is bilateral bronchial adenopathy with lymph nodes up to 2.5 cm. Thoracic ao rta is intact. There is no aneurysm or dissection. There is suboptimal contrast opacification of the pulmonary arteries. Evaluation of the smaller branc hes is difficult. I see no filling defect. There is small pericardial effusion. There are bilateral breast implants. There is coarse interstitia l infiltrate and nodular infiltrate in both lungs. There is some osteoblastic changes in the bony tho rax. IMPRESSION: No evidence of pulmonary embolism. Suboptimal exam for evaluation for smaller pulmonary emboli. Right pleural effusion and extensive consolidation in the right upper lobe. Significant mediastinal a denopathy. There is progression of lung disease and increased pleural fluid compared to old exam. Int erstitial and nodular pulmonary infiltrates consistent with diffuse metastatic disease that is slight ly increased compared to old exam.
[2020-10-11 16:25] LABS: Appearance,Urine Clear (Clear); Bilirubin,Urine Negative (Negative); Blood,Urine Negative (Negative); Color,Urine Light Yellow; Glucose,Urine (UA) Negative (Negative); Ketones,Urine Negative (Negative); Leukocyte Esterase,Urine Negative (Negative); Nitrite,Urine Negative (Negative); PH, Urine 6.5 (5.0-8.0); Protein,Urine Negative (Negative); Specific Gravity,Urine 1.015 (1.001-1.035); Urobilinogen,Urine <2.0 mg/dL (<2.0)
[2020-10-11] MEDS ORDERED: PIPERACILLIN-TAZOBACTAM 3.375 GM in SODIUM CHLORIDE 0.9% 100 ML IVPB STA (16:29)
[2020-10-11] MEDS ORDERED: VANCOMYCIN IV PER PHARMACY 1 EACH MISC MISCELLANE PRN (16:38)
[2020-10-11] MEDS ORDERED: VANCOMYCIN 1,000 MG in SODIUM CHLORIDE 0.9% 250 ML IVPB STA (16:45)
[2020-10-11] MEDS ORDERED: NALOXONE 0.4 MG/ML 1 ML VIAL IV PRN ×2 (16:58→18:12)
[2020-10-11] MEDS ORDERED: ACETAMINOPHEN TAB 325 MG TAB PO PRN (16:58)
[2020-10-11] MEDS ORDERED: NYSTATIN 100,000 UNIT/ML SUSP 500,000 UNIT/5 ML CUP PO PRN (18:08)
[2020-10-11] MEDS ORDERED: ONDANSETRON ODT 4 MG TAB PO PRN (18:08)
[2020-10-11] MEDS ORDERED: clonazePAM 0.5 MG TAB PO PRN (18:08)
[2020-10-11] MEDS ORDERED: HYDROcodone/APAP 10-325MG 1 EACH TAB PO PRN (18:08)
[2020-10-11] MEDS ORDERED: IPRATROPIUM-ALBUTEROL 3 ML NEB INHALATION PRN (18:11)
[2020-10-11] MEDS ORDERED: NON FORMULARY DRUG (Magic Mouth Wash 5 ML) PO SCH (18:15)
--- NOTE | 2020-10-11 18:16 | P.HPIM ---
History of Present Illness H&P Date: 10/11/20 Chief Complaint: sob 50-year-old female patient who continues to smoke half a pack a day and with past medical history significant for CLL as well as left-sided breast cancer with metastasis to brain, lung, bone, and liver presents to the emergency department today for evaluation of shortness of breath. Patient has been following up with Shira Carrasquillo from oncology, was seen about a week ago and was given a prescription for Medrol Dosepak for shortness of breath as well as clotrimazole for possible thrush. Patient was started on chemotherapy with Palbociclib for metastatic breast cancer. This is her third week on treatment. In addition patient has been complaining from difficulty speaking, hoarseness in the voice as well as difficulty with swallowing. She denied pain with swallowing. States she does have a cough but is unable to get any sputum up. Denies any fever or chills. Had a few episodes of nausea and vomiting as well as diarrhea over the last few days. Denies abdominal pain, rash, chest pain, numbness, tingling, dizziness, weakness, hematuria, dysuria, urinary urgency, urinary frequency, headache, visual changes, or any other complaints. 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 Laboratory evaluation in the emergency department revealed CBC count of 23,000, hemoglobin 10, platelet count 84. Electrolytes are all within normal limits except mildly low calcium at 7.6. AST 69, ALT 40, alk phos 2:30. CT angiogram of the chest showed no evidence of pulmonary embolus, right pleural effusion and extensive consolidation in the right upper lobe. Significant mediastinal adenopathy. Progression of lung disease and increased pleural fluid compared to prior exam. Interstitial and nodular pulmonary infiltrates, consistent with diffuse metastasis disease that is slightly increased compared to old exam. Review of Systems Complete review of system performed, pertinent positives per HPI, otherwise negative Past Medical History Past Medical History: Cancer, COPD Additional Past Medical History / Comment(s): 2016 L breast cancer with bilateral mastectomies/chemo/radiation, CLL, chronic elevation WBCs, cervical pain/vertigo on and off since April 2020, brain/lung/bone/liver CA History of Any Multi-Drug Resistant Organisms: None Reported Past Surgical History: Orthopedic Surgery Additional Past Surgical History / Comment(s): 2017 Bilateral mastectomies/implant reconstruction, R thumb tendon repair, lung mass biopsy. Past Anesthesia/Blood Transfusion Reactions: No Reported Reaction Past Psychological History: Anxiety, Depression, Panic Disorder Smoking Status: Current every day smoker Past Alcohol Use History: None Reported Past Drug Use History: None Reported - Past Family History Mother Family Medical History: Cancer Additional Family Medical History / Comment(s): in her 60s with history of dementia, chronic back pain, "pre leukemia." Father Additional Family Medical History / Comment(s): Father is alive with history of diabetes. Brother(s) Additional Family Medical History / Comment(s): Patient has 2 brothers with no major medical problems. Patient has 1 sister with no major medical problems. Patient does not have any children. Medications and Allergies Home Medications Medication Instructions Recorded Confirmed Type Albuterol Sulfate [Ventolin HFA] 2 puff INHALATION RT-Q4H PRN 04/12/17 10/11/20 History clonazePAM [KlonoPIN] 0.5 mg PO DAILY PRN 04/12/17 10/11/20 History Ipratropium-Albuterol Nebulize 3 ml INHALATION RT-TID PRN 09/01/20 10/11/20 History [Duoneb 0.5 mg-3 mg/3 ml Soln] Multivitamin [Multivitamins Adult 2 tab PO DAILY 09/01/20 10/11/20 History Gummies] Ondansetron Odt [Zofran ODT] 4 mg PO Q6H PRN 09/01/20 10/11/20 History Prochlorperazine Maleate 10 mg PO Q6H PRN 09/01/20 10/11/20 History Anastrozole [Arimidex] 1 mg PO DAILY tab 09/10/20 10/11/20 Rx Furosemide [Lasix] 20 mg PO DAILY PRN #30 tab 09/10/20 10/11/20 Rx polyethylene glycoL 3350 [Miralax] 17 gm PO HS PRN #30 powd.pack 09/10/20 10/11/20 Rx Cholestyramine (with Sugar) 4 gm PO DAILY PRN 10/11/20 10/11/20 History [Cholestyramine Packet] Clotrimazole Yashira [Mycelex 10 mg MUCOUS MEM 5XD 10/11/20 10/11/20 History Yashira] Hydrocodone/Acetaminophen [[place] 1 tab PO QID PRN 10/11/20 10/11/20 History 10-325] Magic Mouth Wash 5 ml PO QID 10/11/20 10/11/20 History Nicotine 21Mg/24Hr Patch [Habitrol] 1 patch TRANSDERM DAILY 10/11/20 10/11/20 History Nystatin 100,000 Unit/ml Susp 400,000 unit PO QID PRN 10/11/20 10/11/20 History [Mycostatin Oral Susp] OLANZapine [ZyPREXA] 5 mg PO DAILY 10/11/20 10/11/20 History Omeprazole 20 mg PO BID 10/11/20 10/11/20 History Palbociclib [Ibrance] 125 mg PO DIRECTED 10/11/20 10/11/20 History Potassium Chloride ER [K-Dur 10] 10 meq PO DAILY 10/11/20 10/11/20 History methylPREDNISolone [Medrol Dose See Taper PO DIRECTED 10/11/20 10/11/20 Hi story Pack] Allergies Allergy/AdvReac Type Severity Reaction Status Date / Time No Known Allergies Allergy Verified 10/11/20 15:01 Physical Exam Vitals: Vital Signs Temp Pulse Resp BP Pulse Ox 10/11/20 15:00 98 18 110/75 93 L 10/11/20 14:48 98 18 110/75 93 L 10/11/20 14:44 107 H 22 10/11/20 14:31 104 H 22 10/11/20 14:09 20 10/11/20 13:44 98.3 F 64 22 107/66 100 Intake and Output 10/11/20 10/11/20 10/11/20 06:59 14:59 22:59 Other: Weight 61.235 kg Constitutional: No acute distress, conversant, pleasant Eyes:Anicteric sclerae, moist conjunctiva, no lid-lag, PERRLA, ENMT: Oropharynx clear, no erythema, exudates Neck: Supple, FROM, no masses, or JVD, No carotid bruits, No thyromegaly Lungs: Bilateral diffuse wheezing and rhonchi. Clear to percussion, Normal respiratory effort, no accessory muscle use Cardiovascular: Heart regular in rate and rhythm, No murmurs, gallops, or rubs, trace peripheral edema Abdominal: Soft, Nontender, no guarding, rebound or rigidity, Normoactive bowel sounds, No hepatomegaly, No splenomegaly, No palpable mass Skin: Normal temperature, tone, texture, turgor, no induration, No subcutaneous nodules, No rash, lesions, No ulcers Extremities: No digital cyanosis, No clubbing, Pedal pulses intact and symmetrical, Radial pulses intact and symmetrical, No calf tenderness Psychiatric: Alert and oriented to person, place and time, appropriate affect, intact judgement Neuro: Muscles Strength 5/5 in all 4 extremities, Sensation to light touch grossly present throughout, Cranial nerves II-XII grossly intact, no focal sensory deficits Results CBC & Chem 7: 10/11/20 14:23 10/11/20 14:23 Labs: Abnormal Lab Results - Last 24 Hours (Table) 10/11/20 10/11/20 10/11/20 Range/Units 14:23 14:23 14:23 WBC 23.7 H (3.8-10.6) k/uL RBC 2.96 L (3.80-5.40) m/uL Hgb 10.3 L D (11.4-16.0) gm/dL Hct 30.2 L (34.0-46.0) % MCV 101.9 H (80.0-100.0) fL RDW 21.9 H (11.5-15.5) % Plt Count 84 L D (150-450) k/uL Lymphocytes # (Manual) 21.57 H (1.0-4.8) k/uL Macrocytosis Marked A APTT 19.4 L (22.0-30.0) sec Chloride 109 H (98-107) mmol/L Calcium 7.6 L (8.4-10.2) mg/dL AST 69 H (14-36) U/L ALT 40 H (4-34) U/L Alkaline Phosphatase 230 H (38-126) U/L Total Protein 5.3 L (6.3-8.2) g/dL Albumin 3.3 L (3.5-5.0) g/dL Assessment and Plan Plan: Acute hypoxic respiratory failure/Shortness of breath Likely secondary to COPD exacerbation, rule out community-acquired pneumonia Check a pro calcitonin Check covid test Check MRSA screen O2 supplements as needed Solu-Medrol 60 mg every 6 hours Zosyn and vancomycin DuoNeb's Dysphagia and voice hoarseness We will use nystatin mouthwash in addition to fluconazole as empiric treatment Consult GI if no improvement History of metastatic breast cancer Continues to be on Anastrozole Currently taking chemotherapy with Palbociclib Consult oncology Thrombocytopenia Repeat count in a.m. to verify Tobacco abuse Counseled to quit Nicotine patches DVT prophylaxis Lovenox subcu She admitted to inpatient, expected length of stay more than two midnights.
[2020-10-11] MEDS: IPRATROPIUM-ALBUTEROL 3 ML NEB INHALATION SCH (19:40)
[2020-10-11] MEDS: FLUCONAZOLE 150 MG TAB PO SCH (20:22)
[2020-10-11] MEDS: methylPREDNISolone SOD SUCCI 125 MG/2 ML VIAL IV SCH ×2 (20:22→23:34)
[2020-10-11] MEDS: MAG HYDROX/AL HYDROX/SIMETH 30 ML, diphenhydrAMINE ELIXIR 75 MG, LIDOCAINE VISCOUS 30 ML PO SCH ×6 (20:22→21:18)
[2020-10-11] MEDS: PIPERACILLIN-TAZOBACTAM 3.375 GM in SODIUM CHLORIDE 0.9% 100 ML IVPB SCH (23:12)
[2020-10-12] MEDS: VANCOMYCIN 1,000 MG in SODIUM CHLORIDE 0.9% 250 ML IVPB SCH ×2 (03:31→11:30)
[2020-10-12] MEDS: methylPREDNISolone SOD SUCCI 125 MG/2 ML VIAL IV SCH ×3 (05:27→18:25)
[2020-10-12] MEDS: ENOXAPARIN 40 MG/0.4 ML SYRINGE SQ SCH (08:01)
[2020-10-12] MEDS: NICOTINE 21MG/24HR PATCH TRANSDERM SCH (08:01)
[2020-10-12] MEDS: PANTOPRAZOLE 40 MG TABLET PO SCH (08:01)
[2020-10-12] MEDS: PIPERACILLIN-TAZOBACTAM 3.375 GM in SODIUM CHLORIDE 0.9% 100 ML IVPB SCH ×2 (08:01→15:52)
[2020-10-12] MEDS: MAG HYDROX/AL HYDROX/SIMETH 30 ML, diphenhydrAMINE ELIXIR 75 MG, LIDOCAINE VISCOUS 30 ML PO SCH ×12 (08:01→22:03)
[2020-10-12] MEDS: ANASTROZOLE 1 MG TAB PO SCH (08:02)
[2020-10-12] MEDS: OLANZapine 5 MG TAB PO SCH (08:02)
[2020-10-12] MEDS: FLUCONAZOLE 150 MG TAB PO SCH (08:02)
[2020-10-12 09:10] LABS: Anisocytosis Moderate; HCT 31.6 % (34.0-46.0); HGB 10.5 gm/dL (11.4-16.0); MCH 34.5 pg (25.0-35.0); MCHC 33.4 g/dL (31.0-37.0); MCV 103.6 fL (80.0-100.0); Macrocytosis Marked; Mean Platelet Volume 9.4; RBC 3.05 m/uL (3.80-5.40); RDW 21.5 % (11.5-15.5)
[2020-10-12 09:25] LABS: Platelet Count 78 k/uL (150-450)
[2020-10-12] MEDS: IPRATROPIUM-ALBUTEROL 3 ML NEB INHALATION SCH ×4 (09:29→19:41)
[2020-10-12 09:52] LABS: Band Neutrophils % 1 %
[2020-10-12 09:54] LABS: Lymphocytes # (M) 26.19 k/uL (1.0-4.8); Monocytes # (M) 0.27 k/uL (0-1.0); Neutrophils % (M) 3 %; Nucleated Red Blood Cells 1 /100 WBC (0-0); Total Cells Counted 200
[2020-10-12 09:55] LABS: Poikilocytosis (M) Present
--- NOTE | 2020-10-12 12:26 | P.PN ---
Subjective Progress Note Date: 10/12/20 Principal diagnosis: Hypoxic respiratory failure 50-year-old female patient who continues to smoke half a pack a day and with past medical history significant for CLL as well as left-sided breast cancer with metastasis to brain, lung, bone, and liver presents for evaluation of s hortness of breath. Patient seen and examined at bedside. Patient states her breathing remains the same. Patient does not feel any better. Patient is currently on a venti mask 30% FiO2 flow rate of 6 with an oxygen saturation of 95%. Patient denies chest pain. Patient denies nausea or vomiting. COV ID [id number] PCR was negative. Objective - Vital Signs Vital signs: Vital Signs Temp 97.6 F 10/12/20 08:00 Pulse 104 H 10/12/20 09:40 Resp 20 10/12/20 08:00 BP 128/69 10/12/20 08:00 Pulse Ox 95 10/12/20 08:00 Intake & Output 10/11/20 10/12/20 10/12/20 18:59 06:59 18:59 Weight 61.235 kg Other: Voiding Method Toilet # Voids 0 3 - Exam General: [non toxic], [no distress], [appears at stated age] Derm: [warm], [dry] Head: [atraumatic], [normocephalic], [symmetric] Eyes: [EOMI], [no lid lag], [anicteric sclera] Mouth: [no lip lesion], [mucus membranes moist] Cardiovascular: [S1S2 reg], [no murmur], [positive posterior tibial pulse bilateral], Lungs: [Bilateral crackles with expiratory wheezing], [no rhonchi, no rales] , [no accessory muscle use] Abdominal: [soft], [ nontender to palpation], [no guarding], [no appreciable organomegaly] Ext: [no gross muscle atrophy], [no edema], [no contractures] Neuro: [ CN II-XI grossly intact], [no focal neuro deficits] Psych: [Alert], [oriented], [appropriate affect] - Labs CBC & Chem 7: 10/12/20 08:47 10/11/20 14:23 Labs: Abnormal Lab Results - Last 24 Hours (Table) 10/11/20 10/11/20 10/11/20 Range/Units 14:23 14:23 14:23 WBC 23.7 H (3.8-10.6) k/uL RBC 2.96 L (3.80-5.40) m/uL Hgb 10.3 L D (11.4-16.0) gm/dL Hct 30.2 L (34.0-46.0) % MCV 101.9 H (80.0-100.0) fL RDW 21.9 H (11.5-15.5) % Plt Count 84 L D (150-450) k/uL Neutrophils # (Manual) (1.3-7.7) k/uL Lymphocytes # (Manual) 21.57 H (1.0-4.8) k/uL Nucleated RBCs (0-0) /100 WBC Macrocytosis Marked A APTT 19.4 L (22.0-30.0) sec Chloride 109 H (98-107) mmol/L Calcium 7.6 L (8.4-10.2) mg/dL AST 69 H (14-36) U/L ALT 40 H (4-34) U/L Alkaline Phosphatase 230 H (38-126) U/L Total Protein 5.3 L (6.3-8.2) g/dL Albumin 3.3 L (3.5-5.0) g/dL 10/12/20 Range/Units 08:47 WBC 27.0 H (3.8-10.6) k/uL RBC 3.05 L (3.80-5.40) m/uL Hgb 10.5 L (11.4-16.0) gm/dL Hct 31.6 L (34.0-46.0) % MCV 103.6 H (80.0-100.0) fL RDW 21.5 H (11.5-15.5) % Plt Count 78 L (150-450) k/uL Neutrophils # (Manual) 1.00 L (1.3-7.7) k/uL Lymphocytes # (Manual) 26.19 H (1.0-4.8) k/uL Nucleated RBCs 1 H (0-0) /100 WBC Macrocytosis Marked A APTT (22.0-30.0) sec Chloride (98-107) mmol/L Calcium (8.4-10.2) mg/dL AST (14-36) U/L ALT (4-34) U/L Alkaline Phosphatase (38-126) U/L Total Protein (6.3-8.2) g/dL Albumin (3.5-5.0) g/dL Assessment and Plan Assessment: Acute hypoxic respiratory failure Likely secondary to COPD exacerbation, rule out community-acquired pneumonia Check a pro calcitonin covid test NEGATIVE Check MRSA screen O2 supplements as needed Solu-Medrol 60 mg every 6 hours Zosyn and vancomycin DuoNeb's Check chest x-ray Check ABG Consult pulmonary Consult ID Dysphagia and voice hoarseness nystatin mouthwash in addition to fluconazole as empiric treatment History of metastatic breast cancer Continues to be on Anastrozole Currently taking chemotherapy with Palbociclib Consult oncology Thrombocytopenia Repeat count in a.m. to verify Tobacco abuse Counseled to quit Nicotine patches DVT prophylaxis Lovenox subcu Admitted to inpatient, expected length of stay more than two midnights. CODE STATUS discussed with patient today patient is a full code Time with Patient: Greater than 30
[2020-10-12 12:36] LABS: African American GFR (CKD) 122.3 (60.0-200.0); Albumin 3.9 g/dL (3.80-4.90); Albumin/Globulin Ratio 2.79 (1.60-3.17); Anion Gap 8.7 mmol/L (4.00-12.00); Calcium 8.5 mg/dL (8.7-10.3); Carbon Dioxide 28.3 mmol/L (21.6-31.8); Globulin 1.4 g/dL (1.6-3.3); Non-African American GFR(CKD) 105.5 (60.0-200.0); Phosphorus 3.6 mg/dL (2.4-5.1); Potassium 3.8 mmol/L (3.5-5.5); Total Bilirubin 0.7 mg/dL (0.2-1.2); Total Protein 5.3 g/dL (6.2-8.2)
[2020-10-12 16:36] LABS: ABG Base Excess -0.2 mmol/L; ABG HCO3 24 mmol/L (21-25); ABG Oxygen Saturation 95.6 % (94-97); ABG PCO2 34 mmHg (35-45); ABG PH 7.45 (7.35-7.45); ABG PO2 73 mmHg (83-108); ABG TCO2 25 mmol/L (19-24)
--- NOTE | 2020-10-12 16:45 | XR ---
EXAMINATION TYPE: XR chest 1V DATE OF EXAM: 10/12/2020 COMPARISON: 09/07/2020 HISTORY: Short of breath TECHNIQUE: FINDINGS: Heart is borderline enlarged. There is mild pulmonary interstitial edema. There is large ar ea of masslike consolidation in the right midlung field. This is mostly new compared to recent exam a nd consistent with pneumonia and atelectasis. There is slight elevated right diaphragm. Trachea devia peterson slightly to the right side. There is bilateral mastectomy. There is right central venous catheter with tip in the superior vena cava. There are chest leads. IMPRESSION: There is new masslike consolidation and atelectasis in the right midlung compared to old exam. Mild right-sided volume loss. Mild pulmonary interstitial edema. I do not suspect heart failure however.
[2020-10-12] MEDS ORDERED: VANCOMYCIN TROUGH DUE 1 EACH MISC MISCELLANE ONE (17:00)
[2020-10-12] MEDS ORDERED: VANCOMYCIN 1,250 MG in SODIUM CHLORIDE 0.9% 250 ML IVPB SCH (18:00)
--- NOTE | 2020-10-12 23:08 | P.CNPUL ---
History of Present Illness Consult date: 10/12/20 Reason for consult: dyspnea, cough, pneumonia Chief complaint: Shortness of breath History of present illness: Patient is a 53-year-old female well-known to me patient has end-stage COPD, also has been diagnosis the metastatic stage IV breast cancer with the metastases to the lungs and bones brain, patient came into the hospital with cough shortness of breath, chills computed tomography scan shows large right- sided parahilar masslike lesion, small pleural effusions present not enough to tap, extensive mediastinal adenopathy was also seen, patient is currently being treated with Vanco and Zosyn Review of Systems All systems: negative Past Medical History Past Medical History: Cancer, COPD Additional Past Medical History / Comment(s): 2017 L breast cancer with bilateral mastectomies/chemo/radiation, CLL, chronic elevation WBCs, cervical pain/vertigo on and off since April 2020, brain/lung/bone/liver CA History of Any Multi-Drug Resistant Organisms: None Reported Past Surgical History: Orthopedic Surgery Additional Past Surgical History / Comment(s): 2017 Bilateral mastectomies/implant reconstruction, R thumb tendon repair, lung mass biopsy. Past Anesthesia/Blood Transfusion Reactions: No Reported Reaction Past Psychological History: Anxiety, Depression, Panic Disorder Smoking Status: Current every day smoker Past Alcohol Use History: None Reported Past Drug Use History: None Reported - Past Family History Mother Family Medical History: Cancer Additional Family Medical History / Comment(s): in her 60s with history of dementia, chronic back pain, "pre leukemia." Father Additional Family Medical History / Comment(s): Father is alive with history of diabetes. Brother(s) Additional Family Medical History / Comment(s): Patient has 2 brothers with no major medical problems. Patient has 1 sister with no major medical problems. Patient does not have any children. Medications and Allergies Home Medications Medication Instructions Recorded Confirmed Type Albuterol Sulfate [Ventolin HFA] 2 puff INHALATION RT-Q4H PRN 04/12/17 10/11/20 History clonazePAM [KlonoPIN] 0.5 mg PO DAILY PRN 04/12/17 10/11/20 History Ipratropium-Albuterol Nebulize 3 ml INHALATION RT-TID PRN 09/01/20 10/11/20 Hist ory [Duoneb 0.5 mg-3 mg/3 ml Soln] Multivitamin [Multivitamins Adult 2 tab PO DAILY 09/01/20 10/11/20 History Gummies] Ondansetron Odt [Zofran ODT] 4 mg PO Q6H PRN 09/01/20 10/11/20 History Prochlorperazine Maleate 10 mg PO Q6H PRN 09/01/20 10/11/20 History Anastrozole [Arimidex] 1 mg PO DAILY tab 09/10/20 10/11/20 Rx Furosemide [Lasix] 20 mg PO DAILY PRN #30 tab 09/10/20 10/11/20 Rx polyethylene glycoL 3350 [Miralax] 17 gm PO HS PRN #30 powd.pack 09/10/20 10/11/20 Rx Cholestyramine (with Sugar) 4 gm PO DAILY PRN 10/11/20 10/11/20 History [Cholestyramine Packet] Clotrimazole Yashira [Mycelex 10 mg MUCOUS MEM 5XD 10/11/20 10/11/20 History Yashira] Hydrocodone/Acetaminophen [[place] 1 tab PO QID PRN 10/11/20 10/11/20 History 10-325] Magic Mouth Wash 5 ml PO QID 10/11/20 10/11/20 History Nicotine 21Mg/24Hr Patch [Habitrol] 1 patch TRANSDERM DAILY 10/11/20 10/11/20 History Nystatin 100,000 Unit/ml Susp 400,000 unit PO QID PRN 10/11/20 10/11/20 History [Mycostatin Oral Susp] OLANZapine [ZyPREXA] 5 mg PO DAILY 10/11/20 10/11/20 History Omeprazole 20 mg PO BID 10/11/20 10/11/20 History Palbociclib [Ibrance] 125 mg PO DIRECTED 10/11/20 10/11/20 History Potassium Chloride ER [K-Dur 10] 10 meq PO DAILY 10/11/20 10/11/20 History methylPREDNISolone [Medrol Dose See Taper PO DIRECTED 10/11/20 10/11/20 History Pack] Allergies Allergy/AdvReac Type Severity Reaction Status Date / Time No Known Allergies Allergy Verified 10/11/20 15:01 Physical Exam Vitals: Vital Signs Temp Pulse Pulse Resp BP Pulse Ox 10/12/20 19:51 111 H 18 10/12/20 19:41 102 H 18 10/12/20 19:02 97.9 F 114 H 16 115/67 94 L 10/12/20 15:55 111 H 18 10/12/20 15:45 111 H 18 10/12/20 14:00 98.4 F 111 H 18 105/70 94 L 10/12/20 09:40 104 H 10/12/20 09:30 105 H 10/12/20 08:00 97.6 F 106 H 20 128/69 95 10/12/20 02:00 98.2 F 107 H 16 114/72 95 Intake and Output 10/12/20 10/12/20 10/13/20 14:59 22:59 06:59 Intake Total 540 Balance 540 Intake: Oral 540 Other: # Voids 3 - Constitutional General appearance: average body habitus, disheveled - EENT Eyes: PERRLA Ears: bilateral: normal - Neck Carotids: bilateral: upstroke normal - Respiratory Respiratory: right: diminished - Cardiovascular Rhythm: regular Heart sounds: normal: S1, S2 - Gastrointestinal General gastrointestinal: normal bowel sounds - Neurologic Neurologic: CNII-XII intact - Musculoskeletal Musculoskeletal: gait normal, generalized weakness, strength equal bilaterally - Psychiatric Psychiatric: A&O x's 3, appropriate affect, intact judgment & insight Results - Laboratory Findings CBC and BMP: 10/12/20 08:47 10/12/20 08:47 ABG ABG pH 7.45 (7.35-7.45) 10/12/20 16:31 ABG pCO2 34 mmHg (35-45) L 10/12/20 16:31 ABG pO2 73 mmHg (83-108) L 10/12/20 16:31 ABG O2 Saturation 95.6 % (94-97) 10/12/20 16:31 PT/INR, D-dimer PT 9.6 sec (9.0-12.0) 10/11/20 14:23 INR 0.9 (<1.2) 10/11/20 14:23 Abnormal lab findings: Abnormal Labs 10/11/20 10/11/20 10/11/20 14:23 14:23 14:23 WBC 23.7 H RBC 2.96 L Hgb 10.3 L D Hct 30.2 L MCV 101.9 H RDW 21.9 H Plt Count 84 L D Neutrophils # (Manual) Lymphocytes # (Manual) 21.57 H Nucleated RBCs Macrocytosis Marked A APTT 19.4 L ABG pCO2 ABG pO2 ABG Total CO2 Sodium Chloride 109 H Glucose Calcium 7.6 L AST 69 H ALT 40 H Alkaline Phosphatase 230 H Total Protein 5.3 L Albumin 3.3 L Globulin 10/12/20 10/12/20 10/12/20 08:47 08:47 16:31 WBC 27.0 H RBC 3.05 L Hgb 10.5 L Hct 31.6 L MCV 103.6 H RDW 21.5 H Plt Count 78 L Neutrophils # (Manual) 1.00 L Lymphocytes # (Manual) 26.19 H Nucleated RBCs 1 H Macrocytosis Marked A APTT ABG pCO2 34 L ABG pO2 73 L ABG Total CO2 25 H Sodium 146 H Chloride Glucose 176 H Calcium 8.5 L AST 48 H ALT Alkaline Phosphatase 279 H Total Protein 5.3 L Albumin Globulin 1.4 L - Diagnostic Findings Chest x-ray: report reviewed, image reviewed CT scan - chest: report reviewed, image reviewed (Finding as noted above) Assessment and Plan Assessment: Postobstructive pneumonia Small right-sided pleural effusion Metastatic stage IV breast cancer with metastases to lungs brain and bone End-stage COPD CLL Chronic SIADH Plan: Gentle rehydration Bronchodilators Broad-spectrum IV antibiotics Follow clinical course closely further recommendations pending plan of care as per his clinical response of patient Time with Patient: Greater than 30
[2020-10-13] MEDS: methylPREDNISolone SOD SUCCI 125 MG/2 ML VIAL IV SCH ×5 (01:06→23:04)
[2020-10-13] MEDS: PIPERACILLIN-TAZOBACTAM 3.375 GM in SODIUM CHLORIDE 0.9% 100 ML IVPB SCH ×4 (01:06→23:05)
--- NOTE | 2020-10-13 06:00 | CONS ---
CONSULTATION DATE OF SERVICE: 10/12/2020. REASON FOR CONSULTATION: Pneumonia. HISTORY OF PRESENT ILLNESS: The patient is a 50-year-old female with past medical history significant for metastatic breast cancer with mets to the brain, lung and bone, presenting to the ER with increasing shortness of breath. The patient has been complaining of worsening shortness of breath for the last 3 days before patient presented to the hospital. The patient also has a cough which is moderate intensity but not bringing up any sputum. Denies significant pleuritic chest pain. No nausea, no vomiting. No abdominal pain or any diarrhea. With these symptoms, the patient was evaluated by the ER physician. On arrival to the ER, the patient has been afebrile. The patient did have white count 23.7 up to 27,000 today. Urine was negative. Pina PCR was negative. Legionella negative. The patient did have a CT angiogram of the chest, which was negative for PE; however, did show right pleural effusion and extensive consultation in right upper lobe, significant mediastinal adenopathy, progression of lung disease and increased pleural fluid. The patient was started on vancomycin, Zosyn and has been added to the hospital. Infectious Disease was consulted for further management of antibiotic therapy. REVIEW OF SYSTEMS: Positive points have been mentioned in HPI. Rest of systems are negative. PAST MEDICAL HISTORY: Metastatic breast cancer, COPD. PAST SURGICAL HISTORY: Bilateral mastectomy and implant reconstruction, right thumb tendon repair, lung mass biopsy. SOCIAL HISTORY: Current everyday smoker. No drinking or drug use. FAMILY HISTORY: Mother history of dementia. Father history of diabetes. ALLERGIES: No known drug allergies. MEDICATIONS: Medications include the patient is currently on vancomycin, pharmacy to dose, Zosyn, Protonix, Zofran, Zyprexa, nicotine patch, Narcan, Solu-Medrol, fluconazole, Lovenox, Klonopin, Arimidex. PHYSICAL EXAMINATION: Her blood pressure is 115/67 with a pulse of 114, temperature 97.9. She is 94% on room air. General description is a middle-aged female up in the bed in no distress. No tachypnea or accessory muscle of respiration use. HEENT: Examination shows slight pallor. No scleral icterus. Oral mucous membrane is dry. NECK: Trachea central. No thyromegaly. LUNGS: Unlabored breathing, decreased intensity of breath sounds. No wheeze. HEART: S1, S2. Regular rate and rhythm. ABDOMEN: Soft, no tenderness. No guarding or rigidity. EXTREMITIES: No feet of examination. SKIN EXAMINATION: No rash or mass palpable. NEUROLOGICAL: Patient is awake, alert, oriented x3. Mood and affect normal. LABS: Hemoglobin 10.5, white count 27,000. BUN of 9, creatinine 0.6. Electrolytes have been normal. Lives enzymes mildly elevated. Urine is negative. Coronary PCR was negative. CT report mentioned above. DIAGNOSTIC IMPRESSION: Patient admitted to the hospital with increasing shortness of breath which is likely multifactorial in this patient with metastatic breast cancer with evidence of worsening disease on the CT angiogram and worsening right upper lobe infiltrate possible postobstructive gram-negative pneumonia. PLAN: 1. We will try to obtain sputum for Gram stain and culture. 2. We will keep the patient on Zosyn 3.375 grams q.8 hours and discontinue vancomycin to decrease risk of nephrotoxicity. 3. We will follow on clinical condition and culture to further adjust medication if needed. Thank you for this consultation. Will follow this patient along with you. MMODL / IJN: [id number] /
[2020-10-13] MEDS: PANTOPRAZOLE 40 MG TABLET PO SCH (07:41)
[2020-10-13] MEDS: OLANZapine 5 MG TAB PO SCH (07:41)
[2020-10-13] MEDS: MAG HYDROX/AL HYDROX/SIMETH 30 ML, diphenhydrAMINE ELIXIR 75 MG, LIDOCAINE VISCOUS 30 ML PO SCH ×12 (07:41→23:05)
[2020-10-13] MEDS: NICOTINE 21MG/24HR PATCH TRANSDERM SCH ×2 (07:41→07:48)
[2020-10-13] MEDS: FLUCONAZOLE 150 MG TAB PO SCH (07:41)
[2020-10-13] MEDS: ANASTROZOLE 1 MG TAB PO SCH (07:42)
[2020-10-13] MEDS: ENOXAPARIN 40 MG/0.4 ML SYRINGE SQ SCH (07:42)
[2020-10-13] MEDS: IPRATROPIUM-ALBUTEROL 3 ML NEB INHALATION SCH ×4 (08:04→20:00)
[2020-10-13 08:14] LABS: Anisocytosis Moderate; HCT 29.2 % (34.0-46.0); HGB 9.7 gm/dL (11.4-16.0); MCHC 33.3 g/dL (31.0-37.0); MCV 105.1 fL (80.0-100.0); Macrocytosis Marked; Mean Platelet Volume 9.4; RBC 2.78 m/uL (3.80-5.40); RDW 21.3 % (11.5-15.5)
[2020-10-13 08:19] LABS: Platelet Count 71 k/uL (150-450)
[2020-10-13 11:13] LABS: Lymphocytes # (M) 30.72 k/uL (1.0-4.8); Neutrophils # (M) 1.28 k/uL (1.3-7.7); Neutrophils % (M) 4 %
[2020-10-13 11:14] LABS: Monocytes # (M) 0.32 k/uL (0-1.0); Nucleated Red Blood Cells 0 /100 WBC (0-0); Total Cells Counted 200
[2020-10-13 11:15] LABS: Mixed Population RBC Present; Poikilocytosis (M) Present
[2020-10-13 11:49] LABS: African American GFR (CKD) 122.3 (60.0-200.0); Albumin 3.8 g/dL (3.80-4.90); Albumin/Globulin Ratio 2.92 (1.60-3.17); Calcium 8.5 mg/dL (8.7-10.3); Globulin 1.3 g/dL (1.6-3.3); Magnesium 2.1 mg/dL (1.5-2.4); Non-African American GFR(CKD) 105.5 (60.0-200.0); Phosphorus 4.2 mg/dL (2.4-5.1); Potassium 4.1 mmol/L (3.5-5.5); Total Bilirubin 0.5 mg/dL (0.2-1.2); Total Protein 5.1 g/dL (6.2-8.2)
--- NOTE | 2020-10-13 14:09 | P.PN ---
Subjective Progress Note Date: 10/13/20 Principal diagnosis: Hoarseness Postobstructive pneumonia Small right-sided pleural effusion Metastatic stage IV breast cancer with metastases to lungs brain and bone End-stage COPD CLL Chronic SIADH 10/13/2020, Patient being upright. Denies any chest pain respiratory status remains stable, intermittent cough is present remains hoarse patient remains on broad-spectrum antibiotics with vancomycin and Zosyn, computed tomography scan of the chest reviewed with the patient, Patient is a 53-year-old female well-known to me patient has end-stage COPD, also has been diagnosis the metastatic stage IV breast cancer with the metastases to the lungs and bones brain, patient came into the hospital with cough shortness of breath, chills computed tomography scan shows large right- sided parahilar masslike lesion, small pleural effusions present not enough to tap, extensive mediastinal adenopathy was also seen, patient is currently being treated with Vanco and Zosyn Objective - Vital Signs Vital signs: Vital Signs Temp 97.6 F 10/13/20 07:48 Pulse 108 H 10/13/20 11:48 Resp 19 10/13/20 07:48 BP 132/83 10/13/20 07:48 Pulse Ox 96 10/13/20 07:48 Intake & Output 10/12/20 10/13/20 10/13/20 18:59 06:59 18:59 Intake Total 540 Balance 540 Intake: Oral 540 Other: Voiding Method Toilet # Voids 3 2 - Exam - Constitutional General appearance: average body habitus, disheveled - EENT Eyes: PERRLA Ears: bilateral: normal - Neck Carotids: bilateral: upstroke normal - Respiratory Respiratory: right: diminished - Cardiovascular Rhythm: regular Heart sounds: normal: S1, S2 - Gastrointestinal General gastrointestinal: normal bowel sounds - Neurologic Neurologic: CNII-XII intact - Musculoskeletal Musculoskeletal: gait normal, generalized weakness, strength equal bilaterally - Psychiatric Psychiatric: A&O x's 3, appropriate affect, intact judgment & insight - Labs CBC & Chem 7: 10/13/20 07:37 10/13/20 07:37 Labs: Abnormal Lab Results - Last 24 Hours (Table) 10/12/20 10/13/20 10/13/20 Range/Units 16:31 07:37 07:37 WBC 32.0 H (3.8-10.6) k/uL RBC 2.78 L (3.80-5.40) m/uL Hgb 9.7 L (11.4-16.0) gm/dL Hct 29.2 L (34.0-46.0) % MCV 105.1 H (80.0-100.0) fL RDW 21.3 H (11.5-15.5) % Plt Count 71 L (150-450) k/uL Neutrophils # (Manual) 1.28 L (1.3-7.7) k/uL Lymphocytes # (Manual) 30.72 H (1.0-4.8) k/uL Macrocytosis Marked A ABG pCO2 34 L (35-45) mmHg ABG pO2 73 L (83-108) mmHg ABG Total CO2 25 H (19-24) mmol/L Chloride 110 H (96-109) mmol/L Glucose 124 H (70-110) mg/dL Calcium 8.5 L (8.7-10.3) mg/dL AST 53 H (13-35) U/L Alkaline Phosphatase 246 H (41-126) U/L Total Protein 5.1 L (6.2-8.2) g/dL Globulin 1.3 L (1.6-3.3) g/dL Assessment and Plan Assessment: Hoarseness Postobstructive pneumonia Small right-sided pleural effusion Metastatic stage IV breast cancer with metastases to lungs brain and bone End-stage COPD CLL Chronic SIADH Plan: May need ENT evaluation if hoarseness doesn't resolve Gentle rehydration Bronchodilators Broad-spectrum IV antibiotics Follow clinical course closely further recommendations pending plan of care as per his clinical response of patient Time with Patient: Greater than 30
--- NOTE | 2020-10-13 14:47 | P.PN ---
Subjective Progress Note Date: 10/13/20 Principal diagnosis: Hypoxic respiratory failure. 50-year-old female patient who continues to smoke half a pack a day and with past medical history significant for CLL as well as left-sided breast cancer with metastasis to brain, lung, bone, and liver presents for evaluation of shortness of breath. Patient seen and examined at bedside. Patient states her breathing has improved today. Patient is concerned about her elevated white blood cell. Patient had a prior admission and was sent to the ICU for elevated white blood cell count. Patient advised that she is on steroids which can increase the white blood cell count and Dr. Devine has been consulted for further evaluation. Objective - Vital Signs Vital signs: Vital Signs Temp 97.6 F 10/13/20 07:48 Pulse 108 H 10/13/20 11:48 Resp 19 10/13/20 07:48 BP 132/83 10/13/20 07:48 Pulse Ox 96 10/13/20 07:48 Intake & Output 10/12/20 10/13/20 10/13/20 18:59 06:59 18:59 Intake Total 540 Balance 540 Intake: Oral 540 Other: Voiding Method Toilet # Voids 3 2 - Exam General: [non toxic], [no distress], [appears at stated age] Derm: [warm], [dry] Head: [atraumatic], [normocephalic], [symmetric] Eyes: [EOMI], [no lid lag], [anicteric sclera] Mouth: [no lip lesion], [mucus membranes moist] Cardiovascular: [S1S2 reg], [no murmur], [positive posterior tibial pulse bilateral], Lungs: [Bilateral crackles with expiratory wheezing], [no rhonchi, no rales] , [no accessory muscle use] Abdominal: [soft], [ nontender to palpation], [no guarding], [no appreciable organomegaly] Ext: [no gross muscle atrophy], [no edema], [no contractures] Neuro: [ CN II-XI grossly intact], [no focal neuro deficits] Psych: [Alert], [oriented], [appropriate affect] . - Labs CBC & Chem 7: 10/13/20 07:37 10/13/20 07:37 Labs: Abnormal Lab Results - Last 24 Hours (Table) 10/12/20 10/13/2010/13/20 Range/Units 16:31 07:37 07:37 WBC 32.0 H (3.8-10.6) k/uL RBC 2.78 L (3.80-5.40) m/uL Hgb 9.7 L (11.4-16.0) gm/dL Hct 29.2 L (34.0-46.0) % MCV 105.1 H (80.0-100.0) fL RDW 21.3 H (11.5-15.5) % Plt Count 71 L (150-450) k/uL Neutrophils # (Manual) 1.28 L (1.3-7.7) k/uL Lymphocytes # (Manual) 30.72 H (1.0-4.8) k/uL Macrocytosis Marked A ABG pCO2 34 L (35-45) mmHg ABG pO2 73 L (83-108) mmHg ABG Total CO2 25 H (19-24) mmol/L Chloride 110 H (96-109) mmol/L Glucose 124 H (70-110) mg/dL Calcium 8.5 L (8.7-10.3) mg/dL AST 53 H (13-35) U/L Alkaline Phosphatase 246 H (41-126) U/L Total Protein 5.1 L (6.2-8.2) g/dL Globulin 1.3 L (1.6-3.3) g/dL Assessment and Plan Assessment: Acute hypoxic respiratory failure Likely secondary to COPD exacerbation, rule out community-acquired pneumonia covid test NEGATIVE O2 supplements as needed Solu-Medrol 60 mg every 6 hours Zosyn and vancomycin DuoNeb's pulmonary recs appreciated ID recs appreciated Dysphagia and voice hoarseness nystatin mouthwash in addition to fluconazole as empiric treatment History of metastatic breast cancer Continues to be on Anastrozole Currently taking chemotherapy with Palbociclib oncology recs appreciated Leukocystosis likely caused by above and steroids check cbc in the AM Thrombocytopenia Repeat count in a.m. to verify Tobacco abuse Counseled to quit Nicotine patches DVT prophylaxis Lovenox subcu Admitted to inpatient, expected length of stay more than two midnights. CODE STATUS discussed with patient today patient is a full code
--- NOTE | 2020-10-13 15:36 | US ---
EXAMINATION TYPE: US abdomen limited DATE OF EXAM: 10/13/2020 COMPARISON: 08/02/2020 CLINICAL HISTORY: 50-year-old female abdominal pain and distention, history of metastatic breast CA TECHNIQUE: Multiple sonographic images of the right upper quadrant are obtained. FINDINGS: EXAM MEASUREMENTS: Liver Length: 18.4 cm Gallbladder Wall: 0.6 cm CBD: 0.4 cm Right Kidney: 10.2 x 4.1 x 5.2 cm Pancreas: The tail is obscured by overlying bowel gas. Visualized portions show no gross abnormality . Liver: Mildly enlarged with innumerable hypoechoic lesions scattered throughout liver Gallbladder: Wall thickened, but no abnormal distention or shadowing calculi. Evidence for sonographic Chambers's sign: No CBD: wnl Right Kidney: wnl Acid Maker notes: No evidence of ascites fluid. IMPRESSION: 1. Diffuse hepatic metastases. 2. Gallbladder wall thickening. No surrounding fluid, hydropic change, or sonographic Chambers sign. Fi ndings could be reactive. Chronic cholecystitis is a possibility. HIDA scan if indicated. 3. No biliary ductal dilatation.
[2020-10-13 17:05] LABS: Anisocytosis Moderate; HGB 10.5 gm/dL (11.4-16.0); MCH 34.6 pg (25.0-35.0); MCHC 32.7 g/dL (31.0-37.0); MCV 105.6 fL (80.0-100.0); Macrocytosis Marked; Mean Platelet Volume 10.3; RBC 3.03 m/uL (3.80-5.40); RDW 22.3 % (11.5-15.5); WBC 35.8 k/uL (3.8-10.6)
[2020-10-13 17:22] LABS: Platelet Count 67 k/uL (150-450)
--- NOTE | 2020-10-13 17:23 | P.CONS ---
History of Present Illness - Reason for Consult Consult date: 10/13/20 breast cancer Requesting physician: Bayron De Oliveira - Chief Complaint dysphagia, cough - History of Present Illness Mrs. das is a very pleasant female with a complicated medical history including frequent recurrent upper respiratory infections including pneumonia. She was referred to hematology for high MCV felt to be related to prior EtOH use and high hemoglobin secondary to smoking. Flow cytometry confirmed a monoclonal population, consistent with CLL. She had normal fish, borderline high ZAP 70 11%, IgG in the 400 range. She was placed on observation. Patient then had complaints of pain and swelling in the left breast, she had an FNA 11/04/16 pos itive for malignancy, core biopsy 11/09/16 confirming invasive ductal carcinoma, grade 3, ER/LA positive, HER-2 negative by fish. Admitted [facility] on 11/17/16 with increasing pain and swelling, breast mass had increased, new left axillary lymph node. Additional biopsies were done, both positive for invasive ductal carcinoma. CT CAP showed nonspecific nodes in the mediastinum, some sclerosis in the bones, T5 was positive on nuclear medicine bone scan. Intent was curative, even if oligometastatic disease at T5 was present. She completed DD AC and Taxol late 03/09. She proceeded to b/l mastectomy with left axillary dissection on 04/20/17, revealing a pCR for invasive cancer on the left. Residual DCIS was noted. Nodes were positive for CLL, but negative for breast ca. Rt breast was negative. She had reconstruction. BRCA testing was was negative. Completed RT on 08/08/17, but refused RT to T5, initially. She was persuaded to do so, and ultimately completed than in late 09/09. She was admitted to [facility] in late 10/09 with back pain and SOB. She was diagnosed with possible radiation pneumonitis, and treated with a steroid taper. She was then started on tamoxifen in 10/09. She stopped following up in the office after 11/10. She was seen in consultation at [facility] 08/12. She had been admitted with neck and back pain as well as episodes of dizziness and near-syncope. The patient stated that she stopped following up on her own accord as she was having some "personal issues". She stated that she also stopped taking the tamoxifen soon aft her last visit in the office in 11/10. Workup revealed a new medial right upper lobe mass, hilar, extending into the mediastinum and encasing the trachea and right mainstem bronchus, as well as proximal left mainstem bronchus, subcarinal soft tissue and left hilar adenopathy, multiple liver and bone lesions. She was started on Arimidex while inpatient in August. She was then started on Ibrance has completed 1 21 day cycle. She was seen in [facility] 10/07, hydration ordered, stool studies, swallow evaluation. Treated for thrush and mucositis. Given medrol dosepack, nebulizer and nicotine patches. Patient now admitted with dysphagia and voice changes. No recent fevers, vomiting, chest pain, acute changes in bowel or bladder habits. Review of Systems 14 point ROS is negative except as stated in HPI Past Medical History Past Medical History: Cancer, COPD Additional Past Medical History / Comment(s): 2016 L breast cancer with bilateral mastectomies/chemo/radiation, CLL, chronic elevation WBCs, cervical pain/vertigo on and off since April 2020, brain/lung/bone/liver CA History of Any Multi-Drug Resistant Organisms: None Reported Past Surgical History: Orthopedic Surgery Additional Past Surgical History / Comment(s): 2016 Bilateral mastectomies/implant reconstruction, R thumb tendon repair, lung mass biopsy. Past Anesthesia/Blood Transfusion Reactions: No Reported Reaction Past Psychological History: Anxiety, Depression, Panic Disorder Smoking Status: Current every day smoker Past Alcohol Use History: None Reported Past Drug Use History: None Reported - Past Family History Mother Family Medical History: Cancer Additional Family Medical History / Comment(s): in her 60s with history of dementia, chronic back pain, "pre leukemia." Father Additional Family Medical History / Comment(s): Father is alive with history of diabetes. Brother(s) Additional Family Medical History / Comment(s): Patient has 2 brothers with no major medical problems. Patient has 1 sister with no major medical problems. Patient does not have any children. Medications and Allergies Home Medications Medication Instructions Recorded Confirmed Type Albuterol Sulfate [Ventolin HFA] 2 puff INHALATION RT-Q4H PRN 04/12/17 10/11/20 History clonazePAM [KlonoPIN] 0.5 mg PO DAILY PRN 04/12/17 10/11/20 History Ipratropium-Albuterol Nebulize 3 ml INHALATION RT-TID PRN 09/01/20 10/11/20 History [Duoneb 0.5 mg-3 mg/3 ml Soln] Multivitamin [Multivitamins Adult 2 tab PO DAILY 09/01/20 10/11/20 History Gummies] Ondansetron Odt [Zofran ODT] 4 mg PO Q6H PRN 09/01/20 10/11/20 History Prochlorperazine Maleate 10 mg PO Q6H PRN 09/01/20 10/11/20 History Anastrozole [Arimidex] 1 mg PO DAILY tab 09/10/20 10/11/20 Rx Furosemide [Lasix] 20 mg PO DAILY PRN #30 tab 09/10/20 10/11/20 Rx polyethylene glycoL 3350 [Miralax] 17 gm PO HS PRN #30 powd.pack 09/10/20 10/11/20 Rx Cholestyramine (with Sugar) 4 gm PO DAILY PRN 10/11/20 10/11/20 History [Cholestyramine Packet] Clotrimazole Yashira [Mycelex 10 mg MUCOUS MEM 5XD 10/11/20 10/11/20 History Yashira] Hydrocodone/Acetaminophen [[place] 1 tab PO QID PRN 10/11/20 10/11/20 History 10-325] Magic Mouth Wash 5 ml PO QID 10/11/20 10/11/20 History Nicotine 21Mg/24Hr Patch [Habitrol] 1 patch TRANSDERM DAILY 10/11/20 10/11/20 History Nystatin 100,000 Unit/ml Susp 400,000 unit PO QID PRN 10/11/20 10/11/20 History [Mycostatin Oral Susp] OLANZapine [ZyPREXA] 5 mg PO DAILY 10/11/20 10/11/20 History Omeprazole 20 mg PO BID 10/11/20 10/11/20 History Palbociclib [Ibrance] 125 mg PO DIRECTED 10/11/20 10/11/20 History Potassium Chloride ER [K-Dur 10] 10 meq PO DAILY 10/11/20 10/11/20 History methylPREDNISolone [Medrol Dose See Taper PO DIRECTED 10/11/20 10/11/20 History Pack] Allergies Allergy/AdvReac Type Severity Reaction Status Date / Time No Known Allergies Allergy Verified 10/11/20 15:01 Physical Exam Vitals: Vital Signs Temp Pulse Pulse Resp BP Pulse Ox 10/13/20 08:18 104 H 10/13/20 08:04 100 10/13/20 07:48 97.6 F 100 19 132/83 96 10/13/20 01:13 98.2 F 107 H 16 111/74 93 L 10/12/20 19:51 111 H 18 10/12/20 19:41 102 H 18 10/12/20 19:37 18 10/12/20 19:02 97.9 F 114 H 16 115/67 94 L 10/12/20 15:55 111 H 18 10/12/20 15:45 111 H 18 10/12/20 14:00 98.4 F 111 H 18 105/70 94 L 10/12/20 09:40 104 H 10/12/20 09:30 105 H Intake and Output 10/12/20 10/13/20 10/13/20 22:59 06:59 14:59 Intake Total 540 Balance 540 Intake: Oral 540 Other: Voiding Method Toilet # Voids 3 2 - Constitutional General appearance: average body habitus, cooperative, no acute distress - EENT hoarse voice Eyes: anicteric sclerae, edentulous ENT: hearing grossly normal, normal oropharynx - Neck Neck: no lymphadenopathy - Respiratory Respiratory: bilateral: rhonchi (scattered) - Cardiovascular Heart sounds: normal: S1, S2 Abnormal Heart Sounds: no systolic murmur, no diastolic murmur, no rub, no S3 Gallop, no S4 Gallop, no click, no other leg Peripheral Edema: bilateral: Trace - Gastrointestinal General gastrointestinal: no absent bowel sounds, no decreased bowel sounds, distended, no hepatomegaly, no hyperactive bowel sounds, normal bowel sounds, no organomegaly, no rigid, no scaphoid, soft, no splenomegaly, no tenderness, no umbilical hernia, no ventral hernia - Neurologic Neurologic: CNII-XII intact - Musculoskeletal Musculoskeletal: generalized weakness - Psychiatric Psychiatric: A&O x's 3, appropriate affect, intact judgment & insight Results CBC & Chem 7: 10/13/20 07:37 10/13/20 07:37 Labs: Abnormal Lab Results - Last 24 Hours (Table) 10/12/20 10/12/20 10/12/20 Range/Units 08:47 08:47 16:31 WBC 27.0 H (3.8-10.6) k/uL RBC 3.05 L (3.80-5.40) m/uL Hgb 10.5 L (11.4-16.0) gm/dL Hct 31.6 L (34.0-46.0) % MCV 103.6 H (80.0-100.0) fL RDW 21.5 H (11.5-15.5) % Plt Count 78 L (150-450) k/uL Neutrophils # (Manual) 1.00 L (1.3-7.7) k/uL Lymphocytes # (Manual) 26.19 H (1.0-4.8) k/uL Nucleated RBCs 1 H (0-0) /100 WBC Macrocytosis Marked A ABG pCO2 34 L (35-45) mmHg ABG pO2 73 L (83-108) mmHg ABG Total CO2 25 H (19-24) mmol/L Sodium 146 H (135-145) mmol/L Glucose 176 H (70-110) mg/dL Calcium 8.5 L (8.7-10.3) mg/dL AST 48 H (13-35) U/L Alkaline Phosphatase 279 H (41-126) U/L Total Protein 5.3 L (6.2-8.2) g/dL Globulin 1.4 L (1.6-3.3) g/dL // Range/Units 07:37 WBC 32.0 H (3.8-10.6) k/uL RBC 2.78 L (3.80-5.40) m/uL Hgb 9.7 L (11.4-16.0) gm/dL Hct 29.2 L (34.0-46.0) % MCV 105.1 H (80.0-100.0) fL RDW 21.3 H (11.5-15.5) % Plt Count (150-450) k/uL Neutrophils # (Manual) (1.3-7.7) k/uL Lymphocytes # (Manual) (1.0-4.8) k/uL Nucleated RBCs (0-0) /100 WBC Macrocytosis Marked A ABG pCO2 (35-45) mmHg ABG pO2 (83-108) mmHg ABG Total CO2 (19-24) mmol/L Sodium (135-145) mmol/L Glucose (70-110) mg/dL Calcium (8.7-10.3) mg/dL AST (13-35) U/L Alkaline Phosphatase (41-126) U/L Total Protein (6.2-8.2) g/dL Globulin (1.6-3.3) g/dL Chest x-ray: report reviewed CT scan - chest: report reviewed Assessment and Plan (1) Breast cancer Current Visit: Yes Status: Chronic Priority: High Code(s): C50.919 - M ALIGNANT NEOPLASM OF UNSP SITE OF UNSPECIFIED FEMALE BREAST SNOMED Code(s): 870477227 (2) Metastatic cancer Current Visit: Yes Status: Chronic Priority: High Code(s): C79.9 - SECONDARY MALIGNANT NEOPLASM OF UNSPECIFIED SITE SNOMED Code(s): 576506992 Plan: Patient is only status post her first cycle of oral CDK 4/6 treatment. Unfortunately, there are not going to be significant changes in her malignancy right away. Tumor markers have been ordered. Speech evaluation. Spoke with his Speech Therapist, patient's diet is going to have to be modified. ENT consult Ultrasound of the abdomen due to distention. Antibiotics for treatment of a right lower lobe pneumonia/?aspiration pneumonia, per Attending. Doctor attests: I performed a history and physical examination of this patient, developed impression and plan of care, discussed with dictator. I agree with dictators note, documented as a scribe.
[2020-10-13 18:06] LABS: Lymphocytes # (M) 32.94 k/uL (1.0-4.8); Neutrophils % (M) 8 %
[2020-10-13 18:07] LABS: Anisocytosis (M) Present; Band Neutrophils % 1 %; Nucleated Red Blood Cells 0 /100 WBC (0-0); Polychromasia Present; Total Cells Counted 200
--- NOTE | 2020-10-13 23:29 | PN ---
PROGRESS NOTE DATE OF SERVICE: 10/13/2020 REASON FOR FOLLOWUP: Pneumonia. INTERVAL HISTORY: The patient is currently afebrile. Still complaining of shortness of breath. He did have a cough, not bringing up any sputum. No nausea, no vomiting. No abdominal pain. No diarrhea. PHYSICAL EXAMINATION: Blood pressure 119/67, pulse of 117, temperature 97.9. She is 90% on room air. General description is a middle-aged female up in the bed in no distress. Respiratory system: Unlabored breathing with decreased breath sounds in the base, with no wheeze. Heart S1, S2. Regular rate and rhythm. ABDOMEN: Soft, no tenderness. Extremities: No edema of the feet. LABS: BUN of 12, creatinine 0.6, white count blood culture 35,000. DIAGNOSTIC IMPRESSION AND PLAN: Patient admitted to the hospital with shortness of breath which is multifactorial in this patient who did have metastatic lung cancer and concern for possible postobstructive pneumonia. Worsening white count more likely steroid related as no evidence of any worsening in clinical condition. Continue Zosyn. Try to obtain a sputum to narrow down antibiotics. Continue supportive care. MMODL / IJN: [id number] /
[2020-10-14] MEDS: methylPREDNISolone SOD SUCCI 125 MG/2 ML VIAL IV SCH ×3 (05:04→16:59)
[2020-10-14] MEDS: IPRATROPIUM-ALBUTEROL 3 ML NEB INHALATION SCH ×5 (08:47→23:21)
[2020-10-14] MEDS: ENOXAPARIN 40 MG/0.4 ML SYRINGE SQ SCH (09:37)
[2020-10-14] MEDS: NICOTINE 21MG/24HR PATCH TRANSDERM SCH (09:37)
[2020-10-14] MEDS: PIPERACILLIN-TAZOBACTAM 3.375 GM in SODIUM CHLORIDE 0.9% 100 ML IVPB SCH ×2 (09:37→16:59)
[2020-10-14] MEDS: PANTOPRAZOLE 40 MG TABLET PO SCH (09:37)
[2020-10-14] MEDS: ANASTROZOLE 1 MG TAB PO SCH (09:38)
[2020-10-14] MEDS: OLANZapine 5 MG TAB PO SCH (09:38)
[2020-10-14] MEDS: FLUCONAZOLE 150 MG TAB PO SCH (09:39)
--- NOTE | 2020-10-14 09:48 | FL ---
EXAMINATION TYPE: FL barium swallow w video DATE OF EXAM: 10/14/2020 COMPARISON: NONE HISTORY: Dysphagia, evaluate for aspiration. FINDINGS: Patient was evaluated in real-time fluoroscopy in the lateral projection while ingesting barium mixe d with liquids and solids. No aspiration or laryngeal penetration. Vallecular residuals are noted. Delayed initiation of swallowing is also present. 2 minutes 9 seconds fluoroscopy time. No images obtained. See dictated report from speech pathology.
[2020-10-14 11:10] LABS: Anisocytosis Moderate; HGB 10.3 gm/dL (11.4-16.0); MCH 35.5 pg (25.0-35.0); MCHC 33.4 g/dL (31.0-37.0); MCV 106.1 fL (80.0-100.0); Macrocytosis Marked; Mean Platelet Volume 9.5; Platelet Count 70 k/uL (150-450); RBC 2.92 m/uL (3.80-5.40); RDW 21.7 % (11.5-15.5); WBC 39.1 k/uL (3.8-10.6)
[2020-10-14 11:26] LABS: Glucose,Whole Blood 195 mg/dL (75-99)
[2020-10-14] MEDS: MAG HYDROX/AL HYDROX/SIMETH 30 ML, diphenhydrAMINE ELIXIR 75 MG, LIDOCAINE VISCOUS 30 ML PO SCH ×12 (11:34→21:36)
[2020-10-14 11:45] LABS: Lymphocytes # (M) 35.58 k/uL (1.0-4.8); Monocytes # (M) 0.39 k/uL (0-1.0); Neutrophils # (M) 3.52 k/uL (1.3-7.7); Neutrophils % (M) 9 %; Nucleated Red Blood Cells 0 /100 WBC (0-0); Total Cells Counted 200
--- NOTE | 2020-10-14 13:05 | P.PN ---
Subjective Progress Note Date: 10/14/20 Principal diagnosis: Hoarseness Postobstructive pneumonia Small right-sided pleural effusion Metastatic stage IV breast cancer with metastases to lungs brain and bone End-stage COPD CLL Chronic SIADH 10/14/2020 patient sitting upright on the bed breathing is slightly better than before, denies any sputum production, is still hoarse and aphonia, 10/13/2020, Patient being upright. Denies any chest pain respiratory status remains stable, intermittent cough is present remains hoarse patient remains on broad-spectrum antibiotics with vancomycin and Zosyn, computed tomography scan of the chest reviewed with the patient, Patient is a 53-year-old female well-known to me patient has end-stage COPD, also has been diagnosis the metastatic stage IV breast cancer with the m etastases to the lungs and bones brain, patient came into the hospital with cough shortness of breath, chills computed tomography scan shows large right- sided parahilar masslike lesion, small pleural effusions present not enough to tap, extensive mediastinal adenopathy was also seen, patient is currently being treated with Vanco and Zosyn Objective - Vital Signs Vital signs: Vital Signs Temp 97.8 F 10/14/20 08:00 Pulse 108 H 10/14/20 13:01 Resp 20 10/14/20 08:00 BP 126/83 10/14/20 08:00 Pulse Ox 92 L 10/14/20 08:00 Intake & Output 10/13/20 10/14/20 10/14/20 18:59 06:59 18:59 Other: Voiding Method Toilet Toilet # Voids 2 1 - Exam - Constitutional General appearance: average body habitus, disheveled - EENT Eyes: PERRLA Ears: bilateral: normal - Neck Carotids: bilateral: upstroke normal - Respiratory Respiratory: right: diminished - Cardiovascular Rhythm: regular Heart sounds: normal: S1, S2 - Gastrointestinal General gastrointestinal: normal bowel sounds - Neurologic Neurologic: CNII-XII intact - Musculoskeletal Musculoskeletal: gait normal, generalized weakness, strength equal bilaterally - Psychiatric Psychiatric: A&O x's 3, appropriate affect, intact judgment & insight - Labs CBC & Chem 7: 10/14/20 10:53 10/13/20 07:37 Labs: Abnormal Lab Results - Last 24 Hours (Table) 10/13/20 10/14/20 10/14/20 Range/Units 15:13 10:53 11:24 WBC 35.8 H 39.1 H (3.8-10.6) k/uL RBC 3.03 L 2.92 L (3.80-5.40) m/uL Hgb 10.5 L 10.3 L (11.4-16.0) gm/dL Hct 32.0 L 31.0 L (34.0-46.0) % MCV 105.6 H 106.1 H (80.0-100.0) fL MCH 35.5 H (25.0-35.0) pg RDW 22.3 H 21.7 H (11.5-15.5) % Plt Count 67 L 70 L (150-450) k/uL Lymphocytes # (Manual) 32.94 H 35.58 H (1.0-4.8) k/uL Macrocytosis Marked A Marked A POC Glucose (mg/dL) 195 H (75-99) mg/dL Assessment and Plan Assessment: Hoarseness/aphonia Postobstructive pneumonia Small right-sided pleural effusion Metastatic stage IV breast cancer with metastases to lungs brain and bone End-stage COPD CLL Chronic SIADH Plan: May need ENT evaluation if hoarseness doesn't resolve for direct laryngoscopy to rule out vocal cord paralysis Gentle rehydration Bronchodilators Broad-spectrum IV antibiotics Follow clinical course closely further recommendations pending plan of care as per his clinical response of patient Time with Patient: Greater than 30
--- NOTE | 2020-10-14 13:42 | P.PN ---
Subjective Progress Note Date: 10/14/20 Pt appears frustrated and sad today. Continues to have hoarse voice. Laments missing BFs sons due to hospitalization; this is her fourth hospitalization since july. Objective - Vital Signs Vital signs: Vital Signs Temp 97.8 F 10/14/20 08:00 Pulse 108 H 10/14/20 13:01 Resp 20 10/14/20 08:00 BP 126/83 10/14/20 08:00 Pulse Ox 92 L 10/14/20 08:00 Intake & Output 10/13/20 10/14/20 10/14/20 18:59 06:59 18:59 Other: Voiding Method Toilet Toilet # Voids 2 1 - Exam Gen: awake, alert HEENT: normocephalic, atraumatic, good hearing acuity, moist mucous membranes Resp: Diffuse coarse breath sounds, end expiratory wheezing, rhonchi CVS: good distal perfusion x 4, tachycardic, no appreciable murmurs GI: soft, NTTP, ND : no SPT, no CVAT, willams catheter is present MSK: + pitting edema, no clubbing Neuro: non-focal, moving all extremities Psych: cooperative, euthymic mood - Labs CBC & Chem 7: 10/14/20 10:53 10/13/20 07:37 Labs: Abnormal Lab Results - Last 24 Hours (Table) 10/13/20 10/14/20 10/14/20 Range/Units 15:13 10:53 11:24 WBC 35.8 H 39.1 H (3.8-10.6) k/uL RBC 3.03 L 2.92 L (3.80-5.40) m/uL Hgb 10.5 L 10.3 L (11.4-16.0) gm/dL Hct 32.0 L 31.0 L (34.0-46.0) % MCV 105.6 H 106.1 H (80.0-100.0) fL MCH 35.5 H (25.0-35.0) pg RDW 22.3 H 21.7 H (11.5-15.5) % Plt Count 67 L 70 L (150-450) k/uL Lymphocytes # (Manual) 32.94 H 35.58 H (1.0-4.8) k/uL Macrocytosis Marked A Marked A POC Glucose (mg/dL) 195 H (75-99) mg/dL Assessment and Plan Assessment: 1. Acute Hypoxemic Respiratory Failure 2. COPD Exacerbation 3. Community Acquired Pneumonia 4. Dysphagia 5. Metastatic Breast Cancer to lungs, brain, and bone 6. Tobacco Abuse 7. CLL 8. Chronic SIADH 50 year old woman with history of metastatic breast cancer to lungs, brain, bone, tobacco abuse, CLL, chronic SIADH presented with acute hypoxemic respiratory failure with evidence of pneumonia on CXR as well as concern for superimposed COPD exacerbation. Acute hypoxic respiratory failure Likely secondary to COPD exacerbation, rule out community-acquired pneumonia covid test NEGATIVE O2 supplements as needed Solu-Medrol 60 mg every 6 hours Teodoro Turner's pulmonary recs appreciated ID recs appreciated restart lasix 20mg PO daily Dysphagia and voice hoarseness nystatin mouthwash in addition to fluconazole as empiric treatment History of metastatic breast cancer Continues to be on Anastrozole Currently taking chemotherapy with Palbociclib oncology recs appreciated Leukocystosis likely caused by above and steroids check cbc in the AM Thrombocytopenia Repeat count in a.m. to verify Tobacco abuse Counseled to quit Nicotine patches DVT prophylaxis Lovenox subcu Admitted to inpatient, expected length of stay more than two midnights. CODE STATUS discussed with patient today patient is a full code
[2020-10-14] MEDS: FUROSEMIDE 10 MG/ML 2 ML VIAL IV SCH (14:18)
[2020-10-14] MEDS: POTASSIUM CHLORIDE ER 10 MEQ TAB.ER.PRT PO SCH (14:18)
[2020-10-14 16:48] LABS: Glucose,Whole Blood 121 mg/dL (75-99)
--- NOTE | 2020-10-14 19:00 | P.PN ---
Subjective Progress Note Date: 10/14/20 Principal diagnosis: SOB, metastatic breast cancer In f/u today pt was being counseled by Speech Therapist-no aspiration on swallow evaluation-but, pt does need modified diet to aid is swallowing. Pt voice is still hoarse, she is tolerating diet, she is on 6L NC, she is not on O2 at home prior to this visit. Pt is asking for lasix and potassium as she feels swelling up to her waist. No N,V,D, pain. Objective - Vital Signs Vital signs: Vital Signs Temp 97.8 F 10/14/20 08:00 Pulse 108 H 10/14/20 13:01 Resp 20 10/14/20 08:00 BP 126/83 10/14/20 08:00 Pulse Ox 92 L 10/14/20 08:00 Intake & Output 10/13/20 10/14/20 10/14/20 18:59 06:59 18:59 Other: Voiding Method Toilet Toilet # Voids 2 1 - Constitutional General appearance: Present: average body habitus, cooperative, no acute distress - EENT Eyes: Present: anicteric sclerae, EOMI ENT: Present: hearing grossly normal - Respiratory Respiratory: bilateral: rhonchi (R>L) - Cardiovascular Heart sounds: normal: S1, S2 Abnormal Heart Sounds: Absent: systolic murmur, diastolic murmur, rub, S3 Gall op, S4 Gallop, click, other - Peripheral edema leg Peripheral Edema: bilateral: 1+ - Gastrointestinal General gastrointestinal: Present: normal bowel sounds, soft - Neurologic Neurologic: Present: CNII-XII intact - Musculoskeletal Musculoskeletal: Present: strength equal bilaterally - Psychiatric Psychiatric: Present: A&O x's 3, appropriate affect, intact judgment & insight - Labs CBC & Chem 7: 10/14/20 10:53 10/13/20 07:37 Labs: Abnormal Lab Results - Last 24 Hours (Table) 10/13/20 10/14/20 10/14/20 Range/Units 15:13 10:53 11:24 WBC 35.8 H 39.1 H (3.8-10.6) k/uL RBC 3.03 L 2.92 L (3.80-5.40) m/uL Hgb 10.5 L 10.3 L (11.4-16.0) gm/dL Hct 32.0 L 31.0 L (34.0-46.0) % MCV 105.6 H 106.1 H (80.0-100.0) fL MCH 35.5 H (25.0-35.0) pg RDW 22.3 H 21.7 H (11.5-15.5) % Plt Count 67 L 70 L (150-450) k/uL Lymphocytes # (Manual) 32.94 H 35.58 H (1.0-4.8) k/uL Macrocytosis Marked A Marked A POC Glucose (mg/dL) 195 H (75-99) mg/dL - Imaging and Cardiology videofluoroscopic swallow report reviewed. Assessment and Plan (1) Breast cancer Narrative/Plan: Patient just completed her first cycle of Ibrance, she continues on Femara. With oral therapy, significant change in disease can take some time. She is currently on her week off. Anticipate that we will have patient resumed treatment on schedule. Her current condition is not felt to be a side effect of treatment. Continuing on treatment may potentially help her symptoms if they are malignant related. It is been a challenge thus far to identify the underlying cause. Still pending some workup. Current Visit: Yes Status: Chronic Priority: High Code(s): C50.919 - MALIGNANT NEOPLASM OF UNSP SITE OF UNSPECIFIED FEMALE BREAST SNOMED Code(s): 065368860 (2) Metastatic cancer Current Visit: Yes Status: Chronic Priority: High Code(s): C79.9 - SECONDARY MALIGNANT NEOPLASM OF UNSPECIFIED SITE SNOMED Code(s): 775302975 Plan: Tumor markers have been ordered. Spoke with his Speech Therapist, patient's diet is going to have to be modified but, no evidence of aspiration on exam. ENT consult-carolann be postponed until outpt. Pt is stable, she is not aspirating. Offered transfer but pt did not want to be transferred out to another facility for ENT evaluation. She feels that if she can eat and drink she will f/u outpt. Spoke with Speech Therapist who will help with f/u appt in outpt setting Ultrasound of the abdomen due to distention. No gross abnormalities or ascites. Likely pt experiencing anasarca as she has previously. Reordered lasix and KCL Antibiotics for treatment of a right lower lobe pneumonia per Attending. Pt was not on O2 prior to admit. Will see how well her breathing improves with treatment. Daily f/u. Doctor attests: I performed a history and physical examination of this patient, developed impression and plan of care, discussed with dictator. I agree with dictators note, documented as a scribe.
[2020-10-14 20:21] LABS: African American GFR (CKD) 122.3 (60.0-200.0); Albumin 3.9 g/dL (3.80-4.90); BUN/Creat Ratio 21.67 Ratio (12.00-20.00); Calcium 8.3 mg/dL (8.7-10.3); Cancer Antigen 153 79.1 U/mL (0.0-32.3); Globulin 1.3 g/dL (1.6-3.3); Non-African American GFR(CKD) 105.5 (60.0-200.0); Potassium 3.7 mmol/L (3.5-5.5); Total Bilirubin 0.5 mg/dL (0.3-1.2); Total Protein 5.2 g/dL (6.2-8.2)
[2020-10-14 20:28] LABS: Glucose,Whole Blood 144 mg/dL (75-99)
--- NOTE | 2020-10-14 23:08 | PN ---
PROGRESS NOTE DATE OF SERVICE: 10/14/2020 REASON: Pneumonia. INTERVAL HISTORY: The patient is currently afebrile. Denies having any chest pain. did have a cough, moderate intensity, not bringing up sputum. No vomiting or diarrhea. EXAMINATION: Blood pressure 144/86, pulse 104 temperature 97.7. He is 100% on 2 L nasal cannula. General description is a middle-aged female, up in the bed, in no distress. Respiratory system: Unlabored breathing. Bilateral expiratory wheeze. Heart S1, S2. Regular rate and rhythm. ABDOMEN: Soft, no tenderness. LABS: Hemoglobin 10.1, white count 39.1, BUN of 13, creatinine 0.6. DIAGNOSTIC IMPRESSION AND PLAN: Patient with elevated white count which is multifactorial with possible component of pneumonia plus minus steroid effect. Patient is covered with Zosyn to continue. Blood culture and will try to obtain a sputum to narrow down antibiotics and continue supportive care. MMODL / IJN: [id number] /
[2020-10-15] MEDS: methylPREDNISolone SOD SUCCI 125 MG/2 ML VIAL IV SCH ×4 (00:42→18:19)
[2020-10-15] MEDS: PIPERACILLIN-TAZOBACTAM 3.375 GM in SODIUM CHLORIDE 0.9% 100 ML IVPB SCH ×3 (00:43→15:03)
[2020-10-15] MEDS: IPRATROPIUM-ALBUTEROL 3 ML NEB INHALATION SCH ×5 (02:50→21:12)
[2020-10-15 06:53] LABS: Glucose,Whole Blood 196 mg/dL (75-99)
[2020-10-15] MEDS: MAG HYDROX/AL HYDROX/SIMETH 30 ML, diphenhydrAMINE ELIXIR 75 MG, LIDOCAINE VISCOUS 30 ML PO SCH ×12 (08:35→22:17)
[2020-10-15] MEDS: FLUCONAZOLE 150 MG TAB PO SCH (08:35)
[2020-10-15] MEDS: FUROSEMIDE 10 MG/ML 2 ML VIAL IV SCH (08:35)
[2020-10-15] MEDS: ENOXAPARIN 40 MG/0.4 ML SYRINGE SQ SCH (08:35)
[2020-10-15] MEDS: NICOTINE 21MG/24HR PATCH TRANSDERM SCH (08:35)
[2020-10-15] MEDS: PANTOPRAZOLE 40 MG TABLET PO SCH (08:36)
[2020-10-15] MEDS: OLANZapine 5 MG TAB PO SCH (08:36)
[2020-10-15] MEDS: ANASTROZOLE 1 MG TAB PO SCH (08:36)
[2020-10-15] MEDS: POTASSIUM CHLORIDE ER 10 MEQ TAB.ER.PRT PO SCH (08:36)
[2020-10-15 11:15] LABS: African American GFR (CKD) 116.3 (60.0-200.0); Albumin 3.8 g/dL (3.80-4.90); Albumin/Globulin Ratio 2.92 (1.60-3.17); Anion Gap 15.5 mmol/L (4.00-12.00); BUN/Creat Ratio 21.43 Ratio (12.00-20.00); Calcium 7.8 mg/dL (8.7-10.3); Carbon Dioxide 22.5 mmol/L (21.6-31.8); Globulin 1.3 g/dL (1.6-3.3); Non-African American GFR(CKD) 100.3 (60.0-200.0); Potassium 3.4 mmol/L (3.5-5.5); Total Bilirubin 0.6 mg/dL (0.2-1.2); Total Protein 5.1 g/dL (6.2-8.2)
--- NOTE | 2020-10-15 11:42 | P.PN ---
Subjective Progress Note Date: 10/15/20 Pt has not gotten much worse or better today. Continues to have oxygen requirement, tight chest. Objective - Vital Signs Vital signs: Vital Signs Temp 97.8 F 10/15/20 07:27 Pulse 104 H 10/15/20 07:27 Resp 19 10/15/20 07:27 BP 146/87 10/15/20 07:27 Pulse Ox 94 L 10/15/20 07:27 Intake & Output 10/14/20 10/15/20 10/15/20 18:59 06:59 18:59 Other: Voiding Method Toilet Toilet Toilet # Voids 3 3 - Exam Gen: awake, alert HEENT: normocephalic, atraumatic, good hearing acuity, moist mucous membranes Resp: Diffuse coarse breath sounds, end expiratory wheezing, rhonchi CVS: good distal perfusion x 4, tachycardic, no appreciable murmurs GI: soft, NTTP, ND : no SPT, no CVAT, willams catheter is present MSK: + pitting edema, no clubbing Neuro: non-focal, moving all extremities Psych: cooperative, euthymic mood - Labs CBC & Chem 7: 10/14/20 10:53 10/15/20 06:06 Labs: Abnormal Lab Results - Last 24 Hours (Table) 10/14/20 10/14/20 10/14/20 Range/Units 10:53 10:53 10:53 Lymphocytes # (Manual) 35.58 H (1.0-4.8) k/uL Sodium 149 H (135-145) mmol/L Potassium (3.5-5.5) mmol/L Anion Gap 17.00 H (4.00-12.00) mmol/L BUN/Creatinine Ratio 21.67 H (12.00-20.00) Ratio Glucose 167 H (70-110) mg/dL POC Glucose (mg/dL) (75-99) mg/dL Calcium 8.3 L (8.7-10.3) mg/dL AST 64 H (13-35) U/L ALT 48 H (8-44) U/L Alkaline Phosphatase 249 H (41-126) U/L Total Protein 5.2 L (6.2-8.2) g/dL Globulin 1.3 L (1.6-3.3) g/dL CA 15-3 Antigen 79.1 H (0.0-32.3) U/mL CA 27-29 139.2 H (0.0-38.5) U/mL 10/14/20 10/14/20 10/14/20 Range/Units 11:24 16:43 20:26 Lymphocytes # (Manual) (1.0-4.8) k/uL Sodium (135-145) mmol/L Potassium (3.5-5.5) mmol/L Anion Gap (4.00-12.00) mmol/L BUN/Creatinine Ratio (12.00-20.00) Ratio Glucose (70-110) mg/dL POC Glucose (mg/dL) 195 H 121 H 144 H (75-99) mg/dL Calcium (8.7-10.3) mg/dL AST (13-35) U/L ALT (8-44) U/L Alkaline Phosphatase (41-126) U/L Total Protein (6.2-8.2) g/dL Globulin (1.6-3.3) g/dL CA 15-3 Antigen (0.0-32.3) U/mL CA 27-29 (0.0-38.5) U/mL 10/15/20 10/15/20 Range/Units 06:06 06:52 Lymphocytes # (Manual) (1.0-4.8) k/uL Sodium (135-145) mmol/L Potassium 3.4 L (3.5-5.5) mmol/L Anion Gap 15.50 H (4.00-12.00) mmol/L BUN/Creatinine Ratio 21.43 H (12.00-20.00) Ratio Glucose 202 H (70-110) mg/dL POC Glucose (mg/dL) 196 H (75-99) mg/dL Calcium 7.8 L (8.7-10.3) mg/dL AST 64 H (13-35) U/L ALT 53 H (8-44) U/L Alkaline Phosphatase 235 H (41-126) U/L Total Protein 5.1 L (6.2-8.2) g/dL Globulin 1.3 L (1.6-3.3) g/dL CA 15-3 Antigen (0.0-32.3) U/mL CA 27-29 (0.0-38.5) U/mL Assessment and Plan Assessment: 1. Acute Hypoxemic Respiratory Failure 2. COPD Exacerbation 3. Post Obstructive Pneumonia 4. Dysphagia 5. Metastatic Breast Cancer to lungs, brain, and bone 6. Tobacco Abuse 7. CLL 8. Chronic SIADH 50 year old woman with history of metastatic breast cancer to lungs, brain, bone, tobacco abuse, CLL, chronic SIADH presented with acute hypoxemic respiratory failure with evidence of pneumonia on CXR as well as concern for superimposed COPD exacerbation. Acute hypoxic respiratory failure Likely secondary to COPD exacerbation, rule out community-acquired pneumonia covid test NEGATIVE O2 supplements as needed Solu-Medrol 60 mg every 6 hours Teodoro Turner's pulmonary recs appreciated ID recs appreciated restart lasix 20mg PO daily Dysphagia and voice hoarseness nystatin mouthwash in addition to fluconazole as empiric treatment History of metastatic breast cancer Continues to be on Anastrozole Currently taking chemotherapy with Palbociclib oncology recs appreciated Leukocystosis likely caused by above and steroids check cbc in the AM Thrombocytopenia Repeat count in a.m. to verify Tobacco abuse Counseled to quit Nicotine patches DVT prophylaxis Lovenox subcu Admitted to inpatient, expected length of stay more than two midnights. CODE STATUS discussed with patient today patient is a full code
[2020-10-15 11:50] LABS: Glucose,Whole Blood 127 mg/dL (75-99)
--- NOTE | 2020-10-15 13:05 | XR ---
EXAMINATION TYPE: XR chest 1V DATE OF EXAM: 10/15/2020 COMPARISON: Prior chest x-ray 10/12/2020 HISTORY: Postobstructive pneumonia, abnormal chest x-ray TECHNIQUE: Single frontal view of the chest is obtained. FINDINGS: There is a port in the right pectoral region, catheter courses via right jugular approach to the level of the cavoatrial junction with tip is noted. Tissue expanders are noted over the chest. There is some blunting of the right costophrenic angle, elevation of right hemidiaphragm. Abnormal d ensity in the right hilum extends peripherally to the right lateral chest surface, masslike densities present with obscured right heart border. There is no evident pneumothorax. Heart is likely stable. There are overlying leads. IMPRESSION: Findings represent an underlying right lung mass, there may be some improvement in aerat ion in the right lung, there is a right pleural effusion and associated atelectasis
--- NOTE | 2020-10-15 13:17 | P.PN ---
Subjective Progress Note Date: 10/15/20 Principal diagnosis: Hoarseness Postobstructive pneumonia Small right-sided pleural effusion Metastatic stage IV breast cancer with metastases to lungs brain and bone End-stage COPD CLL Chronic SIADH 10/15/2020, patient seen eval examined during the rounds labs reviewed med ications reviewed care plan discussed, respiratory symptoms are still present but however overall stable, primary service looking for discharge planning, agree with that, however may need outpatient evaluation by ENT if continued to have dysphonia 10/14/2020 patient sitting upright on the bed breathing is slightly better than before, denies any sputum production, is still hoarse and aphonia, 10/13/2020, Patient being upright. Denies any chest pain respiratory status remains stable, intermittent cough is present remains hoarse patient remains on broad-spectrum antibiotics with vancomycin and Zosyn, computed tomography scan of the chest reviewed with the patient, Patient is a 53-year-old female well-known to me patient has end-stage COPD, also has been diagnosis the metastatic stage IV breast cancer with the metastases to the lungs and bones brain, patient came into the hospital with c ough shortness of breath, chills computed tomography scan shows large right- sided parahilar masslike lesion, small pleural effusions present not enough to tap, extensive mediastinal adenopathy was also seen, patient is currently being treated with Vanco and Zosyn Objective - Vital Signs Vital signs: Vital Signs Temp 97.8 F 10/15/20 07:27 Pulse 104 H 10/15/20 13:12 Resp 19 10/15/20 07:27 BP 146/87 10/15/20 07:27 Pulse Ox 94 L 10/15/20 07:27 Intake & Output 10/14/20 10/15/20 10/15/20 18:59 06:59 18:59 Weight 62.2 kg Other: Voiding Method Toilet Toilet Toilet # Voids 3 3 - Exam - Constitutional General appearance: average body habitus, disheveled - EENT Eyes: PERRLA Ears: bilateral: normal - Neck Carotids: bilateral: upstroke normal - Respiratory Respiratory: right: diminished - Cardiovascular Rhythm: regular Heart sounds: normal: S1, S2 - Gastrointestinal General gastrointestinal: normal bowel sounds - Neurologic Neurologic: CNII-XII intact - Musculoskeletal Musculoskeletal: gait normal, generalized weakness, strength equal bilaterally - Psychiatric Psychiatric: A&O x's 3, appropriate affect, intact judgment & insight - Labs CBC & Chem 7: 10/14/20 10:53 10/15/20 06:06 Labs: Abnormal Lab Results - Last 24 Hours (Table) 10/14/20 10/14/20 10/14/20 Range/Units 10:53 10:53 16:43 Sodium 149 H (135-145) mmol/L Potassium (3.5-5.5) mmol/L Anion Gap 17.00 H (4.00-12.00) mmol/L BUN/Creatinine Ratio 21.67 H (12.00-20.00) Ratio Glucose 167 H (70-110) mg/dL POC Glucose (mg/dL) 121 H (75-99) mg/dL Calcium 8.3 L (8.7-10.3) mg/dL AST 64 H (13-35) U/L ALT 48 H (8-44) U/L Alkaline Phosphatase 249 H (41-126) U/L Total Protein 5.2 L (6.2-8.2) g/dL Globulin 1.3 L (1.6-3.3) g/dL CA 15-3 Antigen 79.1 H (0.0-32.3) U/mL CA 27-29 139.2 H (0.0-38.5) U/mL 10/14/20 10/15/20 10/15/20 Range/Units 20:26 06:06 06:52 Sodium (135-145) mmol/L Potassium 3.4 L (3.5-5.5) mmol/L Anion Gap 15.50 H (4.00-12.00) mmol/L BUN/Creatinine Ratio 21.43 H (12.00-20.00) Ratio Glucose 202 H (70-110) mg/dL POC Glucose (mg/dL) 144 H 196 H (75-99) mg/dL Calcium 7.8 L (8.7-10.3) mg/dL AST 64 H (13-35) U/L ALT 53 H (8-44) U/L Alkaline Phosphatase 235 H (41-126) U/L Total Protein 5.1 L (6.2-8.2) g/dL Globulin 1.3 L (1.6-3.3) g/dL CA 15-3 Antigen (0.0-32.3) U/mL CA 27-29 (0.0-38.5) U/mL 10/15/20 Range/Units 11:49 Sodium (135-145) mmol/L Potassium (3.5-5.5) mmol/L Anion Gap (4.00-12.00) mmol/L BUN/Creatinine Ratio (12.00-20.00) Ratio Glucose (70-110) mg/dL POC Glucose (mg/dL) 127 H (75-99) mg/dL Calcium (8.7-10.3) mg/dL AST (13-35) U/L ALT (8-44) U/L Alkaline Phosphatase (41-126) U/L Total Protein (6.2-8.2) g/dL Globulin (1.6-3.3) g/dL CA 15-3 Antigen (0.0-32.3) U/mL CA 27-29 (0.0-38.5) U/mL Assessment and Plan Assessment: Hoarseness/aphonia Postobstructive pneumonia Small right-sided pleural effusion Metastatic stage IV breast cancer with metastases to lungs brain and bone End-stage COPD CLL Chronic SIADH Plan: May need ENT evaluation if hoarseness doesn't resolve for direct laryngoscopy to rule out vocal cord paralysis Gentle rehydration Bronchodilators Broad-spectrum IV antibiotics Follow clinical course closely further recommendations pending plan of care as per his clinical response of patient Time with Patient: Greater than 30
[2020-10-15 13:48] VITALS: BMI 25.0
--- NOTE | 2020-10-15 15:10 | P.PN ---
Subjective Progress Note Date: 10/15/20 Principal diagnosis: SOB, metastatic breast cancer In f/u today pt is tolerating her diet, chewing a lot and thinking before swallowing. Voice is still hoarse. She is on 6L NC, and plans are for her to go home on O2. Lasix helped her swelling a little bit. No N,V,D, pain. Objective - Vital Signs Vital signs: Vital Signs Temp 98 F 10/15/20 14:00 Pulse 108 H 10/15/20 14:00 Resp 18 10/15/20 14:00 BP 124/72 10/15/20 14:00 Pulse Ox 90 L 10/15/20 14:00 Intake & Output 10/14/20 10/15/20 10/15/20 18:59 06:59 18:59 Weight 62.2 kg Other: Voiding Method Toilet Toilet Toilet # Voids 3 3 - Constitutional General appearance: Present: average body habitus, cooperative, no acute distress - EENT Eyes: Present: anicteric sclerae, EOMI ENT: Present: hearing grossly normal - Respiratory Details: Congested cough, no expectoration, hoarse voice Respiratory: bilateral: rhonchi - Cardiovascular Details: mild tachycardia Heart sounds: normal: S1, S2 - Neurologic Neurologic: Present: CNII-XII intact - Musculoskeletal Musculoskeletal: Present: strength equal bilaterally - Psychiatric Psychiatric: Present: A&O x's 3, appropriate affect, intact judgment & insight - Labs CBC & Chem 7: 10/14/20 10:53 10/15/20 06:06 Labs: Abnormal Lab Results - Last 24 Hours (Table) 10/14/20 10/14/20 10/14/20 Range/Units 10:53 10:53 16:43 Sodium 149 H (135-145) mmol/L Potassium (3.5-5.5) mmol/L Anion Gap 17.00 H (4.00-12.00) mmol/L BUN/Creatinine Ratio 21.67 H (12.00-20.00) Ratio Glucose 167 H (70-110) mg/dL POC Glucose (mg/dL) 121 H (75-99) mg/dL Calcium 8.3 L (8.7-10.3) mg/dL AST 64 H (13-35) U/L ALT 48 H (8-44) U/L Alkaline Phosphatase 249 H (41-126) U/L Total Protein 5.2 L (6.2-8.2) g/dL Globulin 1.3 L (1.6-3.3) g/dL CA 15-3 Antigen 79.1 H (0.0-32.3) U/mL CA 27-29 139.2 H (0.0-38.5) U/mL 10/14/20 10/15/20 10/15/20 Range/Units 20:26 06:06 06:52 Sodium (135-145) mmol/L Potassium 3.4 L (3.5-5.5) mmol/L Anion Gap 15.50 H (4.00-12.00) mmol/L BUN/Creatinine Ratio 21.43 H (12.00-20.00) Ratio Glucose 202 H (70-110) mg/dL POC Glucose (mg/dL) 144 H 196 H (75-99) mg/dL Calcium 7.8 L (8.7-10.3) mg/dL AST 64 H (13-35) U/L ALT 53 H (8-44) U/L Alkaline Phosphatase 235 H (41-126) U/L Total Protein 5.1 L (6.2-8.2) g/dL Globulin 1.3 L (1.6-3.3) g/dL CA 15-3 Antigen (0.0-32.3) U/mL CA 27-29 (0.0-38.5) U/mL 10/15/20 Range/Units 11:49 Sodium (135-145) mmol/L Potassium (3.5-5.5) mmol/L Anion Gap (4.00-12.00) mmol/L BUN/Creatinine Ratio (12.00-20.00) Ratio Glucose (70-110) mg/dL POC Glucose (mg/dL) 127 H (75-99) mg/dL Calcium (8.7-10.3) mg/dL AST (13-35) U/L ALT (8-44) U/L Alkaline Phosphatase (41-126) U/L Total Protein (6.2-8.2) g/dL Globulin (1.6-3.3) g/dL CA 15-3 Antigen (0.0-32.3) U/mL CA 27-29 (0.0-38.5) U/mL Assessment and Plan (1) Breast cancer Narrative/Plan: Patient just completed her first cycle of Ibrance, she continues on Femara. With oral therapy, significant change in disease can take some time. She is currently on her week off. She will starther next cycle on time. Current condition is not felt to be a side effect of treatment. Continuing on treatment may potentially help her symptoms if they are malignant related. It is been a challenge thus far to identify the underlying cause. Thankfully, she is not aspirating and diet modifications have helped her to be able to tolerate oral intake Current Visit: Yes Status: Chronic Priority: High Code(s): C50.919 - MALIGNANT NEOPLASM OF UNSP SITE OF UNSPECIFIED FEMALE BREAST SNOMED Code(s): 750553961 (2) Metastatic cancer Current Visit: Yes Status: Chronic Priority: High Code(s): C79.9 - SECONDARY MALIGNANT NEOPLASM OF UNSPECIFIED SITE SNOMED Code(s): 548110953 Plan: Tumor markers Ca 15.3 133 when seen in ofc earlier this month, current 79.1. Ca 27.29 144 earlier this month, current 139. Speech Therapist coached pt on methods for her to avoid aspiration. Pt is stable, she is not aspirating. Needs O2 ENT consult- outpt in the next week for scope to check vocal cords and eval for possible infection. Reordered lasix and KCL. Will send Rx for pt. Attending reviewed case with Onc .
--- NOTE | 2020-10-15 16:12 | PN ---
PROGRESS NOTE DATE OF SERVICE: 10/15/2020 REASON FOR FOLLOWUP: Pneumonia. INTERVAL HISTORY: The patient is currently afebrile. She is still complaining of shortness of breath. She did have a cough, though decreased intensity, not bringing up any sputum. No nausea, no vomiting. No abdominal pain or diarrhea. PHYSICAL EXAMINATION: Her blood pressure is 124/72 with pulse of 108, temperature 98. She is 90% room air. General description is a middle-aged female up in the bed in no distress. RESPIRATORY SYSTEM: Unlabored breathing with decreased intensity of breath sounds. No wheeze. HEART: S1, S2. Regular rate and rhythm. ABDOMEN: Soft, no tenderness. LABS: BUN of 15, creatinine 0.7. DIAGNOSTIC IMPRESSION AND PLAN: Patient admitted to the hospital with shortness of breath and cough which is multifactorial possible in this patient who did have metastatic lung cancer, underlying pneumonia not entirely excluded. Patient is currently on Zosyn that can be transitioned to Avelox 400 daily for 7 days and close outpatient followup. MMODL / IJN: [id number] /
[2020-10-15 16:39] LABS: Glucose,Whole Blood 158 mg/dL (75-99)
[2020-10-15] MEDS ORDERED: FUROSEMIDE 10 MG/ML 4 ML VIAL IV STA (17:50)
[2020-10-16] MEDS: IPRATROPIUM-ALBUTEROL 3 ML NEB INHALATION SCH (00:05)
[2020-10-16] MEDS: PIPERACILLIN-TAZOBACTAM 3.375 GM in SODIUM CHLORIDE 0.9% 100 ML IVPB SCH ×2 (01:13→07:23)
[2020-10-16] MEDS: methylPREDNISolone SOD SUCCI 125 MG/2 ML VIAL IV SCH ×2 (01:13→05:22)
[2020-10-16 04:45] VITALS: RESP 17
[2020-10-16] MEDS: MAG HYDROX/AL HYDROX/SIMETH 30 ML, diphenhydrAMINE ELIXIR 75 MG, LIDOCAINE VISCOUS 30 ML PO SCH ×3 (07:23)
[2020-10-16] MEDS: ENOXAPARIN 40 MG/0.4 ML SYRINGE SQ SCH (07:23)
[2020-10-16] MEDS: OLANZapine 5 MG TAB PO SCH (07:24)
[2020-10-16] MEDS: FUROSEMIDE 10 MG/ML 2 ML VIAL IV SCH (07:24)
[2020-10-16] MEDS: PANTOPRAZOLE 40 MG TABLET PO SCH (07:24)
[2020-10-16] MEDS: ANASTROZOLE 1 MG TAB PO SCH (07:24)
[2020-10-16] MEDS: NICOTINE 21MG/24HR PATCH TRANSDERM SCH (07:24)
[2020-10-16] MEDS: POTASSIUM CHLORIDE ER 10 MEQ TAB.ER.PRT PO SCH (07:24)
[2020-10-16] MEDS: FLUCONAZOLE 150 MG TAB PO SCH (07:24)
[2020-10-16 07:49] VITALS: BP 133/81; PULSE 95
[2020-10-16 08:28] VITALS: TEMP 97.3
--- NOTE | 2020-10-16 09:04 | P.DS ---
Providers Date of admission: 10/11/20 16:43 Expected date of discharge: 10/16/20 Attending physician: Bayron De Oliveira MD Consults: 10/11/20 18:13 Consult Physician Routine Consulting Provider: Cheo Devine Consult Reason/Comments: breast ca Do you want consulting provider notified?: Yes 10/12/20 12:16 Consult Physician Routine Consulting Provider: Jelly Zacarias Consult Reason/Comments: Pneumonia Do you want consulting provider notified?: Yes 10/12/20 17:05 Consult Physician Routine Consulting Provider: Joey Chaudhari Consult Reason/Comments: pneumonia Do you want consulting provider notified?: Yes 10/13/20 10:51 Consult Physician Routine Consulting Provider: Nawaf Christy Consult Reason/Comments: dysphagia, voice changes Do you want consulting provider notified?: Yes Primary care physician: P[facility] Course: 1. Acute Hypoxemic Respiratory Failure 2. COPD Exacerbation 3. Post Obstructive Pneumonia 4. Dysphagia 5. Metastatic Breast Cancer to lungs, brain, and bone 6. Tobacco Abuse 7. CLL 8. Chronic SIADH 50 year old woman with history of metastatic breast cancer to lungs, brain, bone, tobacco abuse, CLL, chronic SIADH presented with acute hypoxemic respiratory failure with evidence of pneumonia on CXR as well as concern for superimposed COPD exacerbation. Acute on chronic hypoxic respiratory failure secondary to COPD exacerbation and underlying community-acquired pneumonia covid test NEGATIVE Treated with IV Solu-Medrol in the hospital and plan to finish with remaining Medrol Dosepak Zosyn would be transitioned to Avelox. Infectious disease recommendation [facility] Patient will require oxygen at home secondary to underlying COPD and lung cancer. O2 sats on room air at rest 91% with ambulation 87%. O2 sat with ambulation on 2 L of oxygen 94% Dysphagia and voice hoarseness nystatin mouthwash in addition to fluconazole as empiric treatment History of metastatic breast cancer Continues to be on Anastrozole Currently taking chemotherapy with Palbociclib Follow-up with [facility] and oncology as directed Tobacco abuse Counseled to quit Nicotine patches Patient Condition at Discharge: Poor Plan - Discharge Summary New Discharge Prescriptions: New Moxifloxacin HCl [Avelox] 400 mg PO DAILY #10 tablet Acetaminophen Tab [Tylenol] 650 mg PO Q6HR PRN tab PRN Reason: Mild Pain Or Fever > 100.5 Continue clonazePAM [KlonoPIN] 0.5 mg PO DAILY PRN PRN Reason: Anxiety Albuterol Sulfate [Ventolin HFA] 2 puff INHALATION RT-Q4H PRN PRN Reason: Shortness Of Breath Prochlorperazine Maleate 10 mg PO Q6H PRN PRN Reason: Nausea Ondansetron Odt [Zofran ODT] 4 mg PO Q6H PRN PRN Reason: Nausea Ipratropium-Albuterol Nebulize [Duoneb 0.5 mg-3 mg/3 ml Soln] 3 ml INHALATION RT-TID PRN PRN Reason: Shortness Of Breath Multivitamin [Multivitamins Adult Gummies] 2 tab PO DAILY Anastrozole [Arimidex] 1 mg PO DAILY tab Furosemide [Lasix] 20 mg PO DAILY PRN #30 tab PRN Reason: Edema polyethylene glycoL 3350 [Miralax] 17 gm PO HS PRN #30 powd.pack PRN Reason: Constipation Nystatin 100,000 Unit/ml Susp [Mycostatin Oral Susp] 400,000 unit PO QID PRN PRN Reason: THRUSH Clotrimazole Yashira [Mycelex Yashira] 10 mg MUCOUS MEM 5XD Palbociclib [Ibrance] 125 mg PO DIRECTED Hydrocodone/Acetaminophen [[place] 10-325] 1 tab PO QID PRN PRN Reason: Pain methylPREDNISolone [Medrol Dose Pack] See Taper PO DIRECTED OLANZapine [ZyPREXA] 5 mg PO DAILY Nicotine 21Mg/24Hr Patch [Habitrol] 1 patch TRANSDERM DAILY Potassium Chloride ER [K-Dur 10] 10 meq PO DAILY Omeprazole 20 mg PO BID Cholestyramine (with Sugar) [Cholestyramine Packet] 4 gm PO DAILY PRN PRN Reason: Diarrhea Magic Mouth Wash 5 ml PO QID Discharge Medication List Albuterol Sulfate [Ventolin HFA] 2 puff INHALATION RT-Q4H PRN 04/12/17 [History] clonazePAM [KlonoPIN] 0.5 mg PO DAILY PRN 04/12/17 [History] Ipratropium-Albuterol Nebulize [Duoneb 0.5 mg-3 mg/3 ml Soln] 3 ml INHALATION RT-TID PRN 09/01/20 [History] Multivitamin [Multivitamins Adult Gummies] 2 tab PO DAILY 09/01/20 [History] Ondansetron Odt [Zofran ODT] 4 mg PO Q6H PRN 09/01/20 [History] Prochlorperazine Maleate 10 mg PO Q6H PRN 09/01/20 [History] Anastrozole [Arimidex] 1 mg PO DAILY tab 09/10/20 [Rx] Furosemide [Lasix] 20 mg PO DAILY PRN #30 tab 09/10/20 [Rx] polyethylene glycoL 3350 [Miralax] 17 gm PO HS PRN #30 powd.pack 09/10/20 [Rx] Cholestyramine (with Sugar) [Cholestyramine Packet] 4 gm PO DAILY PRN 10/11/20 [History] Clotrimazole Yashira [Mycelex Yashira] 10 mg MUCOUS MEM 5XD 10/11/20 [History] Hydrocodone/Acetaminophen [[place] 10-325] 1 tab PO QID PRN 10/11/20 [History] Magic Mouth Wash 5 ml PO QID 10/11/20 [History] Nicotine 21Mg/24Hr Patch [Habitrol] 1 patch TRANSDERM DAILY 10/11/20 [History] Nystatin 100,000 Unit/ml Susp [Mycostatin Oral Susp] 400,000 unit PO QID PRN 10/11/20 [History] OLANZapine [ZyPREXA] 5 mg PO DAILY 10/11/20 [History] Omeprazole 20 mg PO BID 10/11/20 [History] Palbociclib [Ibrance] 125 mg PO DIRECTED 10/11/20 [History] Potassium Chloride ER [K-Dur 10] 10 meq PO DAILY 10/11/20 [History] methylPREDNISolone [Medrol Dose Pack] See Taper PO DIRECTED 10/11/20 [History] Acetaminophen Tab [Tylenol] 650 mg PO Q6HR PRN tab 10/15/20 [Rx] Moxifloxacin HCl [Avelox] 400 mg PO DAILY #10 tablet 10/15/20 [Rx] Follow up Appointment(s)/Referral(s): Cheo Devine MD [STAFF PHYSICIAN] - 10/22/20 10:30 am Pia Jaramillo MD [Primary Care Provider] - 1-2 days Nawaf Christy MD [STAFF PHYSICIAN] - 1 Week Joey Chaudhari MD [STAFF PHYSICIAN] - 1 Week Activity/Diet/Wound Care/Special Instructions: Please make a follow up appt with radiation oncologist Discharge Disposition: HOME WITH HOME HEALTH SERVICES
[2020-10-16 11:33] LABS: African American GFR (CKD) 122.3 (60.0-200.0); Albumin/Globulin Ratio 2.86 (1.60-3.17); Anion Gap 13.7 mmol/L (4.00-12.00); BUN/Creat Ratio 26.67 Ratio (12.00-20.00); Calcium 8.3 mg/dL (8.7-10.3); Carbon Dioxide 29.3 mmol/L (21.6-31.8); Globulin 1.4 g/dL (1.6-3.3); Non-African American GFR(CKD) 105.5 (60.0-200.0); Potassium 3.6 mmol/L (3.5-5.5); Total Bilirubin 0.7 mg/dL (0.3-1.2); Total Protein 5.4 g/dL (6.2-8.2)
--- NOTE | 2020-10-16 11:43 | P.PN ---
Subjective Progress Note Date: 10/16/20 Principal diagnosis: SOB, metastatic breast cancer In f/u today pt is waiting for DC. She is tolerating diet, Voice is still hoarse, not worse, congested cough, not able to expectorate. She is walking around the room without O2 Objective - Vital Signs Vital signs: Vital Signs Temp 97.3 F L 10/16/20 08:27 Pulse 95 10/16/20 07:49 Resp 17 10/16/20 02:45 BP 133/81 10/16/20 07:49 Pulse Ox 97 10/16/20 07:49 Intake & Output 10/15/20 10/16/20 10/16/20 18:59 06:59 18:59 Weight 62.2 kg 60.96 kg Other: Voiding Method Toilet Toilet # Voids 3 1 - Constitutional General appearance: Present: average body habitus, cooperative, no acute distress - EENT Eyes: Present: anicteric sclerae, EOMI ENT: Present: hearing grossly normal - Respiratory Respiratory: right: rhonchi (less intense) - Cardiovascular Heart sounds: normal: S1, S2 - Neurologic Neurologic: Present: CNII-XII intact - Musculoskeletal Musculoskeletal: Present: strength equal bilaterally - Psychiatric Psychiatric: Present: A&O x's 3, appropriate affect, intact judgment & insight - Labs CBC & Chem 7: 10/14/20 10:53 10/16/20 06:06 Labs: Abnormal Lab Results - Last 24 Hours (Table) 10/15/20 10/15/20 10/16/20 Range/Units 11:49 16:37 06:06 Anion Gap 13.70 H (4.00-12.00) mmol/L BUN/Creatinine Ratio 26.67 H (12.00-20.00) Ratio Glucose 141 H (70-110) mg/dL POC Glucose (mg/dL) 127 H 158 H (75-99) mg/dL Calcium 8.3 L (8.7-10.3) mg/dL AST 65 H (13-35) U/L ALT 65 H (8-44) U/L Alkaline Phosphatase 233 H (41-126) U/L Total Protein 5.4 L (6.2-8.2) g/dL Globulin 1.4 L (1.6-3.3) g/dL Assessment and Plan (1) Breast cancer Narrative/Plan: Patient just completed her first cycle of Ibrance, she continues on Arimidex (accidentally documented as femara). With oral therapy, significant change in disease can take some time. She is currently on her week off. Reviewed ID notes, plans for oral abx. Dr. Devine would like to have pt hold restart of Ibrance until seen by him next Wed. Told pt new plan, she verbalized understanding. Current Visit: Yes Status: Chronic Priority: High Code(s): C50.919 - MALIGNANT NEOPLASM OF UNSP SITE OF UNSPECIFIED FEMALE BREAST SNOMED Code(s): 062770976 (2) Metastatic cancer Current Visit: Yes Status: Chronic Priority: High Code(s): C79.9 - SECONDARY MALIGNANT NEOPLASM OF UNSPECIFIED SITE SNOMED Code(s): 251834184 Plan: Tumor markers Ca 15.3 133 when seen in ofc earlier this month, current 79.1. Ca 27.29 144 earlier this month, current 139. Speech Therapist coached pt on methods for her to avoid aspiration. Pt is stable, she is not aspirating. Pt off of O2 as of DC ENT consult- outpt in the next week for scope to check vocal cords and eval for possible infection. Reordered lasix and KCL. Sent Rx for pt.
--- NOTE | 2020-10-16 14:05 | P.PN ---
Subjective Progress Note Date: 10/16/20 Principal diagnosis: Hoarseness Postobstructive pneumonia Small right-sided pleural effusion Metastatic stage IV breast cancer with metastases to lungs brain and bone End-stage COPD CLL Chronic SIADH 10/16/2020, patient overall doing well shortness of breath is improved cough and congestion improved, hoarseness is still there, patient has been scheduled to follow with Dr. Christy ENT as outpatient 10/15/2020, patient seen eval examined during the rounds labs reviewed medications reviewed care plan discussed, respiratory symptoms are still present but however overall stable, primary service looking for discharge planning, agree with that, however may need outpatient evaluation by ENT if continued to have dysphonia 10/14/2020 patient sitting upright on the bed breathing is slightly better than before, denies any sputum production, is still hoarse and aphonia, 10/13/2020, Patient being upright. Denies any chest pain respiratory status remains stable, intermittent cough is present remains hoarse patient remains on broad-spectrum antibiotics with vancomycin and Zosyn, computed tomography scan of the chest reviewed with the patient, Patient is a 53-year-old female well-known to me patient has end-stage COPD, also has been diagnosis the metastatic stage IV breast cancer with the metastases to the lungs and bones brain, patient came into the hospital with cough shortness of breath, chills computed tomography scan shows large right- sided parahilar masslike lesion, small pleural effusions present not enough to tap, extensive mediastinal adenopathy was also seen, patient is currently being treated with Vanco and Zosyn Objective - Vital Signs Vital signs: Vital Signs Temp 97.3 F L 10/16/20 08:27 Pulse 95 10/16/20 07:49 Resp 17 10/16/20 02:45 BP 133/81 10/16/20 07:49 Pulse Ox 97 10/16/20 07:49 Intake & Output 10/15/20 10/16/20 10/16/20 18:59 06:59 18:59 Weight 62.2 kg 60.96 kg Other: Voiding Method Toilet Toilet # Voids 3 1 - Exam - Constitutional General appearance: average body habitus, disheveled - EENT Eyes: PERRLA Ears: bilateral: normal - Neck Carotids: bilateral: upstroke normal - Respiratory Respiratory: right: diminished - Cardiovascular Rhythm: regular Heart sounds: normal: S1, S2 - Gastrointestinal General gastrointestinal: normal bowel sounds - Neurologic Neurologic: CNII-XII intact - Musculoskeletal Musculoskeletal: gait normal, generalized weakness, strength equal bilaterally - Psychiatric Psychiatric: A&O x's 3, appropriate affect, intact judgment & insight - Labs CBC & Chem 7: 10/14/20 10:53 10/16/20 06:06 Labs: Abnormal Lab Results - Last 24 Hours (Table) 10/15/20 10/16/20 Range/Units 16:37 06:06 Anion Gap 13.70 H (4.00-12.00) mmol/L BUN/Creatinine Ratio 26.67 H (12.00-20.00) Ratio Glucose 141 H (70-110) mg/dL POC Glucose (mg/dL) 158 H (75-99) mg/dL Calcium 8.3 L (8.7-10.3) mg/dL AST 65 H (13-35) U/L ALT 65 H (8-44) U/L Alkaline Phosphatase 233 H (41-126) U/L Total Protein 5.4 L (6.2-8.2) g/dL Globulin 1.4 L (1.6-3.3) g/dL Assessment and Plan Assessment: Hoarseness/aphonia Postobstructive pneumonia Small right-sided pleural effusion Metastatic stage IV breast cancer with metastases to lungs brain and bone End-stage COPD CLL Chronic SIADH Plan: May need ENT evaluation if hoarseness doesn't resolve for direct laryngoscopy to rule out vocal cord paralysis Gentle rehydration Bronchodilators Broad-spectrum IV antibiotics Follow clinical course closely further recommendations pending plan of care as per his clinical response of patient Time with Patient: Greater than 30
[2020-10-19 09:36] LABS: Glucose,Whole Blood 191 mg/dL (75-99)
[2020-10-19 09:37] LABS: Glucose,Whole Blood 143 mg/dL (75-99)
[2020-10-19 09:37] LABS: Glucose,Whole Blood 125 mg/dL (75-99)
== END 2020-10-16 12:01 | disposition home or self-care (01) | DRG 193 ==
LOC: EC 13:40 → 4SSUR 16:43
PROVIDERS: ADMIT Internal Medicine; ATTEND Internal Medicine
DX: J18.9 Pneumonia, unspecified organism (principal); J96.21 Acute and chronic respiratory failure with hypoxia; E22.2 Syndrome of inappropriate secretion of antidiuretic hormone; J44.1 Chronic obstructive pulmonary disease with (acute) exacerbation; J44.0 Chronic obstructive pulmonary disease with (acute) lower respiratory infection; C78.00 Secondary malignant neoplasm of unspecified lung; C34.90 Malignant neoplasm of unspecified part of unspecified bronchus or lung; C79.31 Secondary malignant neoplasm of brain; C79.51 Secondary malignant neoplasm of bone; J90 Pleural effusion, not elsewhere classified; C91.10 Chronic lymphocytic leukemia of B-cell type not having achieved remission; Z20.828 Contact with and (suspected) exposure to other viral communicable diseases; F41.0 Panic disorder [episodic paroxysmal anxiety]; F32.9 Major depressive disorder, single episode, unspecified; F17.210 Nicotine dependence, cigarettes, uncomplicated; D69.6 Thrombocytopenia, unspecified; K12.30 Oral mucositis (ulcerative), unspecified; B37.9 Candidiasis, unspecified; C50.919 Malignant neoplasm of unspecified site of unspecified female breast; Z83.3 Family history of diabetes mellitus; Z79.811 Long term (current) use of aromatase inhibitors; Z85.05 Personal history of malignant neoplasm of liver; Z85.3 Personal history of malignant neoplasm of breast; Z90.13 Acquired absence of bilateral breasts and nipples; Z79.810 Long term (current) use of selective estrogen receptor modulators (SERMs); Z17.0 Estrogen receptor positive status [ER+]; Z79.899 Other long term (current) drug therapy; Z98.890 Other specified postprocedural states; Z80.9 Family history of malignant neoplasm, unspecified
CPT/HCPCS: 36415; 36600; 71045; 71275; 74230; 76705; 80053; 80202; 81003; 82805; 83605; 83735; 83880; 84100; 84145; 84484; 85025; 85610; 85730; 86300; 87449; 87635; 93005; 94640; 94760; 96365; 99285

== ENCOUNTER → 2020-10-22 | Outpatient (CLI) | payer BC ==
--- NOTE | 2020-10-22 13:50 | US ---
EXAMINATION TYPE: US venous doppler duplex LE BI DATE OF EXAM: 10/22/2020 1:09 PM COMPARISON: NONE CLINICAL HISTORY: M79.662 Pain in left lower limb M79.661,M79.622. edema and pain bilateral legs SIDE PERFORMED: bilateral TECHNIQUE: The lower extremity deep venous system is examined utilizing real time linear array sonog mary with graded compression, doppler sonography and color-flow sonography. VESSELS IMAGED: Common Femoral Vein Deep Femoral Vein Greater Saphenous Vein * Femoral Vein Popliteal Vein Small Saphenous Vein * Proximal Calf Veins (* superficial vessels) Right Leg: no evidence of DVT Left Leg: no evidence of DVT IMPRESSION: 1. Bilateral lower extremity ultrasound negative for deep venous thrombosis.
--- NOTE | 2020-10-22 13:51 | US ---
EXAMINATION TYPE: US venous doppler duplex UE LT DATE OF EXAM: 10/22/2020 COMPARISON: NONE CLINICAL HISTORY: M79.662 Pain in left lower limb M79.661,M79.622. left axilla lymph nodes removed 4 years ago, double mastectomy. edema left arm for 3 days SIDE PERFORMED: left Left Arm: no evidence of DVT IMPRESSION: 1. Left upper extremity ultrasound negative for deep venous thrombosis.
== END | disposition home or self-care (01) ==
LOC: RADUSWWP 12:18
PROVIDERS: ATTEND Internal Medicine Hematology & Oncology
DX: M79.662 Pain in left lower leg (principal); M79.661 Pain in right lower leg; M79.622 Pain in left upper arm
CPT/HCPCS: 93970

== ENCOUNTER 2020-11-01 04:37 | Inpatient (IN) | payer BC ==
[2020-11-01] MEDS ORDERED: ALBUTEROL NEBULIZED 2.5 MG/3 ML INHALATION STA (04:40)
[2020-11-01] MEDS ORDERED: IPRATROPIUM 0.5 MG/2.5 ML NEBU INHALATION STA (04:40)
[2020-11-01] MEDS ORDERED: SODIUM CHLORIDE 0.9% 1,000 ML IV STA ×2 (04:40→05:41)
--- NOTE | 2020-11-01 04:41 | ED ---
SOB HPI - General Stated Complaint: LUISANA Time Seen by Provider: 11/01/20 04:40 Source: RN notes reviewed, old records reviewed Mode of arrival: EMS Limitations: physical limitation - History of Present Illness Initial Comments: This is a 50-year-old female in severe distress unable to provide history. She is in from chart, prior charting. Patient presents by EMS for severe for distress. Patient is in severe us for a stress with multiple medical issues, COPD lung cancer breast cancer with metastatic cancer and edema throughout entire body. MD Complaint: shortness of breath, anxiety -: hour(s) Severity: severe Severity scale (1-10): 10 Consistency: constant Improves With: nothing Worsens With: nothing Known History Of: COPD, congestive heart failure, recurrent pneumonia Context: recent URI Associated Symptoms: chest pain, cough, sputum production Treatments Prior to Arrival: none - Related Data Home Medications Medication Instructions Recorded Confirmed Albuterol Sulfate [Ventolin HFA] 2 puff INHALATION RT-Q4H PRN 04/12/17 10/11/20 clonazePAM [KlonoPIN] 0.5 mg PO DAILY PRN 04/12/17 10/11/20 Ipratropium-Albuterol Nebulize 3 ml INHALATION RT-TID PRN 09/01/20 10/11/20 [Duoneb 0.5 mg-3 mg/3 ml Soln] Multivitamin [Multivitamins Adult 2 tab PO DAILY 09/01/20 10/11/20 Gummies] Ondansetron Odt [Zofran ODT] 4 mg PO Q6H PRN 09/01/20 10/11/20 Prochlorperazine Maleate 10 mg PO Q6H PRN 09/01/20 10/11/20 Cholestyramine (with Sugar) 4 gm PO DAILY PRN 10/11/20 10/11/20 [Cholestyramine Packet] Clotrimazole Yashira [Mycelex 10 mg MUCOUS MEM 5XD 10/11/20 10/11/20 Yashira] Hydrocodone/Acetaminophen [[place] 1 tab PO QID PRN 10/11/20 10/11/20 10-325] Magic Mouth Wash 5 ml PO QID 10/11/20 10/11/20 Nicotine 21Mg/24Hr Patch [Habitrol] 1 patch TRANSDERM DAILY 10/11/20 10/11/20 Nystatin 100,000 Unit/ml Susp 400,000 unit PO QID PRN 10/11/20 10/11/20 [Mycostatin Oral Susp] OLANZapine [ZyPREXA] 5 mg PO DAILY 10/11/20 10/11/20 Omeprazole 20 mg PO BID 10/11/20 10/11/20 Palbociclib [Ibrance] 125 mg PO DIRECTED 10/11/20 10/11/20 Potassium Chloride ER [K-Dur 10] 10 meq PO DAILY 10/11/20 10/11/20 methylPREDNISolone [Medrol Dose See Taper PO DIRECTED 10/11/20 10/11/20 Pack] Previous Rx's Medication Instructions Recorded Anastrozole [Arimidex] 1 mg PO DAILY tab 09/10/20 Furosemide [Lasix] 20 mg PO DAILY PRN #30 tab 09/10/20 polyethylene glycoL 3350 [Miralax] 17 gm PO HS PRN #30 powd.pack 09/10/20 Acetaminophen Tab [Tylenol] 650 mg PO Q6HR PRN tab 10/15/20 Moxifloxacin HCl [Avelox] 400 mg PO DAILY #10 tablet 10/15/20 Allergies Allergy/AdvReac Type Severity Reaction Status Date / Time No Known Allergies Allergy Verified 10/11/20 15:01 Review of Systems ROS Statement: Those systems with pertinent positive or pertinent negative responses have been documented in the HPI. ROS Other: All systems not noted in ROS Statement are negative. Past Medical History Past Medical History: Cancer, COPD Additional Past Medical History / Comment(s): 2017 L breast cancer with bilateral mastectomies/chemo/radiation, CLL, chronic elevation WBCs, cervical pain/vertigo on and off since April 2020, brain/lung/bone/liver CA History of Any Multi-Drug Resistant Organisms: None Reported Past Surgical History: Orthopedic Surgery Additional Past Surgical History / Comment(s): 2017 Bilateral mastectomies/implant reconstruction, R thumb tendon repair, lung mass biopsy. Past Anesthesia/Blood Transfusion Reactions: No Reported Reaction Past Psychological History: Anxiety, Depression, Panic Disorder Smoking Status: Current every day smoker Past Alcohol Use History: None Reported Past Drug Use History: None Reported - Past Family History Mother Family Medical History: Cancer Additional Family Medical History / Comment(s): in her 60s with history of dementia, chronic back pain, "pre leukemia." Father Additional Family Medical History / Comment(s): Father is alive with history of diabetes. Brother(s) Additional Family Medical History / Comment(s): Patient has 2 brothers with no major medical problems. Patient has 1 sister with no major medical problems. Patient does not have any children. General Exam General appearance: alert, in no apparent distress Head exam: Present: atraumatic, normocephalic, normal inspection Eye exam: Present: normal appearance, PERRL, EOMI. Absent: scleral icterus, conjunctival injection, periorbital swelling ENT exam: Present: normal exam, mucous membranes moist Neck exam: Present: normal inspection. Absent: tenderness, meningismus, lymphadenopathy Respiratory exam: Present: respiratory distress, wheezes, accessory muscle use, decreased breath sounds, prolonged expiratory. Absent: rales, rhonchi, stridor Cardiovascular Exam: Present: tachycardia, irregular rhythm, normal heart sounds. Absent: systolic murmur, diastolic murmur, rubs, gallop, clicks GI/Abdominal exam: Present: soft, normal bowel sounds. Absent: distended, tenderness, guarding, rebound, rigid Extremities exam: Present: normal inspection, full ROM, normal capillary refill. Absent: tenderness, pedal edema, joint swelling, calf tenderness Back exam: Present: normal inspection Neurological exam: Present: alert, oriented X3, CN II-XII intact Psychiatric exam: Present: normal affect, normal mood Skin exam: Present: warm, dry, intact, normal color. Absent: rash Course Vital Signs 11/01/20 11/01/20 04:39 05:24 Temperature 98.5 F Pulse Rate 130 H Respiratory 26 H 36 H Rate Blood Pressure 148/79 O2 Sat by Pulse 100 Oximetry - Reevaluation(s) Reevaluation #1: 11/01/20 05:35 Medical record is reviewed Reevaluation #2: 11/01/20 05:36 Patient is placed on BiPAP and is starting to calm down and feel improved, vital signs are improving Reevaluation #3: 11/01/20 05:36 Spoke with patient regarding findings, questions have been answered - Consultations Consultation #1: Spoke with sound who agrees to admit this patient Medical Decision Making - Medical Decision Making 50 female to the ER for evaluation for severe shortness of breath, patient has a lot of medical comorbidities presents with severe shortness of breath and respi ratory failure multifactorial - Lab Data Result diagrams: 11/01/20 04:46 11/01/20 04:46 Lab Results 11/01/20 11/01/20 11/01/20 Range/Units 04:46 04:46 04:46 WBC 34.6 H (3.8-10.6) k/uL RBC 2.83 L (3.80-5.40) m/uL Hgb 9.7 L (11.4-16.0) gm/dL Hct 30.9 L (34.0-46.0) % MCV 109.0 H (80.0-100.0) fL MCH 34.1 (25.0-35.0) pg MCHC 31.3 (31.0-37.0) g/dL RDW 21.8 H (11.5-15.5) % Plt Count 162 D (150-450) k/uL MPV 8.3 Hypochromasia Slight Poikilocytosis Slight Anisocytosis Moderate Macrocytosis Marked A PT 10.1 (9.0-12.0) sec INR 0.9 (<1.2) APTT 16.6 L (22.0-30.0) sec Sodium 139 (137-145) mmol/L Potassium 4.5 (3.5-5.1) mmol/L Chloride 106 (98-107) mmol/L Carbon Dioxide 31 H (22-30) mmol/L Anion Gap 2 mmol/L BUN 5 L (7-17) mg/dL Creatinine 0.50 L (0.52-1.04) mg/dL Est GFR (CKD-EPI)AfAm >90 (>60 ml/min/1.73 sqM) Est GFR (CKD-EPI)NonAf >90 (>60 ml/min/1.73 sqM) Glucose 103 H (74-99) mg/dL Plasma Lactic Acid Steve (0.7-2.0) mmol/L Calcium 8.3 L (8.4-10.2) mg/dL Magnesium 1.9 (1.6-2.3) mg/dL Total Bilirubin 1.0 (0.2-1.3) mg/dL AST 174 H (14-36) U/L ALT 58 H (4-34) U/L Alkaline Phosphatase 441 H (38-126) U/L Total Protein 5.8 L (6.3-8.2) g/dL Albumin 3.4 L (3.5-5.0) g/dL 11/01/20 Range/Units 04:46 WBC (3.8-10.6) k/uL RBC (3.80-5.40) m/uL Hgb (11.4-16.0) gm/dL Hct (34.0-46.0) % MCV (80.0-100.0) fL MCH (25.0-35.0) pg MCHC (31.0-37.0) g/dL RDW (11.5-15.5) % Plt Count (150-450) k/uL MPV Hypochromasia Poikilocytosis Anisocytosis Macrocytosis PT (9.0-12.0) sec INR (<1.2) APTT (22.0-30.0) sec Sodium (137-145) mmol/L Potassium (3.5-5.1) mmol/L Chloride (98-107) mmol/L Carbon Dioxide (22-30) mmol/L Anion Gap mmol/L BUN (7-17) mg/dL Creatinine (0.52-1.04) mg/dL Est GFR (CKD-EPI)AfAm (>60 ml/min/1.73 sqM) Est GFR (CKD-EPI)NonAf (>60 ml/min/1.73 sqM) Glucose (74-99) mg/dL Plasma Lactic Acid Steve 1.8 (0.7-2.0) mmol/L Calcium (8.4-10.2) mg/dL Magnesium (1.6-2.3) mg/dL Total Bilirubin (0.2-1.3) mg/dL AST (14-36) U/L ALT (4-34) U/L Alkaline Phosphatase (38-126) U/L Total Protein (6.3-8.2) g/dL Albumin (3.5-5.0) g/dL - EKG Data -: EKG Interpreted by Me (EKG shows sinus tach 129 DE 120 QRS 72 QTC 4:30) - Radiology Data Radiology results: report reviewed (Chest x-ray shows right-sided pleural effu raffaele possible underlying pneumonia edema or pneumonitis), image reviewed Critical Care Time Critical Care Time: Yes Total Critical Care Time: 31 Disposition Clinical Impression: Metastatic cancer, Body fluid retention, Pleural effusion, right, Pneumonia involving right lung, CLL (chronic lymphocytic leukemia), Breast cancer, Leukocytosis, Pulmonary edema, Lung mass Disposition: ADMITTED IP TO THIS HOSP Condition: Serious Is patient prescribed a controlled substance at d/c from ED?: No Referrals: Pia Jaramillo MD [Primary Care Provider] - 1-2 days
[2020-11-01] MEDS ORDERED: MORPHINE SULFATE 4 MG/ML SYRINGE IVP STA (04:45)
[2020-11-01] MEDS ORDERED: LORazepam 2 MG/ML INJ IV STA (04:45)
[2020-11-01] MEDS ORDERED: LORazepam 2 MG/ML INJ IV PRN (04:45)
[2020-11-01] MEDS ORDERED: MORPHINE SULFATE 4 MG/ML SYRINGE IVP PRN (04:45)
[2020-11-01 05:01] LABS: Anisocytosis Moderate; HCT 30.9 % (34.0-46.0); HGB 9.7 gm/dL (11.4-16.0); Hypochromasia Slight; MCH 34.1 pg (25.0-35.0); MCHC 31.3 g/dL (31.0-37.0); Macrocytosis Marked; Mean Platelet Volume 8.3; Poikilocytosis Slight; RBC 2.83 m/uL (3.80-5.40); RDW 21.8 % (11.5-15.5)
[2020-11-01] MEDS ORDERED: ONDANSETRON 4 MG/2 ML VIAL IVP STA (05:03)
[2020-11-01 05:05] LABS: Platelet Count 162 k/uL (150-450)
[2020-11-01 05:23] LABS: INR 0.9 (<1.2); Prothrombin Time 10.1 sec (9.0-12.0)
--- NOTE | 2020-11-01 05:25 | XR ---
EXAM: XR Chest, 1 View CLINICAL HISTORY: Dyspnea. TECHNIQUE: Frontal view of the chest. COMPARISON: 10/15/2020. FINDINGS: Lungs: The left lung is well aerated. Pleural space: Moderate to large right pleural effusion. No pneumothorax. Heart: Cardiomediastinal silhouette unremarkable Mediastinum: See above. Bones/joints: Osteopenia. Tubes, lines and devices: Right internal jugular catheter is noted in place with its tip at the mid superior vena cava. IMPRESSION: 1. There is now near total opacification of the right lung suggestive of probable diffuse pulmonary edema. 2. Previously described underlying right lung mass is not visualized due to opacification of the right lung. 3. Left lung is well aerated. 4. Elevation of the right hemidiaphragm similar to previous study. 5. Small to moderate right pleural effusion.
[2020-11-01] MEDS ORDERED: methylPREDNISolone SOD SUCCI 125 MG/2 ML VIAL IV STA (05:30)
[2020-11-01 05:31] LABS: Partial Thromboplastin Time 16.6 sec (22.0-30.0)
[2020-11-01] MEDS ORDERED: ALBUTEROL NEBULIZED 2.5 MG/3 ML INHALATION PRN (05:32)
[2020-11-01] MEDS ORDERED: AZITHROMYCIN 500 MG in SODIUM CHLORIDE 0.9% 250 ML IVPB STA (05:32)
[2020-11-01] MEDS ORDERED: PNEUMONIA PROTOCOL UTILIZED 1 EACH MISC PO PRN (05:32)
[2020-11-01 05:34] LABS: ALT 58 U/L (4-34); AST 174 U/L (14-36); African American GFR (CKD) >90 (>60 ml/min/1.73 sqM); Albumin 3.4 g/dL (3.5-5.0); Alkaline Phosphatase 441 U/L (38-126); Anion Gap 2 mmol/L; Blood Urea Nitrogen 5 mg/dL (7-17); Calcium 8.3 mg/dL (8.4-10.2); Carbon Dioxide 31 mmol/L (22-30); Chloride 106 mmol/L (98-107); Glucose 103 mg/dL (74-99); Magnesium 1.9 mg/dL (1.6-2.3); Non-African American GFR(CKD) >90 (>60 ml/min/1.73 sqM); Potassium 4.5 mmol/L (3.5-5.1); Sodium 139 mmol/L (137-145); Total Protein 5.8 g/dL (6.3-8.2)
[2020-11-01] MEDS: SODIUM CHLORIDE 0.9% 1,000 ML IV SCH ×3 (05:44→23:52)
[2020-11-01 05:46] LABS: Band Neutrophils % 1 %; Myelocytes % 1 %; Neutrophils % (M) 2 %; Nucleated Red Blood Cells 6 /100 WBC (0-0); Total Cells Counted 200
[2020-11-01 05:47] LABS: Anisocytosis (M) Present; Lymphocytes # (M) 30.64 k/uL (1.0-4.8); Monocytes # (M) 0.65 k/uL (0-1.0); Myelocytes # (M) 0.33 k/uL (0); Polychromasia Present; WBC 32.6 k/uL (3.8-10.6)
[2020-11-01] MEDS: methylPREDNISolone SOD SUCCI 125 MG/2 ML VIAL IV SCH ×4 (06:24→23:07)
[2020-11-01] MEDS: IPRATROPIUM-ALBUTEROL 3 ML NEB INHALATION SCH ×4 (07:45→20:06)
[2020-11-01] MEDS: ENOXAPARIN 40 MG/0.4 ML SYRINGE SQ SCH (09:12)
[2020-11-01 11:30] LABS: Glucose,Whole Blood 167 mg/dL (75-99)
[2020-11-01] MEDS ORDERED: NALOXONE 0.4 MG/ML 1 ML VIAL IV PRN (12:49)
[2020-11-01] MEDS ORDERED: VANCOMYCIN IV PER PHARMACY 1 EACH MISC MISCELLANE PRN (12:49)
--- NOTE | 2020-11-01 13:07 | P.HPIM ---
History of Present Illness H&P Date: 11/01/20 Chief Complaint: sob 50-year-old female who has been smoking up until recently and with past medical history significant for CLL as well as left-sided breast cancer with metastasis to brain, lung, bone, and liver presents to the emergency department today for evaluation of shortness of breath. This has been associated with cough not productive of phlegm, pleuritic chest pain and chills. Patient was recently started on chemotherapy with Palbociclib for metastatic breast cancer. She only received one dose. She cannot be continued on that new to being ill. In addition patient has been complaining from difficulty speaking, hoarseness in the voice as well as difficulty with swallowing. She denied pain with swallowing. No nausea, vomiting, abdominal pain, rash, chest pain, numbness, tingling, dizziness, weakness, hematuria, dysuria, urinary urgency, urinary frequency, headache, visual changes, or any other complaints. Of note patient was recently admitted to the hospital for treatment of hyponatremia that was thought to be secondary to SIADH, patient was also recently treated for pneumonia in the hospital, was just discharged this last month. Laboratory evaluation in the emergency department revealed CBC count of 32,000, hemoglobin 9.7, platelet count 160. Electrolytes are all within normal limits except elevated CO2 at 31, low BUN and creatinine. LFTs continue to be elevated, slightly worse compared to prior values. Chest x-ray shows complete whitening of the chest consistent with right lung infiltrates versus edema, right pleural effusion. Review of Systems Complete review of system performed, pertinent positives per HPI, otherwise negative Past Medical History Past Medical History: Cancer, COPD Additional Past Medical History / Comment(s): 2017 L breast cancer with bilateral mastectomies/chemo/radiation, CLL, chronic elevation WBCs, cervical pain/vertigo on and off since April 2020, brain/lung/bone/liver CA History of Any Multi-Drug Resistant Organisms: None Reported Past Surgical History: Orthopedic Surgery Additional Past Surgical History / Comment(s): 2017 Bilateral mastectomies/implant reconstruction, R thumb tendon repair, lung mass biopsy. Past Anesthesia/Blood Transfusion Reactions: No Reported Reaction Past Psychological History: Anxiety, Depression, Panic Disorder Additional Psychological History / Comment(s): Pt resides alone with her cat. She has a nebulizer. She works for [employer]. She is independent. Smoking Status: Current every day smoker Past Alcohol Use History: None Reported Additional Past Alcohol Use History / Comment(s): Pt started smoking in 1983 and is a 2 ppd smoker. She states she drinks 2 beers a day. Past Drug Use History: None Reported - Past Family History Mother Family Medical History: Cancer Additional Family Medical History / Comment(s): in her 60s with history of dementia, chronic back pain, "pre leukemia." Father Additional Family Medical History / Comment(s): Father is alive with history of diabetes. Brother(s) Additional Family Medical History / Comment(s): Patient has 2 brothers with no major medical problems. Patient has 1 sister with no major medical problems. Patient does not have any children. Medications and Allergies Home Medications Medication Instructions Recorded Confirmed Type Albuterol Sulfate [Ventolin HFA] 2 puff INHALATION RT-Q4H PRN 04/12/17 11/01/20 History clonazePAM [KlonoPIN] 0.5 mg PO DAILY PRN 04/12/17 11/01/20 History Ipratropium-Albuterol Nebulize 3 ml INHALATION RT-TID PRN 09/01/20 11/01/20 History [Duoneb 0.5 mg-3 mg/3 ml Soln] Multivitamin [Multivitamins Adult 2 tab PO DAILY 09/01/20 11/01/20 History Gummies] Ondansetron Odt [Zofran ODT] 4 mg PO Q6H PRN 09/01/20 11/01/20 History Anastrozole [Arimidex] 1 mg PO DAILY tab 09/10/20 11/01/20 Rx Furosemide [Lasix] 20 mg PO DAILY PRN #30 tab 09/10/20 11/01/20 Rx polyethylene glycoL 3350 [Miralax] 17 gm PO HS PRN #30 powd.pack 09/10/20 11/01/20 Rx Cholestyramine (with Sugar) 4 gm PO DAILY PRN 10/11/20 11/01/20 History [Cholestyramine Packet] Nicotine 21Mg/24Hr Patch [Habitrol] 1 patch TRANSDERM DAILY 10/11/20 11/01/20 History OLANZapine [ZyPREXA] 5 mg PO DAILY 10/11/20 11/01/20 History Omeprazole 20 mg PO BID 10/11/20 11/01/20 History Palbociclib [Ibrance] 125 mg PO DIRECTED 10/11/20 11/01/20 History Potassium Chloride ER [K-Dur 10] 10 meq PO DAILY PRN 10/11/20 11/01/20 History methylPREDNISolone [Medrol Dose See Taper PO DIRECTED 10/11/20 11/01/20 History Pack] Acetaminophen Tab [Tylenol] 650 mg PO Q6HR PRN tab 10/15/20 11/01/20 Rx Azithromycin [Zithromax Z-pack (6 See Taper PO DIRECTED 11/01/20 11/01/20 History tabs)] Hydrocodone/Acetaminophen [[place] 1 tab PO QID PRN 11/01/20 11/01/20 History 7.5-325] Allergies Allergy/AdvReac Type Severity Reaction Status Date / Time No Known Allergies Allergy Verified 11/01/20 07:48 Physical Exam Vitals: Vital Signs Temp Pulse Pulse Pulse Resp BP BP 11/01/20 11:49 104 H 11/01/20 11:39 110 H 11/01/20 08:00 97.8 F 111 H 111 H 20 97/56 11/01/20 06:25 112 H 11/01/20 06:24 113 H 20 123/70 11/01/20 06:00 112 H 20 103/66 11/01/20 05:51 97/60 11/01/20 05:36 116 H 23 84/55 11/01/20 05:24 36 H 11/01/20 04:39 98.5 F 130 H 26 H 148/79 Pulse Ox 11/01/20 11:49 11/01/20 11:39 11/01/20 08:00 98 11/01/20 06:25 11/01/20 06:24 95 11/01/20 06:00 97 11/01/20 05:51 11/01/20 05:36 94 L 11/01/20 05:24 11/01/20 04:39 100 Intake and Output 10/31/20 11/01/20 11/01/20 22:59 06:59 14:59 Other: # Voids 1 Weight 62.142 kg Constitutional: Mild to moderate respiratory distress, barely able to finish sentences. Pale, looks chronically ill. Eyes:Anicteric sclerae, moist conjunctiva, no lid-lag, PERRLA, ENMT: Oropharynx clear, no erythema, exudates Neck: Supple, FROM, no masses, or JVD, No carotid bruits, No thyromegaly Lungs: Bilateral loud rhonchi and crackles. Bilateral wheezing, diffuse. Increased respiratory effort, mild accessory muscle use Cardiovascular: Heart regular in rate and rhythm, No murmurs, gallops, or rubs, 2+ peripheral edema Abdominal: Soft, Nontender, no guarding, rebound or rigidity, Normoactive bowel sounds, No hepatomegaly, No splenomegaly, No palpable mass Skin: Normal temperature, tone, texture, turgor, no induration, No subcutaneous nodules, No rash, lesions, No ulcers Extremities: No digital cyanosis, No clubbing, Pedal pulses intact and symmetrical, Radial pulses intact and symmetrical, No calf tenderness Psychiatric: Alert and oriented to person, place and time, appropriate affect, intact judgement Neuro: Muscles Strength 5/5 in all 4 extremities, Sensation to light touch grossly present throughout, Cranial nerves II-XII grossly intact, no focal sensory deficits Results CBC & Chem 7: 11/01/20 04:46 11/01/20 04:46 Labs: Abnormal Lab Results - Last 24 Hours (Table) 11/01/20 11/01/20 11/01/20 Range/Units 04:46 04:46 04:46 WBC 32.6 H (3.8-10.6) k/uL RBC 2.83 L (3.80-5.40) m/uL Hgb 9.7 L (11.4-16.0) gm/dL Hct 30.9 L (34.0-46.0) % MCV 109.0 H (80.0-100.0) fL RDW 21.8 H (11.5-15.5) % Neutrophils # (Manual) 0.90 L (1.3-7.7) k/uL Lymphocytes # (Manual) 30.64 H (1.0-4.8) k/uL Myelocytes # (Manual) 0.33 H (0) k/uL Nucleated RBCs 6 H (0-0) /100 WBC Macrocytosis Marked A APTT 16.6 L (22.0-30.0) sec Carbon Dioxide 31 H (22-30) mmol/L BUN 5 L (7-17) mg/dL Creatinine 0.50 L (0.52-1.04) mg/dL Glucose 103 H (74-99) mg/dL POC Glucose (mg/dL) (75-99) mg/dL Calcium 8.3 L (8.4-10.2) mg/dL AST 174 H (14-36) U/L ALT 58 H (4-34) U/L Alkaline Phosphatase 441 H (38-126) U/L Total Protein 5.8 L (6.3-8.2) g/dL Albumin 3.4 L (3.5-5.0) g/dL 11/01/20 Range/Units 11:28 WBC (3.8-10.6) k/uL RBC (3.80-5.40) m/uL Hgb (11.4-16.0) gm/dL Hct (34.0-46.0) % MCV (80.0-100.0) fL RDW (11.5-15.5) % Neutrophils # (Manual) (1.3-7.7) k/uL Lymphocytes # (Manual) (1.0-4.8) k/uL Myelocytes # (Manual) (0) k/uL Nucleated RBCs (0-0) /100 WBC Macrocytosis APTT (22.0-30.0) sec Carbon Dioxide (22-30) mmol/L BUN (7-17) mg/dL Creatinine (0.52-1.04) mg/dL Glucose (74-99) mg/dL POC Glucose (mg/dL) 167 H (75-99) mg/dL Calcium (8.4-10.2) mg/dL AST (14-36) U/L ALT (4-34) U/L Alkaline Phosphatase (38-126) U/L Total Protein (6.3-8.2) g/dL Albumin (3.5-5.0) g/dL Assessment and Plan Plan: Acute hypoxemic respiratory failure, acute healthcare associated pneumonia, pulmonary edema 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 History of metastatic breast cancer Last chemo was 1-2 months ago Consult oncology CLL Chronic SIADH Stable DVT prophylaxis Lovenox subcu
[2020-11-01] MEDS: VANCOMYCIN 1,250 MG in SODIUM CHLORIDE 0.9% 250 ML IVPB SCH (15:18)
[2020-11-01] MEDS: FUROSEMIDE 10 MG/ML 2 ML VIAL IV SCH (15:18)
[2020-11-01 16:42] LABS: Glucose,Whole Blood 189 mg/dL (75-99)
[2020-11-01] MEDS: PIPERACILLIN-TAZOBACTAM 3.375 GM in SODIUM CHLORIDE 0.9% 100 ML IVPB SCH ×2 (17:04→23:08)
[2020-11-01] MEDS ORDERED: ACETAMINOPHEN TAB 325 MG TAB PO PRN (20:06)
[2020-11-01 20:25] LABS: Glucose,Whole Blood 153 mg/dL (75-99)
[2020-11-01] MEDS: ONDANSETRON ODT 4 MG TAB PO PRN (21:23)
[2020-11-01] MEDS: HYDROcodone/APAP 7.5-325MG 1 EACH TAB PO PRN (21:23)
[2020-11-01] MEDS: ANASTROZOLE 1 MG TAB PO SCH (21:23)
[2020-11-02] MEDS: VANCOMYCIN 1,250 MG in SODIUM CHLORIDE 0.9% 250 ML IVPB SCH ×2 (01:30→14:39)
[2020-11-02] MEDS: methylPREDNISolone SOD SUCCI 125 MG/2 ML VIAL IV SCH ×4 (05:07→23:39)
[2020-11-02 06:07] LABS: Glucose,Whole Blood 150 mg/dL (75-99)
--- NOTE | 2020-11-02 07:29 | XR ---
EXAMINATION TYPE: XR chest 2V DATE OF EXAM: 11/02/2020 COMPARISON: 11/01/2020 TECHNIQUE: PA and lateral views submitted. HISTORY: Cough possible pneumonia FINDINGS: There is a right-sided Mediport catheter infiltrate and pleural effusion stable in appearance. Postsu rgical changes involving breast noted. Left lung is clear with coarsened interstitium. No pneumothora x. Heart size stable. IMPRESSION: 1. Stable diffuse right-sided infiltrate with pleural effusion. Differential diagnosis would include pneumonia or neoplastic process.
[2020-11-02 07:36] LABS: Anisocytosis Moderate; HCT 24.9 % (34.0-46.0); HGB 8.4 gm/dL (11.4-16.0); Hypochromasia Slight; MCH 36.2 pg (25.0-35.0); MCHC 33.8 g/dL (31.0-37.0); MCV 107.1 fL (80.0-100.0); Macrocytosis Marked; Mean Platelet Volume 8.3; Platelet Count 137 k/uL (150-450); Poikilocytosis Slight; RBC 2.33 m/uL (3.80-5.40); RDW 21.1 % (11.5-15.5)
[2020-11-02 07:49] LABS: ALT 54 U/L (4-34); AST 117 U/L (14-36); African American GFR (CKD) >90 (>60 ml/min/1.73 sqM); Albumin 3.1 g/dL (3.5-5.0); Alkaline Phosphatase 357 U/L (38-126); Anion Gap 2 mmol/L; Blood Urea Nitrogen 7 mg/dL (7-17); Calcium 8.2 mg/dL (8.4-10.2); Carbon Dioxide 32 mmol/L (22-30); Chloride 104 mmol/L (98-107); Glucose 152 mg/dL (74-99); Magnesium 1.9 mg/dL (1.6-2.3); Non-African American GFR(CKD) >90 (>60 ml/min/1.73 sqM); Potassium 4.2 mmol/L (3.5-5.1); Sodium 138 mmol/L (137-145); Total Bilirubin 0.8 mg/dL (0.2-1.3); Total Protein 5.2 g/dL (6.3-8.2)
[2020-11-02] MEDS: IPRATROPIUM-ALBUTEROL 3 ML NEB INHALATION SCH ×4 (08:26→18:52)
[2020-11-02] MEDS ORDERED: AZITHROMYCIN 500 MG in SODIUM CHLORIDE 0.9% 250 ML IVPB SCH (09:00)
[2020-11-02] MEDS: PIPERACILLIN-TAZOBACTAM 3.375 GM in SODIUM CHLORIDE 0.9% 100 ML IVPB SCH ×3 (09:19→23:40)
[2020-11-02] MEDS: ANASTROZOLE 1 MG TAB PO SCH (09:20)
[2020-11-02] MEDS: FUROSEMIDE 10 MG/ML 2 ML VIAL IV SCH (09:20)
[2020-11-02] MEDS: ENOXAPARIN 40 MG/0.4 ML SYRINGE SQ SCH (09:20)
[2020-11-02 10:08] LABS: Band Neutrophils % 2 %; Lymphocytes # (M) 28.85 k/uL (1.0-4.8); Monocytes # (M) 0.32 k/uL (0-1.0); Myelocytes # (M) 0.32 k/uL (0); Myelocytes % 1 %; Neutrophils % (M) 6 %; Nucleated Red Blood Cells 1 /100 WBC (0-0); Total Cells Counted 200; WBC 31.7 k/uL (3.8-10.6)
[2020-11-02 10:09] LABS: Polychromasia Present
[2020-11-02 11:41] LABS: Glucose,Whole Blood 204 mg/dL (75-99)
--- NOTE | 2020-11-02 11:45 | P.CONS ---
History of Present Illness - Reason for Consult Consult date: 11/02/20 Metastatic breast cancer, acute on chronic respiratory failure - History of Present Illness Ms. Melgar is a 50 yr old female with a complicated medical history including frequent recurrent upper respiratory infections including pneumonia. She was referred to hematology for high MCV felt to be related to prior EtOH use and high hemoglobin secondary to smoking. Flow cytometry confirmed a monoclonal population, consistent with CLL. She had normal fish, borderline high ZAP 70 11%, IgG in the 400 range. She was placed on observation. Patient then had complaints of pain and swelling in the left breast, she had an FNA 11/04/16 positive for malignancy, core biopsy 11/09/16 confirming invasive ductal carcinoma, grade 3, ER/TN positive, HER-2 negative by fish. Admitted [facility] on 11/17/16 with increasing pain and swelling, breast mass had increased, new left axillary lymph node. Additional biopsies were done, both positive for invasive ductal carcinoma. CT CAP showed nonspecific nodes in the mediastinum, some sclerosis in the bones, T5 was positive on nuclear medicine bone scan. Intent was curative, even if oligometastatic disease at T5 was present. She completed DD AC and Taxol late 03/09. She proceeded to b/l mastectomy with left axillary dissection on 04/20/17, revealing a pCR for invasive cancer on the left. Residual DCIS was noted. Nodes were positive for CLL, but negative for breast ca. Rt breast was negative. She had reconstruction. BRCA testing was was negative. Completed RT on 08/08/17, but refused RT to T5, initially. She was persuaded to do so, and ultimately completed than in late 09/09. She was admitted to [facility] in late 10/09 with back pain and SOB. She was diagnosed with possible radiation pneumonitis, and treated with a steroid taper. She was then started on tamoxifen in 10/09. She stopped following up in the office after 11/10. She was seen in consultation at [facility] 08/12. She had been admitted with neck and back pain as well as episodes of dizziness and near-syncope. The patient stated that she stopped following up on her own accord as she was having some "personal issues". She stated that she also stopped taking the tamoxifen soon aft her last visit in the office in 11/10. Workup revealed a new medial right upper lobe mass, hilar, extending into the mediastinum and encasing the trachea and right mainstem bronchus, as well as proximal left mainstem bronchus, subcarinal soft tissue and left hilar adenopathy, multiple liver and bone lesions. She was started on Arimidex while inpatient in August. Additional genetic and marker testing confirmed hormone receptor positive breast primary. She was then started on Ibrance has completed 1 21 day cycle. The patient was admitted on 10/11/20, with progressive shortness of breath, and hoarseness. She was found to have right-sided pleural effusion, and extensive opacification of the right lung. Swallow study was normal. The patient was felt to most likely have a postobstructive pneumonia. She improved with steroids and antibiotic. Ibrance was held because of infection. She was then seen in the office and reported improvement in swallowing and shortness of breath. She was referred to radiation oncology for palliative radiation to the right lung mass try to improve aeration to the right lung. She was supposed to see them on 11/03/20. Ibrance continue to be held until completion of radiation. The patient completed her outpatient antibiotics. She states that she developed recurrent upper airway congestion and shortness of breath that was progressive. She therefore came back to the hospital, and was admitted for further management. Review of Systems Constitutional: Reports fatigue, Reports weight loss Eyes: denies blurred vision, denies pain Ears: deny: decreased hearing, ear discharge, earache, tinnitus Ears, nose, mouth and throat: Reports hoarseness Cardiovascular: Reports shortness of breath Respiratory: Reports cough, Reports dyspnea Gastrointestinal: Denies abdominal pain, Denies diarrhea, Denies nausea, Denies vomiting Genitourinary: Denies dysuria, Denies hematuria Menstruation: Reports postmenopausal Musculoskeletal: Reports muscle weakness Integumentary: Denies pruritus, Denies rash Neurological: Reports weakness Psychiatric: Reports anxiety Endocrine: Reports fatigue, Reports weight change Hematologic/Lymphatic: Reports as per HPI, Reports lymphedema Past Medical History Past Medical History: Cancer, COPD Additional Past Medical History / Comment(s): 2016 L breast cancer with bilateral mastectomies/chemo/radiation, CLL, chronic elevation WBCs, cervical pain/vertigo on and off since April 2020, brain/lung/bone/liver CA History of Any Multi-Drug Resistant Organisms: None Reported Past Surgical History: Orthopedic Surgery Additional Past Surgical History / Comment(s): 2017 Bilateral mast ectomies/implant reconstruction, R thumb tendon repair, lung mass biopsy. Past Anesthesia/Blood Transfusion Reactions: No Reported Reaction Past Psychological History: Anxiety, Depression, Panic Disorder Additional Psychological History / Comment(s): Pt resides alone with her cat. She has a nebulizer. She works for [employer]. She is independent. Smoking Status: Current every day smoker Past Alcohol Use History: None Reported Additional Past Alcohol Use History / Comment(s): Pt started smoking in 1983 and is a 2 ppd smoker. She states she drinks 2 beers a day. Past Drug Use History: None Reported - Past Family History Mother Family Medical History: Cancer Additional Family Medical History / Comment(s): in her 60s with history of dementia, chronic back pain, "pre leukemia." Father Additional Family Medical History / Comment(s): Father is alive with history of diabetes. Brother(s) Additional Family Medical History / Comment(s): Patient has 2 brothers with no major medical problems. Patient has 1 sister with no major medical problems. Patient does not have any children. Medications and Allergies Home Medications Medication Instructions Recorded Confirmed Type Albuterol Sulfate [Ventolin HFA] 2 puff INHALATION RT-Q4H PRN 04/12/17 11/01/20 History clonazePAM [KlonoPIN] 0.5 mg PO DAILY PRN 04/12/17 11/01/20 History Ipratropium-Albuterol Nebulize 3 ml INHALATION RT-TID PRN 09/01/20 11/01/20 History [Duoneb 0.5 mg-3 mg/3 ml Soln] Multivitamin [Multivitamins Adult 2 tab PO DAILY 09/01/20 11/01/20 History Gummies] Ondansetron Odt [Zofran ODT] 4 mg PO Q6H PRN 09/01/20 11/01/20 History Anastrozole [Arimidex] 1 mg PO DAILY tab 09/10/20 11/01/20 Rx Furosemide [Lasix] 20 mg PO DAILY PRN #30 tab 09/10/20 11/01/20 Rx polyethylene glycoL 3350 [Miralax] 17 gm PO HS PRN #30 powd.pack 09/10/20 11/01/20 Rx Cholestyramine (with Sugar) 4 gm PO DAILY PRN 10/11/20 11/01/20 History [Cholestyramine Packet] Nicotine 21Mg/24Hr Patch [Habitrol] 1 patch TRANSDERM DAILY 10/11/20 11/01/20 History OLANZapine [ZyPREXA] 5 mg PO DAILY 10/11/20 11/01/20 History Omeprazole 20 mg PO BID 10/11/20 11/01/20 History Palbociclib [Ibrance] 125 mg PO DIRECTED 10/11/20 11/01/20 History Potassium Chloride ER [K-Dur 10] 10 meq PO DAILY PRN 10/11/20 11/01/20 History methylPREDNISolone [Medrol Dose See Taper PO DIRECTED 10/11/20 11/01/20 History Pack] Acetaminophen Tab [Tylenol] 650 mg PO Q6HR PRN tab 10/15/20 11/01/20 Rx Azithromycin [Zithromax Z-pack (6 See Taper PO DIRECTED 11/01/20 11/01/20 History tabs)] Hydrocodone/Acetaminophen [[place] 1 tab PO QID PRN 11/01/20 11/01/20 History 7.5-325] Allergies Allergy/AdvReac Type Severity Reaction Status Date / Time No Known Allergies Allergy Verified 11/01/20 07:48 Physical Exam Vitals: Vital Signs Temp Pulse Pulse Pulse Resp BP Pulse Ox 11/02/20 08:39 106 H 11/02/20 08:28 100 11/02/20 05:12 99 11/02/20 03:19 82 18 121/77 99 11/01/20 23:50 91 19 116/75 95 11/01/20 20:16 102 H 11/01/20 20:07 102 H 11/01/20 20:00 98.7 F 96 22 125/77 98 11/01/20 16:20 108 H 11/01/20 16:08 108 H 96 11/01/20 16:00 97.9 F 110 H 16 138/88 100 11/01/20 14:00 20 11/01/20 12:00 98.0 F 109 H 20 109/57 98 11/01/20 11:49 104 H 11/01/20 11:39 110 H Intake and Output 11/01/20 11/02/20 11/02/20 22:59 06:59 14:59 Intake Total 240 480 Output Total 150 200 200 Balance 90 -200 280 Intake: Oral 240 480 Output: Urine 150 200 200 Other: # Voids 1 Weight 62.1 kg - Constitutional General appearance: no acute distress - EENT Eyes: EOMI, PERRLA ENT: hearing grossly normal, normal oropharynx - Neck Neck: no lymphadenopathy - Respiratory Respiratory: right: diminished, rhonchi, wheezing, prolonged expiration - Cardiovascular Rhythm: regular Heart sounds: normal: S1, S2 - Gastrointestinal General gastrointestinal: hepatomegaly, soft - Integumentary Integumentary: normal - Neurologic Neurologic: CNII-XII intact - Musculoskeletal Musculoskeletal: generalized weakness, strength equal bilaterally - Psychiatric Psychiatric: A&O x's 3, appropriate affect Results CBC & Chem 7: 11/02/20 07:15 11/02/20 07:15 Labs: Abnormal Lab Results - Last 24 Hours (Table) 11/01/20 11/01/20 11/01/20 Range/Units 11:28 16:39 20:20 WBC (3.8-10.6) k/uL RBC (3.80-5.40) m/uL Hgb (11.4-16.0) gm/dL Hct (34.0-46.0) % MCV (80.0-100.0) fL MCH (25.0-35.0) pg RDW (11.5-15.5) % Plt Count (150-450) k/uL Lymphocytes # (Manual) (1.0-4.8) k/uL Myelocytes # (Manual) (0) k/uL Nucleated RBCs (0-0) /100 WBC Macrocytosis Carbon Dioxide (22-30) mmol/L Glucose (74-99) mg/dL POC Glucose (mg/dL) 167 H 189 H 153 H (75-99) mg/dL Calcium (8.4-10.2) mg/dL AST (14-36) U/L ALT (4-34) U/L Alkaline Phosphatase (38-126) U/L Total Protein (6.3-8.2) g/dL Albumin (3.5-5.0) g/dL 11/02/20 11/02/20 11/02/20 Range/Units 06:04 07:15 07:15 WBC 31.7 H (3.8-10.6) k/uL RBC 2.33 L (3.80-5.40) m/uL Hgb 8.4 L (11.4-16.0) gm/dL Hct 24.9 L (34.0-46.0) % MCV 107.1 H (80.0-100.0) fL MCH 36.2 H (25.0-35.0) pg RDW 21.1 H (11.5-15.5) % Plt Count 137 L (150-450) k/uL Lymphocytes # (Manual) 28.85 H (1.0-4.8) k/uL Myelocytes # (Manual) 0.32 H (0) k/uL Nucleated RBCs 1 H (0-0) /100 WBC Macrocytosis Marked A Carbon Dioxide 32 H (22-30) mmol/L Glucose 152 H (74-99) mg/dL POC Glucose (mg/dL) 150 H (75-99) mg/dL Calcium 8.2 L (8.4-10.2) mg/dL AST 117 H (14-36) U/L ALT 54 H (4-34) U/L Alkaline Phosphatase 357 H (38-126) U/L Total Protein 5.2 L (6.3-8.2) g/dL Albumin 3.1 L (3.5-5.0) g/dL Comments: EKG image reviewed Chest x-ray: report reviewed Venous US: report reviewed Assessment and Plan (1) Pneumonia involving right lung Narrative/Plan: The patient had presented with similar symptoms, on 10/11/20. She had improved with steroids and antibiotics. Her current clinical picture, is most likely due to postobstructive pneumonitis related to the right lung mass. Though she had improved with treatment previously, she was felt to be at high risk of recurrent obstructive symptoms due to which she was referred to radiation oncology for palliative radiation. - The patient unfortunately has developed recurrence of similar symptoms. She is improved compared to admission with steroids and antibiotics for current management. Radiation oncology will be consulted to see the patient to start palliative radiation as soon as possible. Hopefully cytoreduction of the Obstructing mass will reduce likelihood of future recurrences. Current Visit: Yes Status: Acute Code(s): J18.9 - PNEUMONIA, UNSPECIFIED ORGANISM SNOMED Code(s): 531103187 (2) Leukocytosis Narrative/Plan: The patient has known CLL, but has not required treatment so far. WBC is chronically elevated. Current WBC is in the same range with predominant lymphocytes. No intervention required Current Visit: Yes Status: Acute Code(s): D72.829 - ELEVATED WHITE BLOOD CELL COUNT, UNSPECIFIED SNOMED Code(s): 948672657 (3) Breast cancer Narrative/Plan: The patient has metastatic disease to the bone, lung and liver. Diagnostic and therapeutic circumstances so far as described. - The patient is continuing on Arimidex. Continue same while inpatient. Ibrance was held after cycle 1 due to her recent postobstructive pneumonia, and upcoming radiation. Tumor markers done during her last visit actually show a response, with declined compared to her initial diagnosis. - Resume Ibrance once current pneumonia is improved and she has completed radiation. 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 And posture swallowing evaluation at her last visit, and states that swallowing has been satisfactory since. She was set up for outpatient ENT follow-up for 11/05/20 Current Visit: Yes Status: Acute Code(s): R49.0 - DYSPHONIA SNOMED Code(s): 93508315 Plan: Continue to monitor blood counts. Hemoglobin may drop further due to stress of acute illness. Transfuse to keep above 7.
[2020-11-02] MEDS ORDERED: CHOLESTYRAMINE (WITH SUGAR) 4 GM PACKET PO PRN (13:13)
[2020-11-02] MEDS ORDERED: polyethylene glycoL 3350 17 GM POWD.PACK PO PRN (13:13)
[2020-11-02] MEDS: clonazePAM 0.5 MG TAB PO PRN (14:40)
[2020-11-02] MEDS: OLANZapine 5 MG TAB PO SCH (14:46)
[2020-11-02] MEDS: PANTOPRAZOLE 40 MG TABLET PO SCH (14:46)
[2020-11-02] MEDS: POTASSIUM CHLORIDE ER 10 MEQ TAB.ER.PRT PO SCH (14:46)
[2020-11-02] MEDS: SODIUM CHLORIDE 0.9% 1,000 ML IV SCH ×2 (14:50→20:40)
--- NOTE | 2020-11-02 15:21 | P.PN ---
Subjective Progress Note Date: 11/02/20 Principal diagnosis: Shortness of breath Patient is feeling better today. She is off BiPAP. Only requiring 6 L of oxygen. No fevers or chills. Still having some cough. Objective - Vital Signs Vital signs: Vital Signs Temp 97.4 F L 11/02/20 12:00 Pulse 105 H 11/02/20 13:30 Resp 16 11/02/20 13:30 BP 110/56 11/02/20 12:00 Pulse Ox 100 11/02/20 12:00 Intake & Output 11/01/20 11/02/20 11/02/20 18:59 06:59 18:59 Intake Total 360 1800 Output Total 350 2650 Balance 360 -350 -850 Weight 62.1 kg Intake: Oral 360 1800 Output: Urine 350 2650 Other: Voiding Method Toilet # Voids 2 1 - Exam Constitutional: Mild to moderate respiratory distress, barely able to finish sentences. Pale, looks chronically ill. Eyes:Anicteric sclerae, moist conjunctiva, no lid-lag, PERRLA, ENMT: Oropharynx clear, no erythema, exudates Neck: Supple, FROM, no masses, or JVD, No carotid bruits, No thyromegaly Lungs: Bilateral loud rhonchi and crackles. Bilateral wheezing, diffuse. Increased respiratory effort, mild accessory muscle use Cardiovascular: Tachycardic, regular, No murmurs, gallops, or rubs, 2+ periphera l edema Abdominal: Soft, Nontender, no guarding, rebound or rigidity, Normoactive bowel sounds, No hepatomegaly, No splenomegaly, No palpable mass Skin: Normal temperature, tone, texture, turgor, no induration, No subcutaneous nodules, No rash, lesions, No ulcers Extremities: No digital cyanosis, No clubbing, Pedal pulses intact and symmetrical, Radial pulses intact and symmetrical, No calf tenderness Psychiatric: Alert and oriented to person, place and time, appropriate affect, intact judgement Neuro: Muscles Strength 5/5 in all 4 extremities, Sensation to light touch grossly present throughout, Cranial nerves II-XII grossly intact, no focal sensory deficits - Labs CBC & Chem 7: 11/02/20 07:15 11/02/20 07:15 Labs: Abnormal Lab Results - Last 24 Hours (Table) 11/01/20 11/01/20 11/02/20 Range/Units 16:39 20:20 06:04 WBC (3.8-10.6) k/uL RBC (3.80-5.40) m/uL Hgb (11.4-16.0) gm/dL Hct (34.0-46.0) % MCV (80.0-100.0) fL MCH (25.0-35.0) pg RDW (11.5-15.5) % Plt Count (150-450) k/uL Lymphocytes # (Manual) (1.0-4.8) k/uL Myelocytes # (Manual) (0) k/uL Nucleated RBCs (0-0) /100 WBC Macrocytosis Carbon Dioxide (22-30) mmol/L Glucose (74-99) mg/dL POC Glucose (mg/dL) 189 H 153 H 150 H (75-99) mg/dL Calcium (8.4-10.2) mg/dL AST (14-36) U/L ALT (4-34) U/L Alkaline Phosphatase (38-126) U/L Total Protein (6.3-8.2) g/dL Albumin (3.5-5.0) g/dL 11/02/20 11/02/20 11/02/20 Range/Units 07:15 07:15 11:40 WBC 31.7 H (3.8-10.6) k/uL RBC 2.33 L (3.80-5.40) m/uL Hgb 8.4 L (11.4-16.0) gm/dL Hct 24.9 L (34.0-46.0) % MCV 107.1 H (80.0-100.0) fL MCH 36.2 H (25.0-35.0) pg RDW 21.1 H (11.5-15.5) % Plt Count 137 L (150-450) k/uL Lymphocytes # (Manual) 28.85 H (1.0-4.8) k/uL Myelocytes # (Manual) 0.32 H (0) k/uL Nucleated RBCs 1 H (0-0) /100 WBC Macrocytosis Marked A Carbon Dioxide 32 H (22-30) mmol/L Glucose 152 H (74-99) mg/dL POC Glucose (mg/dL) 204 H (75-99) mg/dL Calcium 8.2 L (8.4-10.2) mg/dL AST 117 H (14-36) U/L ALT 54 H (4-34) U/L Alkaline Phosphatase 357 H (38-126) U/L Total Protein 5.2 L (6.3-8.2) g/dL Albumin 3.1 L (3.5-5.0) g/dL Assessment and Plan Plan: Acute hypoxemic respiratory failure, postobstructive pneumonia, acute healthcare associated pneumonia, pulmonary edema Lasix 20 mg IV daily, add potassium replacement Solu-Medrol 60 mg every 6 hours Zosyn and vancomycin DuoNeb's Oxygen to keep saturations above 92%. Sputum cultures Consult pulmonary Voice hoarseness Likely secondary to right hilar lung mass Needs outpatient laryngoscope. History of metastatic breast cancer Last Ibrance dose was 1-2 months ago Continue anastozole. Seen by oncology, Dr. Devine recommending radiation treatment to the right hilar mass to alleviate the bronchial obstruction Transfer to oncology floor CLL Chronic SIADH Stable DVT prophylaxis Lovenox subcu Anticipated discharge: 3 days Disposition: Home likely
[2020-11-02 16:42] LABS: Glucose,Whole Blood 163 mg/dL (75-99)
[2020-11-02] MEDS: NYSTATIN 100,000 UNIT/ML SUSP 500,000 UNIT/5 ML CUP PO SCH ×2 (18:14→23:40)
[2020-11-02 20:19] LABS: Glucose,Whole Blood 181 mg/dL (75-99)
[2020-11-03] MEDS: VANCOMYCIN 1,250 MG in SODIUM CHLORIDE 0.9% 250 ML IVPB SCH ×2 (02:33→14:20)
[2020-11-03] MEDS: methylPREDNISolone SOD SUCCI 125 MG/2 ML VIAL IV SCH (05:33)
[2020-11-03] MEDS: IPRATROPIUM-ALBUTEROL 3 ML NEB INHALATION SCH ×4 (07:56→21:08)
[2020-11-03] MEDS: ENOXAPARIN 40 MG/0.4 ML SYRINGE SQ SCH (09:09)
[2020-11-03] MEDS: SODIUM CHLORIDE 0.9% 1,000 ML IV SCH (09:09)
[2020-11-03] MEDS: POTASSIUM CHLORIDE ER 10 MEQ TAB.ER.PRT PO SCH (09:11)
[2020-11-03] MEDS: FUROSEMIDE 10 MG/ML 2 ML VIAL IV SCH (09:11)
[2020-11-03] MEDS: NYSTATIN 100,000 UNIT/ML SUSP 500,000 UNIT/5 ML CUP PO SCH ×4 (10:32→21:33)
[2020-11-03] MEDS: PANTOPRAZOLE 40 MG TABLET PO SCH (10:32)
[2020-11-03] MEDS: ANASTROZOLE 1 MG TAB PO SCH (10:32)
[2020-11-03] MEDS: OLANZapine 5 MG TAB PO SCH (10:32)
[2020-11-03] MEDS: PIPERACILLIN-TAZOBACTAM 3.375 GM in SODIUM CHLORIDE 0.9% 100 ML IVPB SCH ×2 (10:32→19:34)
[2020-11-03] MEDS: clonazePAM 0.5 MG TAB PO PRN (12:05)
--- NOTE | 2020-11-03 12:05 | P.PN ---
Subjective Progress Note Date: 11/03/20 Principal diagnosis: Acute hypoxemic respiratory failure The patient has a 50-year-old female with past medical history of hypertension, nicotine dependence recently quiting smoking in 08/2020, and CLL as well as left-sided breast cancer with metastasis to brain, lung, bone, and liver. She presented to [facility] for evaluation of shortness of breath accompanied by coarse nonproductive cough, pleuritic chest pain, chills, difficulty speaking with hoarse voice and dysphagia. Pt recently started on chemotherapy with Ibrance, but this was stopped due to dx of postobstructive pneumonia resulting in hospitalization on 10/11/20. On 11/01/20 patient admitted for acute respiratory failure with hypoxia after being found to have pneumonia. Patient was placed on BiPAP to maintain SpO2 equal to or greater than 92% at all times. Her CBC count of 32,000, hemoglobin 9.7, platelet count 160. Electrolytes are all within normal limits except elevated CO2 at 31, low BUN and creatinine. LFTs continue to be elevated, slightly worse compared to prior values. Chest x-ray shows complete whitening of the chest consistent with right lung infiltrates versus edema, right pleural effusion. 11/03/20 patient improving BIPAP has been removed and patient was taken down to 5L O2 via nasal cannula and tolerating well. Labs revealed WBCs decreasing to 31.7 , and pt continues to have hyperchromic macrocytic anemia with Hemoglobin 8.4, hematocrit 24.9, MCV 107.1, MCH 36.2, and MCHC 33.8. Thrombocytopenia improving with platelet count improving to 21.1. Repeat chest x-ray was obtained revealing stable diffuse right-sided infiltrate with pleural effusion with differential diagnoses including pneumonia versus neoplastic process. Dr. Devine evaluated pt yesterday and recommends for pt to resume radiation therapy, continue to monitor CBC, continuation of Arimadex and continue to hold Ibrance, hoarseness of voice was clinically reported to be possibly secondary to la ryngeal nerve palsy resulting from right lung mass and scheduled for outpatient ENT follow up on 11/05/20. Pt seen and fully evaluated at the bedside. She was sitting on the edge of the bed eating breakfast at this time. Respirations even, regular, and unlabored on 5 L O2 via nasal cannula. Lungs diffusely coarse throughout worse throughout right. Patient reports that she feels like she is doing a little better today and does not feel as short of breath she has the past 2 days. She does report that she continues to have a hard time speaking, but states able to swallow to eat and drink without any difficulties. Patient does continue to report mild shortness of breath, hoarseness, and coco sea. She denies having headache, lightheadedness, dizziness, chest pain or palpitations, abdominal pain, episodes of vomiting or any other complaints. Patient scheduled for radiation therapy at 1:30 this afternoon. Objective - Vital Signs Vital signs: Vital Signs Temp 97.4 F L 11/03/20 08:00 Pulse 93 11/03/20 08:07 Resp 20 11/03/20 08:00 BP 124/83 11/03/20 08:00 Pulse Ox 97 11/03/20 08:00 Intake & Output 11/02/20 11/03/20 11/03/20 18:59 06:59 18:59 Intake Total 2400 100 Output Total 2900 Balance -500 100 Weight 62.505 kg Intake: Oral 2400 100 Output: Urine 2900 Other: Voiding Method Toilet Toilet # Voids 1 3 - Exam General: non toxic, no acute distress, appears chronically ill. Derm: warm, dry Head: atraumatic, normocephalic, symmetric, hairloss Eyes: EOMI, no lid lag, anicteric sclera Mouth: no lip lesion, mucus membranes moist, voice hoarse and patient only able to talk in a whisper. Cardiovascular: S1S2 reg, no murmur, positive posterior tibial pulse bilateral, 2+ pitting edema bilaterally. Chemo-Port right anterior chest Lungs: Respirations even, regular, and unlabored on 5 L O2 via nasal cannula. Lungs diffuse coarse rhonchi bilaterally worse on the right. Abdominal: soft, nontender to palpation, no guarding, no appreciable organomegaly Ext: no gross muscle atrophy, no edema, no contractures Neuro: CN II-XI grossly intact, no focal neuro deficits Psych: Alert, oriented, appropriate affect - Labs CBC & Chem 7: 11/02/20 07:15 11/03/20 11:37 Labs: Abnormal Lab Results - Last 24 Hours (Table) 11/02/20 11/02/20 11/02/20 Range/Units 11:40 16:41 20:18 POC Glucose (mg/dL) 204 H 163 H 181 H (75-99) mg/dL Assessment and Plan Plan: Acute hypoxemic respiratory failure, postobstructive pneumonia, acute healthcare associated pneumonia, pulmonary edema -Continue oxygenation as needed to maintain SpO2 equal to or greater than 92% at all times. -Stop IV fluids, continue Lasix 20 mg IV daily, and monitor daily electrolytes -We will stop solumedrol and transition to oral prednisone tomorrow. -Continue IV antibiotics: Zosyn and vancomycin -DuoNeb's as needed for SOB and wheezing. -Sputum cultures -Pulmonary consulted and appreciate recommendations. -Incentive spirometry and encouraged use 10-15 times hourly while awake. Voice hoarseness -Pt was evaluated by Heme/Onc Dr. Devine, voive hoarseness is likely secondary to right hilar lung mass. -Pt denies having issues swallowing oral foods/fluids at this time. -Outpatient appointment with ENT on 11/05/20 for laryngescope History of metastatic breast cancer -Patient has breast cancer with metastatic disease to her lung, bone, liver, and brain. -Last Ibrance dose was 1-2 months ago -Continue anastozole. -Seen by oncology, Dr. Devine recommending radiation treatment to the right hilar mass to alleviate the bronchial obstruction. Radiation scheduled today at 1:30. -Dr. Devine also recommending to continue to monitoring CBC, continuation of Arimadex and continue to hold Ibrance, hoarseness of voice was clinically reported to be possibly secondary to laryngeal nerve palsy resulting from right lung mass and scheduled for outpatient ENT follow up on 11/05/20.p.m. -Pulmonology also on consult and appreciate recommendations. Transaminitis, improving -AST 117, ALP 54, and alkaline phosphatase 357. This is improving since arrival with initial AST 174 ALP 58, and alkaline phosphatase of 441. CLL, stable -Chronic SIADH -Stable. Patient has not required treatment thus far. -Patient has leukocytosis with WBC count of 31.7, chronic elevation secondary to CLL. CODE STATUS: Full code DVT prophylaxis: Lovenox Discussed with: Patient and nursing staff Anticipated discharge: [address]: Home A total of 35 minutes was spent on the care of this complex patient more than 50% of the time was spent in counseling and care coordination.
--- NOTE | 2020-11-03 12:14 | CDI ---
Documentation Clarification Form Date: 11/03/2020 11:53:09 AM From: Parul Mcmanus RN CCDS Admit Date: 11/01/2020 05:32:00 AM Patient Name: Mabel Melgar Visit Number: [id number] Discharge Date: ATTENTION: The Clinical Documentation Specialists (CDI) and [facility] Coding Staff appreciate your assistance in clarifying documentation. Please respond to the clarification below the line at the bottom and electronically sign. The CDI & [facility] Coding staff will review the response and follow-up if needed. Please note: Queries are made part of the Legal Health Record. If you have any questions, please contact the author of this message via ITS. Elise Oneal MD Acute healthcare associated pneumonia was documented in the H&P 11/01 and Progress Notes 11/02 & 11/03 History/Risk Factors: 50-year-old female presents to the ED via EMS for chest pain, cough and shortness of breath. Medical History: COPD, CLL, Left sided breast cancer with metastasis to brain, lung, bone and liver. Clinical Indicators: H&P 11/01: Patient was recently admitted to the hospital for hyponatremia and was also recently treated for pneumonia in the hospital and discharged last month. Vital signs 11/01: B/P 148/79; Temp 98.5 F Axillary; HR 130; RR 26; SpO2 100% Aerosol Mask 15L WBC/Left shift: Wbc 32.6; Neutrophil # 0.90 CXR 11/01: Near total opacification of the right lung suggestive of probable diffuse pulmonary edema. Left lung well aerated. Elevation of the right hemidiaphragm similar to previous study. Small to moderate right pleural effusion. Lung/Breathing assessment H&P 11/01: Bilateral loud rhonchi and crackles. Bilateral wheezing, diffuse increased respiratory effort, mild accessory muscle use. Treatment: Antibiotics: 11/01 Azithromycin Ivpb x1; Ceftriaxone Ivpb x1; Piperacillin Ivpb Q8HR; 11/03 Vancomycin Ivpb dose as directed. O2: Areosol mask; BiPAP; High Flow Oxygen Nasal Cannula; Nasal Cannula Breathing Tx: 11/01 Albuterol Ventolin; Albuterol Duoneb; In order to capture the severity of condition, please clarify if the condition signifies and you are treating for: * Bacterial Pneumonia, specify causal organism (if known) Gram Negative Pneumonia Other bacteria (please specify) * Healthcare Acquired Pneumonia/Pneumonia, unspecified. * Other, please specify * Unable to determine (Last Revision: January 2018) HCAP MTDD
[2020-11-03] MEDS ORDERED: VANCOMYCIN TROUGH DUE 1 EACH MISC MISCELLANE ONE (12:30)
[2020-11-03 13:12] LABS: African American GFR (CKD) >90 (>60 ml/min/1.73 sqM); Non-African American GFR(CKD) >90 (>60 ml/min/1.73 sqM)
--- NOTE | 2020-11-03 16:55 | P.PN ---
Subjective Progress Note Date: 11/03/20 Principal diagnosis: SOB, cough If f/u today pt reports feeling only slightly better then on admit. Her voice is still hoarse, cough is congested, no expectoration, hemoptysis. Appetite is fair, no fever, nausea, acute changes in bowel or bladder. Objective - Vital Signs Vital signs: Vital Signs Temp 97.4 F L 11/03/20 13:30 Pulse 88 11/03/20 16:35 Resp 20 11/03/20 13:30 BP 114/74 11/03/20 13:30 Pulse Ox 97 11/03/20 16:35 Intake & Output 11/02/20 11/03/20 11/03/20 18:59 06:59 18:59 Intake Total 2400 100 Output Total 2900 Balance -500 100 Weight 62.505 kg Intake: Oral 2400 100 Output: Urine 2900 Other: Voiding Method Toilet Toilet # Voids 1 3 - Constitutional General appearance: Present: average body habitus, cooperative, mild distress - EENT Eyes: Present: anicteric sclerae, EOMI ENT: Present: hearing grossly normal, normal oropharynx - Respiratory Respiratory: bilateral: rhonchi - Cardiovascular Heart sounds: normal: S1, S2 Abnormal Heart Sounds: Absent: systolic murmur, diastolic murmur, rub, S3 Ga llop, S4 Gallop, click, other - Peripheral edema leg Peripheral Edema: bilateral: None - Gastrointestinal General gastrointestinal: Present: normal bowel sounds, soft - Neurologic Neurologic: Present: CNII-XII intact - Musculoskeletal Musculoskeletal: Present: strength equal bilaterally - Psychiatric Psychiatric: Present: A&O x's 3, appropriate affect, intact judgment & insight - Labs CBC & Chem 7: 11/02/20 07:15 11/03/20 11:37 Labs: Abnormal Lab Results - Last 24 Hours (Table) 11/02/20 Range/Units 20:18 POC Glucose (mg/dL) 181 H (75-99) mg/dL Assessment and Plan (1) Breast cancer Narrative/Plan: Cont to hold ibrance-no literature giving with radiation. Cont taking arimidex. Radiation to right lung to try and open up obstructed airway Current Visit: Yes Status: Chronic Priority: High Code(s): C50.919 - MALIGNANT NEOPLASM OF UNSP SITE OF UNSPECIFIED FEMALE BREAST SNOMED Code(s): 739736046 (2) Hoarseness Narrative/Plan: Pt was supposed to be seen by ENT this week. Hopefully going to have scope to evaluate vocal cords, suspect infection or paralysis Current Visit: Yes Status: Acute Priority: High Code(s): R49.0 - DYSPHONIA SNOMED Code(s): 38588483 (3) CLL (chronic lymphocytic leukemia) Narrative/Plan: No treatment for the same. WBC/ALC stable Current Visit: No Status: Chronic Priority: Medium Code(s): C91.10 - CHRONIC LYMPHOCYTIC LEUK OF B-CELL TYPE NOT ACHIEVE REMIS SNOMED Code(s): 61988343
[2020-11-03] MEDS: VANCOMYCIN 1,500 MG in SODIUM CHLORIDE 0.9% 250 ML IVPB SCH (17:00)
[2020-11-03] MEDS: HYDROcodone/APAP 7.5-325MG 1 EACH TAB PO PRN (19:37)
[2020-11-04] MEDS: VANCOMYCIN 1,500 MG in SODIUM CHLORIDE 0.9% 250 ML IVPB SCH ×2 (01:04→14:30)
[2020-11-04] MEDS: PIPERACILLIN-TAZOBACTAM 3.375 GM in SODIUM CHLORIDE 0.9% 100 ML IVPB SCH ×4 (01:05→23:27)
[2020-11-04 06:42] LABS: Anisocytosis Moderate; HCT 26.2 % (34.0-46.0); HGB 8.5 gm/dL (11.4-16.0); Hypochromasia Moderate; MCH 35.4 pg (25.0-35.0); MCHC 32.6 g/dL (31.0-37.0); Macrocytosis Marked; Mean Platelet Volume 8.1; Platelet Count 145 k/uL (150-450); Poikilocytosis Slight; RBC 2.42 m/uL (3.80-5.40); RDW 20.7 % (11.5-15.5); WBC 38.7 k/uL (3.8-10.6)
[2020-11-04 06:58] LABS: MCV 108.5 fL (80.0-100.0)
[2020-11-04] MEDS: IPRATROPIUM-ALBUTEROL 3 ML NEB INHALATION SCH ×4 (08:30→20:00)
[2020-11-04] MEDS: PANTOPRAZOLE 40 MG TABLET PO SCH (09:01)
[2020-11-04] MEDS: ENOXAPARIN 40 MG/0.4 ML SYRINGE SQ SCH (09:02)
[2020-11-04] MEDS: ANASTROZOLE 1 MG TAB PO SCH (09:02)
[2020-11-04] MEDS: FUROSEMIDE 10 MG/ML 2 ML VIAL IV SCH (09:02)
[2020-11-04] MEDS: NYSTATIN 100,000 UNIT/ML SUSP 500,000 UNIT/5 ML CUP PO SCH ×4 (09:03→22:02)
[2020-11-04] MEDS: POTASSIUM CHLORIDE ER 10 MEQ TAB.ER.PRT PO SCH (09:03)
[2020-11-04] MEDS: OLANZapine 5 MG TAB PO SCH (09:04)
[2020-11-04] MEDS: predniSONE 20 MG TAB PO SCH (09:04)
[2020-11-04] MEDS: HYDROcodone/APAP 7.5-325MG 1 EACH TAB PO PRN ×3 (09:23→23:27)
[2020-11-04 10:11] LABS: African American GFR (CKD) 122.3 (60.0-200.0); Anion Gap 4.6 mmol/L (4.00-12.00); Carbon Dioxide 34.4 mmol/L (21.6-31.8); Magnesium 1.8 mg/dL (1.5-2.4); Non-African American GFR(CKD) 105.5 (60.0-200.0); Potassium 3.6 mmol/L (3.5-5.5)
--- NOTE | 2020-11-04 11:15 | P.CNPUL ---
History of Present Illness Consult date: 11/04/20 Reason for consult: dyspnea, cough, hypoxemia Chief complaint: Shortness of breath History of present illness: Patient seen eval reexamined, patient has a history of end-stage lung disease secondary severe COPD metastatic lung disease due to breast cancer and CLL, patient is undergoing radiation therapy and chemotherapy please refer to oncology notes currently patient is on 2 L oxygen arousable opens eyes follow simple commands, some gurgling in the upper airway is present, patient does have dysphonia weak vocal cords, high risk for aspiration, continue monitor aspiration precautions, chest x-ray showing right-sided infiltrate, likely pneumonia or neoplastic process, patient is on IV Zosyn and vancomycin Review of Systems All systems: negative Past Medical History Past Medical History: Cancer, COPD Additional Past Medical History / Comment(s): 2017 L breast cancer with bilateral mastectomies/chemo/radiation, CLL, chronic elevation WBCs, cervical pain/vertigo on and off since April 2020, brain/lung/bone/liver CA History of Any Multi-Drug Resistant Organisms: None Reported Past Surgical History: Orthopedic Surgery Additional Past Surgical History / Comment(s): 2017 Bilateral mastectomies/implant reconstruction, R thumb tendon repair, lung mass biopsy. Past Anesthesia/Blood Transfusion Reactions: No Reported Reaction Past Psychological History: Anxiety, Depression, Panic Disorder Additional Psychological History / Comment(s): Pt resides alone with her cat. She has a nebulizer. She works for [employer]. She is independent. Smoking Status: Current every day smoker Past Alcohol Use History: None Reported Additional Past Alcohol Use History / Comment(s): Pt started smoking in 1983 and is a 2 ppd smoker. She states she drinks 2 beers a day. Past Drug Use History: None Reported - Past Family History Mother Family Medical History: Cancer Additional Family Medical History / Comment(s): in her 60s with history of dementia, chronic back pain, "pre leukemia." Father Additional Family Medical History / Comment(s): Father is alive with history of diabetes. Brother(s) Additional Family Medical History / Comment(s): Patient has 2 brothers with no major medical problems. Patient has 1 sister with no major medical problems. Patient does not have any children. Medications and Allergies Home Medications Medication Instructions Recorded Confirmed Type Albuterol Sulfate [Ventolin HFA] 2 puff INHALATION RT-Q4H PRN 04/12/17 11/01/20 History clonazePAM [KlonoPIN] 0.5 mg PO DAILY PRN 04/12/17 11/01/20 History Ipratropium-Albuterol Nebulize 3 ml INHALATION RT-TID PRN 09/01/20 11/01/20 History [Duoneb 0.5 mg-3 mg/3 ml Soln] Multivitamin [Multivitamins Adult 2 tab PO DAILY 09/01/20 11/01/20 History Gummies] Ondansetron Odt [Zofran ODT] 4 mg PO Q6H PRN 09/01/20 11/01/20 History Anastrozole [Arimidex] 1 mg PO DAILY tab 09/10/20 11/01/20 Rx Furosemide [Lasix] 20 mg PO DAILY PRN #30 tab 09/10/20 11/01/20 Rx polyethylene glycoL 3350 [Miralax] 17 gm PO HS PRN #30 powd.pack 09/10/20 11/01/20 Rx Cholestyramine (with Sugar) 4 gm PO DAILY PRN 10/11/20 11/01/20 History [Cholestyramine Packet] Nicotine 21Mg/24Hr Patch [Habitrol] 1 patch TRANSDERM DAILY 10/11/20 11/01/20 History OLANZapine [ZyPREXA] 5 mg PO DAILY 10/11/20 11/01/20 History Omeprazole 20 mg PO BID 10/11/20 11/01/20 History Palbociclib [Ibrance] 125 mg PO DIRECTED 10/11/20 11/01/20 History Potassium Chloride ER [K-Dur 10] 10 meq PO DAILY PRN 10/11/20 11/01/20 History methylPREDNISolone [Medrol Dose See Taper PO DIRECTED 10/11/20 11/01/20 History Pack] Acetaminophen Tab [Tylenol] 650 mg PO Q6HR PRN tab 10/15/20 11/01/20 Rx Azithromycin [Zithromax Z-pack (6 See Taper PO DIRECTED 11/01/20 11/01/20 History tabs)] Hydrocodone/Acetaminophen [[place] 1 tab PO QID PRN 11/01/20 11/01/20 History 7.5-325] Allergies Allergy/AdvReac Type Severity Reaction Status Date / Time No Known Allergies Allergy Verified 11/01/20 07:48 Physical Exam Vitals: Vital Signs Temp Pulse Pulse Pulse Pulse Resp BP 11/04/20 09:36 102 H 111 H 110 H 23 11/04/20 08:42 100 11/04/20 08:30 100 11/04/20 07:37 96.9 F L 102 H 23 136/81 11/04/20 02:25 97.6 F 96 22 109/69 11/03/20 21:25 88 11/03/20 21:08 90 11/03/20 19:47 97.4 F L 105 H 16 117/75 11/03/20 16:53 90 11/03/20 16:35 88 11/03/20 14:00 110 H 11/03/20 13:30 97.4 F L 111 H 20 114/74 11/03/20 11:24 90 11/03/20 11:15 88 Pulse Ox 11/04/20 09:36 11/04/20 08:42 11/04/20 08:30 11/04/20 07:37 93 L 11/04/20 02:25 98 11/03/20 21:25 11/03/20 21:08 11/03/20 19:47 97 11/03/20 16:53 11/03/20 16:35 97 11/03/20 14:00 11/03/20 13:30 99 11/03/20 11:24 11/03/20 11:15 Intake and Output 11/03/20 11/04/20 11/04/20 22:59 06:59 14:59 Other: Voiding Method Toilet Toilet # Voids 3 2 Weight 59.8 kg 62.7 kg - Constitutional General appearance: average body habitus, cooperative, mild distress - EENT Eyes: PERRLA Ears: bilateral: normal - Neck Neck: normal ROM Carotids: bilateral: upstroke normal Thyroid: bilateral: normal size - Respiratory Respiratory: bilateral: diminished, rales - Cardiovascular Rhythm: regular Heart sounds: normal: S1, S2 - Gastrointestinal General gastrointestinal: normal bowel sounds - Musculoskeletal Musculoskeletal: generalized weakness, strength equal bilaterally - Psychiatric Psychiatric: A&O x's 3, appropriate affect, intact judgment & insight Results - Laboratory Findings CBC and BMP: 11/04/20 06:21 11/04/20 06:21 PT/INR, D-dimer PT 10.1 sec (9.0-12.0) 11/01/20 04:46 INR 0.9 (<1.2) 11/01/20 04:46 Abnormal lab findings: Abnormal Labs 11/01/20 11/01/20 11/01/20 04:46 04:46 04:46 WBC 32.6 H RBC 2.83 L Hgb 9.7 L Hct 30.9 L MCV 109.0 H MCH RDW 21.8 H Plt Count Neutrophils # (Manual) 0.90 L Lymphocytes # (Manual) 30.64 H Myelocytes # (Manual) 0.33 H Nucleated RBCs 6 H Macrocytosis Marked A APTT 16.6 L Sodium Carbon Dioxide 31 H BUN 5 L Creatinine 0.50 L BUN/Creatinine Ratio Glucose 103 H POC Glucose (mg/dL) Calcium 8.3 L AST 174 H ALT 58 H Alkaline Phosphatase 441 H Total Protein 5.8 L Albumin 3.4 L 11/01/20 11/01/20 11/01/20 11:28 16:39 20:20 WBC RBC Hgb Hct MCV MCH RDW Plt Count Neutrophils # (Manual) Lymphocytes # (Manual) Myelocytes # (Manual) Nucleated RBCs Macrocytosis APTT Sodium Carbon Dioxide BUN Creatinine BUN/Creatinine Ratio Glucose POC Glucose (mg/dL) 167 H 189 H 153 H Calcium AST ALT Alkaline Phosphatase Total Protein Albumin 11/02/20 11/02/20 11/02/20 06:04 07:15 07:15 WBC 31.7 H RBC 2.33 L Hgb 8.4 L Hct 24.9 L MCV 107.1 H MCH 36.2 H RDW 21.1 H Plt Count 137 L Neutrophils # (Manual) Lymphocytes # (Manual) 28.85 H Myelocytes # (Manual) 0.32 H Nucleated RBCs 1 H Macrocytosis Marked A APTT Sodium Carbon Dioxide 32 H BUN Creatinine BUN/Creatinine Ratio Glucose 152 H POC Glucose (mg/dL) 150 H Calcium 8.2 L AST 117 H ALT 54 H Alkaline Phosphatase 357 H Total Protein 5.2 L Albumin 3.1 L 11/02/20 11/02/20 11/02/20 11:40 16:41 20:18 WBC RBC Hgb Hct MCV MCH RDW Plt Count Neutrophils # (Manual) Lymphocytes # (Manual) Myelocytes # (Manual) Nucleated RBCs Macrocytosis APTT Sodium Carbon Dioxide BUN Creatinine BUN/Creatinine Ratio Glucose POC Glucose (mg/dL) 204 H 163 H 181 H Calcium AST ALT Alkaline Phosphatase Total Protein Albumin 11/04/20 11/04/20 06:21 06:21 WBC 38.7 H RBC 2.42 L Hgb 8.5 L Hct 26.2 L MCV 108.5 H MCH 35.4 H RDW 20.7 H Plt Count 145 L Neutrophils # (Manual) Lymphocytes # (Manual) Myelocytes # (Manual) Nucleated RBCs Macrocytosis Marked A APTT Sodium 148 H Carbon Dioxide 34.4 H BUN Creatinine BUN/Creatinine Ratio 25.00 H Glucose POC Glucose (mg/dL) Calcium 8.0 L AST ALT Alkaline Phosphatase Total Protein Albumin - Diagnostic Findings Chest x-ray: report reviewed, image reviewed (Finding as noted above) Assessment and Plan Assessment: Right-sided aspiration pneumonia Leukocytosis Metastatic breast cancer CML Paralyzed vocal cords End-stage COPD Plan: Speech therapy to do swallow evaluation Keep patient nothing by mouth for now Radiation and chemo as per oncology Continue new broad-spectrum antibiotics Patient remains at high risk for aspiration and aspiration related complication Prognosis guarded Time with Patient: Greater than 30
[2020-11-04] MEDS: ONDANSETRON ODT 4 MG TAB PO PRN (12:43)
--- NOTE | 2020-11-04 18:45 | P.PN ---
Subjective Progress Note Date: 11/04/20 Principal diagnosis: SOB, cough, metastatic breast cancer If f/u today pt reports feeling the same. Cough is persistent, hoarseness is persistent, she is not expectorating anything. No fevers, nausea, difficulty in swallowing or painful swallowing. She does have difficulty breathing if she lays flat, she is not in any acute pain Objective - Vital Signs Vital signs: Vital Signs Temp 98.1 F 11/04/20 14:00 Pulse 100 11/04/20 16:28 Resp 18 11/04/20 14:00 BP 131/85 11/04/20 14:00 Pulse Ox 94 L 11/04/20 14:00 Intake & Output 11/03/20 11/04/20 11/04/20 18:59 06:59 18:59 Weight 62.505 kg 59.8 kg 62.7 kg Other: Voiding Method Toilet Toilet # Voids 3 2 - Constitutional General appearance: Present: average body habitus, cooperative, mild distress - EENT Eyes: Present: anicteric sclerae, EOMI ENT: Present: hearing grossly normal - Respiratory Respiratory: bilateral: rhonchi, wheezing, prolonged expiration - Cardiovascular Heart sounds: normal: S1, S2 - Peripheral edema leg Peripheral Edema: bilateral: None - Gastrointestinal General gastrointestinal: Present: normal bowel sounds, soft - Neurologic Neurologic: Present: CNII-XII intact - Musculoskeletal Musculoskeletal: Present: generalized weakness, strength equal bilaterally - Psychiatric Psychiatric: Present: A&O x's 3, appropriate affect, intact judgment & insight - Labs CBC & Chem 7: 11/04/20 06:21 11/04/20 06:21 Labs: Abnormal Lab Results - Last 24 Hours (Table) 11/04/20 11/04/20 Range/Units 06:21 06:21 WBC 38.7 H (3.8-10.6) k/uL RBC 2.42 L (3.80-5.40) m/uL Hgb 8.5 L (11.4-16.0) gm/dL Hct 26.2 L (34.0-46.0) % MCV 108.5 H (80.0-100.0) fL MCH 35.4 H (25.0-35.0) pg RDW 20.7 H (11.5-15.5) % Plt Count 145 L (150-450) k/uL Macrocytosis Marked A Sodium 148 H (135-145) mmol/L Carbon Dioxide 34.4 H (21.6-31.8) mmol/L BUN/Creatinine Ratio 25.00 H (12.00-20.00) Ratio Calcium 8.0 L (8.7-10.3) mg/dL Assessment and Plan (1) Breast cancer Narrative/Plan: Cont to hold ibrance-no literature on giving it concurrently with radiation. Cont taking arimidex. Radiation to right lung to try and open up obstructed airway, planned dose today. Current Visit: Yes Status: Chronic Priority: High Code(s): C50.919 - MALIGNANT NEOPLASM OF UNSP SITE OF UNSPECIFIED FEMALE BREAST SNOMED Code(s): 019188386 (2) Hoarseness Narrative/Plan: Pt was supposed to be seen by ENT this week. Hopefully going to have scope to evaluate vocal cords, suspect infection or paralysis. This will likely have to be rescheduled Current Visit: Yes Status: Acute Priority: High Code(s): R49.0 - DYSPHONIA SNOMED Code(s): 07012793 (3) CLL (chronic lymphocytic leukemia) Narrative/Plan: No treatment for the same. WBC/ALC stable Current Visit: No Status: Chronic Priority: Medium Code(s): C91.10 - CHRONIC LYMPHOCYTIC LEUK OF B-CELL TYPE NOT ACHIEVE REMIS SNOMED Code(s): 31758245 Plan: Patient does well when she is treated steroids and antibiotics but, as soon as she completes therapy, her respiratory status declines again. This is most likely due to mechanical obstruction/recurrent post obstructive pneumonia from malignancy. Patient has been delayed in getting her radiation started but, it a ppears that they're going to be starting that today. As soon as patient condition improves she can be discharged and complete her radiation as an outpatient. Patient has instructions to continue her arimidex, hold Ibrance until radiation complete.
--- NOTE | 2020-11-04 20:17 | P.PN ---
Subjective Progress Note Date: 11/04/20 Principal diagnosis: Acute hypoxemic respiratory failure The patient has a 50-year-old female with past medical history of hypertension, nicotine dependence recently quiting smoking in 08/2020, and CLL as well as left-sided breast cancer with metastasis to brain, lung, bone, and liver O2 dependent at all times on 3-4 L via NC. She presented to [facility] for evaluation of shortness of breath accompanied by coarse nonproductive cough, pleuritic chest pain, chills, difficulty speaking with hoarse voice and dysphagia. Pt recently started on chemotherapy with Ibrance, but this was stopped due to dx of postobstructive pneumonia resulting in hospitalization on 10/11/20. On 11/01/20 patient admitted for acute respiratory failure with hypoxia after being found to have pneumonia. Patient was placed on BiPAP to maintain SpO2 equal to or greater than 92% at all times. Her CBC count of 32,000, hemoglobin 9.7, platelet count 160. Electrolytes are all within normal limits except elevated CO2 at 31, low BUN and creatinine. LFTs continue to be elevated, sl ightly worse compared to prior values. Chest x-ray shows complete whitening of the chest consistent with right lung infiltrates versus edema, right pleural effusion. 11/03/20 patient improving BIPAP has been removed and patient was taken down to 5L O2 via nasal cannula and tolerating well. Labs revealed WBCs decreasing to 31.7 , and pt continues to have hyperchromic macrocytic anemia with Hemoglobin 8.4, hematocrit 24.9, MCV 107.1, MCH 36.2, and MCHC 33.8. Thrombocytopenia improving with platelet count improving to 21.1. Repeat chest x-ray was obtained revealing stable diffuse right-sided infiltrate with pleural effusion with differential diagnoses including pneumonia versus neoplastic process. Dr. 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 Pt seen and fully evaluated at the bedside. She was sitting on the edge of the bed eating breakfast at this time. Respirations even, regular, and unlabored on 5 L O2 via nasal cannula. Lungs diffusely coarse throughout worse throughout right. Patient reports that she feels like she is doing a little better today and does not feel as short of edmundo ath she has the past 2 days. She does report that she continues to have a hard time speaking, but states able to swallow to eat and drink without any difficulties. Patient does continue to report mild shortness of breath, hoarseness, and nausea. She denies having headache, lightheadedness, dizziness, chest pain or palpitations, abdominal pain, episodes of vomiting or any other complaints. Patient scheduled for radiation therapy at 1:30 this afternoon. 11/04/20 Patient was seen and evaluated at bedside. She reports continued feeling of shortness of breath which significantly increases with any exertion and it remains difficult to even walk to the restroom. She had first radiation treatmen t yesterday and is due to go down for next radiation treatment this afternoon at 1:30. She is slowly progressing by decreasing her oxygenation needs and is back down to her home baseline oxygen needs on 3L O2 via NC today from 5 yesterday. She continues to have a non productive cough and hoarse voice. She denies having any lightheadedness/dizziness, sore throat or difficulties swallowing food or f luids, chest pain, or palpitations. She states her edema in her lower extremities remains unchanged. Pt has been evaluated by pulmonary and oncology remains on board. Pt to have swallow eval completed by speech therapy to rule out dysphagia and risk for aspiration. Orders placed for PT and OT consultation and discussed with case management patient needs and possible arrangements for discharge with home health care in the next 2-3 days pending further evaluations. At this time pt to continue with IV antibiotics with Zosyn and Vancomycin. Objective - Vital Signs Vital signs: Vital Signs Temp 96.9 F L 11/04/20 07:37 Pulse 100 11/04/20 12:05 Resp 23 11/04/20 09:36 BP 136/81 11/04/20 07:37 Pulse Ox 93 L 11/04/20 07:37 Intake & Output 11/03/20 11/04/20 11/04/20 18:59 06:59 18:59 Weight 62.505 kg 59.8 kg 62.7 kg Other: Voiding Method Toilet Toilet # Voids 3 2 - Exam General: non toxic, no acute distress, appears chronically ill. Derm: warm, dry Head: atraumatic, normocephalic, symmetric, hairloss Eyes: EOMI, no lid lag, anicteric sclera Mouth: no lip lesion, mucus membranes moist, voice hoarse and patient only able to talk in a whisper. Cardiovascular: S1S2 reg, no murmur, positive posterior tibial pulse bilateral, 2+ pitting edema bilaterally. Chemo-Port right anterior chest Lungs: Respirations even, regular, and unlabored on 3 L O2 via nasal cannula. Lungs diffuse coarse rhonchi bilaterally worse on the right. Abdominal: soft, nontender to palpation, no guarding, no appreciable organomegaly Ext: no gross muscle atrophy, no edema, no contractures Neuro: CN II-XI grossly intact, no focal neuro deficits Psych: Alert, oriented, appropriate affect - Labs CBC & Chem 7: 11/04/20 06:21 11/04/20 06:21 Labs: Abnormal Lab Results - Last 24 Hours (Table) 11/04/20 11/04/20 Range/Units 06:21 06:21 WBC 38.7 H (3.8-10.6) k/uL RBC 2.42 L (3.80-5.40) m/uL Hgb 8.5 L (11.4-16.0) gm/dL Hct 26.2 L (34.0-46.0) % MCV 108.5 H (80.0-100.0) fL MCH 35.4 H (25.0-35.0) pg RDW 20.7 H (11.5-15.5) % Plt Count 145 L (150-450) k/uL Macrocytosis Marked A Sodium 148 H (135-145) mmol/L Carbon Dioxide 34.4 H (21.6-31.8) mmol/L BUN/Creatinine Ratio 25.00 H (12.00-20.00) Ratio Calcium 8.0 L (8.7-10.3) mg/dL Assessment and Plan Plan: Acute hypoxemic respiratory failure, postobstructive pneumonia, acute healthcare associated pneumonia, pulmonary edema -Continue oxygenation as needed to maintain SpO2 equal to or greater than 92% at all times. -Stop IV fluids, continue Lasix 20 mg IV daily, and monitor daily electrolytes -Continue oral prednisone. -Continue IV antibiotics: Zosyn and vancomycin -DuoNeb's as needed for SOB and wheezing. -Sputum cultures -Pulmonary consulted and arranged for swallow eval to rule out aspiration. -Incentive spirometry and encouraged use 10-15 times hourly while awake. -PT/OT consult placed for evaluation Voice hoarseness -Pt was evaluated by Heme/Onc Dr. Devine, voive hoarseness is likely secondary to right hilar lung mass. -Pt denies having issues swallowing oral foods/fluids at this time. -Pt to be evaluated by speech and language pathology for swallow evaluation. History of metastatic breast cancer -Patient has breast cancer with metastatic disease to her lung, bone, liver, and brain. -Last Ibrance dose was 1-2 months ago -Continue anastozole. -Seen by oncology, Dr. Devine recommending radiation treatment to the right hilar mass to alleviate the bronchial obstruction. Had first dose of radiation yesterday and scheduled for second dose of Radiation scheduled today at 1:30. - Dr. 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 -Pulmonology on board and arranged for swallow evaluation to be completed by speech and language pathologist tomorrow. Transaminitis, improving -AST 117, ALP 54, and alkaline phosphatase 357. This is improving since arrival with initial AST 174 ALP 58, and alkaline phosphatase of 441. CLL, stable -Chronic SIADH -Stable. Patient has not required treatment thus far. -Patient has leukocytosis with WBC count of 38.7, chronic elevation secondary to CLL. CODE STATUS: Full code DVT prophylaxis: Lovenox Discussed with: Patient and nursing staff Anticipated discharge: 2-[address]: Home with healthcare A total of 35 minutes was spent on the care of this complex patient more than 50% of the time was spent in counseling and care coordination.
[2020-11-04 22:01] LABS: Anisocytosis Moderate; HCT 28.4 % (34.0-46.0); Hypochromasia Moderate; MCHC 31.9 g/dL (31.0-37.0); MCV 109.6 fL (80.0-100.0); Macrocytosis Marked; Mean Platelet Volume 7.9; Platelet Count 153 k/uL (150-450); Poikilocytosis Slight; RBC 2.59 m/uL (3.80-5.40); RDW 20.9 % (11.5-15.5)
[2020-11-04 22:27] LABS: Neutrophils % (M) 2 %
[2020-11-04 22:28] LABS: Eosinophils # (M) 0.37 k/uL (0-0.7); Lymphocytes # (M) 35.52 k/uL (1.0-4.8); Monocytes # (M) 0.74 k/uL (0-1.0); Neutrophils # (M) 0.74 k/uL (1.3-7.7); Nucleated Red Blood Cells 5 /100 WBC (0-0); Total Cells Counted 200
[2020-11-04 22:29] LABS: Polychromasia Present
[2020-11-05] MEDS: VANCOMYCIN 1,500 MG in SODIUM CHLORIDE 0.9% 250 ML IVPB SCH ×2 (02:20→14:45)
[2020-11-05] MEDS: FUROSEMIDE 10 MG/ML 2 ML VIAL IV SCH (07:41)
[2020-11-05] MEDS: PANTOPRAZOLE 40 MG TABLET PO SCH (07:42)
[2020-11-05] MEDS: PIPERACILLIN-TAZOBACTAM 3.375 GM in SODIUM CHLORIDE 0.9% 100 ML IVPB SCH ×2 (07:43→17:18)
[2020-11-05] MEDS: ENOXAPARIN 40 MG/0.4 ML SYRINGE SQ SCH (07:43)
[2020-11-05] MEDS: ANASTROZOLE 1 MG TAB PO SCH (07:43)
[2020-11-05] MEDS: NYSTATIN 100,000 UNIT/ML SUSP 500,000 UNIT/5 ML CUP PO SCH ×4 (07:44→21:34)
[2020-11-05] MEDS: OLANZapine 5 MG TAB PO SCH (07:44)
[2020-11-05] MEDS: POTASSIUM CHLORIDE ER 10 MEQ TAB.ER.PRT PO SCH (07:44)
[2020-11-05] MEDS: predniSONE 20 MG TAB PO SCH (07:44)
[2020-11-05] MEDS: HYDROcodone/APAP 7.5-325MG 1 EACH TAB PO PRN ×3 (07:57→21:34)
[2020-11-05] MEDS: IPRATROPIUM-ALBUTEROL 3 ML NEB INHALATION SCH ×4 (08:38→20:02)
[2020-11-05 10:22] LABS: African American GFR (CKD) 98.9 (60.0-200.0); Albumin 3.5 g/dL (3.80-4.90); Albumin/Globulin Ratio 2.5 (1.60-3.17); BUN/Creat Ratio 16.25 Ratio (12.00-20.00); Calcium 8.3 mg/dL (8.7-10.3); Globulin 1.4 g/dL (1.6-3.3); Magnesium 1.8 mg/dL (1.5-2.4); Non-African American GFR(CKD) 85.4 (60.0-200.0); Potassium 3.7 mmol/L (3.5-5.5); Total Bilirubin 0.7 mg/dL (0.2-1.2); Total Protein 4.9 g/dL (6.2-8.2)
--- NOTE | 2020-11-05 10:29 | P.PN ---
Subjective Progress Note Date: 11/05/20 Principal diagnosis: Right-sided aspiration pneumonia Leukocytosis Metastatic breast cancer CML Paralyzed vocal cords End-stage COPD 11/05/2020, patient on 3 L nasal cannula oxygen saturation is 94% if ammonia continued to present, slightly short of breath, weak edson on broad-spectrum antibiotics Patient seen eval reexamined, patient has a history of end-stage lung disease secondary severe COPD metastatic lung disease due to breast cancer and CLL, patient is undergoing radiation therapy and chemotherapy please refer to oncology notes currently patient is on 2 L oxygen arousable opens eyes follow simple commands, some gurgling in the upper airway is present, patient does have dysphonia weak vocal cords, high risk for aspiration, continue monitor aspiration precautions, chest x-ray showing right-sided infiltrate, likely pneumonia or neoplastic process, patient is on IV Zosyn and vancomycin Objective - Vital Signs Vital signs: Vital Signs Temp 97.5 F L 11/05/20 07:19 Pulse 112 H 11/05/20 08:50 Resp 18 11/05/20 07:45 BP 121/74 11/05/20 07:19 Pulse Ox 94 L 11/05/20 07:19 Intake & Output 11/04/20 11/05/20 11/05/20 18:59 06:59 18:59 Intake Total 200 Balance 200 Weight 62.7 kg Intake: Oral 200 Other: Voiding Method Toilet Toilet Toilet - Exam - Constitutional General appearance: average body habitus, cooperative, mild distress - EENT Eyes: PERRLA Ears: bilateral: normal - Neck Neck: normal ROM Carotids: bilateral: upstroke normal Thyroid: bilateral: normal size - Respiratory Respiratory: bilateral: diminished, rales - Cardiovascular Rhythm: regular Heart sounds: normal: S1, S2 - Gastrointestinal General gastrointestinal: normal bowel sounds - Musculoskeletal Musculoskeletal: generalized weakness, strength equal bilaterally - Psychiatric Psychiatric: A&O x's 3, appropriate affect, intact judgment & insight - Labs CBC & Chem 7: 11/04/20 21:05 11/05/20 06:14 Labs: Abnormal Lab Results - Last 24 Hours (Table) 11/04/20 11/05/20 Range/Units 21:05 06:14 WBC 37.0 H (3.8-10.6) k/uL RBC 2.59 L (3.80-5.40) m/uL Hgb 9.0 L (11.4-16.0) gm/dL Hct 28.4 L (34.0-46.0) % MCV 109.6 H (80.0-100.0) fL RDW 20.9 H (11.5-15.5) % Neutrophils # (Manual) 0.74 L (1.3-7.7) k/uL Lymphocytes # (Manual) 35.52 H (1.0-4.8) k/uL Nucleated RBCs 5 H (0-0) /100 WBC Macrocytosis Marked A Sodium 148 H (135-145) mmol/L Carbon Dioxide 34.0 H (21.6-31.8) mmol/L Calcium 8.3 L (8.7-10.3) mg/dL AST 95 H (13-35) U/L ALT 83 H (8-44) U/L Alkaline Phosphatase 506 H (41-126) U/L Total Protein 4.9 L (6.2-8.2) g/dL Albumin 3.50 L (3.80-4.90) g/dL Globulin 1.4 L (1.6-3.3) g/dL Assessment and Plan Assessment: Right-sided aspiration pneumonia Leukocytosis Metastatic breast cancer CML Paralyzed vocal cords End-stage COPD Plan: Speech therapy to do swallow evaluation Keep patient nothing by mouth for now Radiation and chemo as per oncology Continue new broad-spectrum antibiotics Patient remains at high risk for aspiration and aspiration related complication Prognosis guarded Time with Patient: Greater than 30
--- NOTE | 2020-11-05 10:50 | P.PN ---
Subjective Progress Note Date: 11/05/20 Principal diagnosis: Acute hypoxemic respiratory failure The patient has a 50-year-old female with past medical history of hypertension, nicotine dependence recently quiting smoking in 08/2020, and CLL as well as left-sided breast cancer with metastasis to brain, lung, bone, and liver O2 dependent at all times on 3-4 L via NC. She presented to [facility] for evaluation of shortness of breath accompanied by coarse nonproductive cough, pleuritic chest pain, chills, difficulty speaking with hoarse voice and dysphagia. Pt recently started on chemotherapy with Ibrance, but this was stopped due to dx of postobstructive pneumonia resulting in hospitalization on 10/11/20. On 11/01/20 patient admitted for acute respiratory failure with hypoxia after being found to have pneumonia. Patient was placed on BiPAP to maintain SpO2 equal to or greater than 92% at all times. Her CBC count of 32,000, hemoglobin 9.7, platelet count 160. Electrolytes are all within normal limits except elevated CO2 at 31, low BUN and creatinine. LFTs continue to be elevated, s lightly worse compared to prior values. Chest x-ray shows complete whitening of the chest consistent with right lung infiltrates versus edema, right pleural effusion. 11/03/20 patient improving BIPAP has been removed and patient was taken down to 5L O2 via nasal cannula and tolerating well. Labs revealed WBCs decreasing to 31.7 , and pt continues to have hyperchromic macrocytic anemia with Hemoglobin 8.4, hematocrit 24.9, MCV 107.1, MCH 36.2, and MCHC 33.8. Thrombocytopenia improving with platelet count improving to 21.1. Repeat chest x-ray was obtained revealing stable diffuse right-sided infiltrate with pleural effusion with differential diagnoses including pneumonia versus neoplastic process. Dr. 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 Pt seen and fully evaluated at the bedside. She was sitting on the edge of the bed eating breakfast at this time. Respirations even, regular, and unlabored on 5 L O2 via nasal cannula. Lungs diffusely coarse throughout worse throughout right. Patient reports that she feels like she is doing a little better today and does not feel as short of br eath she has the past 2 days. She does report that she continues to have a hard time speaking, but states able to swallow to eat and drink without any difficulties. Patient does continue to report mild shortness of breath, hoarseness, and nausea. She denies having headache, lightheadedness, dizziness, chest pain or palpitations, abdominal pain, episodes of vomiting or any other complaints. Patient scheduled for radiation therapy at 1:30 this afternoon. 11/04/20 Patient was seen and evaluated at bedside. She reports continued feeling of shortness of breath which significantly increases with any exertion and it remains difficult to even walk to the restroom. She had first radiation treatme nt yesterday and is due to go down for next radiation treatment this afternoon at 1:30. She is slowly progressing by decreasing her oxygenation needs and is back down to her home baseline oxygen needs on 3L O2 via NC today from 5 yesterday. She continues to have a non productive cough and hoarse voice. She denies having any lightheadedness/dizziness, sore throat or difficulties swallowing food or fluids, chest pain, or palpitations. She states her edema in her lower extremities remains unchanged. Pt has been evaluated by pulmonary and oncology remains on board. Pt to have swallow eval completed by speech therapy to rule out dysphagia and risk for aspiration. Orders placed for PT and OT consu ltation and discussed with case management patient needs and possible arrangements for discharge with home health care in the next 2-3 days pending further evaluations. At this time pt to continue with IV antibiotics with Zosyn and Vancomycin. 11/05/20. Patient was seen and fully evaluated at the bedside. She reports that her condition remains unchanged and she continues to feel short of breath in which she reports continues to increase with exertion accompanied by a coarse raspy nonproductive cough . Patient reports she does seem to be slightly less short of breath when walking to and from the restroom, but other than noticing this she denies any further improvements. Patient ate most of her breakfast this morning, but does report intermittent nausea but denies any episodes of vomiting . In addition she denies having any headache, lightheadedness, dizziness, dysphagia (denies difficulty swallowing food, liquids, or pills), chest pain, or palpitations. She remains on her baseline oxygenation levels at 3 L O2 via nasal cannula and is maintaining her oxygen saturations at 94%, would like to obtain an ambulatory pulse ox on patient and placing an order at this time. Pt's voice remains very hoarse and she continues to only be able to speak in a soft whisper. Pulmonology and oncology have evaluated. Patient is scheduled for third dose of radiation at 1:00 this afternoon. I placed a consult for speech and language pathology to evaluate and complete a swallow evaluation secondary to patient being of high risk for aspiration. PT and OT is on board, discussed pending discharge with patient and patient reports when the time comes, she does have extended support from her family and friends who will provide her with assistance as needed. At this time we will continue IV antibiotics with Zosyn and vancomycin pending further recommendations from pulmonology. Objective - Vital Signs Vital signs: Vital Signs Temp 97.5 F L 11/05/20 07:19 Pulse 112 H 11/05/20 08:50 Resp 18 11/05/20 07:45 BP 121/74 11/05/20 07:19 Pulse Ox 94 L 11/05/20 07:19 Intake & Output 11/04/20 11/05/20 11/05/20 18:59 06:59 18:59 Intake Total 200 Balance 200 Weight 62.7 kg Intake: Oral 200 Other: Voiding Method Toilet Toilet Toilet - Exam General: non toxic, no acute distress, appears chronically ill. Derm: warm, dry Head: atraumatic, normocephalic, symmetric, hairloss Eyes: EOMI, no lid lag, anicteric sclera Mouth: no lip lesion, mucus membranes moist, voice hoarse and patient only able to talk in a whisper. Cardiovascular: S1S2 reg, no murmur, positive posterior tibial pulse bilateral, 2+ pitting edema bilaterally. Chemo-Port right anterior chest. Lungs: Respirations even, regular, and unlabored on 3 L O2 via nasal cannula. Lungs diffuse coarse rhonchi bilaterally worse on the right. Abdominal: soft, nontender to palpation, no guarding, no appreciable organomegaly Ext: no gross muscle atrophy, no edema, no contractures Neuro: CN II-XI grossly intact, no focal neuro deficits Psych: Alert, oriented, appropriate affect - Labs CBC & Chem 7: 11/04/20 21:05 11/05/20 06:14 Labs: Abnormal Lab Results - Last 24 Hours (Table) 11/04/20 11/05/20 Range/Units 21:05 06:14 WBC 37.0 H (3.8-10.6) k/uL RBC 2.59 L (3.80-5.40) m/uL Hgb 9.0 L (11.4-16.0) gm/dL Hct 28.4 L (34.0-46.0) % MCV 109.6 H (80.0-100.0) fL RDW 20.9 H (11.5-15.5) % Neutrophils # (Manual) 0.74 L (1.3-7.7) k/uL Lymphocytes # (Manual) 35.52 H (1.0-4.8) k/uL Nucleated RBCs 5 H (0-0) /100 WBC Macrocytosis Marked A Sodium 148 H (135-145) mmol/L Carbon Dioxide 34.0 H (21.6-31.8) mmol/L Calcium 8.3 L (8.7-10.3) mg/dL AST 95 H (13-35) U/L ALT 83 H (8-44) U/L Alkaline Phosphatase 506 H (41-126) U/L Total Protein 4.9 L (6.2-8.2) g/dL Albumin 3.50 L (3.80-4.90) g/dL Globulin 1.4 L (1.6-3.3) g/dL Assessment and Plan Plan: Acute hypoxemic respiratory failure, postobstructive pneumonia, acute healthcare associated pneumonia, pulmonary edema -Continue oxygenation as needed to maintain SpO2 equal to or greater than 92% at all times. -Stop IV fluids, continue Lasix 20 mg IV daily, and monitor daily electrolytes -Continue oral prednisone. -Continue IV antibiotics: Zosyn and vancomycin -DuoNeb's as needed for SOB and wheezing. -Sputum cultures, unable to obtain at this time due to non-productive coarse cough -Pulmonary consulted requested for swallow eval to rule out aspiration. -Incentive spirometry and encouraged use 10-15 times hourly while awake. -PT/OT consult placed for evaluation prior to d/c home. Voice hoarseness -Pt was evaluated by Heme/Onc Dr. Devine, voice hoarseness is likely secondary to right hilar lung mass. -Pt denies having issues swallowing oral foods/fluids or medications at this time. -Pt to be evaluated by speech and language pathology for swallow evaluation. History of metastatic breast cancer -Patient has breast cancer with metastatic disease to her lung, bone, liver, and brain. -Last Ibrance dose was 1-2 months ago -Continue anastozole. -Seen by oncology, Dr. Devine recommending radiation treatment to the right hilar mass to alleviate the bronchial obstruction. Had first dose of radiation yesterday and scheduled for second dose of Radiation scheduled today at 1:30. - Dr. 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 -Pulmonology on board and arranged for swallow evaluation to be completed by speech and language pathologist tomorrow. Transaminitis -AST 95, ALT 83, and alkaline phosphatase 506. This is stable since arrival with initial AST 174 ALP 58, and alkaline phosphatase of 441. CLL, stable -Chronic SIADH -Stable. Patient has not required treatment thus far. -Patient has leukocytosis with WBC count of 37.0, chronic elevation secondary to CLL. CODE STATUS: Full code DVT prophylaxis: Lovenox Discussed with: Patient and nursing staff Anticipated discharge: Tomorrow pending speech evaluation with swallow screen and further recommendations by pulmonology. Anticipated discharge place: Home, patient is declining home healthcare A total of 35 minutes was spent on the care of this complex patient more than 50% of the time was spent in counseling and care coordination.
[2020-11-06] MEDS: PIPERACILLIN-TAZOBACTAM 3.375 GM in SODIUM CHLORIDE 0.9% 100 ML IVPB SCH ×4 (00:26→23:00)
[2020-11-06] MEDS: VANCOMYCIN 1,500 MG in SODIUM CHLORIDE 0.9% 250 ML IVPB SCH ×2 (02:16→15:12)
[2020-11-06] MEDS: PANTOPRAZOLE 40 MG TABLET PO SCH (08:34)
[2020-11-06] MEDS: ENOXAPARIN 40 MG/0.4 ML SYRINGE SQ SCH (08:34)
[2020-11-06] MEDS: predniSONE 20 MG TAB PO SCH (08:34)
[2020-11-06] MEDS: ANASTROZOLE 1 MG TAB PO SCH (08:35)
[2020-11-06] MEDS: OLANZapine 5 MG TAB PO SCH (08:35)
[2020-11-06] MEDS: NYSTATIN 100,000 UNIT/ML SUSP 500,000 UNIT/5 ML CUP PO SCH ×4 (08:35→20:42)
[2020-11-06] MEDS: FUROSEMIDE 10 MG/ML 2 ML VIAL IV SCH (08:35)
[2020-11-06] MEDS: IPRATROPIUM-ALBUTEROL 3 ML NEB INHALATION SCH ×4 (08:35→20:27)
[2020-11-06] MEDS: POTASSIUM CHLORIDE ER 10 MEQ TAB.ER.PRT PO SCH (08:35)
--- NOTE | 2020-11-06 09:49 | P.PN ---
Subjective Progress Note Date: 11/05/20 Principal diagnosis: dyspnea 2/2 malignancy Patient examined on 11/05/2020. She states she still feels very short of breath with exertion - not as bad at rest. Still has non-productive cough. She continues to be very hoarse. Objective - Vital Signs Vital signs: Vital Signs Temp 97.7 F 11/06/20 07:18 Pulse 120 H 11/06/20 08:46 Resp 18 11/06/20 07:18 BP 122/81 11/06/20 07:18 Pulse Ox 91 L 11/06/20 07:18 Intake & Output 11/05/20 11/06/20 11/06/20 18:59 06:59 18:59 Intake Total 400 Balance 400 Weight 63 kg Intake: Oral 400 Other: Voiding Method Toilet Toilet Toilet # Voids 2 1 - Constitutional General appearance: Present: no acute distress - EENT Eyes: Present: EOMI, PERRLA - Neck Neck: Absent: lymphadenopathy - Respiratory Respiratory: right: rhonchi, wheezing, left: CTA - Cardiovascular Rhythm: regular - Gastrointestinal General gastrointestinal: Absent: distended, tenderness - Neurologic Neurologic: Present: CNII-XII intact - Musculoskeletal Musculoskeletal: Present: generalized weakness - Psychiatric Psychiatric: Present: A&O x's 3, appropriate affect - Labs CBC & Chem 7: 11/04/20 21:05 11/05/20 06:14 Labs: Abnormal Lab Results - Last 24 Hours (Table) 11/05/20 Range/Units 06:14 Sodium 148 H (135-145) mmol/L Carbon Dioxide 34.0 H (21.6-31.8) mmol/L Calcium 8.3 L (8.7-10.3) mg/dL AST 95 H (13-35) U/L ALT 83 H (8-44) U/L Alkaline Phosphatase 506 H (41-126) U/L Total Protein 4.9 L (6.2-8.2) g/dL Albumin 3.50 L (3.80-4.90) g/dL Globulin 1.4 L (1.6-3.3) g/dL Microbiology - Last 24 Hours (Table) 11/05/20 16:29 Gram Stain - Preliminary Sputum Sputum Culture - Preliminary Assessment and Plan Assessment: 50 year old female with metastatic breast cancer with neuroendocrine features. She presents with dyspnea secondary to partial right lung collapse. She initiat ed palliative radiotherapy on 11/03/20 and has now finished 3 fractions. 1. Dyspnea - Continue supportive care. I explained to patient that radiotherapy is likely to improve her breathing but this can take some time to work. She has completed 3 out of 10 fractions. Can resume as outpatient. 2. 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 She was scheduled to see ENT as outpatient. 3. Metastatic breast cancer - Patient is on endocrine therapy and Ibrance on hold. Time with Patient: Less than 30
--- NOTE | 2020-11-06 12:07 | P.PN ---
Subjective Progress Note Date: 11/06/20 Principal diagnosis: Acute hypoxemic respiratory failure The patient has a 50-year-old female with past medical history of hypertension, nicotine dependence recently quiting smoking in 08/2020, and CLL as well as left-sided breast cancer with metastasis to brain, lung, bone, and liver O2 dependent at all times on 3-4 L via NC. She presented to [facility] for evaluation of shortness of breath accompanied by coarse nonproductive cough, pleuritic chest pain, chills, difficulty speaking with hoarse voice and dysphagia. Pt recently started on chemotherapy with Ibrance, but this was stopped due to dx of postobstructive pneumonia resulting in hospitalization on 10/11/20. On 11/01/20 patient admitted for acute respiratory failure with hypoxia after being found to have pneumonia. Patient was placed on BiPAP to maintain SpO2 equal to or greater than 92% at all times. Her CBC count of 32,000, hemoglobin 9.7, platelet count 160. Electrolytes are all within normal limits except elevated CO2 at 31, low BUN and creatinine. LFTs continue to be elevated, s lightly worse compared to prior values. Chest x-ray shows complete whitening of the chest consistent with right lung infiltrates versus edema, right pleural effusion. 11/03/20 patient improving BIPAP has been removed and patient was taken down to 5L O2 via nasal cannula and tolerating well. Labs revealed WBCs decreasing to 31.7 , and pt continues to have hyperchromic macrocytic anemia with Hemoglobin 8.4, hematocrit 24.9, MCV 107.1, MCH 36.2, and MCHC 33.8. Thrombocytopenia improving with platelet count improving to 21.1. Repeat chest x-ray was obtained revealing stable diffuse right-sided infiltrate with pleural effusion with differential diagnoses including pneumonia versus neoplastic process. Dr. 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 Pt seen and fully evaluated at the bedside. She was sitting on the edge of the bed eating breakfast at this time. Respirations even, regular, and unlabored on 5 L O2 via nasal cannula. Lungs diffusely coarse throughout worse throughout right. Patient reports that she feels like she is doing a little better today and does not feel as short of br eath she has the past 2 days. She does report that she continues to have a hard time speaking, but states able to swallow to eat and drink without any difficulties. Patient does continue to report mild shortness of breath, hoarseness, and nausea. She denies having headache, lightheadedness, dizziness, chest pain or palpitations, abdominal pain, episodes of vomiting or any other complaints. Patient scheduled for radiation therapy at 1:30 this afternoon. 11/04/20 Patient was seen and evaluated at bedside. She reports continued feeling of shortness of breath which significantly increases with any exertion and it remains difficult to even walk to the restroom. She had first radiation treatme nt yesterday and is due to go down for next radiation treatment this afternoon at 1:30. She is slowly progressing by decreasing her oxygenation needs and is back down to her home baseline oxygen needs on 3L O2 via NC today from 5 yesterday. She continues to have a non productive cough and hoarse voice. She denies having any lightheadedness/dizziness, sore throat or difficulties swallowing food or fluids, chest pain, or palpitations. She states her edema in her lower extremities remains unchanged. Pt has been evaluated by pulmonary and oncology remains on board. Pt to have swallow eval completed by speech therapy to rule out dysphagia and risk for aspiration. Orders placed for PT and OT consu ltation and discussed with case management patient needs and possible arrangements for discharge with home health care in the next 2-3 days pending further evaluations. At this time pt to continue with IV antibiotics with Zosyn and Vancomycin. 11/05/20. Patient was seen and fully evaluated at the bedside. She reports that her condition remains unchanged and she continues to feel short of breath in which she reports continues to increase with exertion accompanied by a coarse raspy nonproductive cough . Patient reports she does seem to be slightly less short of breath when walking to and from the restroom, but other than noticing this she denies any further improvements. Patient ate most of her breakfast this morning, but does report intermittent nausea but denies any episodes of vomiting . In addition she denies having any headache, lightheadedness, dizziness, dysphagia (denies difficulty swallowing food, liquids, or pills), chest pain, or palpitations. She remains on her baseline oxygenation levels at 3 L O2 via nasal cannula and is maintaining her oxygen saturations at 94%, would like to obtain an ambulatory pulse ox on patient and placing an order at this time. Pt's voice remains very hoarse and she continues to only be able to speak in a soft whisper. Pulmonology and oncology have evaluated. Patient is scheduled for third dose of radiation at 1:00 this afternoon. I placed a consult for speech and language pathology to evaluate and complete a swallow evaluation secondary to patient being of high risk for aspiration. PT and OT is on board, discussed pending discharge with patient and patient reports when the time comes, she does have extended support from her family and friends who will provide her with assistance as needed. At this time we will continue IV antibiotics with Zosyn and vancomycin pending further recommendations from pulmonology. 11/06/20 patient was seen and evaluated at the bedside. Today she is laying in bed reports having increasing shortness of breath including at rest, she remains on 3L only saturating at 91% this morning. Respirations were even and, regular, and unlabored blood patient with continued coarse Rhonchi bilaterally throughout both lungs worse on the right accompanied by significant expiratory wheezes bilaterally. Patient is tachycardic with rate 120's. RT was called and pt was given an additional breathing treatment. Patient currently denies having any headache, lightheadedness, dizziness, chest pain or feeling palpitations, nausea, or experiencing any pain/numbness/tingling in extremities. She was seen and evaluated by Katy Eddy, Speech and Language Pathologist yesterday afternoon and felt to be at significant risk for silent aspiration. She recommended that a consult be placed to ENT Specialist, Dr. Plasencia, to have inpatient laryngoscope evaluation. Consult placed at that time and currently pending evaluation and further recommendations. Pt to go to Radiation therapy today at 1:30 p.m for day 4 of 10 recommended treatments. Objective - Vital Signs Vital signs: Vital Signs Temp 97.7 F 11/06/20 07:18 Pulse 120 H 11/06/20 10:41 Resp 18 11/06/20 07:18 BP 122/81 11/06/20 07:18 Pulse Ox 91 L 11/06/20 07:18 Intake & Output 11/05/20 11/06/20 11/06/20 18:59 06:59 18:59 Intake Total 400 Balance 400 Weight 63 kg Intake: Oral 400 Other: Voiding Method Toilet Toilet Toilet # Voids 2 1 - Exam General: non toxic, no acute distress, appears chronically ill. Derm: warm, dry Head: atraumatic, normocephalic, symmetric, hairloss Eyes: EOMI, no lid lag, anicteric sclera Mouth: no lip lesion, mucus membranes moist, voice hoarse and patient only able to talk in a whisper. Cardiovascular: S1S2 reg, no murmur, positive posterior tibial pulse bilateral, 2+ pitting edema bilaterally. Chemo-Port right anterior chest. Lungs: Respirations even, regular, and unlabored on 3 L O2 via nasal cannula. Lungs diffuse coarse rhonchi bilaterally worse on the right accompanied by moderate bilateral expiratory wheezes. Abdominal: soft, nontender to palpation, no guarding, no appreciable organomegaly Ext: no gross muscle atrophy, no edema, no contractures Neuro: CN II-XI grossly intact, no focal neuro deficits Psych: Alert, oriented, appropriate affect - Labs CBC & Chem 7: 11/04/20 21:05 11/05/20 06:14 Labs: Microbiology - Last 24 Hours (Table) 11/05/20 16:29 Gram Stain - Preliminary Sputum Sputum Culture - Preliminary Assessment and Plan Plan: Acute hypoxemic respiratory failure, postobstructive pneumonia, acute healthcare associated pneumonia, pulmonary edema -Continue oxygenation as needed to maintain SpO2 equal to or greater than 92% at all times. -Continue Lasix 20 mg IV daily, and monitor daily electrolytes -Continue oral prednisone. -Continue IV antibiotics: Zosyn and vancomycin -DuoNeb's as needed for SOB and wheezing. -Sputum cultures, unable to obtain at this time due to non-productive coarse cough -Pulmonary consulted requested for swallow eval to rule out aspiration. Pt was seen and evaluated by Katy Eddy, speech and language pathologist yesterday afternoon and felt patient to be at significant risk for silently aspirating and recommended patient be evaluated by ENT specialist, Dr. Euceda, to have inpatient laryngoscope evaluation. Consult was placed at this time and currently pending evaluation and further recommendations. -Incentive spirometry and encouraged use 10-15 times hourly while awake. -PT/OT consult placed for evaluation prior to d/c home. Voice hoarseness -Pt was evaluated by [facility]Onc Dr. Devine, voice hoarseness is likely secondary to right hilar lung mass. -Pt denies having issues swallowing oral foods/fluids or medications at this time. -Pt was seen and evaluated by Katy Eddy, speech and language pathologist yesterday afternoon and felt patient to be at significant risk for silently aspirating and recommended patient be evaluated by ENT specialist, Dr. Euceda, to have inpatient laryngoscope evaluation. Consult was placed at this time and currently pending evaluation and further recommendations. History of metastatic breast cancer -Patient has breast cancer with metastatic disease to her lung, bone, liver, and brain. -Last Ibrance dose was 1-2 months ago -Continue anastozole. -Seen by oncology, Dr. Devine recommending radiation treatment to the right hilar mass to alleviate the bronchial obstruction. Had first dose of radiation yesterday and scheduled for 4th dose of Radiation scheduled today at 1:30. -Dr. 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 -Pulmonology on board and consult placed to Dr. Euceda ENT specialists for evaluation with laryngoscope. Transaminitis -AST 95, ALT 83, and alkaline phosphatase 506. This is stable since arrival with initial AST 174 ALP 58, and alkaline phosphatase of 441. CLL, stable -Chronic SIADH -Stable. Patient has not required treatment thus far. -Patient has leukocytosis with WBC count of 37.0, chronic elevation secondary to CLL. CODE STATUS: Full code DVT prophylaxis: Lovenox Discussed with: Patient and nursing staff Anticipated discharge: Tomorrow pending ENT evaluation with laryngoscope and further recommendations by pulmonology. Anticipated discharge place: Home, patient is declining home healthcare at this time stating she has plenty of friends and family to help support her and assist her as needed. A total of 35 minutes was spent on the care of this complex patient more than 50% of the time was spent in counseling and care coordination.
--- NOTE | 2020-11-06 12:55 | P.PN ---
Subjective Progress Note Date: 11/06/20 Principal diagnosis: Right-sided aspiration pneumonia Leukocytosis Metastatic breast cancer CML Paralyzed vocal cords End-stage COPD 11/06/2019, patient on 3 L nasal cannula oxygen saturation remained stable, denies any chest pain hoarseness still there ENT has been consulted direct laryngoscopy is pending, patient remains on broad-spectrum antibiotics, tolerating by mouth well, status post radiation therapy earlier this morning 11/05/2020, patient on 3 L nasal cannula oxygen saturation is 94% if ammonia continued to present, slightly short of breath, weak edson on broad-spectrum antibiotics Patient seen eval reexamined, patient has a history of end-stage lung disease secondary severe COPD metastatic lung disease due to breast cancer and CLL, patient is undergoing radiation therapy and chemotherapy please refer to oncology notes currently patient is on 2 L oxygen arousable opens eyes follow simple commands, some gurgling in the upper airway is present, patient does have dysphonia weak vocal cords, high risk for aspiration, continue monitor aspiration precautions, chest x-ray showing right-sided infiltrate, likely pneumonia or neoplastic process, patient is on IV Zosyn and vancomycin Objective - Vital Signs Vital signs: Vital Signs Temp 97.7 F 11/06/20 07:18 Pulse 120 H 11/06/20 10:56 Resp 18 11/06/20 07:18 BP 122/81 11/06/20 07:18 Pulse Ox 91 L 11/06/20 07:18 Intake & Output 11/05/20 11/06/20 11/06/20 18:59 06:59 18:59 Intake Total 400 Balance 400 Weight 63 kg Intake: Oral 400 Other: Voiding Method Toilet Toilet Toilet # Voids 2 1 - Exam - Constitutional General appearance: average body habitus, cooperative, mild distress - EENT Eyes: PERRLA Ears: bilateral: normal - Neck Neck: normal ROM Carotids: bilateral: upstroke normal Thyroid: bilateral: normal size - Respiratory Respiratory: bilateral: diminished, rales - Cardiovascular Rhythm: regular Heart sounds: normal: S1, S2 - Gastrointestinal General gastrointestinal: normal bowel sounds - Musculoskeletal Musculoskeletal: generalized weakness, strength equal bilaterally - Psychiatric Psychiatric: A&O x's 3, appropriate affect, intact judgment & insight - Labs CBC & Chem 7: 11/04/20 21:05 11/05/20 06:14 Labs: Microbiology - Last 24 Hours (Table) 11/05/20 16:29 Gram Stain - Preliminary Sputum Sputum Culture - Preliminary Assessment and Plan Assessment: Right-sided aspiration pneumonia Leukocytosis Metastatic breast cancer CML Paralyzed vocal cords End-stage COPD Plan: Radiation and chemo as per oncology Continue new broad-spectrum antibiotics ENT evaluation pending Prognosis guarded Time with Patient: Greater than 30
[2020-11-06] MEDS ORDERED: VANCOMYCIN TROUGH DUE 1 EACH MISC MISCELLANE ONE (13:00)
--- NOTE | 2020-11-06 14:34 | P.PN ---
Subjective Progress Note Date: 11/06/20 Principal diagnosis: SOB, cough, metastatic breast cancer If f/u today pt reports feeling maybe a little better. Cough and hoarseness are persistent, no expectoration, cough is strong. No fevers. Denies acute pain. She is having radiation again today. Objective - Vital Signs Vital signs: Vital Signs Temp 97.7 F 11/06/20 07:18 Pulse 120 H 11/06/20 10:56 Resp 18 11/06/20 07:18 BP 122/81 11/06/20 07:18 Pulse Ox 91 L 11/06/20 07:18 Intake & Output 11/05/20 11/06/20 11/06/20 18:59 06:59 18:59 Intake Total 400 Balance 400 Weight 63 kg Intake: Oral 400 Other: Voiding Method Toilet Toilet Toilet # Voids 2 1 - Constitutional General appearance: Present: average body habitus, cooperative, mild distress - EENT Eyes: Present: anicteric sclerae, EOMI ENT: Present: hearing grossly normal - Respiratory Respiratory: bilateral: rhonchi (Harsh, throughout), wheezing (Scattered, mostly lower lobes), prolonged expiration - Cardiovascular Rhythm: regular Heart sounds: normal: S1, S2 Abnormal Heart Sounds: Absent: systolic murmur, diastolic murmur, rub, S3 Gallop, S4 Gallop, click, other - Peripheral edema leg Peripheral Edema: bilateral: None - Gastrointestinal General gastrointestinal: Present: soft - Neurologic Neurologic: Present: CNII-XII intact - Musculoskeletal Musculoskeletal: Present: strength equal bilaterally - Psychiatric Psychiatric: Present: A&O x's 3, appropriate affect, intact judgment & insight - Labs CBC & Chem 7: 11/04/20 21:05 11/05/20 06:14 Labs: Microbiology - Last 24 Hours (Table) 11/05/20 16:29 Gram Stain - Preliminary Sputum Sputum Culture - Preliminary Assessment and Plan (1) Breast cancer Narrative/Plan: Cont to hold ibrance-no literature on giving it concurrently with radiation. Cont taking arimidex. Radiation to right lung to try and open up obstructed airway. Current Visit: Yes Status: Chronic Priority: High Code(s): C50.919 - MALIGNANT NEOPLASM OF UNSP SITE OF UNSPECIFIED FEMALE BREAST SNOMED Code(s): 332719197 (2) Hoarseness Narrative/Plan: Patient needs ENT evaluation unless, radiation begins to help her voice. Current Visit: Yes Status: Acute Priority: High Code(s): R49.0 - DYSPHONIA SNOMED Code(s): 53789203 (3) CLL (chronic lymphocytic leukemia) Narrative/Plan: No treatment for the same. WBC/ALC remain stable Current Visit: No Status: Chronic Priority: Medium Code(s): C91.10 - CHRONIC LYMPHOCYTIC LEUK OF B-CELL TYPE NOT ACHIEVE REMIS SNOMED Code(s): 38375411 Plan: Patient does well when she is treated steroids and antibiotics but, as soon as she completes therapy, her respiratory status declines again. This is most likely due to mechanical obstruction/recurrent post obstructive pneumonia from malignancy. Radiation is started As soon as patient condition improves she can be discharged and complete her radiation as an outpatient. Patient has instructions to continue her arimidex, hold Ibrance until radiation complete.
[2020-11-06] MEDS: VANCOMYCIN 1,000 MG in SODIUM CHLORIDE 0.9% 250 ML IVPB SCH (14:53)
[2020-11-06 15:03] VITALS: BMI 25.4
[2020-11-06] MEDS: HYDROcodone/APAP 7.5-325MG 1 EACH TAB PO PRN (20:44)
[2020-11-06] MEDS: ONDANSETRON 4 MG/2 ML VIAL IVP PRN (23:00)
[2020-11-07] MEDS: VANCOMYCIN 1,000 MG in SODIUM CHLORIDE 0.9% 250 ML IVPB SCH (02:40)
[2020-11-07 07:41] LABS: Anisocytosis Moderate; HCT 25.3 % (34.0-46.0); HGB 8.3 gm/dL (11.4-16.0); Hypochromasia Moderate; MCH 35.6 pg (25.0-35.0); MCHC 32.9 g/dL (31.0-37.0); MCV 108.3 fL (80.0-100.0); Macrocytosis Marked; Platelet Count 158 k/uL (150-450); Poikilocytosis Slight; RBC 2.33 m/uL (3.80-5.40); RDW 20.6 % (11.5-15.5)
[2020-11-07 07:52] VITALS: BP 112/76; RESP 15; TEMP 98.1
[2020-11-07] MEDS: IPRATROPIUM-ALBUTEROL 3 ML NEB INHALATION SCH ×3 (08:35→16:08)
[2020-11-07 08:41] LABS: Band Neutrophils % 1 %; Lymphocytes # (M) 26.69 k/uL (1.0-4.8); Metamyelocytes # (M) 0.28 k/uL (0); Metamyelocytes % 1 %; Monocytes # (M) 0.56 k/uL (0-1.0); Neutrophils % (M) 1 %; Nucleated Red Blood Cells 1 /100 WBC (0-0); Total Cells Counted 200; WBC 27.8 k/uL (3.8-10.6)
[2020-11-07 08:45] LABS: Polychromasia Present
[2020-11-07] MEDS: POTASSIUM CHLORIDE ER 10 MEQ TAB.ER.PRT PO SCH (08:49)
[2020-11-07] MEDS: FUROSEMIDE 10 MG/ML 2 ML VIAL IV SCH (08:49)
[2020-11-07] MEDS: PANTOPRAZOLE 40 MG TABLET PO SCH (08:49)
[2020-11-07] MEDS: predniSONE 20 MG TAB PO SCH (08:49)
[2020-11-07] MEDS: OLANZapine 5 MG TAB PO SCH (08:49)
[2020-11-07] MEDS: NYSTATIN 100,000 UNIT/ML SUSP 500,000 UNIT/5 ML CUP PO SCH ×2 (08:49→14:09)
[2020-11-07] MEDS: ANASTROZOLE 1 MG TAB PO SCH (08:49)
[2020-11-07] MEDS: ENOXAPARIN 40 MG/0.4 ML SYRINGE SQ SCH (08:50)
[2020-11-07] MEDS: PIPERACILLIN-TAZOBACTAM 3.375 GM in SODIUM CHLORIDE 0.9% 100 ML IVPB SCH (08:50)
[2020-11-07] MEDS: ONDANSETRON 4 MG/2 ML VIAL IVP PRN (08:59)
[2020-11-07 10:15] VITALS: PULSE 98
[2020-11-07 11:17] LABS: African American GFR (CKD) 98.9 (60.0-200.0); Albumin 3.2 g/dL (3.80-4.90); Albumin/Globulin Ratio 2.46 (1.60-3.17); Anion Gap 7.8 mmol/L (4.00-12.00); BUN/Creat Ratio 17.5 Ratio (12.00-20.00); Calcium 8.6 mg/dL (8.7-10.3); Carbon Dioxide 34.2 mmol/L (21.6-31.8); Globulin 1.3 g/dL (1.6-3.3); Magnesium 1.8 mg/dL (1.5-2.4); Non-African American GFR(CKD) 85.4 (60.0-200.0); Potassium 3.5 mmol/L (3.5-5.5); Total Bilirubin 0.6 mg/dL (0.3-1.2); Total Protein 4.5 g/dL (6.2-8.2)
--- NOTE | 2020-11-07 12:34 | P.DS ---
Providers Date of admission: 11/01/20 05:32 Expected date of discharge: 11/07/20 Attending physician: Jacob Patterson MD Consults: 11/01/20 13:07 Consult Physician Routine Consulting Provider: Cheo Devine Consult Reason/Comments: cancer Do you want consulting provider notified?: Yes 11/03/20 09:31 Consult Physician Routine Consulting Provider: Harsh Burrell Consult Reason/Comments: radiation to rt lung mass Do you want consulting provider notified?: Yes 11/03/20 12:11 Consult Physician Routine Consulting Provider: Joey Chaudhari Consult Reason/Comments: lung ca Do you want consulting provider notified?: Yes 11/05/20 14:46 Consult Physician Routine Consulting Provider: Nawaf Christy Consult Reason/Comments: ENT eval of vocal cords-hoarse,? infection vs paralysis. Do you want consulting provider notified?: Yes, Notify in am Primary care physician: Pia [facility] Course: Hospital course: The patient is 50-year-old female with past medical history significant for left-sided breast cancer with metastasis to brain, lung, liver, and bone home is home oxygen dependent on 3-4 L via nasal cannula at all times. She was recently started on chemotherapy (Ibrance) but developed postobstructive pneumonia resulting in hospitalization on 10/11/20 and has been unable to resume chemotherapy up to this point. She presented to [facility] on 11/01/20 for evaluation of shortness of breath accompanied by coarse nonproductive cough, pleuritic chest pain, chills, difficulty speaking with hoarse voice and dysphagia. Acute hypoxemic respiratory failure, postobstructive pneumonia, acute healthcare associated pneumonia, pulmonary edema -Continue oxygenation supplementation. -Continue oral prednisone 40 mg daily for 4 more days. -Continue Lasix 20 mg daily -Continue Ventolin and DuoNeb inhalers as needed for shortness of breath and/or wheezing. -Continue with palliative radiation treatments as directed by hematology/oncology. -Follow up as discussed with oncology, pulmonology, and ENT specialist. Voice hoarseness secondary to right hilar lung mass -Pt denies having any difficulties swallowing liquids, foods, or medications. -Pt was seen and evaluated by Katy Eddy, speech and language pathologist whom stated she felt patient to be at risk for silently aspirating and recommended patient be evaluated by ENT specialist. -ENT specialist consulted. Dr. Christy recommended patient to follow-up outpatient in clinic upon discharge for much-needed laryngoscope to further evaluate. History of breast-cancer with metastasis to lung, liver, bone, and brain. -Last Ibrance dose was 2 months ago, continue to hold all receiving radiation treatments and resume as instructed by oncology. -Continue anastozole. -Continue with palliative radiation treatments as directed by hematology/oncology. -Follow up as discussed with oncology, pulmonology, and ENT specialist. Chronic Transaminitis, stable -AST 77, ALT 78, and alkaline phosphatase 501. This is stable since arrival with initial AST 174 ALP 58, and alkaline phosphatase of 441. CLL, stable -Chronic SIADH -Stable. Patient has not required treatment thus far. -Patient has leukocytosis with WBC count of 27.8, chronic elevation secondary to CLL. Physical exam: Patient seen and fully evaluated at the bedside. She was sitting up eating breakfast at this time, Respirations even, regular, and unlabored and patient remains on baseline 3 L O2 via nasal cannula with O2 sat 93%. Patient reports continued shortness of breath with exertion and nonproductive cough, she is being discharged home on oxygen and instructed to continue palliative radiation treatments as directed by hematology/oncology and continue to hold Ibrance until radiation therapy is completed and she is instructed by oncology to resume. Patient also being discharged home on oral antibiotic Augmentin and educated on importance of following up with ENT specialist, Dr. Christy, In his office for much-needed laryngoscope to evaluate hoarse voice and risks for aspiration. Patient continues to deny having any difficulty swallowing liquids, food, or medications. General: non toxic, no acute distress, appears chronically ill. Derm: warm, dry Head: atraumatic, normocephalic, symmetric, hairloss Eyes: EOMI, no lid lag, anicteric sclera Mouth: no lip lesion, mucus membranes moist, voice hoarse and patient only able to talk in a whisper. Cardiovascular: S1S2 reg, no murmur, positive posterior tibial pulse bilateral, 2+ pitting edema bilaterally. Chemo-Port right anterior chest. Lungs: Respirations even, regular, and unlabored on 3 L O2 via nasal cannula. Lungs diffuse coarse rhonchi bilaterally worse on the right accompanied by mild bilateral expiratory wheezes. Abdominal: soft, nontender to palpation, no guarding, no appreciable organomegaly Ext: no gross muscle atrophy, no edema, no contractures Neuro: CN II-XI grossly intact, no focal neuro deficits Psych: Alert, oriented, appropriate affect Patient was discharged home. She declined having any home health care assistance at this time stating she has plenty of friends and family to help support her and her sister as needed. A total of 35 minutes was spent preparing this complex discharge summary. Patient Condition at Discharge: Serious Plan - Discharge Summary Discharge Rx Participant: Yes New Discharge Prescriptions: New Amoxicillin/Potassium Clav [Augmentin 875-125 Tablet] 1 tab PO Q12HR 4 Days #8 tab predniSONE [Deltasone] 40 mg PO DAILY 4 Days #4 tab Nystatin 100,000 Unit/ml Susp [Mycostatin Oral Susp] 500,000 unit PO QID ml Continue clonazePAM [KlonoPIN] 0.5 mg PO DAILY PRN PRN Reason: Anxiety Albuterol Sulfate [Ventolin HFA] 2 puff INHALATION RT-Q4H PRN PRN Reason: Shortness Of Breath Ondansetron Odt [Zofran ODT] 4 mg PO Q6H PRN PRN Reason: Nausea Ipratropium-Albuterol Nebulize [Duoneb 0.5 mg-3 mg/3 ml Soln] 3 ml INHALATION RT-TID PRN PRN Reason: Shortness Of Breath Multivitamin [Multivitamins Adult Gummies] 2 tab PO DAILY Anastrozole [Arimidex] 1 mg PO DAILY tab Furosemide [Lasix] 20 mg PO DAILY PRN #30 tab PRN Reason: Edema polyethylene glycoL 3350 [Miralax] 17 gm PO HS PRN #30 powd.pack PRN Reason: Constipation OLANZapine [ZyPREXA] 5 mg PO DAILY Nicotine 21Mg/24Hr Patch [Habitrol] 1 patch TRANSDERM DAILY Omeprazole 20 mg PO BID Cholestyramine (with Sugar) [Cholestyramine Packet] 4 gm PO DAILY PRN PRN Reason: Diarrhea Acetaminophen Tab [Tylenol] 650 mg PO Q6HR PRN tab PRN Reason: Mild Pain Or Fever > 100.5 Hydrocodone/Acetaminophen [[place] 7.5-325] 1 tab PO QID PRN PRN Reason: Pain Discontinued Palbociclib [Ibrance] 125 mg PO DIRECTED methylPREDNISolone [Medrol Dose Pack] See Taper PO DIRECTED Potassium Chloride ER [K-Dur 10] 10 meq PO DAILY PRN PRN Reason: W/LASIX Azithromycin [Zithromax Z-pack (6 tabs)] See Taper PO DIRECTED Discharge Medication List Albuterol Sulfate [Ventolin HFA] 2 puff INHALATION RT-Q4H PRN 04/12/17 [History] clonazePAM [KlonoPIN] 0.5 mg PO DAILY PRN 04/12/17 [History] Ipratropium-Albuterol Nebulize [Duoneb 0.5 mg-3 mg/3 ml Soln] 3 ml INHALATION RT-TID PRN 09/01/20 [History] Multivitamin [Multivitamins Adult Gummies] 2 tab PO DAILY 09/01/20 [History] Ondansetron Odt [Zofran ODT] 4 mg PO Q6H PRN 09/01/20 [History] Anastrozole [Arimidex] 1 mg PO DAILY tab 09/10/20 [Rx] Furosemide [Lasix] 20 mg PO DAILY PRN #30 tab 09/10/20 [Rx] polyethylene glycoL 3350 [Miralax] 17 gm PO HS PRN #30 powd.pack 09/10/20 [Rx] Cholestyramine (with Sugar) [Cholestyramine Packet] 4 gm PO DAILY PRN 10/11/20 [History] Nicotine 21Mg/24Hr Patch [Habitrol] 1 patch TRANSDERM DAILY 10/11/20 [History] OLANZapine [ZyPREXA] 5 mg PO DAILY 10/11/20 [History] Omeprazole 20 mg PO BID 10/11/20 [History] Acetaminophen Tab [Tylenol] 650 mg PO Q6HR PRN tab 10/15/20 [Rx] Hydrocodone/Acetaminophen [[place] 7.5-325] 1 tab PO QID PRN 11/01/20 [History] Amoxicillin/Potassium Clav [Augmentin 875-125 Tablet] 1 tab PO Q12HR 4 Days #8 tab 11/07/20 [Rx] Nystatin 100,000 Unit/ml Susp [Mycostatin Oral Susp] 500,000 unit PO QID ml 11/07/20 [Rx] predniSONE [Deltasone] 40 mg PO DAILY 4 Days #4 tab 11/07/20 [Rx] Follow up Appointment(s)/Referral(s): Cheo Devine MD [STAFF PHYSICIAN] - 11/19/20 10:45 am Pia Jaramillo MD [Primary Care Provider] - 1-2 days (Office will call you with appointment.) Nawaf Christy MD [STAFF PHYSICIAN] - 1-2 Days (Office closed. Please call office Tuesday to schedule appointment for laryngoscope. Thank you.) Joey Chaudhari MD [STAFF PHYSICIAN] - 1 Week (Office closed. Please call office Tuesday for your appointment. Thank you.) Patient Instructions/Handouts: Aspiration Pneumonia (DC), Hypoxia (GEN) Activity/Diet/Wound Care/Special Instructions: Activity: As tolerated Diet: Heart healthy cardiac diet Special Instructions: Follow up with primary care provider in one to 2 days for post discharge evaluation. Follow-up with Dr. Christy, ENT specialist in office for much needed laryngoscope. Continue with radiation treatments as directed and previously scheduled by oncology. Follow-up with pulmonology next week. Follow-up with hematology/oncology as scheduled. Continue with daily oxygen supplementation. Discharge Disposition: HOME SELF-CARE
--- NOTE | 2020-11-07 21:35 | P.PN ---
Subjective Progress Note Date: 11/07/20 Principal diagnosis: Metastatic Breast Cancer May resume ibrance after discharge, planned to go home today Objective - Vital Signs Vital signs: Vital Signs Temp 98.1 F 11/07/20 07:50 Pulse 108 H 11/07/20 08:52 Resp 15 11/07/20 08:00 BP 112/76 11/07/20 07:50 Pulse Ox 90 L 11/07/20 07:50 Intake & Output 11/07/20 11/07/20 11/08/20 06:59 18:59 06:59 Weight 63.7 kg Other: Voiding Method Toilet # Voids 3 - Exam - Constitutional General appearance: Present: average body habitus, cooperative, mild distress - EENT Eyes: Present: anicteric sclerae, EOMI ENT: Present: hearing grossly normal - Respiratory Respiratory: bilateral: rhonchi (Harsh, throughout), wheezing (Scattered, mostly lower lobes), prolonged expiration - Cardiovascular Rhythm: regular Heart sounds: normal: S1, S2 Abnormal Heart Sounds: Absent: systolic murmur, diastolic murmur, rub, S3 Gallop, S4 Gallop, click, other - Peripheral edema leg Peripheral Edema: bilateral: None - Gastrointestinal General gastrointestinal: Present: soft - Neurologic Neurologic: Present: CNII-XII intact - Musculoskeletal Musculoskeletal: Present: strength equal bilaterally - Psychiatric Psychiatric: Present: A&O x's 3, appropriate affect, intact judgment & insight - Labs CBC & Chem 7: 11/07/20 07:05 11/07/20 07:05 Labs: Abnormal Lab Results - Last 24 Hours (Table) 11/07/20 11/07/20 Range/Units 07:05 07:05 WBC 27.8 H (3.8-10.6) k/uL RBC 2.33 L (3.80-5.40) m/uL Hgb 8.3 L (11.4-16.0) gm/dL Hct 25.3 L (34.0-46.0) % MCV 108.3 H (80.0-100.0) fL MCH 35.6 H (25.0-35.0) pg RDW 20.6 H (11.5-15.5) % Neutrophils # (Manual) 0.50 L (1.3-7.7) k/uL Lymphocytes # (Manual) 26.69 H (1.0-4.8) k/uL Metamyelocytes # (Man) 0.28 H (0) k/uL Nucleated RBCs 1 H (0-0) /100 WBC Macrocytosis Marked A Sodium 147 H (135-145) mmol/L Carbon Dioxide 34.2 H (21.6-31.8) mmol/L Calcium 8.6 L (8.7-10.3) mg/dL AST 77 H (13-35) U/L ALT 78 H (8-44) U/L Alkaline Phosphatase 501 H (41-126) U/L Total Protein 4.5 L (6.2-8.2) g/dL Albumin 3.20 L (3.80-4.90) g/dL Globulin 1.3 L (1.6-3.3) g/dL Microbiology - Last 24 Hours (Table) 11/05/20 16:29 Gram Stain - Final Sputum Sputum Culture - Final Assessment and Plan Plan: Assessment and Plan (1) Breast cancer Narrative/Plan: - COmpletion of palliative xrt - Resume Ibrance at discharge in am Current Visit: Yes Status: Chronic Priority: High Code(s): C50.919 - MALIGNANT NEOPLASM OF UNSP SITE OF UNSPECIFIED FEMALE BREAST SNOMED Code(s): 011614118 (2) Hoarseness Narrative/Plan: - Will evaluate at follow-up, if radiation did not help improve, will refer for further evaluation to ENT. Current Visit: Yes Status: Acute Priority: High Code(s): R49.0 - DYSPHONIA SNOMED Code(s): 01022095 (3) CLL (chronic lymphocytic leukemia) Narrative/Plan: - No treatment for the same. WBC/ALC remain stable Current Visit: No Status: Chronic Priority: Medium Code(s): C91.10 - CHRONIC LYMPHOCYTIC LEUK OF B-CELL TYPE NOT ACHIEVE REMIS SNOMED Code(s): 55292302 Plan: Resume Ibrance Followup as scheduled next week with Dr. Devine Planned discharge today
[2020-11-08] MEDS ORDERED: VANCOMYCIN TROUGH DUE 1 EACH MISC MISCELLANE ONE (13:00)
--- NOTE | 2020-11-13 14:16 | CDI ---
Documentation Clarification Form Date: 11/13/2020 02:13:00 PM From: Margi Mandujano Phone: Admit Date: 11/01/2020 05:32:00 AM Patient Name: Mabel Melgar Visit Number: [id number] Discharge Date: 11/07/2020 04:11:00 PM ATTENTION: The Clinical Documentation Specialists (CDI) and [facility] Coding Staff appreciate your assistance in clarifying documentation. Please respond to the clarification below the line at the bottom and electronically sign. The CDI & [facility] Coding staff will review the response and follow-up if needed. Please note: Queries are made part of the Legal Health Record. If you have any questions, please contact the author of this message via ITS. Dr. Elise Sharpe CHF is documented in the ED. History/Risk Factors: Metastatic CA R Lung/Bone/Liver, PNA, COPD, HTN Clinical Indicators: Pulmonary Edema VS/Pulse OX: BP 148/79, W[place] 130, RR 26, O2 Sat 100 BNP: 180 Echocardiogram Results: None Chest X Ray: 1.There is now near total opacification of the right lung suggestive of probable diffuse pulmonary edema. 2.Previously described underlying right lung mass is not visualized due to opacification of the right lung. 3.Left lung is well aerated. 4.Elevation of the right hemidiaphragm similar to previous study. 5.Small to moderate right pleural effusion. Treatment: Lasix 20 mg IV In your professional opinion, can you please clarify the acuity and type of CHF if known? Systolic Heart Failure: Acute Chronic Acute on Chronic Diastolic Heart Failure: Acute Chronic Acute on Chronic Systolic & Diastolic Heart Failure: Acute Chronic Acute on Chronic Heart Failure Chronic Pulmonary Edema Acute Pulmonary Edema Unable to Determine Other, please specify Patient does not have CHF MTDD
== END 2020-11-07 16:11 | disposition home or self-care (01) | DRG 193 ==
LOC: EC 04:37 → 3SCARD 05:32 → 4SSUR 11-02 21:40
PROVIDERS: ADMIT Internal Medicine; ATTEND Internal Medicine
PROC: 5A09357 Assistance with Respiratory Ventilation, Less than 24 Consecutive Hours, Continuous Positive Airway Pressure (ICD-10-PCS; principal; 2020-11-01)
PROC: DB021ZZ Beam Radiation of Lung using Photons 1 - 10 MeV (ICD-10-PCS; 2020-11-03)
DX: J18.9 Pneumonia, unspecified organism (principal); J96.21 Acute and chronic respiratory failure with hypoxia; E22.2 Syndrome of inappropriate secretion of antidiuretic hormone; C79.51 Secondary malignant neoplasm of bone; C78.01 Secondary malignant neoplasm of right lung; J81.1 Chronic pulmonary edema; J44.0 Chronic obstructive pulmonary disease with (acute) lower respiratory infection; C91.10 Chronic lymphocytic leukemia of B-cell type not having achieved remission; C79.31 Secondary malignant neoplasm of brain; C78.7 Secondary malignant neoplasm of liver and intrahepatic bile duct; J98.19 Other pulmonary collapse; J38.01 Paralysis of vocal cords and larynx, unilateral; D69.6 Thrombocytopenia, unspecified; Z99.81 Dependence on supplemental oxygen; F41.9 Anxiety disorder, unspecified; F32.9 Major depressive disorder, single episode, unspecified; F41.0 Panic disorder [episodic paroxysmal anxiety]; F17.210 Nicotine dependence, cigarettes, uncomplicated; R49.0 Dysphonia; R13.10 Dysphagia, unspecified; R74.01 Elevation of levels of liver transaminase levels; D63.0 Anemia in neoplastic disease; I10 Essential (primary) hypertension; G89.3 Neoplasm related pain (acute) (chronic); Y95 Nosocomial condition; Z79.899 Other long term (current) drug therapy; Z79.811 Long term (current) use of aromatase inhibitors; Z85.3 Personal history of malignant neoplasm of breast; Z17.0 Estrogen receptor positive status [ER+]; Z90.13 Acquired absence of bilateral breasts and nipples; Z87.01 Personal history of pneumonia (recurrent); Z98.82 Breast implant status; Z95.828 Presence of other vascular implants and grafts; Z83.3 Family history of diabetes mellitus; Z80.9 Family history of malignant neoplasm, unspecified; Z82.0 Family history of epilepsy and other diseases of the nervous system
CPT/HCPCS: 36415; 71045; 71046; 77280; 77336; 77387; 77412; 77427; 80048; 80053; 80202; 82565; 83605; 83735; 83880; 84100; 84484; 85025; 85027; 85610; 85730; 87070; 87205; 93005; 94640; 94660; 94760; 96361; 96365; 96367; 96375; 99291

== ENCOUNTER → 2020-11-28 | Outpatient (CLI) | payer BC ==
[2020-11-28 10:21] LABS: African American GFR (CKD) >90 (>60 ml/min/1.73 sqM); Blood Urea Nitrogen 13 mg/dL (7-17); Non-African American GFR(CKD) 89 (>60 ml/min/1.73 sqM)
--- NOTE | 2020-11-28 12:34 | CT ---
EXAMINATION TYPE: CT soft tissue neck w con DATE OF EXAM: 11/28/2020 HISTORY: Hoarseness, polyp of vocal cord. History of breast cancer. COMPARISON: CTA chest October 11, 2020 CT DLP: 611 mGycm. Automated Exposure Control for Dose Reduction was Utilized. TECHNIQUE: CT scan of the neck is performed with IV Contrast, patient injected with 100 mL of Isovue 300, axial images are obtained, coronal and sagittal reformatted images are reviewed. FINDINGS: Airway: Moderate to large right pleural effusion shows interval progression from prior CT nearly comp letely filling the right lung. There is associated compressive atelectasis and/or less likely consoli dation. Subcentimeter right thyroid nodule axial image 60 incidentally noted. There is small left ple ural effusion on current study. Partial visualization of bilateral hilar fullness. Prominent prevascu lar lymph nodes redemonstrated Parotid/submandibular glands: No gross abnormality seen. Carotid/Vascular Structures: Incidental dominant right vertebral artery filling the basilar artery. M ild to moderate calcified plaque right greater than left carotid bulbs. 4 vessel origin from aortic a rch which is normal variant. Osseous Structures: Spine is straightened. . Other: Stable right internal jugular Mediport catheter. There is 9 mm right supraclavicular lymph node measures 51 with scattered prominent lymph nodes throu ghout the neck bilaterally. Largest on the right measures 1.5 x 1.1 cm axial image 40 anterior to the jugular and carotid vessels. This is measured on axial image 40. Largest on the left measures 1.6 x 1.0 cm image 36 just superior to this. Biyj-sp-ewifzjwy mucosal thickening inferior left maxillary sinus. IMPRESSION: Now large right pleural effusion. New Small left pleural effusion. Correlate for underlyi ng right lung neoplasm. Suspicious thoracic adenopathy partially imaged. Some suspicious neck adenopa thy noted. Metastatic disease suspected. Consider PET/CT to further evaluate based on clinical correl ation.
== END | disposition home or self-care (01) ==
LOC: RADCTMAIN 09:33
PROVIDERS: ATTEND Otolaryngology
DX: J38.1 Polyp of vocal cord and larynx (principal); R49.0 Dysphonia
CPT/HCPCS: 82565; 84520; 70491; 36415; Q9967

== ENCOUNTER 2020-12-03 14:47 | Inpatient (IN) | payer BC ==
[2020-12-03] MEDS ORDERED: IPRATROPIUM-ALBUTEROL 3 ML NEB INHALATION STA (15:22)
--- NOTE | 2020-12-03 15:25 | ED ---
General Adult HPI - General Chief complaint: Recheck/Abnormal Lab/Rx Stated complaint: Fluid on lungs and stomach-sent by pcp Time Seen by Provider: 12/03/20 15:11 Source: patient, family, RN/MD (Practitioner Doris did call and updated regarding patient's), RN notes reviewed Mode of arrival: wheelchair Limitations: no limitations - History of Present Illness Initial comments: Patient is a pleasant 50-year-old female presenting to the emergency department with dyspnea. Patient has metastatic cancer. Patient has history of breast cancer and others. Patient had recent computed tomography scan with fluid on her lungs. Patient was sent for thoracentesis and paracentesis. There is discussion of plan for hospice following this. Patient complains of fatigue. No fevers. Symptoms have progressed. - Related Data Home Medications Medication Instructions Recorded Confirmed Albuterol Sulfate [Ventolin HFA] 2 puff INHALATION RT-Q4H PRN 04/12/17 11/01/20 clonazePAM [KlonoPIN] 0.5 mg PO DAILY PRN 04/12/17 11/01/20 Ipratropium-Albuterol Nebulize 3 ml INHALATION RT-TID PRN 09/01/20 11/01/20 [Duoneb 0.5 mg-3 mg/3 ml Soln] Multivitamin [Multivitamins Adult 2 tab PO DAILY 09/01/20 11/01/20 Gummies] Ondansetron Odt [Zofran ODT] 4 mg PO Q6H PRN 09/01/20 11/01/20 Cholestyramine (with Sugar) 4 gm PO DAILY PRN 10/11/20 11/01/20 [Cholestyramine Packet] Nicotine 21Mg/24Hr Patch [Habitrol] 1 patch TRANSDERM DAILY 10/11/20 11/01/20 OLANZapine [ZyPREXA] 5 mg PO DAILY 10/11/20 11/01/20 Omeprazole 20 mg PO BID 10/11/20 11/01/20 Hydrocodone/Acetaminophen [[place] 1 tab PO QID PRN 11/01/20 11/01/20 7.5-325] Previous Rx's Medication Instructions Recorded Anastrozole [Arimidex] 1 mg PO DAILY tab 09/10/20 Furosemide [Lasix] 20 mg PO DAILY PRN #30 tab 09/10/20 polyethylene glycoL 3350 [Miralax] 17 gm PO HS PRN #30 powd.pack 09/10/20 Acetaminophen Tab [Tylenol] 650 mg PO Q6HR PRN tab 10/15/20 Amoxicillin/Potassium Clav 1 tab PO Q12HR 4 Days #8 tab 11/07/20 [Augmentin 875-125 Tablet] Nystatin 100,000 Unit/ml Susp 500,000 unit PO QID ml 11/07/20 [Mycostatin Oral Susp] predniSONE [Deltasone] 40 mg PO DAILY 4 Days #4 tab 11/07/20 Allergies Allergy/AdvReac Type Severity Reaction Status Date / Time No Known Allergies Allergy Verified 12/03/20 15:02 Review of Systems ROS Statement: Those systems with pertinent positive or pertinent negative responses have been documented in the HPI. ROS Other: All systems not noted in ROS Statement are negative. Constitutional: Denies: fever Eyes: Denies: eye pain ENT: Denies: ear pain Respiratory: Reports: cough, dyspnea Cardiovascular: Denies: chest pain Endocrine: Reports: fatigue Gastrointestinal: Reports: other (Distention) Genitourinary: Denies: dysuria Musculoskeletal: Denies: back pain Skin: Denies: lesions Neurological: Denies: confusion Past Medical History Past Medical History: Cancer, COPD Additional Past Medical History / Comment(s): 2017 L breast cancer with bilateral mastectomies/chemo/radiation, CLL, chronic elevation WBCs, cervical pain/vertigo on and off since April 2020, brain/lung/bone/liver CA History of Any Multi-Drug Resistant Organisms: None Reported Past Surgical History: Orthopedic Surgery Additional Past Surgical History / Comment(s): 2017 Bilateral mastectomies/implant reconstruction, R thumb tendon repair, lung mass biopsy. Past Anesthesia/Blood Transfusion Reactions: No Reported Reaction Past Psychological History: Anxiety, Depression, Panic Disorder Smoking Status: Current every day smoker Past Alcohol Use History: None Reported Past Drug Use History: None Reported - Past Family History Mother Family Medical History: Cancer Additional Family Medical History / Comment(s): in her 60s with history of dementia, chronic back pain, "pre leukemia." Father Additional Family Medical History / Comment(s): Father is alive with history of diabetes. Brother(s) Additional Family Medical History / Comment(s): Patient has 2 brothers with no major medical problems. Patient has 1 sister with no major medical problems. Patient does not have any children. General Exam Limitations: no limitations General appearance: alert, in no apparent distress Head exam: Present: atraumatic Eye exam: Present: scleral icterus Neck exam: Present: normal inspection Respiratory exam: Present: wheezes, rales Cardiovascular Exam: Present: tachycardia GI/Abdominal exam: Present: soft, distended (Mild distention) Extremities exam: Present: pedal edema. Absent: calf tenderness Neurological exam: Present: alert Psychiatric exam: Present: flat affect Skin exam: Present: other (Jaundice appearance) Course Vital Signs 12/03/20 15:02 Temperature 98.1 F Pulse Rate 117 H Respiratory 21 Rate Blood Pressure 102/71 O2 Sat by Pulse 95 Oximetry Medical Decision Making - Medical Decision Making Patient was updated on plan. Dr. De Dios contacted who will admit covering for Dr. Eaton. Dr. Murray will be placed on consult. Also be placed for pulmonary and GI for thoracentesis and paracentesis. - Radiology Data Radiology results: image reviewed (Abdominal x-ray shows exam effusion, ascites, possible bony metastasis. Two-view chest x-ray shows moderate right-sided effusion. Cannot exclude pneumonia or edema.) Disposition Clinical Impression: Pleural effusion, right, Breast cancer, Metastatic cancer, Ascites, Dyspnea Disposition: ADMITTED IP TO THIS HOSP Is patient prescribed a controlled substance at d/c from ED?: No Referrals: Pia Jaramillo MD [Primary Care Provider] - 1-2 days Decision Time: 16:18
--- NOTE | 2020-12-03 16:06 | XR ---
Abdomen HISTORY: Distention Frontal view of the abdomen on 2 images There is abnormal density at the lung bases greater on the right, the hemidiaphragm in the right is o bscured. There is a relative lack of gas noted within the abdomen. Sclerotic density is associated wi th the bones. Tissue expanders present at the level of the breasts. IMPRESSION: Pleural effusions right greater than left. There may be underlying ascites. Difficult to exclude abdominal masses. Bony metastatic disease is suspected, consider bone scan. Patient with know n liver masses.
--- NOTE | 2020-12-03 16:07 | XR ---
EXAMINATION TYPE: XR chest 2V DATE OF EXAM: 12/03/2020 COMPARISON: Chest x-ray 11/02/2020 HISTORY: Difficulty breathing TECHNIQUE: Frontal and lateral views of the chest are obtained. FINDINGS: Findings are similar to prior exam, right-sided pleural effusion may have increased in the interval. There is interval blunting the left costophrenic angle. Patchy groundglass density present in the left lung. Right-sided port is in place as on prior, tissue expanders are present. There is n o evident pneumothorax. Cardiac mediastinal silhouette is obscured. IMPRESSION: Correlate for edema, pneumonia, there are increasing pleural effusions right greater nuzhat n left.
[2020-12-03] MEDS ORDERED: ACETAMINOPHEN TAB 325 MG TAB PO PRN ×2 (16:18→17:58)
[2020-12-03] MEDS ORDERED: NALOXONE 0.4 MG/ML 1 ML VIAL IV PRN (16:18)
[2020-12-03 16:59] LABS: ALT 171 U/L (4-34); AST 527 U/L (14-36); African American GFR (CKD) >90 (>60 ml/min/1.73 sqM); Albumin 2.6 g/dL (3.5-5.0); Anion Gap 6 mmol/L; Blood Urea Nitrogen 12 mg/dL (7-17); Calcium 8.4 mg/dL (8.4-10.2); Carbon Dioxide 30 mmol/L (22-30); Chloride 92 mmol/L (98-107); Glucose 83 mg/dL (74-99); Non-African American GFR(CKD) >90 (>60 ml/min/1.73 sqM); Potassium 3.6 mmol/L (3.5-5.1); Sodium 128 mmol/L (137-145); Total Bilirubin 9.8 mg/dL (0.2-1.3); Total Protein 4.8 g/dL (6.3-8.2)
[2020-12-03 17:03] LABS: INR 1.3 (<1.2); Partial Thromboplastin Time 24.8 sec (22.0-30.0); Prothrombin Time 13.5 sec (9.0-12.0)
[2020-12-03 17:12] LABS: Alkaline Phosphatase 1780 U/L (38-126)
[2020-12-03 17:13] LABS: Anisocytosis Slight; HGB 7.8 gm/dL (11.4-16.0); MCH 33.5 pg (25.0-35.0); Macrocytosis Slight; Mean Platelet Volume 8.3; Poikilocytosis Slight; RBC 2.34 m/uL (3.80-5.40); RDW 18.9 % (11.5-15.5)
[2020-12-03 17:15] LABS: MCV 98.4 fL (80.0-100.0)
[2020-12-03 17:32] LABS: Band Neutrophils % 4 %; Lymphocytes # (M) 5.48 k/uL (1.0-4.8); Monocytes # (M) 0.23 k/uL (0-1.0); Neutrophils % (M) 21 %; Nucleated Red Blood Cells 2 /100 WBC (0-0); Total Cells Counted 200; WBC 7.5 k/uL (3.8-10.6)
[2020-12-03 17:33] LABS: Stomatocytes Present
[2020-12-03 17:34] LABS: Platelet Count 99 k/uL (150-450); Polychromasia Present
[2020-12-03] MEDS: PANTOPRAZOLE 40 MG/10 ML VIAL IV SCH (17:39)
[2020-12-03] MEDS ORDERED: clonazePAM 0.5 MG TAB PO PRN (17:58)
[2020-12-03] MEDS ORDERED: polyethylene glycoL 3350 17 GM POWD.PACK PO PRN (17:58)
--- NOTE | 2020-12-03 18:13 | P.HPIM ---
History of Present Illness H&P Date: 12/03/20 This is a 50-year-old female with past medical history significant for metastatic breast cancer with multiple hospitalization over the last few months that was sent to the emergency room from her oncologist office secondary to progressive deterioration of her overall condition, weakness, and worsening ascites and pleural effusion. Patient has chronic voice hoarseness and was awake and alert. Her friend is at bedside. She told me that she is ready for hospice. She does not want any aggressive measures anymore. She is agreeable for paracentesis and thoracentesis for comfort measures. She is having low back pain that is chronic for her. Some shortness of breath. Review of Systems Review of system: 14 points review of systems were obtained and were negative except to what were mentioned in the HPI. Past Medical History Past Medical History: Cancer, COPD Additional Past Medical History / Comment(s): 2016 L breast cancer with bilateral mastectomies/chemo/radiation, CLL, chronic elevation WBCs, cervical pain/vertigo on and off since April 2020, brain/lung/bone/liver CA History of Any Multi-Drug Resistant Organisms: None Reported Past Surgical History: Orthopedic Surgery Additional Past Surgical History / Comment(s): 2017 Bilateral mastectomies/implant reconstruction, R thumb tendon repair, lung mass biopsy. Past Anesthesia/Blood Transfusion Reactions: No Reported Reaction Past Psychological History: Anxiety, Depression, Panic Disorder Smoking Status: Current every day smoker Past Alcohol Use History: None Reported Past Drug Use History: None Reported - Past Family History Mother Family Medical History: Cancer Additional Family Medical History / Comment(s): in her 60s with history of dementia, chronic back pain, "pre leukemia." Father Additional Family Medical History / Comment(s): Father is alive with history of diabetes. Brother(s) Additional Family Medical History / Comment(s): Patient has 2 brothers with no major medical problems. Patient has 1 sister with no major medical problems. Patient does not have any children. Medications and Allergies Home Medications Medication Instructions Recorded Confirmed Type Albuterol Sulfate [Ventolin HFA] 2 puff INHALATION RT-Q4H PRN 04/12/17 12/03/20 History clonazePAM [KlonoPIN] 0.5 mg PO DAILY PRN 04/12/17 12/03/20 History Ipratropium-Albuterol Nebulize 3 ml INHALATION RT-TID PRN 09/01/20 12/03/20 History [Duoneb 0.5 mg-3 mg/3 ml Soln] Multivitamin [Multivitamins Adult 2 tab PO DAILY 09/01/20 12/03/20 History Gummies] Anastrozole [Arimidex] 1 mg PO DAILY tab 09/10/20 12/03/20 Rx Furosemide [Lasix] 20 mg PO DAILY PRN #30 tab 09/10/20 12/03/20 Rx polyethylene glycoL 3350 [Miralax] 17 gm PO HS PRN #30 powd.pack 09/10/20 12/03/20 Rx Cholestyramine (with Sugar) 4 gm PO DAILY PRN 10/11/20 12/03/20 History [Cholestyramine Packet] OLANZapine [ZyPREXA] 5 mg PO DAILY 10/11/20 12/03/20 History Omeprazole 20 mg PO BID 10/11/20 12/03/20 History Acetaminophen Tab [Tylenol] 650 mg PO Q6HR PRN tab 10/15/20 12/03/20 Rx Hydrocodone/Acetaminophen [[place] 1 tab PO QID PRN 11/01/20 12/03/20 History 7.5-325] Ondansetron HCl [Zofran] 4 mg PO Q6H PRN 12/03/20 12/03/20 History Allergies Allergy/AdvReac Type Severity Reaction Status Date / Time No Known Allergies Allergy Verified 12/03/20 16:47 Physical Exam Vitals: Vital Signs Temp Pulse Resp BP Pulse Ox 12/03/20 17:00 114 H 22 106/70 98 12/03/20 16:54 119 H 12/03/20 16:48 110 H 12/03/20 16:07 116 H 24 105/79 98 12/03/20 15:02 98.1 F 117 H 21 102/71 95 Intake and Output 12/03/20 12/03/20 12/03/20 06:59 14:59 22:59 Other: Weight 63.503 kg General: The patient is awake and alert, in no distress Eye: there is normal conjunctiva bilaterally. Neck: The neck is supple, there is no JVD. Cardiovascular: Normal S1-S2, no S3-S4, no murmurs. Respiratory: Lungs clear to auscultation bilaterally Gastrointestinal: Abdomen is distended with large ascites r Musculoskeletal: There is +3 pedal edema. Up to the knee Neurological:. Speech is normal. Skin: Skin is warm and dry Results CBC & Chem 7: 12/03/20 15:42 12/03/20 15:42 Labs: Abnormal Lab Results - Last 24 Hours (Table) 12/03/20 12/03/20 12/03/20 Range/Units 15:42 15:42 15:42 RBC 2.34 L (3.80-5.40) m/uL Hgb 7.8 L (11.4-16.0) gm/dL Hct 23.0 L (34.0-46.0) % RDW 18.9 H (11.5-15.5) % Plt Count 99 L (150-450) k/uL Lymphocytes # (Manual) 5.48 H (1.0-4.8) k/uL Nucleated RBCs 2 H (0-0) /100 WBC PT 13.5 H (9.0-12.0) sec INR 1.3 H (<1.2) Sodium 128 L (137-145) mmol/L Chloride 92 L (98-107) mmol/L Total Bilirubin 9.8 H (0.2-1.3) mg/dL AST 527 H (14-36) U/L ALT 171 H (4-34) U/L Alkaline Phosphatase 1780 H (38-126) U/L Total Protein 4.8 L (6.3-8.2) g/dL Albumin 2.6 L (3.5-5.0) g/dL Assessment and Plan Assessment: This is a 50-year-old female with complex past medical history noted below is currently admitted to the hospital for paracentesis and possible thoracentesis for comfort measures. I would consult hospice for further evaluation. Those risks of her medical problems. 1. Metastatic breast cancer with liver, lung, bone, and brain metastasis 2. Chronic hypoxic respiratory failure on home O2 3. History of CLL 4. Chronic low back pain 5. Chronic constipation 6. Patient is DO NOT RESUSCITATE
[2020-12-03] MEDS: IPRATROPIUM-ALBUTEROL 3 ML NEB INHALATION PRN (20:58)
[2020-12-03] MEDS: MAG HYDROX/AL HYDROX/SIMETH 30 ML, LIDOCAINE VISCOUS 30 ML, NYSTATIN 100,000 UNIT/ML SU... PO SCH ×3 (22:57)
[2020-12-03] MEDS ORDERED: guaiFENesin-DM 600/30MG 1 EACH TAB.ER.12H PO STA (23:02)
[2020-12-04] MEDS: MORPHINE SULFATE 4 MG/ML SYRINGE IV PRN ×4 (02:51→22:17)
[2020-12-04] MEDS: ONDANSETRON 4 MG/2 ML VIAL IVP PRN ×2 (02:52→11:15)
[2020-12-04] MEDS ORDERED: PANTOPRAZOLE 40 MG TABLET PO SCH (07:30)
[2020-12-04] MEDS: IPRATROPIUM-ALBUTEROL 3 ML NEB INHALATION PRN (08:25)
--- NOTE | 2020-12-04 09:42 | US ---
EXAMINATION TYPE: US abdomen limited DATE OF EXAM: 12/04/2020 COMPARISON: chest x ray 12/03/2020, CT 08/02/2020 CLINICAL HISTORY: assess for fluid pocket please. Avery pleural effusions also per diagnosis EXAM MEASUREMENTS: Minimal ascites is noted RUQ superior to liver and LUQ superior to spleen. Minimal ascites pocket als o seen RLQ = 1.9cm A/P. Incidental note multiple liver masses Right pleural effusion seen = 10.0cm. Left pleural effusion pocket noted = 6.7cm. IMPRESSION: Bilateral pleural effusions. Minimal ascites. Metastatic disease to liver.
[2020-12-04] MEDS: PANTOPRAZOLE 40 MG/10 ML VIAL IV SCH (10:31)
[2020-12-04] MEDS: OLANZapine 5 MG TAB PO SCH (11:14)
[2020-12-04] MEDS: MAG HYDROX/AL HYDROX/SIMETH 30 ML, LIDOCAINE VISCOUS 30 ML, NYSTATIN 100,000 UNIT/ML SU... PO SCH ×9 (11:15→21:25)
[2020-12-04] MEDS: IPRATROPIUM-ALBUTEROL 3 ML NEB INHALATION SCH ×3 (12:12→20:38)
--- NOTE | 2020-12-04 12:29 | P.PN ---
Subjective Progress Note Date: 12/04/20 Patient was lethargic this morning. No acute events overnight reported by nursing staff. Objective - Vital Signs Vital signs: Vital Signs Temp 97.9 F 12/04/20 08:01 Pulse 104 H 12/04/20 12:23 Resp 19 12/04/20 08:01 BP 116/75 12/04/20 08:01 Pulse Ox 94 L 12/04/20 08:01 Intake & Output 12/03/20 12/04/20 12/04/20 18:59 06:59 18:59 Intake Total 20 Balance 20 Weight 63.503 kg 63.503 kg Intake: IV 20 Invasive Line 1 20 Other: Voiding Method Bedside Commode Bedside Commode - Exam General: The patient is awake and alert, in no distress Eye: there is normal conjunctiva bilaterally. Neck: The neck is supple, there is no JVD. Cardiovascular: Normal S1-S2, no S3-S4, no murmurs. Respiratory: Lungs clear to auscultation bilaterally Gastrointestinal: Abdomen is distended with mild tenderness Musculoskeletal: There is +3 pedal edema. Neurological:. Speech is normal. Skin: Skin is warm and dry - Labs CBC & Chem 7: 12/03/20 15:42 12/03/20 15:42 Labs: Abnormal Lab Results - Last 24 Hours (Table) 12/03/20 12/03/20 12/03/20 Range/Units 15:42 15:42 15:42 RBC 2.34 L (3.80-5.40) m/uL Hgb 7.8 L (11.4-16.0) gm/dL Hct 23.0 L (34.0-46.0) % RDW 18.9 H (11.5-15.5) % Plt Count 99 L (150-450) k/uL Lymphocytes # (Manual) 5.48 H (1.0-4.8) k/uL Nucleated RBCs 2 H (0-0) /100 WBC PT 13.5 H (9.0-12.0) sec INR 1.3 H (<1.2) Sodium 128 L (137-145) mmol/L Chloride 92 L (98-107) mmol/L Total Bilirubin 9.8 H (0.2-1.3) mg/dL AST 527 H (14-36) U/L ALT 171 H (4-34) U/L Alkaline Phosphatase 1780 H (38-126) U/L Total Protein 4.8 L (6.3-8.2) g/dL Albumin 2.6 L (3.5-5.0) g/dL Assessment and Plan Assessment: This is a 50-year-old female with complex past medical history noted below is currently admitted to the hospital for comfort measures. Consult for hospice in place awaiting meeting tomorrow. 1. Metastatic breast cancer with liver, lung, bone, and brain metastasis 2. Chronic hypoxic respiratory failure on home O2 3. History of CLL 4. Chronic low back pain 5. Chronic constipation 6. Patient is DO NOT RESUSCITATE Ultrasound showed minimal ascites probably abdominal distention secondary to malignancy burden. Awaiting pulmonology evaluation at this time to assess as patient may benefit from a thoracentesis for comfort. Patient would like to go home with hospice tomorrow
--- NOTE | 2020-12-04 14:29 | P.CONS ---
History of Present Illness - Reason for Consult Consult date: 12/04/20 Metastatic breast cancer, failure to thrive Requesting physician: Volodymyr Sweeney - Chief Complaint weakness, LUISANA - History of Present Illness Ms. Melgar is a very pleasant female pt of Dr. Devine-please refer back to consult dated 11/02/20 for full malignancy history-who is admitted from Oncology office where she was being seen in f/u. Her general condition has cont to deteriorate since DC just a few weeks ago. She did get some XRT to the lung mass (thought most likely cause of her recurrent respiratory symptoms previously). She still has hoarse voice, very congested cough, not expectorating much, SOB due to distension of the abd, which is of new onset for her, progressive over the last week, denies fever, appetite is poor, early satiety, no acute changes in bowel or bladder, denies s/s infection, she doesn't have the energy to get up to go to the bathroom at home. Review of Systems 14 point ROS is neg except as stated in HPI Past Medical History Past Medical History: Cancer, COPD Additional Past Medical History / Comment(s): 2017 L breast cancer with bilat eral mastectomies/chemo/radiation, CLL, chronic elevation WBCs, cervical pain/vertigo on and off since April 2020, brain/lung/bone/liver CA History of Any Multi-Drug Resistant Organisms: None Reported Past Surgical History: Orthopedic Surgery Additional Past Surgical History / Comment(s): 2017 Bilateral mastectomies/implant reconstruction, R thumb tendon repair, lung mass biopsy. Past Anesthesia/Blood Transfusion Reactions: No Reported Reaction Past Psychological History: Anxiety, Depression, Panic Disorder Additional Psychological History / Comment(s): Pt resides alone with her cat. She has a nebulizer. She works for [employer]. She is independent. Smoking Status: Current every day smoker Past Alcohol Use History: None Reported Additional Past Alcohol Use History / Comment(s): Pt started smoking in 1983 and is a 2 ppd smoker. She states she drinks 2 beers a day. Past Drug Use History: None Reported - Past Family History Mother Family Medical History: Cancer Additional Family Medical History / Comment(s): in her 60s with history of dementia, chronic back pain, "pre leukemia." Father Additional Family Medical History / Comment(s): Father is alive with history of diabetes. Brother(s) Additional Family Medical History / Comment(s): Patient has 2 brothers with no major medical problems. Patient has 1 sister with no major medical problems. Patient does not have any children. Medications and Allergies Home Medications Medication Instructions Recorded Confirmed Type Albuterol Sulfate [Ventolin HFA] 2 puff INHALATION RT-Q4H PRN 04/12/17 12/03/20 History clonazePAM [KlonoPIN] 0.5 mg PO DAILY PRN 04/12/17 12/03/20 History Ipratropium-Albuterol Nebulize 3 ml INHALATION RT-TID PRN 09/01/20 12/03/20 History [Duoneb 0.5 mg-3 mg/3 ml Soln] Multivitamin [Multivitamins Adult 2 tab PO DAILY 09/01/20 12/03/20 History Gummies] Anastrozole [Arimidex] 1 mg PO DAILY tab 09/10/20 12/03/20 Rx Furosemide [Lasix] 20 mg PO DAILY PRN #30 tab 09/10/20 12/03/20 Rx polyethylene glycoL 3350 [Miralax] 17 gm PO HS PRN #30 powd.pack 09/10/20 12/03/20 Rx Cholestyramine (with Sugar) 4 gm PO DAILY PRN 10/11/20 12/03/20 History [Cholestyramine Packet] OLANZapine [ZyPREXA] 5 mg PO DAILY 10/11/20 12/03/20 History Omeprazole 20 mg PO BID 10/11/20 12/03/20 History Acetaminophen Tab [Tylenol] 650 mg PO Q6HR PRN tab 10/15/20 12/03/20 Rx Hydrocodone/Acetaminophen [[place] 1 tab PO QID PRN 11/01/20 12/03/20 History 7.5-325] Ondansetron HCl [Zofran] 4 mg PO Q6H PRN 12/03/20 12/03/20 History Allergies Allergy/AdvReac Type Severity Reaction Status Date / Time No Known Allergies Allergy Verified 12/03/20 16:47 Physical Exam Vitals: Vital Signs Temp Pulse Pulse Resp BP BP Pulse Ox 12/04/20 08:41 106 H 12/04/20 08:29 110 H 12/04/20 08:01 97.9 F 109 H 19 116/75 94 L 12/04/20 07:57 98.1 F 111 H 18 119/75 93 L 12/04/20 07:48 22 12/04/20 07:03 98.5 F 103 H 22 100/74 93 L 12/04/20 04:00 98.5 F 103 H 22 100/74 93 L 12/04/20 02:53 98 20 109/73 95 12/04/20 01:00 110 H 26 H 97/70 96 12/04/20 00:00 112 H 26 H 97/65 92 L 12/03/20 23:00 99.0 F 110 H 26 H 110/73 90 L 12/03/20 21:07 113 H 12/03/20 20:58 115 H 12/03/20 20:00 98.9 F 114 H 24 105/72 90 L 12/03/20 17:00 114 H 22 106/70 98 12/03/20 16:54 119 H 12/03/20 16:48 110 H 12/03/20 16:07 116 H 24 105/79 98 12/03/20 15:02 98.1 F 117 H 21 102/71 95 Intake and Output 12/03/20 12/04/20 12/04/20 22:59 06:59 14:59 Other: Voiding Method Bedside Commode Bedside Commode Weight 63.503 kg - Constitutional General appearance: cooperative, mild distress, thin - EENT dry mucus membranes Eyes: EOMI, scleral icterus ENT: hearing grossly normal - Neck Neck: no lymphadenopathy - Respiratory Respiratory: bilateral: rhonchi - Cardiovascular anasarca, moderate Heart sounds: normal: S1, S2 Abnormal Heart Sounds: no systolic murmur, no diastolic murmur, no rub, no S3 Gallop, no S4 Gallop, no click, no other - Gastrointestinal General gastrointestinal: distended, hepatomegaly (4-5 FB below costal margin, crosses midline, hard) - Integumentary Integumentary: jaundiced - Musculoskeletal Musculoskeletal: generalized weakness - Psychiatric Psychiatric: A&O x's 3, appropriate affect, intact judgment & insight Results CBC & Chem 7: 12/03/20 15:42 12/03/20 15:42 Labs: Abnormal Lab Results - Last 24 Hours (Table) 02/10/21 02/10/21 02/10/21 Range/Units 15:42 15:42 15:42 RBC 2.34 L (3.80-5.40) m/uL Hgb 7.8 L (11.4-16.0) gm/dL Hct 23.0 L (34.0-46.0) % RDW 18.9 H (11.5-15.5) % Plt Count 99 L (150-450) k/uL Lymphocytes # (Manual) 5.48 H (1.0-4.8) k/uL Nucleated RBCs 2 H (0-0) /100 WBC PT 13.5 H (9.0-12.0) sec INR 1.3 H (<1.2) Sodium 128 L (137-145) mmol/L Chloride 92 L (98-107) mmol/L Total Bilirubin 9.8 H (0.2-1.3) mg/dL AST 527 H (14-36) U/L ALT 171 H (4-34) U/L Alkaline Phosphatase 1780 H (38-126) U/L Total Protein 4.8 L (6.3-8.2) g/dL Albumin 2.6 L (3.5-5.0) g/dL Chest x-ray: report reviewed Abdominal x-ray: report reviewed US - abdomen: report reviewed Assessment and Plan (1) Ascites Current Visit: Yes Status: Acute Priority: High Code(s): R18.8 - OTHER ASCITES SNOMED Code(s): 311477948 (2) Pleural effusion, right Current Visit: Yes Status: Acute Priority: High Code(s): J90 - PLEURAL EFFUSION, NOT ELSEWHERE CLASSIFIED SNOMED Code(s): 45815317 (3) Metastatic cancer Current Visit: Yes Status: Chronic Priority: High Code(s): C79.9 - SECONDARY MALIGNANT NEOPLASM OF UNSPECIFIED SITE SNOMED Code(s): 247586145 (4) Body fluid retention Current Visit: Yes Status: Acute Priority: High Code(s): R60.9 - EDEMA, UNSPECIFIED SNOMED Code(s): 11132366 (5) Hoarseness Current Visit: Yes Status: Acute Priority: High Code(s): R49.0 - DYSPHONIA SNOMED Code(s): 19412453 (6) CLL (chronic lymphocytic leukemia) Current Visit: No Status: Chronic Priority: Medium Code(s): C91.10 - CHRONIC LYMPHOCYTIC LEUK OF B-CELL TYPE NOT ACHIEVE REMIS SNOMED Code(s): 11437569 (7) Jaundice Current Visit: Yes Status: Acute Priority: High Code(s): R17 - UNSPECIFIED JAUNDICE SNOMED Code(s): 96213579 Plan: Pt has declined rapidly. Her liver is certainly deteriorating. PS is 3-4. She is admitted for palliative procedures (thora and para) to see if those help make pt more comfortable. Dr. Devine discussed with pt that what is most likely happening is that pt malignancy is progressing, and rapidly, and is ahead of any treatment that could be given. While chemo is an option, in her current condition, it could not be given as risk is absolutely greater then possible benefit. Pt could not tolerate in her condition. Purpose of Hospice reviewed with pt-she did not seem to be clear on this subject. Tumor markers were ordered from office yesterday-confirmed receipt of specimen with the lab. Will look for those results. Bili fractions ordered to determine if possible obstruction. Supportive care Pain management Follow with pt and family to ensure all questions answered Attests: I have performed H&P and developed impression and plan of care of patient, discussed with dictator. I agree with dictated note, documented as a scribe. Time with Patient: Greater than 30 (end of life, counseling and coordinating care)
--- NOTE | 2020-12-04 16:38 | P.CNPUL ---
History of Present Illness Consult date: 12/04/20 Reason for consult: dyspnea, pleural effusion History of present illness: A very pleasant 50-year-old female patient with metastatic breast cancer diagnosed back in 2017 post bilateral mastectomy, chemotherapy and radiation therapy and currently her disease progressed and she has a metastatic disease. The patient apparently declined rapidly. She had liver metastases in addition to pulmonary metastases and she is quite debilitated, hoarse, short of breath and unable to eat with declining health condition. Hospice was being introduced in this patient's care. I was asked to do a therapeutic thoracentesis on this patient to give her some symptomatic relief. Note that I reviewed the previous CAT scan of the chest that showed a small right-sided pleural effusion. There was also an extensive mass in the right upper lobe with significant mediastinal lymphadenopathy and there was obvious progression of the lung mass with increasing pleural effusion. There was also nodularity within the lung and diffuse metastatic disease that was progressively getting worse. In the mediastinum, the patient had 10 x 13 cm right upper lobe mass in addition to multiple mediastinal lymph nodes and bilateral bronchial lymphadenopathy up to 2.5 cm in size. The bronchus intermedius was extensively narrowed and there was a mass effect involving the airway. There was also small amount of pericardial effusion. The most recent chest x-ray showed right-sided pleural effusion that had increased in size and there was also blunting of the right costophrenic angle there was a right-sided port in place and tissue expanders also in place in her breasts. Review of Systems Constitutional: Reports daytime sleepiness, Reports fatigue, Reports lethargy, Reports poor appetite, Reports weakness, Reports weight loss Eyes: denies as per HPI, denies blurred vision, denies bulging eye, denies decreased vision, denies diplopia, denies discharge, denies dry eye, denies irritation, denies itching, denies pain, denies photophobia, denies loss of peripheral vision, denies loss of vision, denies tunnel vision/blind spots Ears: right: decreased hearing Ears, nose, mouth and throat: Reports as per HPI Breasts: bilateral: masses Cardiovascular: Reports decreased exercise tolerance, Reports dyspnea on exertion Respiratory: Reports dyspnea Gastrointestinal: Reports abdominal pain, Reports jaundice, Reports loss of appetite Genitourinary: Reports as per HPI Menstruation: Reports as per HPI Musculoskeletal: Reports gait dysfunction, Reports muscle weakness Musculoskeletal: absent: ankle pain, ankle stiffness, ankle swelling Integumentary: Reports as per HPI Neurological: Reports as per HPI Psychiatric: Reports as per HPI Endocrine: Reports as per HPI, Reports fatigue Hematologic/Lymphatic: Reports as per HPI Allergic/Immunologic: Reports as per HPI Past Medical History Past Medical History: Cancer, COPD Additional Past Medical History / Comment(s): 2016 L breast cancer with bilateral mastectomies/chemo/radiation, CLL, chronic elevation WBCs, cervical pain/vertigo on and off since April 2020, brain/lung/bone/liver CA History of Any Multi-Drug Resistant Organisms: None Reported Past Surgical History: Orthopedic Surgery Additional Past Surgical History / Comment(s): 2016 Bilateral mastectomies/implant reconstruction, R thumb tendon repair, lung mass biopsy. Past Anesthesia/Blood Transfusion Reactions: No Reported Reaction Past Psychological History: Anxiety, Depression, Panic Disorder Additional Psychological History / Comment(s): Pt resides alone with her cat. She has a nebulizer. She works for [email or web address]. She is independent. Smoking Status: Current every day smoker Past Alcohol Use History: None Reported Additional Past Alcohol Use History / Comment(s): Pt started smoking in 1983 and is a 2 ppd smoker. She states she drinks 2 beers a day. Past Drug Use History: None Reported - Past Family History Mother Family Medical History: Cancer Additional Family Medical History / Comment(s): in her 60s with history of dementia, chronic back pain, "pre leukemia." Father Additional Family Medical History / Comment(s): Father is alive with history of diabetes. Brother(s) Additional Family Medical History / Comment(s): Patient has 2 brothers with no major medical problems. Patient has 1 sister with no major medical problems. Patient does not have any children. Medications and Allergies Home Medications Medication Instructions Recorded Confirmed Type Albuterol Sulfate [Ventolin HFA] 2 puff INHALATION RT-Q4H PRN 04/12/17 12/03/20 History clonazePAM [KlonoPIN] 0.5 mg PO DAILY PRN 04/12/17 12/03/20 History Ipratropium-Albuterol Nebulize 3 ml INHALATION RT-TID PRN 09/01/20 12/03/20 History [Duoneb 0.5 mg-3 mg/3 ml Soln] Multivitamin [Multivitamins Adult 2 tab PO DAILY 09/01/20 12/03/20 History Gummies] Anastrozole [Arimidex] 1 mg PO DAILY tab 09/10/20 12/03/20 Rx Furosemide [Lasix] 20 mg PO DAILY PRN #30 tab 09/10/20 12/03/20 Rx polyethylene glycoL 3350 [Miralax] 17 gm PO HS PRN #30 powd.pack 09/10/20 12/03/20 Rx Cholestyramine (with Sugar) 4 gm PO DAILY PRN 10/11/20 12/03/20 History [Cholestyramine Packet] OLANZapine [ZyPREXA] 5 mg PO DAILY 10/11/20 12/03/20 History Omeprazole 20 mg PO BID 10/11/20 12/03/20 History Acetaminophen Tab [Tylenol] 650 mg PO Q6HR PRN tab 10/15/20 12/03/20 Rx Hydrocodone/Acetaminophen [[place] 1 tab PO QID PRN 11/01/20 12/03/20 History 7.5-325] Ondansetron HCl [Zofran] 4 mg PO Q6H PRN 12/03/20 12/03/20 History Allergies Allergy/AdvReac Type Severity Reaction Status Date / Time No Known Allergies Allergy Verified 12/03/20 16:47 Physical Exam Vitals: Vital Signs Temp Pulse Pulse Resp BP BP Pulse Ox 12/04/20 13:43 114 H 14 12/04/20 12:54 97.7 F 114 H 16 106/60 92 L 12/04/20 12:23 104 H 12/04/20 12:13 100 12/04/20 08:41 106 H 12/04/20 08:29 110 H 12/04/20 08:01 97.9 F 109 H 19 116/75 94 L 12/04/20 07:57 98.1 F 111 H 18 119/75 93 L 12/04/20 07:48 22 12/04/20 07:03 98.5 F 103 H 22 100/74 93 L 12/04/20 04:00 98.5 F 103 H 22 100/74 93 L 12/04/20 02:53 98 20 109/73 95 12/04/20 01:00 110 H 26 H 97/70 96 12/04/20 00:00 112 H 26 H 97/65 92 L 12/03/20 23:00 99.0 F 110 H 26 H 110/73 90 L 12/03/20 21:07 113 H 12/03/20 20:58 115 H 12/03/20 20:00 98.9 F 114 H 24 105/72 90 L 12/03/20 17:00 114 H 22 106/70 98 12/03/20 16:54 119 H 12/03/20 16:48 110 H Intake and Output 12/04/20 12/04/20 12/04/20 06:59 14:59 22:59 Intake Total 20 Balance 20 Intake: IV 20 Invasive Line 1 20 Other: Voiding Method Toilet Cachectic, weak, emaciated with a body mass index of 25.6, very soft voice, congested cough which is also weak Head exam was generally normal. There was no scleral icterus or corneal arcus. Mucous membranes were moist. Neck was supple and without jugular venous distension, thyromegaly, or carotid bruits. Carotids were easily palpable bilaterally. There was no adenopathy. Lungs sounds are diminished on the right compared to the left there is also some dullness to percussion the right lung base Cardiac exam revealed the PMI to be normally situated and sized. The rhythm was regular and no extrasystoles were noted during several minutes of auscultation. The first and second heart sounds were normal and physiologic splitting of the second heart sound was noted. There were no murmurs, rubs, clicks, or gallops. The patient bilateral mastectomy and the patient has also reported over the right anterior chest area Abdomen slightly distended soft. No direct tenderness hemoptysis or guarding Examination of the extremities revealed easily palpable radial, femoral and pedal pulses. There was no cyanosis, clubbing or trace edema in lower extremity bilaterally Examination of the skin revealed no evidence of significant rashes, suspicious appearing nevi or other concerning lesions. Psychiatric the patient is depressed and anxious Results - Laboratory Findings CBC and BMP: 12/03/20 15:42 12/03/20 15:42 PT/INR, D-dimer PT 13.5 sec (9.0-12.0) H 12/03/20 15:42 INR 1.3 (<1.2) H 12/03/20 15:42 Abnormal lab findings: Abnormal Labs 12/03/20 12/03/20 02 15:42 15:42 15:42 RBC 2.34 L Hgb 7.8 L Hct 23.0 L RDW 18.9 H Plt Count 99 L Lymphocytes # (Manual) 5.48 H Nucleated RBCs 2 H PT 13.5 H INR 1.3 H Sodium 128 L Chloride 92 L Total Bilirubin 9.8 H AST 527 H ALT 171 H Alkaline Phosphatase 1780 H Total Protein 4.8 L Albumin 2.6 L - Diagnostic Findings Chest x-ray: image reviewed CT scan - chest: image reviewed Assessment and Plan Plan: 1 metastatic breast cancer with metastases involving the liver, lungs, mediastinum, bone and brain. Patient is seeking hospice care. 2 right upper lobe metastatic lung opacity in addition to mass effect over the bronchus intermedius and a right-sided pleural effusion. 3 shortness of breath secondary to above 4 hypoxic respiratory failure secondary to above 5 history of CLL 6 constipation 7 chronic back pain 8 hospice care Plan I do not see much benefit from doing a thoracentesis. In fact the procedure may end up being more complicated and make was more shortness of breath under the right lung is trapped and the bronchus intermedius is quite narrowed and the likelihood of the right lung expanding is quite low at this point in time. Use oxygen. Proceed with hospice care. This was extubated to the patient. Recommend against thoracentesis. Not much of symptomatically for the given with the procedure and the patient will follow-up back with fluid because of her metastatic disease.
[2020-12-04] MEDS: SODIUM CHLORIDE 0.9% 1,000 ML IV SCH ×2 (17:30→17:32)
[2020-12-04] MEDS ORDERED: guaiFENesin 600 MG TABLET.ER PO PRN (18:00)
[2020-12-04 19:58] LABS: Bilirubin, Conjugated 6.8 mg/dL (0.20-0.40); Bilirubin,Unconjugated 2.2 mg/dL
[2020-12-04 20:58] LABS: Cancer Antigen 153 101.8 U/mL (0.0-32.3)
[2020-12-05] MEDS: MORPHINE SULFATE 4 MG/ML SYRINGE IV PRN (04:28)
[2020-12-05] MEDS: IPRATROPIUM-ALBUTEROL 3 ML NEB INHALATION PRN (05:58)
[2020-12-05 07:13] VITALS: BP 91/61; RESP 14; TEMP 98.1
[2020-12-05] MEDS: IPRATROPIUM-ALBUTEROL 3 ML NEB INHALATION SCH (07:59)
--- NOTE | 2020-12-05 09:18 | P.DS ---
Providers Date of admission: 12/03/20 16:18 Expected date of discharge: 12/05/20 Attending physician: Elise Sharpe Consults: 12/03/20 16:19 Consult Physician Routine Consulting Provider: Francisco Amaya Consult Reason/Comments: Pleural effusion, dyspnea, Thoracentesis Do you want consulting provider notified?: Yes Consult Physician Urgent Consulting Provider: Cheo Devine Consult Reason/Comments: oncological care Do you want consulting provider notified?: Yes 12/03/20 17:57 Consult Physician Routine Consulting Provider: Navneet Chairez Consult Reason/Comments: Large ascites Do you want consulting provider notified?: Yes Primary care physician: Pia [facility] Course: This is a 50-year-old female with complex past medical history noted below is currently admitted to the hospital for comfort measures. Consult for hospice was placed and patient decided to go home with hospice. Below is a list of her medical problems. 1. Metastatic breast cancer with liver, lung, bone, and brain metastasis 2. Chronic hypoxic respiratory failure on home O2 3. History of CLL 4. Chronic low back pain 5. Chronic constipation 6. Patient is DO NOT RESUSCITATE Ultrasound of the abdomen showed minimal ascites probably abdominal distention secondary to malignancy burden. Patient was also seen by pulmonary and no thoracentesis is planned at this time. Patient will be discharged home with hospice. Patient Condition at Discharge: Poor Plan - Discharge Summary Discharge Rx Participant: Yes New Discharge Prescriptions: New Nystatin 100,000 Unit/ml Susp [Mycostatin Oral Susp] 3,000,000 unit PO TID #30 ml Continue clonazePAM [KlonoPIN] 0.5 mg PO DAILY PRN PRN Reason: Anxiety Albuterol Sulfate [Ventolin HFA] 2 puff INHALATION RT-Q4H PRN PRN Reason: Shortness Of Breath Ipratropium-Albuterol Nebulize [Duoneb 0.5 mg-3 mg/3 ml Soln] 3 ml INHALATION RT-TID PRN PRN Reason: Shortness Of Breath polyethylene glycoL 3350 [Miralax] 17 gm PO HS PRN #30 powd.pack PRN Reason: Constipation OLANZapine [ZyPREXA] 5 mg PO DAILY Hydrocodone/Acetaminophen [[place] 7.5-325] 1 tab PO QID PRN PRN Reason: Pain Ondansetron HCl [Zofran] 4 mg PO Q6H PRN PRN Reason: Nausea And Vomiting Discontinued Multivitamin [Multivitamins Adult Gummies] 2 tab PO DAILY Anastrozole [Arimidex] 1 mg PO DAILY tab Furosemide [Lasix] 20 mg PO DAILY PRN #30 tab PRN Reason: Edema Omeprazole 20 mg PO BID Cholestyramine (with Sugar) [Cholestyramine Packet] 4 gm PO DAILY PRN PRN Reason: Diarrhea Acetaminophen Tab [Tylenol] 650 mg PO Q6HR PRN tab PRN Reason: Mild Pain Or Fever > 100.5 Discharge Medication List Albuterol Sulfate [Ventolin HFA] 2 puff INHALATION RT-Q4H PRN 04/12/17 [History] clonazePAM [KlonoPIN] 0.5 mg PO DAILY PRN 04/12/17 [History] Ipratropium-Albuterol Nebulize [Duoneb 0.5 mg-3 mg/3 ml Soln] 3 ml INHALATION RT-TID PRN 09/01/20 [History] polyethylene glycoL 3350 [Miralax] 17 gm PO HS PRN #30 powd.pack 09/10/20 [Rx] OLANZapine [ZyPREXA] 5 mg PO DAILY 10/11/20 [History] Hydrocodone/Acetaminophen [[place] 7.5-325] 1 tab PO QID PRN 11/01/20 [History] Ondansetron HCl [Zofran] 4 mg PO Q6H PRN 12/03/20 [History] Nystatin 100,000 Unit/ml Susp [Mycostatin Oral Susp] 3,000,000 unit PO TID #30 ml 12/05/20 [Rx] Follow up Appointment(s)/Referral(s): [facility] [REFERRING] - Discharge Disposition: HOME WITH HOSPICE
[2020-12-05] MEDS ORDERED: SCOPOLAMINE 1.5MG/72HR PATCH TRANSDERM STA (09:35)
[2020-12-05] MEDS: MAG HYDROX/AL HYDROX/SIMETH 30 ML, LIDOCAINE VISCOUS 30 ML, NYSTATIN 100,000 UNIT/ML SU... PO SCH ×6 (09:44→10:09)
[2020-12-05] MEDS: PANTOPRAZOLE 40 MG/10 ML VIAL IV SCH (09:44)
[2020-12-05] MEDS: OLANZapine 5 MG TAB PO SCH (09:47)
[2020-12-05] MEDS ORDERED: FUROSEMIDE 10 MG/ML 10 ML VIAL IV STA (10:10)
[2020-12-05 11:36] VITALS: PULSE 137
--- NOTE | 2020-12-05 14:10 | P.PN ---
Subjective Progress Note Date: 12/05/20 Principal diagnosis: LUISANA, Liver failure, metastatic breast cancer Pt is lethargic but, clear when speaking to her, long time between answers. Denies pain, she is sitting up at bedside, SOB is ok as long as she doesn't move much. Denies nausea or pain Objective - Vital Signs Vital signs: Vital Signs Temp 98.1 F 12/05/20 07:10 Pulse 115 H 12/05/20 08:15 Resp 14 12/05/20 07:10 BP 91/61 12/05/20 07:10 Pulse Ox 93 L 12/05/20 07:10 Intake & Output 12/04/20 12/05/20 12/05/20 18:59 06:59 18:59 Intake Total 20 100 Balance 20 100 Intake: IV 20 Invasive Line 1 20 Oral 100 Other: Voiding Method Toilet Toilet Toilet # Voids 1 3 - Constitutional General appearance: Present: average body habitus, cooperative - EENT Eyes: Present: scleral icterus ENT: Present: hearing grossly normal - Respiratory Respiratory: bilateral: rhonchi - Cardiovascular Details: anasarca Rhythm: regular Heart sounds: normal: S1, S2 Abnormal Heart Sounds: Absent: systolic murmur, diastolic murmur, rub, S3 Gallop, S4 Gallop, click, other - Integumentary Integumentary: Present: jaundiced - Musculoskeletal Musculoskeletal: Present: generalized weakness - Labs CBC & Chem 7: 12/03/20 15:42 12/03/20 15:42 Labs: Abnormal Lab Results - Last 24 Hours (Table) 12/03/20 12/03/20 Range/Units 15:42 15:42 Total Bilirubin 9.0 H (0.2-1.2) mg/dL Conjugated Bilirubin 6.80 H (0.20-0.40) mg/dL CA 15-3 Antigen 101.8 H (0.0-32.3) U/mL CA 27-29 187.9 H (0.0-38.5) U/mL Assessment and Plan (1) Ascites Narrative/Plan: No large enough pocket of fluid to tap Status: Acute Priority: High Code(s): R18.8 - OTHER ASCITES SNOMED Code(s): 323579791 (2) Pleural effusion, right Narrative/Plan: [place] that procedure could complicate pt condition Status: Acute Priority: High Code(s): J90 - PLEURAL EFFUSION, NOT ELSEWHERE CLASSIFIED SNOMED Code(s): 53276411 (3) Metastatic cancer Narrative/Plan: Reviewed case with Radiologist who looked over abd US and despite tumor marker stability pt has severe disease progression in the liver. I discussed this with pt, and let her know that tumor markers are used as a guide and unfortunately in her case they are not reflective of disease extent/severity. She seemed to understand. She seemed to understand that she was going home with hospice, goal to treat symptoms and allow natural . Status: Chronic Priority: High Code(s): C79.9 - SECONDARY MALIGNANT NEOPLASM OF UNSPECIFIED SITE SNOMED Code(s): 194994754 (4) Body fluid retention Status: Acute Priority: High Code(s): R60.9 - EDEMA, UNSPECIFIED SNOMED Code(s): 79303323 (5) Hoarseness Status: Acute Priority: High Code(s): R49.0 - DYSPHONIA SNOMED Code(s): 67074189 (6) CLL (chronic lymphocytic leukemia) Status: Chronic Priority: Medium Code(s): C91.10 - CHRONIC LYMPHOCYTIC LEUK OF B-CELL TYPE NOT ACHIEVE REMIS SNOMED Code(s): 61873604 (7) Jaundice Status: Acute Priority: High Code(s): R17 - UNSPECIFIED JAUNDICE SNOMED Code(s): 00860855
== END 2020-12-05 11:59 | disposition hospice, home (50) | DRG 181 ==
LOC: EC 14:47 → 5NMEDONC 16:18 → 4SSUR 12-04 06:31
PROVIDERS: ADMIT Internal Medicine; ATTEND Internal Medicine
DX: C78.01 Secondary malignant neoplasm of right lung (principal); J96.11 Chronic respiratory failure with hypoxia; I31.3 Pericardial effusion (noninflammatory); C78.7 Secondary malignant neoplasm of liver and intrahepatic bile duct; C79.51 Secondary malignant neoplasm of bone; C79.31 Secondary malignant neoplasm of brain; C91.10 Chronic lymphocytic leukemia of B-cell type not having achieved remission; J90 Pleural effusion, not elsewhere classified; R18.8 Other ascites; F17.210 Nicotine dependence, cigarettes, uncomplicated; K59.09 Other constipation; K72.90 Hepatic failure, unspecified without coma; J44.9 Chronic obstructive pulmonary disease, unspecified; R62.7 Adult failure to thrive; Z51.5 Encounter for palliative care; Z66 Do not resuscitate; Z20.822 Contact with and (suspected) exposure to COVID-19; F41.0 Panic disorder [episodic paroxysmal anxiety]; G89.29 Other chronic pain; F32.9 Major depressive disorder, single episode, unspecified; Z85.3 Personal history of malignant neoplasm of breast; Z90.13 Acquired absence of bilateral breasts and nipples; Z95.828 Presence of other vascular implants and grafts; Z79.811 Long term (current) use of aromatase inhibitors; Z83.3 Family history of diabetes mellitus; R49.0 Dysphonia; R59.0 Localized enlarged lymph nodes; R63.4 Abnormal weight loss; Z68.25 Body mass index [BMI] 25.0-25.9, adult
CPT/HCPCS: 71046; 74018; 76705; 80053; 82248; 83880; 85025; 85610; 85730; 86300; 87635; 94640; 96374; 96375; 99285